=== PATIENT | female | born 1965 | race Caucasian/White ===

== ENCOUNTER → 2020-12-04 09:08 | Outpatient (REF) | payer OTHER, SELFPAY ==
--- NOTE | 2020-12-04 09:13 | CA_ITS ---
Acquisition Time: 2020-12-04 09:23:27 Total Exercise Time: 00:06:24 Test Indications: Palpitations Medications: ATORVASTATIN OMEPRAZOLE SUMATRIPITIN Protocol: DEANDRA Max HR: 144 BPM 86% of Pred: 166 BPM Max BP: 186/064 mmHG Max Work Load: 7.5 METS Exercise stress test with exercise 6 min 24 min of Deandra protocol, with report of mild sob, no chest discomfort, with isolated PVCs, with normotensive response to exercise, without EKG changes meeting criteria for ischemia. Test reviewed with Dr Kong. Referred By: Halie Bocanegra Overread By: MEAGHAN HUSSEIN
== END ==
LOC: HO.CARD 09:08
PROVIDERS: PCP Internal Medicine; Visit Provider Internal Medicine
DX: R07.89 Other chest pain (principal)
CPT/HCPCS: 93017

== ENCOUNTER 2020-12-22 12:09 | Outpatient (REF) | payer OTHER, SELFPAY ==
--- NOTE | ~2020-12-22 | MM_ITS ---
EXAMINATION: MM SCREENING DIGITAL BREAST TOMOSYNTHESIS, BILATERAL CLINICAL INFORMATION: Screening. Asymptomatic. The lifetime risk of breast cancer based on the Tyrer-Cuzick Model is 9%. COMPARISON: Mammography: 12/17/2019, 12/11/2018, 11/24/2017, 04/08/2016, outside exam 09/25/2014 ([facility]). TECHNIQUE: Digital breast tomosynthesis is performed in both the craniocaudal and mediolateral oblique views along with computer-aided detection (CAD). Synthesized 2D images are generated from the tomosynthesis. FINDINGS: There are scattered areas of fibroglandular density (ACR BI-RADS breast composition Category b). There are no significant masses, abnormal calcifications, or other abnormalities. Parenchymal pattern is similar to prior studies. No developing density. The skin contours are smooth. MM/MM tomosynthesis screening BI IMPRESSION: No significant changes from prior exams. ASSESSMENT: BI-RADS 1: Negative RECOMMENDATION: Routine annual mammography screening. This patient's information was entered into a reminder system with a target due date for their next mammogram.
== END 2020-12-22 12:10 | disposition home or self-care (01) ==
LOC: HO.MAMMO 12:09
PROVIDERS: PCP Internal Medicine; Visit Provider Internal Medicine
DX: Z12.31 Encounter for screening mammogram for malignant neoplasm of breast (principal)
CPT/HCPCS: 77063; 77067

== ENCOUNTER 2022-03-25 08:45 | Outpatient (REF) | payer OTHER, SELFPAY ==
--- NOTE | ~2022-03-25 | MM_ITS ---
EXAMINATION: MM DIAGNOSTIC DIGITAL BREAST TOMOSYNTHESIS, BILATERAL US DIAGNOSTIC ULTRASOUND BREAST, LEFT CLINICAL INFORMATION: Palpable area 1:00 left breast noted at routine clinical exam. The lifetime risk of breast cancer based on the Tyrer-Cuzick Model is 8%. COMPARISON: Mammography: 12/22/2020 12/17/2019, 12/11/2018, 11/24/2017, 11/08/2015, 09/25/2014 TECHNIQUE: Digital breast tomosynthesis is performed in both the craniocaudal and mediolateral oblique views along with computer-aided detection (CAD). Synthesized 2D images are generated from the tomosynthesis. Additional right MLO and spot left CC view are obtained. Ultrasound left breast is targeted to the upper outer quadrant. Grayscale imaging and color Doppler are performed without and with harmonics. Patient is able to point to area of recent clinical exam finding at time of imaging. FINDINGS: There are scattered areas of fibroglandular density (ACR BI-RADS breast composition Category b). Parenchymal pattern is similar to prior exams. Minor asymmetry central inner left breast is similar to multiple prior exams. Neither breast shows developing density or interval mass or architectural abnormality. No abnormal calcifications. No adenopathy. Skin contours are smooth. Targeted left breast ultrasound shows no cystic or solid mass, architectural abnormality, or focal duct ectasia. No skin thickening or edema tracking in soft tissue planes. Results are discussed with the patient at time of visit. Patient should be managed based on the clinical impression. If clinically indicated, further evaluation may be considered with surgical consult. Decision to proceed with biopsy should be based on clinical grounds and degree of clinical concern. MM/MM tomosynthesis diagnostic BI IMPRESSION: -Mammography shows no significant change from prior studies. -Unremarkable targeted left breast ultrasound. ASSESSMENT: BI-RADS 2: Benign RECOMMENDATION: 1. Patient should be managed based on the clinical impression. If clinically indicated, further evaluation may be considered with surgical consult. Decision to proceed with biopsy should be based on clinical grounds and degree of clinical concern. 2. Otherwise, routine annual screening mammography. This patient's information was entered into a reminder system with a target due date for their next mammogram.
== END 2022-03-25 08:46 | disposition home or self-care (01) ==
LOC: HO.MAMMO 08:45
PROVIDERS: PCP Internal Medicine; Visit Provider Internal Medicine
DX: N63.21 Unspecified lump in the left breast, upper outer quadrant (principal)
CPT/HCPCS: 76642; 77062; 77066

== ENCOUNTER → 2022-07-07 08:14 | Outpatient (BNVA) | payer OTHER, SELFPAY | PROVIDERS: PCP Internal Medicine; Referring Provider Internal Medicine; Visit Provider Surgery | DX: N63.21 Unspecified lump in the left breast, upper outer quadrant (principal) | CPT/HCPCS: 99202 ==

== ENCOUNTER 2022-07-19 13:44 | Outpatient (REF) | payer OTHER, SELFPAY ==
[2022-07-19 16:36] LABS: MANUAL DIFF FLAG NO
[2022-07-19 16:38] LABS: Basophils Percent Auto 0.5 % (0-2); Eosinophils Absolute Auto 0.1 X10*3/uL (0.0-0.4); Eosinophils Percent Auto 2.3 % (0-4); Hematocrit 40.8 % (37.0-47.0); Hemoglobin 13.5 g/dl (12.0-16.0); Imm Gran Abs Auto 0.01 X10*3/uL (0.00-0.03); Imm Gran Pct Auto 0.3 % (0.0-0.4); Lymphocytes Absolute Auto 1.6 X10*3/uL (1.2-4.9); Lymphocytes Percent Auto 40.7 % (20-40); Mean Corpuscular HGB Conc 33.1 g/dl (31.0-35.0); Mean Corpuscular Hemoglobin 30.5 pg (27.0-33.0); Mean Corpuscular Volume 92.3 fL (80.0-98.0); Mean Platelet Volume 11.4 fL (9.4-12.3); Monocytes Absolute Auto 0.3 X10*3/uL (0.1-1.2); Monocytes Percent Auto 8.8 % (2-11); Neutrophils Absolute Auto 1.8 x10*3/uL (2.0-8.3); Neutrophils Percent Auto 47.4 % (45-73); Platelet Count 245 X10*3/uL (160-400); Red Blood Count 4.42 X10*6/uL (4.20-5.50); Red Cell Distribution Width 12.6 % (11.0-16.0); White Blood Count 3.9 X10*3/uL (4.8-10.8)
[2022-07-19 16:53] LABS: Alanine Aminotransferase 16 U/L (0-31); Albumin Level 4.4 g/dL (3.5-5.0); Alkaline Phosphatase 90 U/L (39-117); Anion Gap 11 (12-20); Aspartate Amino Transferase 18 U/L (5-31); Bilirubin Total 0.3 mg/dL (0.0-1.0); Blood Urea Nitrogen 18 mg/dL (9-16); Calcium 9.9 mg/dL (8.4-10.2); Carbon Dioxide 30 mmol/L (22-29); Chloride 102 mmol/L (96-108); Cholesterol 310 mg/dL; Estimated Glomerular Filt Rate > 60; Glucose Fasting 96 mg/dL (60-99); HDL Cholesterol 70 mg/dL; LDL Cholesterol Calculated 227 mg/dl; Potassium 5.2 mmol/L (3.3-5.1); Sodium 138 mmol/L (135-145); Total Protein 7.3 g/dL (6.5-8.0); Triglycerides 66 mg/dL
[2022-07-19 17:13] LABS: TSH reflex Free T4 1.21 uIU/mL (0.32-4.0)
== END 2022-07-19 13:45 | disposition home or self-care (01) ==
LOC: HO.HMGCLDS 13:44
PROVIDERS: PCP Internal Medicine; Visit Provider Internal Medicine
DX: Z00.01 Encounter for general adult medical examination with abnormal findings (principal); Z13.39 Encounter for screening examination for other mental health and behavioral disorders; M17.0 Bilateral primary osteoarthritis of knee; N63.21 Unspecified lump in the left breast, upper outer quadrant
CPT/HCPCS: 36415; 80053; 80061; 84443; 85025

== ENCOUNTER 2025-08-05 10:39 | Outpatient (AMB) | payer OTHER, SELFPAY ==
--- OUTSIDE RECORDS SUMMARY | 2025-05-26 05:00 | XMS_ITS ---
Author Organization [facility] [address] Address [address] [place] [address] Care Team Providers Care Purchasing Associate Name Role Phone KAMERONCRISTINA EdwardEN Unavailable [phone] REASON FOR VISIT 2nd shingles + labs Encounters Encounter Location Date Provider Diagnosis [facility] [address] [place] [address] 05/26/2025 NAVJOT MELO Plan Of Treatment Next Appt Details Provider Name:NAVJOT MELO, 08/26/2025 09:45:00 AM, [address], [place], [address], Progress Notes * Aysha METZGEROB:1965 ( 60 yo F)Acc No.[id number]:05/26/2025 Progress Notes Patient: Asha KWAN Provider: Acacia MELO PA-C :1965 A ge:60 Y S ex:Female Date:05/26/2025 Address:[address] [place], [place] [id number] Subjective: * Chief Complaints: * 1 . 2nd shingles + labs. * Medical History: Objective: * Vitals: Assessment: Plan: * Treatment: * Images: Billing Information: * Visit Code: * Procedure Codes: Care Plan Details* * Electronic signature of CRISTINA MELO PA-C on 08/05/2025 at 11:57 AM EDT Sign off status: Pending * Provider: Acacia MELO PA-C Date: 0 05/26/2025 Generated for Joei ng/Falynneg/eTransmitting on: 0 08/05/2025 11:57 AM EDT
--- NOTE | 2025-08-05 10:52 | HO.NEPHOV_ITS ---
Vital Signs 08/05/25 10:53 Height 5 ft 10.5 in Weight 211 lb 2 oz BMI 29.9 BP 110/70 Blood Pressure Location Lt brachial Position Sitting Pulse 72 Pulse Source Pulse Oximeter Pulse Oximetry (%) 99 Oxygen Delivery Method Room Air Intake Visit Reasons: Self Referral: Dx- Kidney Stones ([facility]) Medical Record Retrieval Specialist Required: No Accompanied by: Self / Same As Patient Allergies oxycodone Allergy (Verified 08/05/25 10:53) Rash HPI Comments Details: I had the pleasure of seeing Asha in consultation for renal calculus. She has one episode of H/O renal calculus on left side within last 2 years but recently had right flank pain with no hematuria or fever needing 2 ER presentations. She eventually passed the stone( 3 mm by imaging). She had mild JESUS during this current episode. She never had a 24 hour urine for stone screen. Her diet is rich in sodium and meat. She is on Mounjaro for weight loss. She is not taking any NSAID's but used to take for OA of her knees( had undergone B/L knee replacements). She has no other complaints at the time of this office visit. [facility] Medical History (Updated 08/05/25 @ 11:19 by Michele Enrique MD) Flank pain Kidney stones Chronic GERD Migraine headache Palpitations Lipid disorder Surgical History History of total right knee replacement (TKR) History of wisdom tooth extraction Family History Father Non-Hodgkin lymphoma HTN (hypertension) Mother CHF (congestive heart failure) HTN (hypertension) Diet-controlled diabetes mellitus Maternal Grandfather Aneurysm Metastatic cancer Maternal Grandmother No problems noted. Paternal Grandmother Metastatic cancer Paternal Grandfather Lung cancer Smoker Sister No problems noted. Sister No problems noted. Maternal Aunt Breast cancer Social History Housing: House Patient Tobacco Use Status: Never used Tobacco e-Cigarette/Vaping Use: Never Used Second Hand Smoke Exposure: No service: No Current occupational status: employed Cognitive needs: No Hearing needs: No Vision needs: No Female Reproductive History Menstrual Age of Menarche: 15 Review of Systems Const All systems reviewed & are unremarkable except as noted in HPI and below Physical Exam Vital Signs: Last Vital Signs Pulse 72 08/05/25 10:53 BP 110/70 08/05/25 10:53 Pulse Ox 99 08/05/25 10:53 Oxygen Delivery Method Room Air 08/05/25 10:53 BMI result Body Mass Index 29.9 Const General: comfortable and no acute distress Orientation/consciousness: patient oriented x3 HEENT Head: Yes normocephalic Mouth: Normal oral and palatal mucosa present Eyes EOM: EOMs intact bilaterally Neck Neck: Yes supple Resp Auscultation: clear to auscultation bilaterally Cardio Jugular venous distension: no JVD Rate: regular rate GI Palpation (GI): Soft to palpation Auscultation: normal bowel sounds General: Yes no CVA tenderness Back/Spine/Pelvis Back: no CVA tenderness Skin General skin exam: no rashes or lesions noted Neuro General: patient oriented x3 and moves all extremities Results Reviewed Nephrology Results: Hgb, (12.0-16.0) 13.5 g/dl 07/19/22 WBC, (4.8-10.8) 3.9 X10*3/uL L 07/19/22 Plt Count, (160-400) 245 X10*3/uL 07/19/22 Sodium, (135-145) 138 mmol/L 07/19/22 Potassium, (3.3-5.1) 5.2 mmol/L H 07/19/22 Chloride, (96-108) 102 mmol/L 07/19/22 Carbon Dioxide, (22-29) 30 mmol/L H 07/19/22 BUN, (9-16) 18 mg/dL H 07/19/22 Creatinine, (0.5-1.4) 0.79 mg/dL 07/19/22 Calcium, (8.4-10.2) 9.9 mg/dL 07/19/22 Assessment & Plan Assessment & Plan (1) Renal calculus: Code(s): N20.0 - Calculus of kidney Category: Medical Plan Low sodium diet; Good hydration Increase citrate in the fluid Low oxalate in the diet Ordered F/U renal USS-- --24 hour urine and blood Work ( No family H/O medullary calcinosis) Had mild JESUS during recent stone Not taking NSAID's/ACEI/ARB Will be a candidate for HCTZ &/ K citrate Answered all questions & F/U was given Orders: Orders Calcium, 24 Hr Ur Today N20.0 - Calculus of kidney Uric Acid, 24Hr Urine Group Today N20.0 - Calculus of kidney Citric Acid 24hr Urine Today N20.0 - Calculus of kidney Uric Acid Today N20.0 - Calculus of kidney Electrolytes Today N20.0 - Calculus of kidney Blood Urea Nitrogen Today N20.0 - Calculus of kidney Creatinine Today N20.0 - Calculus of kidney Calcium Today N20.0 - Calculus of kidney US renal BI 1 Month N20.0 - Calculus of kidney Sodium, 24Hr Urine Group Today N20.0 - Calculus of kidney Oxalate, 24 Hr Today N20.0 - Calculus of kidney Coding Level of Care Code New Pt Level 4 (45877) Diagnoses Renal calculus N20.0
[2025-08-05 10:53] VITALS: BP 110/70; PULSE 72; O2SAT 99; BMI 29.9
--- OUTSIDE RECORDS SUMMARY | 2025-08-05 11:57 | XMS_ITS | Clinical Summary ---
Author Organization [facility] Address [address] [place] [address] Phone Care Team Providers Care Aircraft Ordnance Systems Mechanic Name Role Phone Halie Bocanegra MD Primary Care Provider [phone] Allergies No known active allergies Medications trifluridine (VIROPTIC) 1 % ophthalmic solution Place 1 drop into the left eye Every two hours. Every 2 hours while awake 7.5 mL 3 12/21/2022 Active valACYclovir (VALTREX) 1000 MG tablet Take 1 tablet (1,000 mg total) by mouth 2 (two) times a day. 20 tablet 6 12/21/2022 Active Active Problems No known active problems Family History Medical History Relation Comments Diabetes Neg Hx Glaucoma Neg Hx Macular degeneration Neg Hx Social History Tobacco Use Types Packs/Day Years Used Date Smoking Tobacco: Former Cigarettes Smokeless Tobacco: Never Tobacco Cessation:Counseling Given: Not Answered Alcohol Use Standard Drinks/Week Comments Yes 0 (1 standard drink = 0.6 oz pur e alcohol) 3/week Education Answer Date Recorded Are you interested in more education? Not on elia e 03/04/2023 Are you concerned about learning? Not on file 03/04/2023 No 03/04/2023 No 03/04/2023 Digital Access Answer Date Recorded No 04/02/2023 No 04/02/2023 No 04/02/2023 Reliable internet access at home? Not on file 04/02/2023 Device with a working camera? Not on file Comments Unknown Sex and Gender Information Value Date Recorded Sex Assigned at Female 07/27/2022 10:11 AM EDT Legal Sex Female 10:08 AM EDT Gender Identity Female 07/27/2022 10:11 AM EDT Sexual Orientation Asexual 12/20/2022 4: 54 PM EST Plan of Treatment Health Maintenance Due Date Last Done Comments LIPID PANEL 1966 DEPRESSION SCREENING 1978 SMOKING Hx and SMOKELESS TOB ACCO SCREENING 1979 HEPATITIS C SCREENING 02/27/1984 HIV ONE-TIME SCREENING (18-6 5 YEARS) 02/27/1984 PAP SMEAR 1987 MAMMOGRAM 2006 COLOGUARD 2011 COLONOSCOPY 2011 COLORECTAL CANCER SCREENING 2011 FIT TEST 2011 FOBT 2011 SIGMOIDOSCOPY 2011 VIRTUAL COLONOSCOPY 2011 PNEUMOCOCCAL VACCINES (50+ y ears) (1 of 1 - PCV) 02/27/2016 ZOSTER VACCINES (1 of 2) 02/27/2016 Adult Td,Tdap Booster 10/25/2022 10/25/2012 INFLUENZA VACCINE (#1) 2025 COVID-19 VACCINE (1 - 2023-2 5 season) 2025 HEPATITIS A VACCINES Aged Out No long er eligible based on patient's age to complete this topic HIB VACCINES Aged Out No longer eligi ble based on patient's age to complete this topic MENINGOCOCCAL VACCINES (ACWY) Aged Out No longer eligible based on patient's age to complete this topic MENINGOCOCCAL VACCINES (B) Aged Out N o longer eligible based on patient's age to complete this topic Medical Devices Not on file Insurance Seakeeper [facility] TOTAL CHOICE INDEMNITY [employer] TOTAL CHOICE INDEMNITY [employer] TOTAL CHOICE INDEMNITY [employer] TOTAL CHOICE INDEMNITY [employer] TOTAL CHOICE INDEMNITY [employer] TOTAL CHOICE INDEMNITY [employer] TOTAL CHOICE INDEMNITY [employer] TOTAL CHOICE INDEMNITY [employer] TOTAL CHOICE INDEMNITY Care Teams Aircraft Ordnance Systems Mechanic Relationship Specialty Start Date End Date Halie Bocanegra MD [address] [place] [address] PCP - General Internal Medicine 07/27/22 Additional Source Comments The information contained in this document represents components of the legal health record. It is not the complete legal health record.[facility]
--- OUTSIDE RECORDS SUMMARY | 2025-08-05 11:58 | XMS_ITS | Clinical Summary ---
Author Organization [facility] Address [address] [place] [address] Phone Care Team Providers Care Ceramic Plater Name Role Phone Alesia Viera Primary Care Provider [phone] Allergies Active Allergy Reactions Criticality Noted Date Comments Oxycodone Rash Low 03/07/2023 Medications naloxone (NARCAN) 4 mg/0.1 mL nasal spray Administer 1 each (4 mg total) into affected nostril(s) if needed for opioid reversal. Give 4 mg (1 spray) into one nostril. May repeat every 2-3 minutes if needed, alternating nostrils, until medical assistance becomes available. 2 each 5 07/03/20 26 Active ketorolac (TORADOL) 10 mg tablet Take 1 tablet (10 mg total) by mouth every 6 (six) hours if needed for moderate pain for up to 5 days. 20 tablet 5 07/08/20 25 tamsulosin (FLOMAX) 0.4 mg 24 hr capsule Take 1 capsule (0.4 mg total) by mouth 1 (one) time each day for 7 days. Capsules should be taken 30 minutes following the same meal each day. 7 capsule 5 07/10/20 25 HYDROmorphone (DILAUDID) 1 mg/mL liquidIndicatio ns:Flank pain Take 2 mL (2 mg total) by mouth every 6 (six) hours if needed for severe pain for up to 3 days. Max Daily Amount: 8 mg 12 mL 5 07/08/20 25 Encounters Date Type Department Care Team Description 07/05/2025 9:42 AM EDT - 07/05/2025 2:58 PM EDT Emergency [facility] Emergency [address] [place] [id number] Mynor Wright MD Flank pain (Primary Dx) Discharge Disposition: Home or Self Care 07/03/2025 2:12 AM EDT - 07/03/2025 5:59 AM EDT Emergency [facility] Emergency [address] [place] [phone] Niranjan Hagen MD Recurrent kidney stones (Primary Dx) Discharge Disposition: Home or Self Care from Last 3 Months Surgical History Surgery Date Site/Laterality Comments OTHER SURGICAL HISTORY 2010, 2011, 2013 PROCEDURE: MAMMOGRAM Medical History Medical History Date Comments Esophageal reflux DX:Esophageal reflux Kidney stones Family History Medical History Relation Name Comments Hyperlipidemia Father Hypertension Father Other cancer Father non hodgkins ly mphoma Hyperlipidemia Mother Hypertension Mother Blindness Neg Hx Cataracts Neg Hx Glaucoma Neg Hx Macular degeneration Neg Hx Strabismus Neg Hx Relation Name Status Comments Father Alive Mother from compl ications for mass in the bowels Social History Tobacco Use Types Packs/Day Years Used Date Smoking Tobacco: Former Smokeless Tobacco: Never Alcohol Use Standard Drinks/Week Comments Yes 0 (1 standard drink = 0.6 oz pur e alcohol) Comments Unknown Sex and Gender Information Value Date Recorded Sex Assigned at Not on file Legal Sex Female 6:42 PM EST Gender Identity Not on file Sexual Orientation Not on file Obstetrics History Last Filed Vital Signs Vital Sign Reading Time Taken Comments Blood Pressure 115/68 07/05/2025 12:49 PM EDT Pulse 57 07/05/2025 12:49 PM EDT Temperature 37 C (98.6 F) 07/05/2025 12:49 PM EDT Respiratory Rate 18 07/05/2025 9:30 AM EDT Oxygen Saturation 95% 07/05/2025 12:49 PM EDT Inhaled Oxygen Concentration - - Weight 90.7 kg (200 lb) 07/05/2025 9:30 AM EDT Height 177.8 cm (5' 10 ) 07/05/2025 9:30 AM EDT Body Mass Index 28.7 07/05/2025 9:30 AM EDT Plan of Treatment Health Maintenance Due Date Last Done Comments Breast Cancer Screening 1966 Colorectal Cancer Screening: Colonoscopy 1966 Hepatitis B Vaccines (1 of 3 - 19+ 3-dose series) 1985 Cervical Cancer Screening: Pap Smear 1987 Pneumococcal Vaccine: 50+ Years (1 of 1 - PCV) 02/27/2016 Zoster Vaccines (2 of 2) 08/29/2022 07/04/2022 Cholesterol Screening (Lipid Panel) 12/05/2023 HIV Screening 12/05/2023 Hepatitis C Screening 12/05/2023 Social Influencers of Health Screening 12/05/2023 Depression Screening 11/06/2024 COVID-19 Vaccine ( season) 2025 09/13/2022, 10/12/2021, 02/24/2021, Additional history exists Influenza Vaccine (#1) 2025 2, 07/20/2020, 08/24/2018 DTaP,Tdap,and Td Vaccines (3 - Td or Tdap) 05/10/2027 05/10/2017, 10/25/2012 RSV Immunization Adult Patients (1 - 1-dose 75+ series) 2041 HIB Vaccines Aged Out No longer eligi ble based on patient's age to complete this topic HPV Vaccines Aged Out No longer eligi ble based on patient's age to complete this topic Hepatitis A Vaccines Aged Out No long er eligible based on patient's age to complete this topic IPV Vaccines Aged Out No longer eligi ble based on patient's age to complete this topic MMR Vaccines Aged Out No longer eligi ble based on patient's age to complete this topic Meningococcal ACWY Vaccine Aged Out N o longer eligible based on patient's age to complete this topic Meningococcal B Vaccine Aged Out No l onger eligible based on patient's age to complete this topic RSV Immunization Patients Under 20 months Aged Out No longer eligible based on patient's age to complete this topic Varicella Vaccines Aged Out No longer eligible based on patient's age to complete this topic Procedures Procedure Name Priority Date/Time Associated Diagnosis Comments CBC WITH AUTO DIFFERENTIAL STAT 07/05/2025 9:48 AM EDT BASIC METABOLIC PANEL STAT 07/05/2025 9:48 AM EDT CBC AND DIFFERENTIAL STAT 07/05/2025 9:[address] ABDOMEN PELVIS WO CONTRAST STAT 07/03/2025 3:10 AM EDT WOODS URINE CULTURE TUBE Routine 07/03/2025 2:33 AM EDT EXTRA TUBES Routine 07/03/2025 2:33 AM EDT URINALYSIS WITH REFLEX MICROSCOPIC STAT 07/03/2025 2:33 AM EDT URINALYSIS WITH REFLEX MICROSCOPIC STAT 07/03/2025 2:33 AM EDT CBC WITH AUTO DIFFERENTIAL STAT 07/03/2025 2:19 AM EDT COMPREHENSIVE METABOLIC PANEL STAT 07/03/2025 2:19 AM EDT MAGNESIUM STAT 07/03/2025 2:19 AM EDT LIPASE STAT 07/03/2025 2:19 AM EDT CBC AND DIFFERENTIAL STAT 07/03/2025 2:19 AM EDT from Last 3 Months Results * (ABNORMAL) CBC auto differential (07/05/2025 9:48 AM EDT) Only the most recent of2 resultswithin the time period is included. WBC 5.9 4.8 - 10.8 K/mcL LAB HEMETOLOGY METHOD 07/05/2025 10:15 AM EDT [facility] RBC 4.30 3.80 - 4.80 M/mcL LAB HEMETOLOGY METHOD 07/05/2025 10:15 AM EDT [facility] Hemoglobin 13.1 11.5 - 16.0 g/dL LAB HEMETOLOGY METHOD 07/05/2025 10:15 AM EDT [facility] Hematocrit 40.4 35.0 - 47.0 % LAB HEMETOLOGY METHOD 07/05/2025 10:15 AM T [facility] MCV 93.5 79.0 - 98.0 FL LAB HEMETOLOGY METHOD 07/05/2025 10:15 AM [facility] MCH 30.3 27.0 - 32.0 pcg LAB HEMETOLOGY METHOD 07/05/2025 10:15 AM T [facility] MCHC 32.4 32.0 - 37.0 g/dL LAB HEMETOLOGY METHOD 07/05/2025 10:15 AM [facility] RDW 12.5 11.0 - 15.0 % LAB HEMETOLOGY METHOD 07/05/2025 10:15 AM [facility] Platelets 203 130 - 400 K/mcL LAB HEMETOLOGY METHOD 07/05/2025 10:15 AM [facility] MPV 11.0 7.0 - 11.0 FL LAB HEMETOLOGY METHOD 07/05/2025 10:15 AM [facility] NRBC 0.0 <1.0 % LAB HEMETOLOGY METHOD 07/05/2025 10:15 AM [facility] NRBC Absolute 0.00 <0.10 K/mcL LAB HEMETOLOGY METHOD 07/05/2025 10:15 AM [facility] Neutrophils Relative 76.7 % LAB HEMETOLOGY METHOD 07/05/2025 10:15 AM [facility] Lymphocytes Relative 15.4 % LAB HEMETOLOGY METHOD 07/05/2025 10:15 AM [facility] Monocytes Relative 6.1 % LAB HEMETOLOGY METHOD 07/05/2025 10:15 AM [facility] Eosinophils Relative 1.2 % LAB HEMETOLOGY METHOD 07/05/2025 10:15 AM [facility] Basophils Relative 0.3 % LAB HEMETOLOGY METHOD 07/05/2025 10:15 AM EDT [facility] Immature Granulocytes Relative 0.3 % LAB HEMETOLOGY METHOD 07/05/2025 10:15 AM EDT [facility] Neutrophils Absolute 4.52 1.50 - 7.00 K/mcL LAB HEMETOLOGY METHOD 07/05/2025 10:15 AM EDT [facility] Lymphocytes Absolute 0.91(L) 1.00 - 5.00 K/mcL LAB HEMETOLOGY METHOD 07/05/2025 10:15 AM EDT [facility] Monocytes Absolute 0.36 0.20 - 1.00 K/mcL LAB HEMETOLOGY METHOD 07/05/2025 10:15 AM EDT [facility] Eosinophils Absolute 0.07 0.00 - 0.50 K/mcL LAB HEMETOLOGY METHOD 07/05/2025 10:15 AM EDT [facility] Basophils Absolute 0.02 0.00 - 0.20 K/mcL LAB HEMETOLOGY METHOD 07/05/2025 10:15 AM EDT [facility] Immature Granulocytes Absolute 0.02 0.00 - 0.03 K/mcL LAB HEMETOLOGY METHOD 07/05/2025 10:15 AM EDT [facility] Blood Venous blood specimen / Unknown Venipuncture / Unknown 07/05/2025 9:48 AM EDT 07/05/2025 10:05 AM EDT us Mynor Wright MD LAB BLOOD ORDERABLES Final Res ult [facility] [address] [place] [address], * (ABNORMAL) Basic metabolic panel (07/05/2025 9:48 AM EDT) Sodium 138 133 - 145 mmol/L LAB CHEMISTRY METHOD 07/05/2025 10:44 AM [facility] Potassium 4.1 3.5 - 5.5 mmol/L LAB CHEMISTRY METHOD 07/05/2025 10:44 AM [facility] Comment:Hemolysis present Chloride 107 96 - 110 mmol/L LAB CHEMISTRY METHOD 07/05/2025 10:44 AM [facility] CO2 26 21 - 32 mmol/L LAB CHEMISTRY METHOD 07/05/2025 10:44 AM [facility] Anion Gap 5 3 - 11 LAB CHEMISTRY METHOD 07/05/2025 10:44 AM [facility] Glucose 106(H) 70 - 100 mg/dL LAB CHEMISTRY METHOD 07/05/2025 10:44 AM [facility] BUN 15 5 - 25 mg/dL LAB CHEMISTRY METHOD 07/05/2025 10:44 AM [facility] Creatinine 1.04 0.50 - 1.10 mg/dL LAB CHEMISTRY METHOD 07/05/2025 10:44 AM [facility] eGFR 62 >=60 mL/min/1. 73m2 LAB CHEMISTRY METHOD 07/05/2025 10:44 AM [facility] Comment:Calculation based on the Chronic Kidney Disease Epidemiology Collaboration (CKD-EPI) equation refit without adjustment for race. BUN/Creatinine Ratio 14.4 LAB CHEMISTRY METHOD 07/05/2025 10:44 AM [facility] Calcium 9.1 8.5 - 10.5 mg/dL LAB CHEMISTRY METHOD 07/05/2025 10:44 AM [facility] Blood Venous blood specimen / Unknown Venipuncture / Unknown 07/05/2025 9:48 AM EDT 07/05/2025 10:05 AM EDT us Mynor Wright MD LAB BLOOD ORDERABLES Final Res ult [facility] [address] [place] [address], * CT Abdomen Pelvis wo Contrast (07/03/2025 3:10 AM EDT) Anatomical Region Laterality Modality Body Computed Tomogra phy 07/03/2025 3:48 AM EDT Impressions 07/03/2025 3:48 AM EDT 3 mm calcification identified near the right ureterovesicular junction, suggesting an obstructing right urinary calculus. There is mild right hydroureter with mild right hydronephrosis. Nonobstructing left renal calculus. No left hydronephrosis. Colonic diverticulosis. No CT evidence for acute diverticulitis. Small hiatal hernia. No bowel obstruction. This document has been electronically signed by: Vincent Schuster MD on 07/03/2025 03:48:34 Narrative 07/03/2025 3:48 AM EDT INDICATION: Flank pain, kidney stone suspected CT abdomen and pelvis without contrast Comparison: None provided. Findings: No consolidation or effusion. Minimal linear subsegmental atelectasis versus scarring present at the left lower lobe. The gallbladder and solid organs are within normal limits. Nonobstructing calculus present at the inferior pole of the left kidney. No left hydronephrosis or left hydroureter. No radiopaque right renal calculi are identified. Multiple small calcifications are identified near the distal right ureter which appear to represent phleboliths. There is a 3 mm calcification near the right ureterovesicular junction, likely representing an obstructing calculus. There is mild right hydroureter with mild right hydronephrosis. No bowel obstruction, pneumoperitoneum, or pneumatosis. Small hiatal hernia. There is colonic diverticulosis. No CT evidence for acute diverticulitis. Pelvic contents unremarkable. The bladder is collapsed, limiting its evaluation. Small, fat containing bilateral inguinal hernias are present. Normal appendix. No acute fracture. Vacuum disc phenomenon present at L5-S1. Procedure Note Vincent Schuster MD - 07/03/2025 INDICATION: Flank pain, kidney stone suspected CT abdomen and pelvis without contrast Comparison: None provided. Findings: No consolidation or effusion. Minimal linear subsegmental atelectasis versus scarring present at the left lower lobe. The gallbladder and solid organs are within normal limits.Nonobstructing calculus present at the inferior pole of the left kidney. No left hydronephrosis or left hydroureter. No radiopaque right renal calculiare identified. Multiple small calcifications are identified near the distal right ureter which appear to represent phleboliths. There is a 3 mm calcification near the right ureterovesicular junction, likely representing an obstructing calculus. There is mild right hydroureterwith mild right hydronephrosis. No bowel obstruction, pneumoperitoneum, or pneumatosis. Small hiatal hernia. There is colonic diverticulosis. No CT evidence for acute diverticulitis. Pelvic contents unremarkable. The bladder is collapsed, limiting its evaluation. Small, fat containing bilateral inguinal hernias arepresent. Normal appendix. No acute fracture. Vacuum disc phenomenon present at L5-S1. IMPRESSION: 3 mm calcification identified near the right ureterovesicular junction, suggesting an obstructing right urinary calculus. There is mild right hydroureter with mild right hydronephrosis. Nonobstructing left renal calculus. No left hydronephrosis. Colonic diverticulosis. No CT evidence for acute diverticulitis. Small hiatal hernia. No bowel obstruction. This document has been electronically signed by: Vincent Schuster MD on 07/03/2025 03:48:34 Crystal Coelho NP IMG CT PROCEDURES Final R esult * (ABNORMAL) Urinalysis with reflex microscopic (07/03/2025 2:33 AM EDT) Pathologist [facility] Specific [place] Urine 1.020 1.003 - 1.030 LAB URINALYSIS - AUTOMATED METHOD 07/03/2025 3:06 AM [facility] pH, Urine 5.5 5.0 - 8.0 pH LAB URINALYSIS - AUTOMATED METHOD 07/03/2025 3:06 AM [facility] Leukocytes, Urine Negative Negative LAB URINALYSIS - AUTOMATED METHOD 07/03/2025 3:06 AM [facility] Nitrite, Urine Negative Negative LAB URINALYSIS - AUTOMATED METHOD 07/03/2025 3:06 AM [facility] Protein, Urine 30(A) <=Trace mg/dL LAB URINALYSIS - AUTOMATED METHOD 07/03/2025 3:06 AM [facility] Glucose, Urine Negative Negative mg/dL LAB URINALYSIS - AUTOMATED METHOD 07/03/2025 3:06 AM [facility] Ketones, Urine Negative Negative mg/dL LAB URINALYSIS - AUTOMATED METHOD 07/03/2025 3:06 AM [facility] Urobilinogen , Urine 0.2 0.2 - 1.0 mg/dL LAB URINALYSIS - AUTOMATED METHOD 07/03/2025 3:06 AM [facility] Bilirubin, Urine Negative Negative LAB URINALYSIS - AUTOMATED METHOD 07/03/2025 3:06 AM [facility] Blood, Urine Moderate(A) Negative LAB URINALYSIS - AUTOMATED METHOD 07/03/2025 3:06 AM [facility] RBC, Urine 74.5(H) 0 - 4 /HPF LAB URINALYSIS - AUTOMATED METHOD 07/03/2025 3:06 AM [facility] WBC, Urine 2.2 0 - 4 /HPF LAB URINALYSIS - AUTOMATED METHOD 07/03/2025 3:06 AM [facility] Squamous Epithelial, Urine 28 0 - 60 /LPF LAB URINALYSIS - AUTOMATED METHOD 07/03/2025 3:06 AM [facility] Bacteria, Urine Negative Negative /HPF LAB URINALYSIS - AUTOMATED METHOD 07/03/2025 3:06 AM [facility] Hyaline Casts, Urine 0.0 0 - 3 /LPF LAB URINALYSIS - AUTOMATED METHOD 07/03/2025 3:06 AM [facility] Urine Urine specimen obtained by clean catch procedure / Unknown Non-blood Collection / Unknown 07/03/2025 2:33 AM EDT 07/03/2025 2:58 AM EDT Niranjan Hagen MD LAB URINE ORDERABLES Final R esult Performing Organization Address [facility] Co de Phone Number [facility] [address] [place] [address], [place] [phone] * Woods urine culture tube (07/03/2025 2:33 AM EDT) [facility] Extra Tube Hold for add-ons. 07/03/2025 4:01 AM EDT [facility] Comment:Auto resulted. Urine Urine specimen obtained by clean catch procedure / Unknown Non-blood Collection / Unknown 07/03/2025 2:33 AM EDT 07/03/2025 2:59 AM EDT Crystal Coelho NP LAB URINE ORDERABLES Alethea l Result Performing Organization Address [facility] de Phone Number [facility] [address] [place] [address], [place] [phone] * Magnesium (07/03/2025 2:19 AM EDT) [facility] Magnesium 2.1 1.9 - 2.6 mg/dL LAB CHEMISTRY METHOD 07/03/2025 3:26 AM EDT [facility] Blood Venous blood specimen / Unknown Venipuncture / Unknown 07/03/2025 2:19 AM EDT 07/03/2025 3:00 AM EDT Niranjan Hagen MD LAB BLOOD ORDERABLES Final R esult Performing Organization Address [facility] Co de Phone Number [facility] [address] [place] [address], [place] [phone] * Lipase (07/03/2025 2:19 AM EDT) [facility] Lipase 48 13 - 75 unit/L LAB CHEMISTRY METHOD 07/03/2025 3:26 AM [facility] Blood Venous blood specimen / Unknown Venipuncture / Unknown 07/03/2025 2:19 AM EDT 07/03/2025 3:00 AM EDT us Niranjan Hagen MD LAB BLOOD ORDERABLES Final R esult [facility] [address] [place] [address], * (ABNORMAL) Comprehensive Metabolic Panel (CMP) (07/03/2025 2:19 AM EDT) Sodium 140 133 - 145 mmol/L LAB CHEMISTRY METHOD 07/03/2025 3:26 AM [facility] Potassium 4.1 3.5 - 5.5 mmol/L LAB CHEMISTRY METHOD 07/03/2025 3:26 AM [facility] Chloride 106 96 - 110 mmol/L LAB CHEMISTRY METHOD 07/03/2025 3:26 AM [facility] CO2 28 21 - 32 mmol/L LAB CHEMISTRY METHOD 07/03/2025 3:26 AM [facility] Anion Gap 6 3 - 11 LAB CHEMISTRY METHOD 07/03/2025 3:26 AM [facility] Glucose 125(H) 70 - 100 mg/dL LAB CHEMISTRY METHOD 07/03/2025 3:26 AM [facility] BUN 21 5 - 25 mg/dL LAB CHEMISTRY METHOD 07/03/2025 3:26 AM [facility] Creatinine 0.83 0.50 - 1.10 mg/dL LAB CHEMISTRY METHOD 07/03/2025 3:26 AM [facility] eGFR 81 >=60 mL/min/1. 73m2 LAB CHEMISTRY METHOD 07/03/2025 3:26 AM EDT [facility] Comment:Calculation based on the Chronic Kidney Disease Epidemiology Collaboration (CKD-EPI) equation refit without adjustment for race. BUN/Creatinine Ratio 25.3 LAB CHEMISTRY METHOD 07/03/2025 3:26 AM [facility] Calcium 9.1 8.5 - 10.5 mg/dL LAB CHEMISTRY METHOD 07/03/2025 3:26 AM [facility] AST (SGOT) 65(H) 10 - 42 unit/L LAB CHEMISTRY METHOD 07/03/2025 3:26 AM [facility] ALT (SGPT) 68(H) 10 - 60 unit/L LAB CHEMISTRY METHOD 07/03/2025 3:26 AM [facility] Alkaline Phosphatase 133(H) 42 - 121 unit/L LAB CHEMISTRY METHOD 07/03/2025 3:26 AM [facility] Total Protein 7.0 6.0 - 8.0 g/dL LAB CHEMISTRY METHOD 07/03/2025 3:26 AM [facility] Albumin 3.9 3.2 - 5.0 g/dL LAB CHEMISTRY METHOD 07/03/2025 3:26 AM [facility] Total Bilirubin 0.2 0.0 - 1.4 mg/dL LAB CHEMISTRY METHOD 07/03/2025 3:26 AM [facility] Blood Venous blood specimen / Unknown Venipuncture / Unknown 07/03/2025 2:19 AM EDT 07/03/2025 3:00 AM EDT us Niranjan Hagen MD LAB BLOOD ORDERABLES Final R esult [facility] [address] [place] [address], from Last 3 Months Insurance [employer] Care Teams Ceramic Plater Relationship Specialty Start Date End Date Alesia Viera PA [address] [place] [phone] PCP - General 01/29/24
--- OUTSIDE RECORDS SUMMARY | 2025-08-05 11:58 | XMS_ITS | Clinical Summary ---
Author Organization [facility] Address [address] [place] [address] Care Team Providers Care Choke Reamer Name Role Phone Unknown, Primary Care Provider Unavailabl e Social History Tobacco Use Types Packs/Day Years Used Date Smoking Tobacco: Never Assessed Sex and Gender Information Value Date Recorded Sex Assigned at Not on file Gender Identity Not on file Sexual Orientation Not on file Job Start Date Occupation Industry Not on file Not on file Not on file Plan of Treatment Health Maintenance Due Date Last Done Comments Hepatitis B Vaccines (1 of 3 - 3-dose series) 1966 Hepatitis C Screening 1966 COVID-19 Vaccine (#1) 1966 Depression Screening 1978 Preventative Health Evaluation 02/27/1984 DTap / Tdap / Td (1 - Tdap) 1985 Cervical Cancer Screening (P ap Smear) 1987 Colon Cancer Screening (Colonoscopy) 2011 Breast Cancer Screening (Mammogram) 02/27/2016 Shingrix-Zoster Vaccine (1 of 2) 02/27/2016 Influenza Vaccine (#1) 2025 Pneumococcal Vaccine Aged Out No long er eligible based on patient's age to complete this topic RSV Ped < 20 months Aged Out No longe r eligible based on patient's age to complete this topic Care Teams Choke Reamer Relationship Specialty Start Date End Date Unknown, PCP - General 02/06/24
--- OUTSIDE RECORDS SUMMARY | 2025-08-05 11:58 | XMS_ITS | Patient Health Record ---
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 Metabolic Panel ([id number] Reviewed date:01/23/2025 02:16:06 PM Interpretation: Performing Lab:[facility], [address] [facility], Phone - [phone], Director - MDJodry Notes/Report: Glucose 86 70-99 mg/dL BUN 16 6-24 mg/dL Creatinine 0.81 0.57-1.00 mg/dL eGFR 84 >59 mL/min/1.73 BUN/Creatinine Ratio 20 9-23 Sodium 139 134-144 mmol/L Potassium 4.7 3.5-5.2 mmol/L Chloride 101 96-106 mmol/L Carbon Dioxide, Total 23 20-29 mmol/L Calcium 9.6 8.7-10.2 mg/dL Protein, Total 7.1 6.0-8.5 g/dL Albumin 4.4 3.8-4.9 g/dL Globulin, Total 2.7 1.5-4.5 g/dL Bilirubin, Total 0.3 0.0-1.2 mg/dL Alkaline Phosphatase 96 44-121 IU/L AST (SGOT) 19 0-40 IU/L ALT (SGPT) 15 0-32 IU/L Lipid Panel-[id number] Reviewed date:01/23/2025 02:16:01 PM Interpretation: Performing Lab:[facility], [address] [facility], [place], Phone - [phone], Director - MDJodry Notes/Report: Cholesterol, Total 299 100-199 mg/dL Triglycerides 65 0-149 mg/dL HDL Cholesterol 79 >39 mg/dL VLDL Cholesterol Rubens 9 5-40 mg/dL LDL Chol Calc ([facility]) 211 0-99 mg/dL LDL Calc Comment: Consider evaluating for Familial Hypercholesterolemia(FH), if clinically indicated. Vitamin D, 85-Odaibob-[id number] Reviewed date:01/23/2025 02:16:06 PM Interpretation: Performing Lab:[facility], [address] [place] [address], Phone - [phone], Director - Lo Notes/Report: Vitamin D, 25-Hydroxy 15.7 30.0-100.0 ng/mL Vitamin D deficiency has been defined by the [place] [employer] and an Endocrine Society practice guideline as a level of serum 25-OH vitamin D less than 20 ng/mL (1,2). The Endocrine Society went on to further define vitamin D insufficiency as a level between 21 and 29 ng/mL (2). 1. IOM ([place] [employer]). 2010. Dietary reference intakes for calcium and D. [place]: The National Academies Press. 2. Fermín MF, Maggie [place], Wes ADAMSON, et al. Evaluation, treatment, and prevention of vitamin D deficiency: an Endocrine Society clinical practice guideline. JCEM. 2010; 96(7):1911-30. Triiodothyronine (T3), Free- [id number] Reviewed date:01/23/2025 02:16:06 PM Interpretation: Performing Lab:[facility], [address] [place] [address], Phone - [phone], Director - Lo Notes/Report: Triiodothyronine (T3), Free 2.5 2.0-4.4 pg/mL CBC With Differential/Platel et-[id number] Reviewed date:01/23/2025 02:16:06 PM Interpretation: Performing Lab:[facility], [address] [place] [address], [place], Phone - [phone], Director - Lo Notes/Report: WBC 4.0 3.4-10.8 x10E3/uL RBC 4.78 3.77-5.28 x10E6/uL Hemoglobin 14.7 11.1-15.9 g/dL Hematocrit 44.6 34.0-46.6 % MCV 93 79-97 fL MCH 30.8 26.6-33.0 pg MCHC 33.0 31.5-35.7 g/dL RDW 12.8 11.7-15.4 % Platelets 243 150-450 x10E3/uL Neutrophils 56 Not Estab. % Lymphs 36 Not Estab. % Monocytes 6 Not Estab. % Eos 1 Not Estab. % Basos 1 Not Estab. % Neutrophils (Absolute) 2.3 1.4-7.0 x10E3/uL Lymphs (Absolute) 1.4 0.7-3.1 x10E3/uL Monocytes(Absolute) 0.2 0.1-0.9 x10E3/uL Eos (Absolute) 0.0 0.0-0.4 x10E3/uL Baso (Absolute) 0.0 0.0-0.2 x10E3/uL Immature Granulocytes 0 Not Estab. % Immature Grans (Abs) 0.0 0.0-0.1 x10E3/uL TSH-[id number] Reviewed date:01/23/2025 02:16:06 PM Interpretation: Performing Lab:[facility] [place], [address] [place] [address], Phone - [phone], Director - MDJodry Notes/Report: TSH 1.410 0.450-4.500 uIU/mL Urinalysis, Complete-[id number] Reviewed date:01/23/2025 02:16:06 PM Interpretation: Performing Lab:[facility] [place], [address] [place] [address], Phone - [phone], Director - MDJodry Notes/Report: Specific [place] 1.022 1.005-1.030 pH 6.0 5.0-7.5 Urine-Color Yellow Yellow Appearance Clear Clear WBC Esterase Negative Negative Protein Negative Negative/Trace Glucose Negative Negative Ketones Negative Negative Occult Blood Negative Negative Bilirubin Negative Negative Urobilinogen,Semi-Qn 0.2 0.2-1.0 mg/dL Nitrite, Urine Negative Negative Microscopic Examination Micr oscopic follows if indicated. Microscopic Examination See below: Micr oscopic was indicated and was performed. WBC None seen 0 - 5 /hpf RBC None seen 0 - 2 /hpf Epithelial Cells (non renal) None seen 0 - 10 /hpf Casts None seen None seen /lpf Bacteria None seen None seen/Few Thyroxine (T4) Free, Direct- [id number] Reviewed date:01/23/2025 02:16:06 PM Interpretation: Performing Lab:[facility], [address] [facility], Phone - [phone], Director - TNDionnaalfred Notes/Report: T4,Free(Direct) 0.99 0.82-1.77 ng/dL Vitamin [id number] Reviewed date:01/23/2025 02:16:06 PM Interpretation: Performing Lab:[facility], [address] [facility] [place], Phone - [phone], Director - Lo Notes/Report: Vitamin B12 003 682-1570 pg/mL Hemoglobin [id number] Reviewed date:01/23/2025 02:16:06 PM Interpretation: Performing Lab:[facility], [address] [facility] [place], Phone - [phone], Director - Lo Notes/Report: Hemoglobin A1c 5.2 4.8-5.6 % . Prediabetes: 5.7 - 6.4 Diabetes: >6.4 Glycemic control for adults with diabetes: <7.0 Reason For Referral No Information Medications Medication SIG (Take, Route, Frequency, Duration) Notes Start Date End Date Status Benzonatate 200 MG 1 capsule Orally Three times a day; Duration: 10 days As needed cough 07/17/2025 Active Azithromycin 250 MG 2 tablets on day # 1 , then 1 tab orally for 4 days Orally daily; Duration: 5 days 07/17/2025 Active Nurtec 75 MG 1 tablet on the tong ue and allow to dissolve Orally every other day; Duration: 30 days Active Albuterol Sulfate HFA 108 (90 Base) MCG/ACT 2 puff Inhalation every 6 hours; Duration: 30 days As needed wheezing 07/17/2025 Active Vitamin D 50 MCG (2000 UT) 1 tablet Orally Once a day Active CoQ10 200 MG as directed Orally Active Multivitamin - 1 tablet Orally Once a day Active Probiotic 250 MG as directed Orally Active Mounjaro 7.5 MG/0.5ML as directed Subcutaneous Active Immunizations Vaccine Route Administration Date Status Comme nts SHINGRIX IM Intramuscular 01/29/2025 Administered Social History Tobacco Use: Social History Observation Description Date Details (start date - stop date) Former Smoker NA - NA Tobacco Use/Smoking Question Answer Notes Are you a former smoker How long has it been since y ou last smoked? > 10 years Additional Findings: Tobacco User Light cigarett e smoker ((1-9 cigs/day) Alcohol Screen (Audit-C) Question Answer Notes Did you have a drink containing alcohol in the p ast year? Yes Points 0 Interpretation Negative Section Notes: Tob: Former, 25 years, quit 2017 ETOH: Socially Drug Use: None Bartend denies tobacco use. Tob: Former, 25 years, quit 2017 ETOH: Socially 4 drinks weeks Drug Use: None Bartend Tob: Former, 25 years, quit 2017 ETOH: Socially 4 drinks weeks Drug Use: None Bartend Tob: Former, 25 years, quit 2017 ETOH: Socially 4 drinks weeks Drug Use: None Bartend Tob: Former, 25 years, quit 2017 ETOH: Socially 4 drinks weeks Drug Use: None Bartend Tob: Former, 25 years, quit 2017 ETOH: Socially Drug Use: None Bartend Tob: Former, 25 years, quit 2017 ETOH: Socially Drug Use: None Bartend Tob: Former, 25 years, quit 2017 ETOH: Socially 4 drinks weeks Drug Use: None Bartend Tob: Former, 25 years, quit 2017 ETOH: Socially 4 drinks weeks Drug Use: None Bartend Tob: Former, 25 years, quit 2017 ETOH: Socially Drug Use: None Bartend Tob: Former, 25 years, quit 2017 ETOH: Socially 4 drinks weeks Drug Use: None Bartend Tob: Former, 25 years, quit 2017 ETOH: Socially Drug Use: None Bartend Tob: Former, 25 years, quit 2017 ETOH: Socially 4 drinks weeks Drug Use: None Bartend Problems Problem Type SNOMED Code ICD Code Onset Dates Problem Status W/U Status Risk Notes Problem Vitamin D deficiency (11054958) Vitamin D deficiency, unspecified (E55.9) Active confirmed Problem Overweight (495667669) Overweight (E66.3) Active confirmed Problem Migraine without aur a (40468037) Migraine without aura, not intractable, with status migrainosus (G43.001) Active confirmed Problem Adult health examination (682038593) Encounter for general adult medical examination without abnormal findings (Z00.00) Active confirmed Problem Screening for malignant neoplasm of colon (691801881) Encounter for screening for malignant neoplasm of colon (Z12.11) Active confirmed Problem Screening for malignant neoplasm of breast (001467083) Encounter for screening mammogram for malignant neoplasm of breast (Z12.31) Active confirmed Problem Screening for malignant neoplasm of skin (485749985) Encounter for screening for malignant neoplasm of skin (Z12.83) Active confirmed Problem Diabetes mellitus screening (851516200) Encounter for screening for diabetes mellitus (Z13.1) Active confirmed Problem Screening for cardiovascular system disease (996176978) Encounter for screening for cardiovascular disorders (Z13.6) Active confirmed Problem Hyperlipoproteinemia (7166300) Acquired 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) Active confirmed Problem Hypothyroidism (39582479) Hypothyroidism, unspecified type (E03.9) Active confirmed Problem Chronic sinusitis (01777006) Sinusitis, unspecified chronicity, unspecified location (J32.9) Active confirmed Problem Screening for malignant neoplasm of cervix (912685808) Pap smear for cervical cancer screening (Z12.4) Active confirmed Problem Vitamin D deficiency (59722430) Vitamin D deficiency (E55.9) Active confirmed Problem Renal stone (22517683) Renal stone (N20.0) Active confirmed Problem Obesity (238174521) Obesity (BMI 30-39.9) (E66.9) Active confirmed Problem Recurrent sinusitis (421462857) Recurrent sinusitis (J32.9) Active confirmed Problem Vitamin B>12< deficiency anaemia (57066968) Anemia due to vitamin B12 deficiency, 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) Active confirmed Problem Body mass index 30.0 0 to 34.99 (743985517409392) BMI 31.0-31.9,adult (Z68.31) Active confirmed Problem Body mass index 30+ - obesity (118263355) BMI 30.0-30.9,adult (Z68.30) Active confirmed Problem Body mass index 30.0 0 to 34.99 (388937656361356) BMI 34.0-34.9,adult (Z68.34) Active confirmed Problem Gastroesophageal reflux disease (260598361) GERD without esophagitis (K21.9) Active confirmed Problem Lipid screening (867750416) Lipid screening (Z13.220) Active confirmed Problem Hyperlipidemia (89695875) Hyperlipidemia (E78.5) Active confirmed Problem Obesity (552273224) Obesity (E66.9) Active conf irmed Vital Signs Heart Rate 64 /min 07/17/2025 Oximetry 97 % 07/17/2025 Blood pressure diastolic 78 mm Hg 07/17/2025 Height 71 in 07/17/2025 Blood pressure systolic 118 mm Hg 07/17/2025 Weight 215.8 lbs 07/17/2025 BMI 30.09 kg/m2 07/17/2025 Encounters Encounter Location Date Provider Diagnosis [facility] [address] [place], [place] 08/13/2024 FAIZA MANNINGR Obesity (BMI 30-39.9 ) E66.9 ; BMI 34.0-34.9,adult Z68.34 ; Migraine without aura, not intractable, with status migrainosus G43.001 ; Sinusitis, unspecified chronicity, unspecified location J32.9 and Ureteral stone N20.1 [facility] [address] [place], [place] 09/24/2024 NAVJOT VIZCAINOA Obesity (BMI 30-39.9 ) E66.9 ; BMI 31.0-31.9,adult Z68.31 ; Migraine without aura, not intractable, with status migrainosus G43.001 ; Sinusitis, unspecified chronicity, unspecified location J32.9 and Ureteral stone N20.1 [facility] [address] [place], [place] 11/12/2024 NAVJOT VIZCAINOA Obesity (BMI 30-39.9 ) E66.9 ; BMI 30.0-30.9,adult Z68.30 ; Migraine without aura, not intractable, with status migrainosus G43.001 and Sinusitis, unspecified chronicity, unspecified location J32.9 [facility] [address] [place], [place] 01/29/2025 MICHAEL THOMPSONNER Obesity (BMI 30-39.9 ) E66.9 ; Annual physical exam Z00.00 ; BMI 30.0-30.9,adult Z68.30 ; Migraine without aura, not intractable, with status migrainosus G43.001 ; Sinusitis, unspecified chronicity, unspecified location J32.9 ; Hyperlipidemia E78.5 ; Vitamin D deficiency, unspecified E55.9 ; Screening for diabetes mellitus Z13.1 and Encounter for immunization Z23 [facility] [address] [place] [address] 03/25/2025 NAVJOT KAMERON Overweight E66.3 ; B NC 29.0-29.9,adult Z68.29 ; Migraine without aura, not intractable, with status migrainosus G43.001 ; Hyperlipidemia E78.5 ; Vitamin D deficiency, unspecified E55.9 and Encounter for examination of blood pressure without abnormal findings Z01.[address] [facility] [address] [place], [place] 05/20/2025 NAVJOT KAMERON Overweight E66.3 ; B NC 29.0-29.9,adult Z68.29 ; Hyperlipidemia E78.5 ; Migraine without aura, not intractable, with status migrainosus G43.001 ; Vitamin D deficiency, unspecified E55.9 and Encounter for examination of blood pressure without abnormal findings Z01.[address] [facility] [address] [place], [place] 07/04/2025 NAVJOT KAMERON URI with cough and congestion J06.9 ; Obesity E66.9 ; Hyperlipidemia E78.5 ; Migraine without aura, not intractable, with status migrainosus G43.001 ; Vitamin D deficiency, unspecified E55.9 ; Renal stone N20.0 and Encounter for examination of blood pressure without abnormal findings Z01.[address] [facility] [address] [place], [place] 07/17/2025 NAVJOT KAMERON Obesity E66.9 ; URI with cough and congestion J06.9 ; Hyperlipidemia E78.5 ; Migraine without aura, not intractable, with status migrainosus G43.001 and Encounter for examination of blood pressure without abnormal findings Z01.[address] [facility] [address] [place], [place] 08/13/2024 NAVJOT KAMERON [facility] [address] [place], [place] 10/15/2024 NAVJOT KAMERON [facility] [address] [address] 11/19/2024 NAVJOT KAMERON [facility] [address] [address] 12/24/2024 NAVJOT KAMERON [facility] [address] [place] [address] 01/29/2025 NAVJOT KAMERON [facility] [address] [place] [address] 02/28/2025 NAVJOT KAMERON [facility] [address] [place] [address] 04/02/2025 NAVJOT KAMERON [facility] [address] [place] [address] 04/21/2025 NAVJOT KAMERON [facility] [address] [place] [address] 05/20/2025 NAVJOT KAMERON [facility] [address] [place] [address] 05/27/2025 NAVJOT KAMERON [facility] [address] [place] [address] 06/04/2025 NAVJOT KAMERON [facility] [address] [place] [address] 06/09/2025 NAVJOT KAMERON [facility] [address] [place] [address] 07/04/2025 NAVJOT KAMERON Obesity (BMI 30-39.9 ) E66.9 [facility] [address] [facility] [address] [place] [address] 07/04/2025 NAVJOT KAMERON [facility] [address] [place] [address] 07/09/2025 NAVJOT KAMERON [facility] [address] [place] [address] 07/16/2025 NAVJOT KAMERON Assessments Encounter Date Diagnosis (ICD Code) Assessment Notes Treatment Notes Treatment Clinical Notes Section Notes 08/13/2024 Obesity (BMI 30-39.9) (ICD-10 - E66.9) # Obesity 03/26/24: BMI 34, Weight 244. Discussed food rules. Discussed body composition scale at length. We discussed overall lifestyle changes, importance of limiting highly processed and heavy carbohydrate foods. Patient needs to exercise at least 3 times a week including walking and resistance training. Minimum of 64 ounces of water needs to be consumed today. HODAN C injection was also encouraged. We discussed options, Wegovy will likely be the best option. Patient is traveling for 3 weeks to [place]. Patient is also considering oral medications if injectables are not covered. We did discuss compounded options in the office. We will submit to insurance for Wegovy. Discussed storage and administration. Patient has no history of thyroid cancer. 05/20/24: BMI 34, Weight 244 lb. Wegovy sample given. Start Wegovy 0.25 mg subcu weekly. Discussed side effects. Ensure no hx of thyroid ca. Ecnouraged to consume 80 grams of protein, and consume 80 oz of water daily. Resistance train. 06/25/24: BMI 32, Weight 234. Continue Wegovy, increase to 0.5 mg. Pt may need stent, if she does, she needs to hold Wegovy 1 week prior to stent placement to reduce risk of aspiration. 08/13/24: BMI 32, Weight 236. Increase to Wegovy 1 mg subcu weekly. Discussed holding requirements for Wegovy preprocedural due to risk of aspiration. # Left ureteral stone. Following with urology. Discussed low oxalate diet. Due for repeat lithotripsy Sep 2024 # Recurrent sinusitis. CT sinuses shows mild paranasal sinus disease. ENT referred- appt not until Nov. Refer to CT ENT. Has tried Amoxil and Augmentin w/o improvement. Consider Avelox. ? Anarobe coverage due to netti pot. Pt reports she is using sterile water. # Headaches: Nurtect every other day. Using Rizatriptan too. ? Trigeminal neuralagia. Total time spent today was 30 minutes of which greater than 50% was spent on coordinating and counseling Case discussed with collaborating physician Abhishek Gayle who reviewed the assessment and plan. Chart, medications, labs, vital signs reviewed. Dictation was accomplished with the use of [employer] voice recognition software, prone to medical misidentifications and grammatical errors. This is unintentional and the practitioner does try to identify and correct these, but some could still be present. Please do not hesitate to contact practitioner for clarification. All quetsions answered to patients satisfaction. Patient verbalized understanding of diagnosis and treatments explained. To call sooner prior to next visit it any questions/concerns arise. 08/13/2024 BMI 34.0-34.9,adult (ICD-10 - Z68.34) # Obesity 03/26/24: BMI 34, Weight 244. Discussed food rules. Discussed body composition scale at length. We discussed overall lifestyle changes, importance of limiting highly processed and heavy carbohydrate foods. Patient needs to exercise at least 3 times a week including walking and resistance training. Minimum of 64 ounces of water needs to be consumed today. HODAN C injection was also encouraged. We discussed options, Wegovy will likely be the best option. Patient is traveling for 3 weeks to [place]. Patient is also considering oral medications if injectables are not covered. We did discuss compounded options in the office. We will submit to insurance for Wegovy. Discussed storage and administration. Patient has no history of thyroid cancer. 05/20/24: BMI 34, Weight 244 lb. Wegovy sample given. Start Wegovy 0.25 mg subcu weekly. Discussed side effects. Ensure no hx of thyroid ca. Ecnouraged to consume 80 grams of protein, and consume 80 oz of water daily. Resistance train. 06/25/24: BMI 32, Weight 234. Continue Wegovy, increase to 0.5 mg. Pt may need stent, if she does, she needs to hold Wegovy 1 week prior to stent placement to reduce risk of aspiration. 08/13/24: BMI 32, Weight 236. Increase to Wegovy 1 mg subcu weekly. Discussed holding requirements for Wegovy preprocedural due to risk of aspiration. # Left ureteral stone. Following with urology. Discussed low oxalate diet. Due for repeat lithotripsy Sep 2024 # Recurrent sinusitis. CT sinuses shows mild paranasal sinus disease. ENT referred- appt not until Nov. Refer to CT ENT. Has tried Amoxil and Augmentin w/o improvement. Consider Avelox. ? Anarobe coverage due to netti pot. Pt reports she is using sterile water. # Headaches: Nurtect every other day. Using Rizatriptan too. ? Trigeminal neuralagia. Total time spent today was 30 minutes of which greater than 50% was spent on coordinating and counseling Case discussed with collaborating physician Abhishek Gayle who reviewed the assessment and plan. Chart, medications, labs, vital signs reviewed. Dictation was accomplished with the use of [employer] voice recognition software, prone to medical misidentifications and grammatical errors. This is unintentional and the practitioner does try to identify and correct these, but some could still be present. Please do not hesitate to contact practitioner for clarification. All quetsions answered to patients satisfaction. Patient verbalized understanding of diagnosis and treatments explained. To call sooner prior to next visit it any questions/concerns arise. 09/24/2024 Obesity (BMI 30-39.9) (ICD-10 - E66.9) # Obesity 03/26/24: BMI 34, Weight 244. Discussed food rules. Discussed body composition scale at length. We discussed overall lifestyle changes, importance of limiting highly processed and heavy carbohydrate foods. Patient needs to exercise at least 3 times a week including walking and resistance training. Minimum of 64 ounces of water needs to be consumed today. HODAN C injection was also encouraged. We discussed options, Wegovy will likely be the best option. Patient is traveling for 3 weeks to [place]. Patient is also considering oral medications if injectables are not covered. We did discuss compounded options in the office. We will submit to insurance for Wegovy. Discussed storage and administration. Patient has no history of thyroid cancer. 05/20/24: BMI 34, Weight 244 lb. Wegovy sample given. Start Wegovy 0.25 mg subcu weekly. Discussed side effects. Ensure no hx of thyroid ca. Ecnouraged to consume 80 grams of protein, and consume 80 oz of water daily. Resistance train. 06/25/24: BMI 32, Weight 234. Continue Wegovy, increase to 0.5 mg. Pt may need stent, if she does, she needs to hold Wegovy 1 week prior to stent placement to reduce risk of aspiration. 08/13/24: BMI 32, Weight 236. Increase to Wegovy 1 mg subcu weekly. Discussed holding requirements for Wegovy preprocedural due to risk of aspiration. 09/24/24: BMI 31, Weight 227. Increase to Wegovy 1.7 mg subcu weekly. # Left ureteral stone. Following with urology. Lithotripsy today # Recurrent sinusitis. CT sinuses shows mild paranasal sinus disease. ENT referred- appt not until Nov. Refer to CT ENT # Headaches: Nurtect every other day. Using Rizatriptan too. ? Trigeminal neuralagia. Total time spent today was 30 minutes of which greater than 50% was spent on coordinating and counseling Case discussed with collaborating physician Abhishek Gayle who reviewed the assessment and plan. Chart, medications, labs, vital signs reviewed. Dictation was accomplished with the use of [employer] voice recognition software, prone to medical misidentifications and grammatical errors. This is unintentional and the practitioner does try to identify and correct these, but some could still be present. Please do not hesitate to contact practitioner for clarification. All quetsions answered to patients satisfaction. Patient verbalized understanding of diagnosis and treatments explained. To call sooner prior to next visit it any questions/concerns arise. 09/24/2024 BMI 31.0-31.9,adult (ICD-10 - Z68.31) # Obesity 03/26/24: BMI 34, Weight 244. Discussed food rules. Discussed body composition scale at length. We discussed overall lifestyle changes, importance of limiting highly processed and heavy carbohydrate foods. Patient needs to exercise at least 3 times a week including walking and resistance training. Minimum of 64 ounces of water needs to be consumed today. HODAN C injection was also encouraged. We discussed options, Wegovy will likely be the best option. Patient is traveling for 3 weeks to [place]. Patient is also considering oral medications if injectables are not covered. We did discuss compounded options in the office. We will submit to insurance for Wegovy. Discussed storage and administration. Patient has no history of thyroid cancer. 05/20/24: BMI 34, Weight 244 lb. Wegovy sample given. Start Wegovy 0.25 mg subcu weekly. Discussed side effects. Ensure no hx of thyroid ca. Ecnouraged to consume 80 grams of protein, and consume 80 oz of water daily. Resistance train. 06/25/24: BMI 32, Weight 234. Continue Wegovy, increase to 0.5 mg. Pt may need stent, if she does, she needs to hold Wegovy 1 week prior to stent placement to reduce risk of aspiration. 08/13/24: BMI 32, Weight 236. Increase to Wegovy 1 mg subcu weekly. Discussed holding requirements for Wegovy preprocedural due to risk of aspiration. 09/24/24: BMI 31, Weight 227. Increase to Wegovy 1.7 mg subcu weekly. # Left ureteral stone. Following with urology. Lithotripsy today # Recurrent sinusitis. CT sinuses shows mild paranasal sinus disease. ENT referred- appt not until Nov. Refer to CT ENT # Headaches: Nurtect every other day. Using Rizatriptan too. ? Trigeminal neuralagia. Total time spent today was 30 minutes of which greater than 50% was spent on coordinating and counseling Case discussed with collaborating physician Abhishek Gayle who reviewed the assessment and plan. Chart, medications, labs, vital signs reviewed. Dictation was accomplished with the use of [place] [employer] voice recognition software, prone to medical misidentifications and grammatical errors. This is unintentional and the practitioner does try to identify and correct these, but some could still be present. Please do not hesitate to contact practitioner for clarification. All quetsions answered to patients satisfaction. Patient verbalized understanding of diagnosis and treatments explained. To call sooner prior to next visit it any questions/concerns arise. 11/12/2024 Obesity (BMI 30-39.9) (ICD-10 - E66.9) # Obesity 03/26/24: BMI 34, Weight 244. Discussed food rules. Discussed body composition scale at length. We discussed overall lifestyle changes, importance of limiting highly processed and heavy carbohydrate foods. Patient needs to exercise at least 3 times a week including walking and resistance training. Minimum of 64 ounces of water needs to be consumed today. HODAN C injection was also encouraged. We discussed options, Wegovy will likely be the best option. Patient is traveling for 3 weeks to [place]. Patient is also considering oral medications if injectables are not covered. We did discuss compounded options in the office. We will submit to insurance for Wegovy. Discussed storage and administration. Patient has no history of thyroid cancer. 05/20/24: BMI 34, Weight 244 lb. Wegovy sample given. Start Wegovy 0.25 mg subcu weekly. Discussed side effects. Ensure no hx of thyroid ca. Ecnouraged to consume 80 grams of protein, and consume 80 oz of water daily. Resistance train. 06/25/24: BMI 32, Weight 234. Continue Wegovy, increase to 0.5 mg. Pt may need stent, if she does, she needs to hold Wegovy 1 week prior to stent placement to reduce risk of aspiration. 08/13/24: BMI 32, Weight 236. Increase to Wegovy 1 mg subcu weekly. Discussed holding requirements for Wegovy preprocedural due to risk of aspiration. 09/24/24: BMI 31, Weight 227. Increase to Wegovy 1.7 mg subcu weekly. 11/12/24: BMI 30, Weight 222. Conitnue Wegovy 1.7 mg subcu weekly. Tolerating well. Lost all fat, gained muscle # Left ureteral stone. Following with urology. Lithotripsy Oct 2024 # Recurrent sinusitis. CT sinuses shows mild paranasal sinus disease. ENT referred- appt not until Nov. Refer to CT ENT # Headaches: Nurtect every other day. Using Rizatriptan too. ? Trigeminal neuralagia. Total time spent today was 30 minutes of which greater than 50% was spent on coordinating and counseling Case discussed with collaborating physician Abhishek Gayle who reviewed the assessment and plan. Chart, medications, labs, vital signs reviewed. Dictation was accomplished with the use of [place] [employer] voice recognition software, prone to medical misidentifications and grammatical errors. This is unintentional and the practitioner does try to identify and correct these, but some could still be present. Please do not hesitate to contact practitioner for clarification. All quetsions answered to patients satisfaction. Patient verbalized understanding of diagnosis and treatments explained. To call sooner prior to next visit it any questions/concerns arise. 11/12/2024 BMI 30.0-30.9,adult (ICD-10 - Z68.30) # Obesity 03/26/24: BMI 34, Weight 244. Discussed food rules. Discussed body composition scale at length. We discussed overall lifestyle changes, importance of limiting highly processed and heavy carbohydrate foods. Patient needs to exercise at least 3 times a week including walking and resistance training. Minimum of 64 ounces of water needs to be consumed today. HODAN C injection was also encouraged. We discussed options, Wegovy will likely be the best option. Patient is traveling for 3 weeks to [place]. Patient is also considering oral medications if injectables are not covered. We did discuss compounded options in the office. We will submit to insurance for Wegovy. Discussed storage and administration. Patient has no history of thyroid cancer. 05/20/24: BMI 34, Weight 244 lb. Wegovy sample given. Start Wegovy 0.25 mg subcu weekly. Discussed side effects. Ensure no hx of thyroid ca. Ecnouraged to consume 80 grams of protein, and consume 80 oz of water daily. Resistance train. 06/25/24: BMI 32, Weight 234. Continue Wegovy, increase to 0.5 mg. Pt may need stent, if she does, she needs to hold Wegovy 1 week prior to stent placement to reduce risk of aspiration. 08/13/24: BMI 32, Weight 236. Increase to Wegovy 1 mg subcu weekly. Discussed holding requirements for Wegovy preprocedural due to risk of aspiration. 09/24/24: BMI 31, Weight 227. Increase to Wegovy 1.7 mg subcu weekly. 11/12/24: BMI 30, Weight 222. Conitnue Wegovy 1.7 mg subcu weekly. Tolerating well. Lost all fat, gained muscle # Left ureteral stone. Following with urology. Lithotripsy Oct 2024 # Recurrent sinusitis. CT sinuses shows mild paranasal sinus disease. ENT referred- appt not until Nov. Refer to CT ENT # Headaches: Nurtect every other day. Using Rizatriptan too. ? Trigeminal neuralagia. Total time spent today was 30 minutes of which greater than 50% was spent on coordinating and counseling Case discussed with collaborating physician Abhishek Gayle who reviewed the assessment and plan. Chart, medications, labs, vital signs reviewed. Dictation was accomplished with the use of [employer] voice recognition software, prone to medical misidentifications and grammatical errors. This is unintentional and the practitioner does try to identify and correct these, but some could still be present. Please do not hesitate to contact practitioner for clarification. All quetsions answered to patients satisfaction. Patient verbalized understanding of diagnosis and treatments explained. To call sooner prior to next visit it any questions/concerns arise. 01/29/2025 Annual physical exam (ICD-10 - Z00.00) # Health Maintenance: influenza 09/13/2022, Covid 09/13/2022, shingles #1 obtained today 01/29/2025, tetanus 05/10/2017 and due in 2026. Mammogram 06/04/2022 will obtain records, colonoscopy 05/20/2024 will obtain records, PAP 05/21/2024 will obtain records. Labwork reviewed today. Revealing hyperlipidemia and vitamin D deficiency but otherwise labs were within normal limits. # Hyperlipidemia: Labs 01/22/2025 revealed total cholesterol 299, triglycerides 65, HDL 79, LDL 211. Patient states she has a history of taking atorvastatin 40 mg without side effects, reports stopping the medication a few years ago. Will re-initiate atorvastatin 20 mg PO daily. Patient agreeable to plan. Discussed continuation of lifestyle healthy habits and possibility of stopping this medication at a later date. Repeat labs in 4 months. # Vitamin D deficiency: Labs 01/22/2025 reveal vitamin D level 15.7. Patient reports she will take 2000U vitamin D daily. Repeat labs in 4 months. # Screening for diabetes mellitus: hemoglobin A1C 5.2. No intervention indicated at this time. # Left ureteral stone. Following with urology. Lithotripsy Oct 2024 # Chronic sinus infections: Following with ENT. # Headaches: Nurtec every other day. Stopped taking triptan states it does not work.Has been feeling well. # Obesity 03/26/24: BMI 34, Weight 244. Discussed food rules. Discussed body composition scale at length. We discussed overall lifestyle changes, importance of limiting highly processed and heavy carbohydrate foods. Patient needs to exercise at least 3 times a week including walking and resistance training. Minimum of 64 ounces of water needs to be consumed today. HODAN C injection was also encouraged. We discussed options, Wegovy will likely be the best option. Patient is traveling for 3 weeks to [place]. Patient is also considering oral medications if injectables are not covered. We did discuss compounded options in the office. We will submit to insurance for Wegovy. Discussed storage and administration. Patient has no history of thyroid cancer. 05/20/24: BMI 34, Weight 244 lb. Wegovy sample given. Start Wegovy 0.25 mg subcu weekly. Discussed side effects. Ensure no hx of thyroid ca. Ecnouraged to consume 80 grams of protein, and consume 80 oz of water daily. Resistance train. 06/25/24: BMI 32, Weight 234. Continue Wegovy, increase to 0.5 mg. Pt may need stent, if she does, she needs to hold Wegovy 1 week prior to stent placement to reduce risk of aspiration. 08/13/24: BMI 32, Weight 236. Increase to Wegovy 1 mg subcu weekly. Discussed holding requirements for Wegovy preprocedural due to risk of aspiration. 09/24/24: BMI 31, Weight 227. Increase to Wegovy 1.7 mg subcu weekly. 11/12/24: BMI 30, Weight 222. Conitnue Wegovy 1.7 mg subcu weekly. Tolerating well. Lost all fat, gained muscle 01/29/25: BMI 30, Weight 217. Patient feels she has hit a plateau. Will increase to Wegovy 2.4 mg subcu weekly. Follow-up with Navjot Young PA-C in 5 weeks for weight management, and in 4 months for repeat lipid and vitamin D as well as for second shingles vaccine. Patient seen and examined. Comprehensive discussion was done on the following. 1. Nutrition: It is important to follow a healthy diet based on lots of vegetables and legumes and good fat. Avoid processed food and processed carbohydrates. Prepare your own meals. Read labels and avoid high fructose corn syrup, processed chemicals added to increase shelf life and preprepared meals. Avoid fast foods. Eat slowly and plan meals for a week. Try to count calories and be mindful off daily calorie intake. Get into the habit of keeping an eye on your weight by using an appropriate scale. Learn to log exercise and discussed fitness Apps like [employer] which can help keep log off calories taken versus calories burned. Local food should be preferred. Discussed [employer] Vers[employer] Clean Fifteen. Discussed healthy supplements like fish oil, Tumeric, Curcumin, Melatonin, Resveratrol, Probiotics, Vitamin-D, Alpha-Lipoic acid, Vitamin-D and coconut oil. 2. It is important to exercise regularly. Is a good habit to walk at least 30 minutes a day. Gentle weightlifting with standard precautions to protect the back. Finding activity like cycling or hiking and get into the habit of engaging in it. Stretching before and after the exercises important. It is also important to contact me if there are any problems like shortness of breath, chest pain, back pain and joint or muscle pain associated with the exercise. 3. Discussed age appropriate screening guidelines. Colonoscopy needs to start at age 50 with stool for occult blood as appropriate. There is a new test that can test for genetic abnormalities in the stool sample, Cologuard. This would not replace a colonoscopy but could be used as a screening tool for patients who do not want a colonoscopy. We discussed the importance of early detection of colon cancer. 4. Discussed current guidelines with respect to breast examination, mammogram and pap smear for early detection of breast and cervical cancer. Patient advised to follow up with these appointments. 5. Discussed safe driving and no use of smart phone while driving 6. Age-appropriate immunizations were discussed. A tetanus booster is needed every 10 years. Flu vaccine is recommended every year just before the start of the flu season. Shingles vaccine is recommended after age 50 but not all insurances cover it. Pneumonia vaccine is given after age 65 unless there are certain comorbidities for which it is started earlier. 7. Diagnostic labs were discussed. These could include/not limited to CBC CMP and lipids with fasting blood glucose and insulin levels. Vitamin D and hemoglobin A1c testing might be appropriate. All quetsions answered to patients satisfaction. Patient verbalized understanding of diagnosis and treatments explained. To call sooner prior to next visit it any questions/concerns arise. Case discussed with collaborating physician Tirsta Gayle who reviewed the assessment and plan. Chart, medications, labs, vital signs reviewed. Dictation was accomplished with the use of [employer] voice recognition software, prone to medical misidentifications and grammatical errors. This is unintentional and the practitioner does try to identify and correct these, but some could still be present. Please do not hesitate to contact practitioner for clarification. 01/29/2025 Obesity (BMI 30-39.9) (ICD-10 - E66.9) # Health Maintenance: influenza 09/13/2022, Covid 09/13/2022, shingles #1 obtained today 01/29/2025, tetanus 05/10/2017 and due in 2026. Mammogram 06/04/2022 will obtain records, colonoscopy 05/20/2024 will obtain records, PAP 05/21/2024 will obtain records. Labwork reviewed today. Revealing hyperlipidemia and vitamin D deficiency but otherwise labs were within normal limits. # Hyperlipidemia: Labs 01/22/2025 revealed total cholesterol 299, triglycerides 65, HDL 79, LDL 211. Patient states she has a history of taking atorvastatin 40 mg without side effects, reports stopping the medication a few years ago. Will re-initiate atorvastatin 20 mg PO daily. Patient agreeable to plan. Discussed continuation of lifestyle healthy habits and possibility of stopping this medication at a later date. Repeat labs in 4 months. # Vitamin D deficiency: Labs 01/22/2025 reveal vitamin D level 15.7. Patient reports she will take 2000U vitamin D daily. Repeat labs in 4 months. # Screening for diabetes mellitus: hemoglobin A1C 5.2. No intervention indicated at this time. # Left ureteral stone. Following with urology. Lithotripsy Oct 2024 # Chronic sinus infections: Following with ENT. # Headaches: Nurtec every other day. Stopped taking triptan states it does not work.Has been feeling well. # Obesity 03/26/24: BMI 34, Weight 244. Discussed food rules. Discussed body composition scale at length. We discussed overall lifestyle changes, importance of limiting highly processed and heavy carbohydrate foods. Patient needs to exercise at least 3 times a week including walking and resistance training. Minimum of 64 ounces of water needs to be consumed today. HODAN C injection was also encouraged. We discussed options, Wegovy will likely be the best option. Patient is traveling for 3 weeks to [place]. Patient is also considering oral medications if injectables are not covered. We did discuss compounded options in the office. We will submit to insurance for Wegovy. Discussed storage and administration. Patient has no history of thyroid cancer. 05/20/24: BMI 34, Weight 244 lb. Wegovy sample given. Start Wegovy 0.25 mg subcu weekly. Discussed side effects. Ensure no hx of thyroid ca. Ecnouraged to consume 80 grams of protein, and consume 80 oz of water daily. Resistance train. 06/25/24: BMI 32, Weight 234. Continue Wegovy, increase to 0.5 mg. Pt may need stent, if she does, she needs to hold Wegovy 1 week prior to stent placement to reduce risk of aspiration. 08/13/24: BMI 32, Weight 236. Increase to Wegovy 1 mg subcu weekly. Discussed holding requirements for Wegovy preprocedural due to risk of aspiration. 09/24/24: BMI 31, Weight 227. Increase to Wegovy 1.7 mg subcu weekly. 11/12/24: BMI 30, Weight 222. Conitnue Wegovy 1.7 mg subcu weekly. Tolerating well. Lost all fat, gained muscle 01/29/25: BMI 30, Weight 217. Patient feels she has hit a plateau. Will increase to Wegovy 2.4 mg subcu weekly. Follow-up with Navjot Young PA-C in 5 weeks for weight management, and in 4 months for repeat lipid and vitamin D as well as for second shingles vaccine. Patient seen and examined. Comprehensive discussion was done on the following. 1. Nutrition: It is important to follow a healthy diet based on lots of vegetables and legumes and good fat. Avoid processed food and processed carbohydrates. Prepare your own meals. Read labels and avoid high fructose corn syrup, processed chemicals added to increase shelf life and preprepared meals. Avoid fast foods. Eat slowly and plan meals for a week. Try to count calories and be mindful off daily calorie intake. Get into the habit of keeping an eye on your weight by using an appropriate scale. Learn to log exercise and discussed fitness Apps like [employer] which can help keep log off calories taken versus calories burned. Local food should be preferred. Discussed Dirty [employer]zen Versus Clean Fifteen. Discussed healthy supplements like fish oil, Tumeric, Curcumin, Melatonin, Resveratrol, Probiotics, Vitamin-D, Alpha-Lipoic acid, Vitamin-D and coconut oil. 2. It is important to exercise regularly. Is a good habit to walk at least 30 minutes a day. Gentle weightlifting with standard precautions to protect the back. Finding activity like cycling or hiking and get into the habit of engaging in it. Stretching before and after the exercises important. It is also important to contact me if there are any problems like shortness of breath, chest pain, back pain and joint or muscle pain associated with the exercise. 3. Discussed age appropriate screening guidelines. Colonoscopy needs to start at age 50 with stool for occult blood as appropriate. There is a new test that can test for genetic abnormalities in the stool sample, Cologuard. This would not replace a colonoscopy but could be used as a screening tool for patients who do not want a colonoscopy. We discussed the importance of early detection of colon cancer. 4. Discussed current guidelines with respect to breast examination, mammogram and pap smear for early detection of breast and cervical cancer. Patient advised to follow up with these appointments. 5. Discussed safe driving and no use of smart phone while driving 6. Age-appropriate immunizations were discussed. A tetanus booster is needed every 10 years. Flu vaccine is recommended every year just before the start of the flu season. Shingles vaccine is recommended after age 50 but not all insurances cover it. Pneumonia vaccine is given after age 65 unless there are certain comorbidities for which it is started earlier. 7. Diagnostic labs were discussed. These could include/not limited to CBC CMP and lipids with fasting blood glucose and insulin levels. Vitamin D and hemoglobin A1c testing might be appropriate. All quetsions answered to patients satisfaction. Patient verbalized understanding of diagnosis and treatments explained. To call sooner prior to next visit it any questions/concerns arise. Case discussed with collaborating physician Trista Gayle who reviewed the assessment and plan. Chart, medications, labs, vital signs reviewed. Dictation was accomplished with the use of [place] [employer] voice recognition software, prone to medical misidentifications and grammatical errors. This is unintentional and the practitioner does try to identify and correct these, but some could still be present. Please do not hesitate to contact practitioner for clarification. 03/25/2025 Overweight (ICD-10 - E66.3) # Health Maintenance: influenza 09/13/2022, Covid 09/13/2022, shingles #1 obtained today 01/29/2025, tetanus 05/10/2017 and due in 2026. Mammogram 06/04/2022 will obtain records, colonoscopy 05/20/2024 will obtain records, PAP 05/21/2024 will obtain records. Labwork reviewed today. Revealing hyperlipidemia and vitamin D deficiency but otherwise labs were within normal limits. # Hyperlipidemia: Labs 01/22/2025 revealed total cholesterol 299, triglycerides 65, HDL 79, LDL 211. Patient states she has a history of taking atorvastatin 40 mg without side effects, reports stopping the medication a few years ago. Will re-initiate atorvastatin 20 mg PO daily. Patient agreeable to plan. Discussed continuation of lifestyle healthy habits and possibility of stopping this medication at a later date. Repeat labs in 4 months. # Vitamin D deficiency: Labs 01/22/2025 reveal vitamin D level 15.7. Patient reports she will take 2000U vitamin D daily. Repeat labs in 4 months. # Screening for diabetes mellitus: hemoglobin A1C 5.2. No intervention indicated at this time. # Left ureteral stone. Following with urology. Lithotripsy Oct 2024 # Chronic sinus infections: Following with ENT. # Headaches: Nurtec every other day. Stopped taking triptan states it does not work.Has been feeling well. # Obesity 03/26/24: BMI 34, Weight 244. Discussed food rules. Discussed body composition scale at length. We discussed overall lifestyle changes, importance of limiting highly processed and heavy carbohydrate foods. Patient needs to exercise at least 3 times a week including walking and resistance training. Minimum of 64 ounces of water needs to be consumed today. HODAN C injection was also encouraged. We discussed options, Wegovy will likely be the best option. Patient is traveling for 3 weeks to [place]. Patient is also considering oral medications if injectables are not covered. We did discuss compounded options in the office. We will submit to insurance for Wegovy. Discussed storage and administration. Patient has no history of thyroid cancer. 05/20/24: BMI 34, Weight 244 lb. Wegovy sample given. Start Wegovy 0.25 mg subcu weekly. Discussed side effects. Ensure no hx of thyroid ca. Ecnouraged to consume 80 grams of protein, and consume 80 oz of water daily. Resistance train. 06/25/24: BMI 32, Weight 234. Continue Wegovy, increase to 0.5 mg. Pt may need stent, if she does, she needs to hold Wegovy 1 week prior to stent placement to reduce risk of aspiration. 08/13/24: BMI 32, Weight 236. Increase to Wegovy 1 mg subcu weekly. Discussed holding requirements for Wegovy preprocedural due to risk of aspiration. 09/24/24: BMI 31, Weight 227. Increase to Wegovy 1.7 mg subcu weekly. 11/12/24: BMI 30, Weight 222. Conitnue Wegovy 1.7 mg subcu weekly. Tolerating well. Lost all fat, gained muscle 01/29/25: BMI 30, Weight 217. Patient 03/25/25: BMI 29, 215. Continue Weogyv 2.4 mg subcu weekly. Needs to increase protein. All quetsions answered to patients satisfaction. Patient verbalized understanding of diagnosis and treatments explained. To call sooner prior to next visit it any questions/concerns arise. Case discussed with collaborating physician Trista Gayle who reviewed the assessment and plan. Chart, medications, labs, vital signs reviewed. Dictation was accomplished with the use of [place] [employer] voice recognition software, prone to medical misidentifications and grammatical errors. This is unintentional and the practitioner does try to identify and correct these, but some could still be present. Please do not hesitate to contact practitioner for clarification. 03/25/2025 BMI 29.0-29.9,adult (ICD-10 - Z68.29) # Health Maintenance: influenza 09/13/2022, Covid 09/13/2022, shingles #1 obtained today 01/29/2025, tetanus 05/10/2017 and due in 2026. Mammogram 06/04/2022 will obtain records, colonoscopy 05/20/2024 will obtain records, PAP 05/21/2024 will obtain records. Labwork reviewed today. Revealing hyperlipidemia and vitamin D deficiency but otherwise labs were within normal limits. # Hyperlipidemia: Labs 01/22/2025 revealed total cholesterol 299, triglycerides 65, HDL 79, LDL 211. Patient states she has a history of taking atorvastatin 40 mg without side effects, reports stopping the medication a few years ago. Will re-initiate atorvastatin 20 mg PO daily. Patient agreeable to plan. Discussed continuation of lifestyle healthy habits and possibility of stopping this medication at a later date. Repeat labs in 4 months. # Vitamin D deficiency: Labs 01/22/2025 reveal vitamin D level 15.7. Patient reports she will take 2000U vitamin D daily. Repeat labs in 4 months. # Screening for diabetes mellitus: hemoglobin A1C 5.2. No intervention indicated at this time. # Left ureteral stone. Following with urology. Lithotripsy Oct 2024 # Chronic sinus infections: Following with ENT. # Headaches: Nurtec every other day. Stopped taking triptan states it does not work.Has been feeling well. # Obesity 03/26/24: BMI 34, Weight 244. Discussed food rules. Discussed body composition scale at length. We discussed overall lifestyle changes, importance of limiting highly processed and heavy carbohydrate foods. Patient needs to exercise at least 3 times a week including walking and resistance training. Minimum of 64 ounces of water needs to be consumed today. HODAN C injection was also encouraged. We discussed options, Wegovy will likely be the best option. Patient is traveling for 3 weeks to [place]. Patient is also considering oral medications if injectables are not covered. We did discuss compounded options in the office. We will submit to insurance for Wegovy. Discussed storage and administration. Patient has no history of thyroid cancer. 05/20/24: BMI 34, Weight 244 lb. Wegovy sample given. Start Wegovy 0.25 mg subcu weekly. Discussed side effects. Ensure no hx of thyroid ca. Ecnouraged to consume 80 grams of protein, and consume 80 oz of water daily. Resistance train. 06/25/24: BMI 32, Weight 234. Continue Wegovy, increase to 0.5 mg. Pt may need stent, if she does, she needs to hold Wegovy 1 week prior to stent placement to reduce risk of aspiration. 08/13/24: BMI 32, Weight 236. Increase to Wegovy 1 mg subcu weekly. Discussed holding requirements for Wegovy preprocedural due to risk of aspiration. 09/24/24: BMI 31, Weight 227. Increase to Wegovy 1.7 mg subcu weekly. 11/12/24: BMI 30, Weight 222. Conitnue Wegovy 1.7 mg subcu weekly. Tolerating well. Lost all fat, gained muscle 01/29/25: BMI 30, Weight 217. Patient 03/25/25: BMI 29, 215. Continue Weogyv 2.4 mg subcu weekly. Needs to increase protein. All quetsions answered to patients satisfaction. Patient verbalized understanding of diagnosis and treatments explained. To call sooner prior to next visit it any questions/concerns arise. Case discussed with collaborating physician Trista Gayle who reviewed the assessment and plan. Chart, medications, labs, vital signs reviewed. Dictation was accomplished with the use of [employer] voice recognition software, prone to medical misidentifications and grammatical errors. This is unintentional and the practitioner does try to identify and correct these, but some could still be present. Please do not hesitate to contact practitioner for clarification. 05/20/2025 Overweight (ICD-10 - E66.3) # Health Maintenance: influenza 09/13/2022, Covid 09/13/2022, shingles #1 obtained today 01/29/2025, tetanus 05/10/2017 and due in 2026. Mammogram 06/04/2022 will obtain records, colonoscopy 05/20/2024 will obtain records, PAP 05/21/2024 will obtain records. Labwork reviewed today. Revealing hyperlipidemia and vitamin D deficiency but otherwise labs were within normal limits. # Hyperlipidemia: Labs 01/22/2025 revealed total cholesterol 299, triglycerides 65, HDL 79, LDL 211. Patient states she has a history of taking atorvastatin 40 mg without side effects, reports stopping the medication a few years ago. Will re-initiate atorvastatin 20 mg PO daily. Patient agreeable to plan. Discussed continuation of lifestyle healthy habits and possibility of stopping this medication at a later date. Repeat labs in 4 months. # Vitamin D deficiency: Labs 01/22/2025 reveal vitamin D level 15.7. Patient reports she will take 2000U vitamin D daily. Repeat labs in 4 months. # Screening for diabetes mellitus: hemoglobin A1C 5.2. No intervention indicated at this time. # Left ureteral stone. Following with urology. Lithotripsy Oct 2024 # Chronic sinus infections: Following with ENT. # Headaches: Nurtec every other day. Stopped taking triptan states it does not work.Has been feeling well. # Obesity 03/26/24: BMI 34, Weight 244. Discussed food rules. Discussed body composition scale at length. We discussed overall lifestyle changes, importance of limiting highly processed and heavy carbohydrate foods. Patient needs to exercise at least 3 times a week including walking and resistance training. Minimum of 64 ounces of water needs to be consumed today. HODAN C injection was also encouraged. We discussed options, Wegovy will likely be the best option. Patient is traveling for 3 weeks to [place]. Patient is also considering oral medications if injectables are not covered. We did discuss compounded options in the office. We will submit to insurance for Wegovy. Discussed storage and administration. Patient has no history of thyroid cancer. 05/20/24: BMI 34, Weight 244 lb. Wegovy sample given. Start Wegovy 0.25 mg subcu weekly. Discussed side effects. Ensure no hx of thyroid ca. Ecnouraged to consume 80 grams of protein, and consume 80 oz of water daily. Resistance train. 06/25/24: BMI 32, Weight 234. Continue Wegovy, increase to 0.5 mg. Pt may need stent, if she does, she needs to hold Wegovy 1 week prior to stent placement to reduce risk of aspiration. 08/13/24: BMI 32, Weight 236. Increase to Wegovy 1 mg subcu weekly. Discussed holding requirements for Wegovy preprocedural due to risk of aspiration. 09/24/24: BMI 31, Weight 227. Increase to Wegovy 1.7 mg subcu weekly. 11/12/24: BMI 30, Weight 222. Conitnue Wegovy 1.7 mg subcu weekly. Tolerating well. Lost all fat, gained muscle 01/29/25: BMI 30, Weight 217. Patient 03/25/25: BMI 29, 215. Continue Weogyv 2.4 mg subcu weekly. Needs to increase protein. 05/20/25: BMI 9, Weifht 209. Change to Zepbound 7.5 mg subcu weekly. Increase exercise. All quetsions answered to patients satisfaction. Patient verbalized understanding of diagnosis and treatments explained. To call sooner prior to next visit it any questions/concerns arise. Case discussed with collaborating physician Trista Gayle who reviewed the assessment and plan. Chart, medications, labs, vital signs reviewed. Dictation was accomplished with the use of [employer] voice recognition software, prone to medical misidentifications and grammatical errors. This is unintentional and the practitioner does try to identify and correct these, but some could still be present. Please do not hesitate to contact practitioner for clarification. 05/20/2025 BMI 29.0-29.9,adult (ICD-10 - Z68.29) # Health Maintenance: influenza 09/13/2022, Covid 09/13/2022, shingles #1 obtained today 01/29/2025, tetanus 05/10/2017 and due in 2026. Mammogram 06/04/2022 will obtain records, colonoscopy 05/20/2024 will obtain records, PAP 05/21/2024 will obtain records. Labwork reviewed today. Revealing hyperlipidemia and vitamin D deficiency but otherwise labs were within normal limits. # Hyperlipidemia: Labs 01/22/2025 revealed total cholesterol 299, triglycerides 65, HDL 79, LDL 211. Patient states she has a history of taking atorvastatin 40 mg without side effects, reports stopping the medication a few years ago. Will re-initiate atorvastatin 20 mg PO daily. Patient agreeable to plan. Discussed continuation of lifestyle healthy habits and possibility of stopping this medication at a later date. Repeat labs in 4 months. # Vitamin D deficiency: Labs 01/22/2025 reveal vitamin D level 15.7. Patient reports she will take 2000U vitamin D daily. Repeat labs in 4 months. # Screening for diabetes mellitus: hemoglobin A1C 5.2. No intervention indicated at this time. # Left ureteral stone. Following with urology. Lithotripsy Oct 2024 # Chronic sinus infections: Following with ENT. # Headaches: Nurtec every other day. Stopped taking triptan states it does not work.Has been feeling well. # Obesity 03/26/24: BMI 34, Weight 244. Discussed food rules. Discussed body composition scale at length. We discussed overall lifestyle changes, importance of limiting highly processed and heavy carbohydrate foods. Patient needs to exercise at least 3 times a week including walking and resistance training. Minimum of 64 ounces of water needs to be consumed today. HODAN C injection was also encouraged. We discussed options, Wegovy will likely be the best option. Patient is traveling for 3 weeks to [place]. Patient is also considering oral medications if injectables are not covered. We did discuss compounded options in the office. We will submit to insurance for Wegovy. Discussed storage and administration. Patient has no history of thyroid cancer. 05/20/24: BMI 34, Weight 244 lb. Wegovy sample given. Start Wegovy 0.25 mg subcu weekly. Discussed side effects. Ensure no hx of thyroid ca. Ecnouraged to consume 80 grams of protein, and consume 80 oz of water daily. Resistance train. 06/25/24: BMI 32, Weight 234. Continue Wegovy, increase to 0.5 mg. Pt may need stent, if she does, she needs to hold Wegovy 1 week prior to stent placement to reduce risk of aspiration. 08/13/24: BMI 32, Weight 236. Increase to Wegovy 1 mg subcu weekly. Discussed holding requirements for Wegovy preprocedural due to risk of aspiration. 09/24/24: BMI 31, Weight 227. Increase to Wegovy 1.7 mg subcu weekly. 11/12/24: BMI 30, Weight 222. Conitnue Wegovy 1.7 mg subcu weekly. Tolerating well. Lost all fat, gained muscle 01/29/25: BMI 30, Weight 217. Patient 03/25/25: BMI 29, 215. Continue Weogyv 2.4 mg subcu weekly. Needs to increase protein. 05/20/25: BMI 9, Weifht 209. Change to Zepbound 7.5 mg subcu weekly. Increase exercise. All quetsions answered to patients satisfaction. Patient verbalized understanding of diagnosis and treatments explained. To call sooner prior to next visit it any questions/concerns arise. Case discussed with collaborating physician Trista Gayle who reviewed the assessment and plan. Chart, medications, labs, vital signs reviewed. Dictation was accomplished with the use of [employer] voice recognition software, prone to medical misidentifications and grammatical errors. This is unintentional and the practitioner does try to identify and correct these, but some could still be present. Please do not hesitate to contact practitioner for clarification. 07/04/2025 Obesity (ICD-10 - E66.9) # URI. COVID/flu, RSV swab will be done. Patient reports symptoms have been ongoing. If negative, we will call in antibiotics. Albuterol nebulizer will be given. # Hyperlipidemia: Labs 01/22/2025 revealed total cholesterol 299, triglycerides 65, HDL 79, LDL 211. Patient states she has a history of taking atorvastatin 40 mg without side effects, reports stopping the medication a few years ago. Will re-initiate atorvastatin 20 mg PO daily. Patient agreeable to plan. Discussed continuation of lifestyle healthy habits and possibility of stopping this medication at a later date. Repeat labs in 4 months. # Vitamin D deficiency: Labs 01/22/2025 reveal vitamin D level 15.7. Patient reports she will take 2000U vitamin D daily. Repeat labs in 4 months. # Left ureteral stone. Following with urology. Lithotripsy Oct 2024 # Chronic sinus infections: Following with ENT. # Headaches: Nurtec every other day. Stopped taking triptan states it does not work.Has been feeling well. # Obesity 03/26/24: BMI 34, Weight 244. Discussed food rules. Discussed body composition scale at length. We discussed overall lifestyle changes, importance of limiting highly processed and heavy carbohydrate foods. Patient needs to exercise at least 3 times a week including walking and resistance training. Minimum of 64 ounces of water needs to be consumed today. HODAN C injection was also encouraged. We discussed options, Wegovy will likely be the best option. Patient is traveling for 3 weeks to [place]. Patient is also considering oral medications if injectables are not covered. We did discuss compounded options in the office. We will submit to insurance for Wegovy. Discussed storage and administration. Patient has no history of thyroid cancer. 05/20/24: BMI 34, Weight 244 lb. Wegovy sample given. Start Wegovy 0.25 mg subcu weekly. Discussed side effects. Ensure no hx of thyroid ca. Ecnouraged to consume 80 grams of protein, and consume 80 oz of water daily. Resistance train. 06/25/24: BMI 32, Weight 234. Continue Wegovy, increase to 0.5 mg. Pt may need stent, if she does, she needs to hold Wegovy 1 week prior to stent placement to reduce risk of aspiration. 08/13/24: BMI 32, Weight 236. Increase to Wegovy 1 mg subcu weekly. Discussed holding requirements for Wegovy preprocedural due to risk of aspiration. 09/24/24: BMI 31, Weight 227. Increase to Wegovy 1.7 mg subcu weekly. 11/12/24: BMI 30, Weight 222. Conitnue Wegovy 1.7 mg subcu weekly. Tolerating well. Lost all fat, gained muscle 01/29/25: BMI 30, Weight 217. Patient 03/25/25: BMI 29, 215. Continue Weogyv 2.4 mg subcu weekly. Needs to increase protein. 05/20/25: BMI 9, Weifht 209. Change to Zepbound 7.5 mg subcu weekly. Increase exercise. All quetsions answered to patients satisfaction. Patient verbalized understanding of diagnosis and treatments explained. To call sooner prior to next visit it any questions/concerns arise. Case discussed with collaborating physician Trista Gayle who reviewed the assessment and plan. Chart, medications, labs, vital signs reviewed. Dictation was accomplished with the use of [employer] voice recognition software, prone to medical misidentifications and grammatical errors. This is unintentional and the practitioner does try to identify and correct these, but some could still be present. Please do not hesitate to contact practitioner for clarification. 07/04/2025 URI with cough and congestion (ICD-10 - J06.9) # URI. COVID/flu, RSV swab will be done. Patient reports symptoms have been ongoing. If negative, we will call in antibiotics. Albuterol nebulizer will be given. # Hyperlipidemia: Labs 01/22/2025 revealed total cholesterol 299, triglycerides 65, HDL 79, LDL 211. Patient states she has a history of taking atorvastatin 40 mg without side effects, reports stopping the medication a few years ago. Will re-initiate atorvastatin 20 mg PO daily. Patient agreeable to plan. Discussed continuation of lifestyle healthy habits and possibility of stopping this medication at a later date. Repeat labs in 4 months. # Vitamin D deficiency: Labs 01/22/2025 reveal vitamin D level 15.7. Patient reports she will take 2000U vitamin D daily. Repeat labs in 4 months. # Left ureteral stone. Following with urology. Lithotripsy Oct 2024 # Chronic sinus infections: Following with ENT. # Headaches: Nurtec every other day. Stopped taking triptan states it does not work.Has been feeling well. # Obesity 03/26/24: BMI 34, Weight 244. Discussed food rules. Discussed body composition scale at length. We discussed overall lifestyle changes, importance of limiting highly processed and heavy carbohydrate foods. Patient needs to exercise at least 3 times a week including walking and resistance training. Minimum of 64 ounces of water needs to be consumed today. HODAN C injection was also encouraged. We discussed options, Wegovy will likely be the best option. Patient is traveling for 3 weeks to [place]. Patient is also considering oral medications if injectables are not covered. We did discuss compounded options in the office. We will submit to insurance for Wegovy. Discussed storage and administration. Patient has no history of thyroid cancer. 05/20/24: BMI 34, Weight 244 lb. Wegovy sample given. Start Wegovy 0.25 mg subcu weekly. Discussed side effects. Ensure no hx of thyroid ca. Ecnouraged to consume 80 grams of protein, and consume 80 oz of water daily. Resistance train. 06/25/24: BMI 32, Weight 234. Continue Wegovy, increase to 0.5 mg. Pt may need stent, if she does, she needs to hold Wegovy 1 week prior to stent placement to reduce risk of aspiration. 08/13/24: BMI 32, Weight 236. Increase to Wegovy 1 mg subcu weekly. Discussed holding requirements for Wegovy preprocedural due to risk of aspiration. 09/24/24: BMI 31, Weight 227. Increase to Wegovy 1.7 mg subcu weekly. 11/12/24: BMI 30, Weight 222. Conitnue Wegovy 1.7 mg subcu weekly. Tolerating well. Lost all fat, gained muscle 01/29/25: BMI 30, Weight 217. Patient 03/25/25: BMI 29, 215. Continue Weogyv 2.4 mg subcu weekly. Needs to increase protein. 05/20/25: BMI 9, Weifht 209. Change to Zepbound 7.5 mg subcu weekly. Increase exercise. All quetsions answered to patients satisfaction. Patient verbalized understanding of diagnosis and treatments explained. To call sooner prior to next visit it any questions/concerns arise. Case discussed with collaborating physician Trista Gayle who reviewed the assessment and plan. Chart, medications, labs, vital signs reviewed. Dictation was accomplished with the use of [employer] voice recognition software, prone to medical misidentifications and grammatical errors. This is unintentional and the practitioner does try to identify and correct these, but some could still be present. Please do not hesitate to contact practitioner for clarification. 07/17/2025 Obesity (ICD-10 - E66.9) # URI. COVID Positive in office last visit. Patient has had the symptoms that improved then worsened again. No wheezing noted today in office. Will treat for possible postinfectious Simoni with azithromycin. Will also give Tessalon Perles and an albuterol inhaler. Albuterol MDI demonstrated on use today. Patient verbalizes understanding. If patient symptoms persist, get worse, or if fever develops she is to call the office. # Hyperlipidemia: Labs 01/22/2025 revealed total cholesterol 299, triglycerides 65, HDL 79, LDL 211. Patient states she has a history of taking atorvastatin 40 mg without side effects, reports stopping the medication a few years ago. Will re-initiate atorvastatin 20 mg PO daily. Patient agreeable to plan. Discussed continuation of lifestyle healthy habits and possibility of stopping this medication at a later date. Repeat labs in 4 months. # Vitamin D deficiency: Labs 01/22/2025 reveal vitamin D level 15.7. Patient reports she will take 2000U vitamin D daily. Repeat labs in 4 months. # Left ureteral stone. Following with urology. Lithotripsy Oct 2024 # Chronic sinus infections: Following with ENT. # Headaches: Nurtec every other day. Stopped taking triptan states it does not work.Has been feeling well. # Obesity 03/26/24: BMI 34, Weight 244. Discussed food rules. Discussed body composition scale at length. We discussed overall lifestyle changes, importance of limiting highly processed and heavy carbohydrate foods. Patient needs to exercise at least 3 times a week including walking and resistance training. Minimum of 64 ounces of water needs to be consumed today. HODAN C injection was also encouraged. We discussed options, Wegovy will likely be the best option. Patient is traveling for 3 weeks to [place]. Patient is also considering oral medications if injectables are not covered. We did discuss compounded options in the office. We will submit to insurance for Wegovy. Discussed storage and administration. Patient has no history of thyroid cancer. 05/20/24: BMI 34, Weight 244 lb. Wegovy sample given. Start Wegovy 0.25 mg subcu weekly. Discussed side effects. Ensure no hx of thyroid ca. Ecnouraged to consume 80 grams of protein, and consume 80 oz of water daily. Resistance train. 06/25/24: BMI 32, Weight 234. Continue Wegovy, increase to 0.5 mg. Pt may need stent, if she does, she needs to hold Wegovy 1 week prior to stent placement to reduce risk of aspiration. 08/13/24: BMI 32, Weight 236. Increase to Wegovy 1 mg subcu weekly. Discussed holding requirements for Wegovy preprocedural due to risk of aspiration. 09/24/24: BMI 31, Weight 227. Increase to Wegovy 1.7 mg subcu weekly. 11/12/24: BMI 30, Weight 222. Conitnue Wegovy 1.7 mg subcu weekly. Tolerating well. Lost all fat, gained muscle 01/29/25: BMI 30, Weight 217. Patient 03/25/25: BMI 29, 215. Continue Weogyv 2.4 mg subcu weekly. Needs to increase protein. 05/20/25: BMI 9, Weifht 209. Change to Zepbound 7.5 mg subcu weekly. Increase exercise. All quetsions answered to patients satisfaction. Patient verbalized understanding of diagnosis and treatments explained. To call sooner prior to next visit it any questions/concerns arise. Case discussed with collaborating physician Trista Gayle who reviewed the assessment and plan. Chart, medications, labs, vital signs reviewed. Dictation was accomplished with the use of [employer] voice recognition software, prone to medical misidentifications and grammatical errors. This is unintentional and the practitioner does try to identify and correct these, but some could still be present. Please do not hesitate to contact practitioner for clarification. 07/17/2025 URI with cough and congestion (ICD-10 - J06.9) # URI. COVID Positive in office last visit. Patient has had the symptoms that improved then worsened again. No wheezing noted today in office. Will treat for possible postinfectious Simoni with azithromycin. Will also give Tessalon Perles and an albuterol inhaler. Albuterol MDI demonstrated on use today. Patient verbalizes understanding. If patient symptoms persist, get worse, or if fever develops she is to call the office. # Hyperlipidemia: Labs 01/22/2025 revealed total cholesterol 299, triglycerides 65, HDL 79, LDL 211. Patient states she has a history of taking atorvastatin 40 mg without side effects, reports stopping the medication a few years ago. Will re-initiate atorvastatin 20 mg PO daily. Patient agreeable to plan. Discussed continuation of lifestyle healthy habits and possibility of stopping this medication at a later date. Repeat labs in 4 months. # Vitamin D deficiency: Labs 01/22/2025 reveal vitamin D level 15.7. Patient reports she will take 2000U vitamin D daily. Repeat labs in 4 months. # Left ureteral stone. Following with urology. Lithotripsy Oct 2024 # Chronic sinus infections: Following with ENT. # Headaches: Nurtec every other day. Stopped taking triptan states it does not work.Has been feeling well. # Obesity 03/26/24: BMI 34, Weight 244. Discussed food rules. Discussed body composition scale at length. We discussed overall lifestyle changes, importance of limiting highly processed and heavy carbohydrate foods. Patient needs to exercise at least 3 times a week including walking and resistance training. Minimum of 64 ounces of water needs to be consumed today. HODAN C injection was also encouraged. We discussed options, Wegovy will likely be the best option. Patient is traveling for 3 weeks to [place]. Patient is also considering oral medications if injectables are not covered. We did discuss compounded options in the office. We will submit to insurance for Wegovy. Discussed storage and administration. Patient has no history of thyroid cancer. 05/20/24: BMI 34, Weight 244 lb. Wegovy sample given. Start Wegovy 0.25 mg subcu weekly. Discussed side effects. Ensure no hx of thyroid ca. Ecnouraged to consume 80 grams of protein, and consume 80 oz of water daily. Resistance train. 06/25/24: BMI 32, Weight 234. Continue Wegovy, increase to 0.5 mg. Pt may need stent, if she does, she needs to hold Wegovy 1 week prior to stent placement to reduce risk of aspiration. 08/13/24: BMI 32, Weight 236. Increase to Wegovy 1 mg subcu weekly. Discussed holding requirements for Wegovy preprocedural due to risk of aspiration. 09/24/24: BMI 31, Weight 227. Increase to Wegovy 1.7 mg subcu weekly. 11/12/24: BMI 30, Weight 222. Conitnue Wegovy 1.7 mg subcu weekly. Tolerating well. Lost all fat, gained muscle 01/29/25: BMI 30, Weight 217. Patient 03/25/25: BMI 29, 215. Continue Weogyv 2.4 mg subcu weekly. Needs to increase protein. 05/20/25: BMI 9, Weifht 209. Change to Zepbound 7.5 mg subcu weekly. Increase exercise. All quetsions answered to patients satisfaction. Patient verbalized understanding of diagnosis and treatments explained. To call sooner prior to next visit it any questions/concerns arise. Case discussed with collaborating physician Trista Gayle who reviewed the assessment and plan. Chart, medications, labs, vital signs reviewed. Dictation was accomplished with the use of [employer] voice recognition software, prone to medical misidentifications and grammatical errors. This is unintentional and the practitioner does try to identify and correct these, but some could still be present. Please do not hesitate to contact practitioner for clarification. 07/17/2025 Hyperlipidemia (ICD-10 - E78.5) # URI. COVID Positive in office last visit. Patient has had the symptoms that improved then worsened again. No wheezing noted today in office. Will treat for possible postinfectious Simoni with azithromycin. Will also give Tessalon Perles and an albuterol inhaler. Albuterol MDI demonstrated on use today. Patient verbalizes understanding. If patient symptoms persist, get worse, or if fever develops she is to call the office. # Hyperlipidemia: Labs 01/22/2025 revealed total cholesterol 299, triglycerides 65, HDL 79, LDL 211. Patient states she has a history of taking atorvastatin 40 mg without side effects, reports stopping the medication a few years ago. Will re-initiate atorvastatin 20 mg PO daily. Patient agreeable to plan. Discussed continuation of lifestyle healthy habits and possibility of stopping this medication at a later date. Repeat labs in 4 months. # Vitamin D deficiency: Labs 01/22/2025 reveal vitamin D level 15.7. Patient reports she will take 2000U vitamin D daily. Repeat labs in 4 months. # Left ureteral stone. Following with urology. Lithotripsy Oct 2024 # Chronic sinus infections: Following with ENT. # Headaches: Nurtec every other day. Stopped taking triptan states it does not work.Has been feeling well. # Obesity 03/26/24: BMI 34, Weight 244. Discussed food rules. Discussed body composition scale at length. We discussed overall lifestyle changes, importance of limiting highly processed and heavy carbohydrate foods. Patient needs to exercise at least 3 times a week including walking and resistance training. Minimum of 64 ounces of water needs to be consumed today. HODAN C injection was also encouraged. We discussed options, Wegovy will likely be the best option. Patient is traveling for 3 weeks to [place]. Patient is also considering oral medications if injectables are not covered. We did discuss compounded options in the office. We will submit to insurance for Wegovy. Discussed storage and administration. Patient has no history of thyroid cancer. 05/20/24: BMI 34, Weight 244 lb. Wegovy sample given. Start Wegovy 0.25 mg subcu weekly. Discussed side effects. Ensure no hx of thyroid ca. Ecnouraged to consume 80 grams of protein, and consume 80 oz of water daily. Resistance train. 06/25/24: BMI 32, Weight 234. Continue Wegovy, increase to 0.5 mg. Pt may need stent, if she does, she needs to hold Wegovy 1 week prior to stent placement to reduce risk of aspiration. 08/13/24: BMI 32, Weight 236. Increase to Wegovy 1 mg subcu weekly. Discussed holding requirements for Wegovy preprocedural due to risk of aspiration. 09/24/24: BMI 31, Weight 227. Increase to Wegovy 1.7 mg subcu weekly. 11/12/24: BMI 30, Weight 222. Conitnue Wegovy 1.7 mg subcu weekly. Tolerating well. Lost all fat, gained muscle 01/29/25: BMI 30, Weight 217. Patient 03/25/25: BMI 29, 215. Continue Weogyv 2.4 mg subcu weekly. Needs to increase protein. 05/20/25: BMI 9, Weifht 209. Change to Zepbound 7.5 mg subcu weekly. Increase exercise. All quetsions answered to patients satisfaction. Patient verbalized understanding of diagnosis and treatments explained. To call sooner prior to next visit it any questions/concerns arise. Case discussed with collaborating physician Trista Gayle who reviewed the assessment and plan. Chart, medications, labs, vital signs reviewed. Dictation was accomplished with the use of [employer] voice recognition software, prone to medical misidentifications and grammatical errors. This is unintentional and the practitioner does try to identify and correct these, but some could still be present. Please do not hesitate to contact practitioner for clarification. 07/04/2025 Obesity (BMI 30-39.9) (ICD-10 - E66.9) Electronic Prior Authorization was requested for Zepbound 7.5 MG/0.5ML Solution. Provider can order medication once approval received. 07/04/2025 Hyperlipidemia (ICD-10 - E78.5) # URI. COVID/flu, RSV swab will be done. Patient reports symptoms have been ongoing. If negative, we will call in antibiotics. Albuterol nebulizer will be given. # Hyperlipidemia: Labs 01/22/2025 revealed total cholesterol 299, triglycerides 65, HDL 79, LDL 211. Patient states she has a history of taking atorvastatin 40 mg without side effects, reports stopping the medication a few years ago. Will re-initiate atorvastatin 20 mg PO daily. Patient agreeable to plan. Discussed continuation of lifestyle healthy habits and possibility of stopping this medication at a later date. Repeat labs in 4 months. # Vitamin D deficiency: Labs 01/22/2025 reveal vitamin D level 15.7. Patient reports she will take 2000U vitamin D daily. Repeat labs in 4 months. # Left ureteral stone. Following with urology. Lithotripsy Oct 2024 # Chronic sinus infections: Following with ENT. # Headaches: Nurtec every other day. Stopped taking triptan states it does not work.Has been feeling well. # Obesity 03/26/24: BMI 34, Weight 244. Discussed food rules. Discussed body composition scale at length. We discussed overall lifestyle changes, importance of limiting highly processed and heavy carbohydrate foods. Patient needs to exercise at least 3 times a week including walking and resistance training. Minimum of 64 ounces of water needs to be consumed today. HODAN C injection was also encouraged. We discussed options, Wegovy will likely be the best option. Patient is traveling for 3 weeks to [place]. Patient is also considering oral medications if injectables are not covered. We did discuss compounded options in the office. We will submit to insurance for Wegovy. Discussed storage and administration. Patient has no history of thyroid cancer. 05/20/24: BMI 34, Weight 244 lb. Wegovy sample given. Start Wegovy 0.25 mg subcu weekly. Discussed side effects. Ensure no hx of thyroid ca. Ecnouraged to consume 80 grams of protein, and consume 80 oz of water daily. Resistance train. 06/25/24: BMI 32, Weight 234. Continue Wegovy, increase to 0.5 mg. Pt may need stent, if she does, she needs to hold Wegovy 1 week prior to stent placement to reduce risk of aspiration. 08/13/24: BMI 32, Weight 236. Increase to Wegovy 1 mg subcu weekly. Discussed holding requirements for Wegovy preprocedural due to risk of aspiration. 09/24/24: BMI 31, Weight 227. Increase to Wegovy 1.7 mg subcu weekly. 11/12/24: BMI 30, Weight 222. Conitnue Wegovy 1.7 mg subcu weekly. Tolerating well. Lost all fat, gained muscle 01/29/25: BMI 30, Weight 217. Patient 03/25/25: BMI 29, 215. Continue Weogyv 2.4 mg subcu weekly. Needs to increase protein. 7/15/25: BMI 9, Weifht 209. Change to Zepbound 7.5 mg subcu weekly. Increase exercise. All quetsions answered to patients satisfaction. Patient verbalized understanding of diagnosis and treatments explained. To call sooner prior to next visit it any questions/concerns arise. Case discussed with collaborating physician Trista Gayle who reviewed the assessment and plan. Chart, medications, labs, vital signs reviewed. Dictation was accomplished with the use of [employer] voice recognition software, prone to medical misidentifications and grammatical errors. This is unintentional and the practitioner does try to identify and correct these, but some could still be present. Please do not hesitate to contact practitioner for clarification. 05/20/2025 Hyperlipidemia (ICD-10 - E78.5) # Health Maintenance: influenza 09/13/2022, Covid 09/13/2022, shingles #1 obtained today 01/29/2025, tetanus 05/10/2017 and due in 2026. Mammogram 06/04/2022 will obtain records, colonoscopy 05/20/2024 will obtain records, PAP 05/21/2024 will obtain records. Labwork reviewed today. Revealing hyperlipidemia and vitamin D deficiency but otherwise labs were within normal limits. # Hyperlipidemia: Labs 01/22/2025 revealed total cholesterol 299, triglycerides 65, HDL 79, LDL 211. Patient states she has a history of taking atorvastatin 40 mg without side effects, reports stopping the medication a few years ago. Will re-initiate atorvastatin 20 mg PO daily. Patient agreeable to plan. Discussed continuation of lifestyle healthy habits and possibility of stopping this medication at a later date. Repeat labs in 4 months. # Vitamin D deficiency: Labs 01/22/2025 reveal vitamin D level 15.7. Patient reports she will take 2000U vitamin D daily. Repeat labs in 4 months. # Screening for diabetes mellitus: hemoglobin A1C 5.2. No intervention indicated at this time. # Left ureteral stone. Following with urology. Lithotripsy Oct 2024 # Chronic sinus infections: Following with ENT. # Headaches: Nurtec every other day. Stopped taking triptan states it does not work.Has been feeling well. # Obesity 03/26/24: BMI 34, Weight 244. Discussed food rules. Discussed body composition scale at length. We discussed overall lifestyle changes, importance of limiting highly processed and heavy carbohydrate foods. Patient needs to exercise at least 3 times a week including walking and resistance training. Minimum of 64 ounces of water needs to be consumed today. HODAN C injection was also encouraged. We discussed options, Wegovy will likely be the best option. Patient is traveling for 3 weeks to [place]. Patient is also considering oral medications if injectables are not covered. We did discuss compounded options in the office. We will submit to insurance for Wegovy. Discussed storage and administration. Patient has no history of thyroid cancer. 05/20/24: BMI 34, Weight 244 lb. Wegovy sample given. Start Wegovy 0.25 mg subcu weekly. Discussed side effects. Ensure no hx of thyroid ca. Ecnouraged to consume 80 grams of protein, and consume 80 oz of water daily. Resistance train. 06/25/24: BMI 32, Weight 234. Continue Wegovy, increase to 0.5 mg. Pt may need stent, if she does, she needs to hold Wegovy 1 week prior to stent placement to reduce risk of aspiration. 08/13/24: BMI 32, Weight 236. Increase to Wegovy 1 mg subcu weekly. Discussed holding requirements for Wegovy preprocedural due to risk of aspiration. 09/24/24: BMI 31, Weight 227. Increase to Wegovy 1.7 mg subcu weekly. 11/12/24: BMI 30, Weight 222. Conitnue Wegovy 1.7 mg subcu weekly. Tolerating well. Lost all fat, gained muscle 01/29/25: BMI 30, Weight 217. Patient 03/25/25: BMI 29, 215. Continue Weogyv 2.4 mg subcu weekly. Needs to increase protein. 05/20/25: BMI 9, Weifht 209. Change to Zepbound 7.5 mg subcu weekly. Increase exercise. All quetsions answered to patients satisfaction. Patient verbalized understanding of diagnosis and treatments explained. To call sooner prior to next visit it any questions/concerns arise. Case discussed with collaborating physician Trista Gayle who reviewed the assessment and plan. Chart, medications, labs, vital signs reviewed. Dictation was accomplished with the use of [employer] voice recognition software, prone to medical misidentifications and grammatical errors. This is unintentional and the practitioner does try to identify and correct these, but some could still be present. Please do not hesitate to contact practitioner for clarification. 03/25/2025 Migraine without aura, not intractable, with status migrainosus (ICD-10 - G43.001) # Health Maintenance: influenza 09/13/2022, Covid 09/13/2022, shingles #1 obtained today 01/29/2025, tetanus 05/10/2017 and due in 2026. Mammogram 06/04/2022 will obtain records, colonoscopy 05/20/2024 will obtain records, PAP 05/21/2024 will obtain records. Labwork reviewed today. Revealing hyperlipidemia and vitamin D deficiency but otherwise labs were within normal limits. # Hyperlipidemia: Labs 01/22/2025 revealed total cholesterol 299, triglycerides 65, HDL 79, LDL 211. Patient states she has a history of taking atorvastatin 40 mg without side effects, reports stopping the medication a few years ago. Will re-initiate atorvastatin 20 mg PO daily. Patient agreeable to plan. Discussed continuation of lifestyle healthy habits and possibility of stopping this medication at a later date. Repeat labs in 4 months. # Vitamin D deficiency: Labs 01/22/2025 reveal vitamin D level 15.7. Patient reports she will take 2000U vitamin D daily. Repeat labs in 4 months. # Screening for diabetes mellitus: hemoglobin A1C 5.2. No intervention indicated at this time. # Left ureteral stone. Following with urology. Lithotripsy Oct 2024 # Chronic sinus infections: Following with ENT. # Headaches: Nurtec every other day. Stopped taking triptan states it does not work.Has been feeling well. # Obesity 03/26/24: BMI 34, Weight 244. Discussed food rules. Discussed body composition scale at length. We discussed overall lifestyle changes, importance of limiting highly processed and heavy carbohydrate foods. Patient needs to exercise at least 3 times a week including walking and resistance training. Minimum of 64 ounces of water needs to be consumed today. HODAN C injection was also encouraged. We discussed options, Wegovy will likely be the best option. Patient is traveling for 3 weeks to [place]. Patient is also considering oral medications if injectables are not covered. We did discuss compounded options in the office. We will submit to insurance for Wegovy. Discussed storage and administration. Patient has no history of thyroid cancer. 05/20/24: BMI 34, Weight 244 lb. Wegovy sample given. Start Wegovy 0.25 mg subcu weekly. Discussed side effects. Ensure no hx of thyroid ca. Ecnouraged to consume 80 grams of protein, and consume 80 oz of water daily. Resistance train. 06/25/24: BMI 32, Weight 234. Continue Wegovy, increase to 0.5 mg. Pt may need stent, if she does, she needs to hold Wegovy 1 week prior to stent placement to reduce risk of aspiration. 08/13/24: BMI 32, Weight 236. Increase to Wegovy 1 mg subcu weekly. Discussed holding requirements for Wegovy preprocedural due to risk of aspiration. 09/24/24: BMI 31, Weight 227. Increase to Wegovy 1.7 mg subcu weekly. 11/12/24: BMI 30, Weight 222. Conitnue Wegovy 1.7 mg subcu weekly. Tolerating well. Lost all fat, gained muscle 01/29/25: BMI 30, Weight 217. Patient 03/25/25: BMI 29, 215. Continue Weogyv 2.4 mg subcu weekly. Needs to increase protein. All quetsions answered to patients satisfaction. Patient verbalized understanding of diagnosis and treatments explained. To call sooner prior to next visit it any questions/concerns arise. Case discussed with collaborating physician Trista Gayle who reviewed the assessment and plan. Chart, medications, labs, vital signs reviewed. Dictation was accomplished with the use of [employer] voice recognition software, prone to medical misidentifications and grammatical errors. This is unintentional and the practitioner does try to identify and correct these, but some could still be present. Please do not hesitate to contact practitioner for clarification. 01/29/2025 BMI 30.0-30.9,adult (ICD-10 - Z68.30) # Health Maintenance: influenza 09/13/2022, Covid 09/13/2022, shingles #1 obtained today 01/29/2025, tetanus 05/10/2017 and due in 2026. Mammogram 06/04/2022 will obtain records, colonoscopy 05/20/2024 will obtain records, PAP 05/21/2024 will obtain records. Labwork reviewed today. Revealing hyperlipidemia and vitamin D deficiency but otherwise labs were within normal limits. # Hyperlipidemia: Labs 01/22/2025 revealed total cholesterol 299, triglycerides 65, HDL 79, LDL 211. Patient states she has a history of taking atorvastatin 40 mg without side effects, reports stopping the medication a few years ago. Will re-initiate atorvastatin 20 mg PO daily. Patient agreeable to plan. Discussed continuation of lifestyle healthy habits and possibility of stopping this medication at a later date. Repeat labs in 4 months. # Vitamin D deficiency: Labs 01/22/2025 reveal vitamin D level 15.7. Patient reports she will take 2000U vitamin D daily. Repeat labs in 4 months. # Screening for diabetes mellitus: hemoglobin A1C 5.2. No intervention indicated at this time. # Left ureteral stone. Following with urology. Lithotripsy Oct 2024 # Chronic sinus infections: Following with ENT. # Headaches: Nurtec every other day. Stopped taking triptan states it does not work.Has been feeling well. # Obesity 03/26/24: BMI 34, Weight 244. Discussed food rules. Discussed body composition scale at length. We discussed overall lifestyle changes, importance of limiting highly processed and heavy carbohydrate foods. Patient needs to exercise at least 3 times a week including walking and resistance training. Minimum of 64 ounces of water needs to be consumed today. HODAN C injection was also encouraged. We discussed options, Wegovy will likely be the best option. Patient is traveling for 3 weeks to [place]. Patient is also considering oral medications if injectables are not covered. We did discuss compounded options in the office. We will submit to insurance for Wegovy. Discussed storage and administration. Patient has no history of thyroid cancer. 05/20/24: BMI 34, Weight 244 lb. Wegovy sample given. Start Wegovy 0.25 mg subcu weekly. Discussed side effects. Ensure no hx of thyroid ca. Ecnouraged to consume 80 grams of protein, and consume 80 oz of water daily. Resistance train. 06/25/24: BMI 32, Weight 234. Continue Wegovy, increase to 0.5 mg. Pt may need stent, if she does, she needs to hold Wegovy 1 week prior to stent placement to reduce risk of aspiration. 08/13/24: BMI 32, Weight 236. Increase to Wegovy 1 mg subcu weekly. Discussed holding requirements for Wegovy preprocedural due to risk of aspiration. 09/24/24: BMI 31, Weight 227. Increase to Wegovy 1.7 mg subcu weekly. 11/12/24: BMI 30, Weight 222. Conitnue Wegovy 1.7 mg subcu weekly. Tolerating well. Lost all fat, gained muscle 01/29/25: BMI 30, Weight 217. Patient feels she has hit a plateau. Will increase to Wegovy 2.4 mg subcu weekly. Follow-up with Navjot Young PA-C in 5 weeks for weight management, and in 4 months for repeat lipid and vitamin D as well as for second shingles vaccine. Patient seen and examined. Comprehensive discussion was done on the following. 1. Nutrition: It is important to follow a healthy diet based on lots of vegetables and legumes and good fat. Avoid processed food and processed carbohydrates. Prepare your own meals. Read labels and avoid high fructose corn syrup, processed chemicals added to increase shelf life and preprepared meals. Avoid fast foods. Eat slowly and plan meals for a week. Try to count calories and be mindful off daily calorie intake. Get into the habit of keeping an eye on your weight by using an appropriate scale. Learn to log exercise and discussed fitness Apps like [employer] which can help keep log off calories taken versus calories burned. Local food should be preferred. Discussed [employer] Vers[employer] Fifteen. Discussed healthy supplements like fish oil, Tumeric, Curcumin, Melatonin, Resveratrol, Probiotics, Vitamin-D, Alpha-Lipoic acid, Vitamin-D and coconut oil. 2. It is important to exercise regularly. Is a good habit to walk at least 30 minutes a day. Gentle weightlifting with standard precautions to protect the back. Finding activity like cycling or hiking and get into the habit of engaging in it. Stretching before and after the exercises important. It is also important to contact me if there are any problems like shortness of breath, chest pain, back pain and joint or muscle pain associated with the exercise. 3. Discussed age appropriate screening guidelines. Colonoscopy needs to start at age 50 with stool for occult blood as appropriate. There is a new test that can test for genetic abnormalities in the stool sample, Cologuard. This would not replace a colonoscopy but could be used as a screening tool for patients who do not want a colonoscopy. We discussed the importance of early detection of colon cancer. 4. Discussed current guidelines with respect to breast examination, mammogram and pap smear for early detection of breast and cervical cancer. Patient advised to follow up with these appointments. 5. Discussed safe driving and no use of smart phone while driving 6. Age-appropriate immunizations were discussed. A tetanus booster is needed every 10 years. Flu vaccine is recommended every year just before the start of the flu season. Shingles vaccine is recommended after age 50 but not all insurances cover it. Pneumonia vaccine is given after age 65 unless there are certain comorbidities for which it is started earlier. 7. Diagnostic labs were discussed. These could include/not limited to CBC CMP and lipids with fasting blood glucose and insulin levels. Vitamin D and hemoglobin A1c testing might be appropriate. All quetsions answered to patients satisfaction. Patient verbalized understanding of diagnosis and treatments explained. To call sooner prior to next visit it any questions/concerns arise. Case discussed with collaborating physician Trista Gayle who reviewed the assessment and plan. Chart, medications, labs, vital signs reviewed. Dictation was accomplished with the use of [employer] voice recognition software, prone to medical misidentifications and grammatical errors. This is unintentional and the practitioner does try to identify and correct these, but some could still be present. Please do not hesitate to contact practitioner for clarification. 11/12/2024 Migraine without aura, not intractable, with status migrainosus (ICD-10 - G43.001) # Obesity 03/26/24: BMI 34, Weight 244. Discussed food rules. Discussed body composition scale at length. We discussed overall lifestyle changes, importance of limiting highly processed and heavy carbohydrate foods. Patient needs to exercise at least 3 times a week including walking and resistance training. Minimum of 64 ounces of water needs to be consumed today. HODAN C injection was also encouraged. We discussed options, Wegovy will likely be the best option. Patient is traveling for 3 weeks to [place]. Patient is also considering oral medications if injectables are not covered. We did discuss compounded options in the office. We will submit to insurance for Wegovy. Discussed storage and administration. Patient has no history of thyroid cancer. 05/20/24: BMI 34, Weight 244 lb. Wegovy sample given. Start Wegovy 0.25 mg subcu weekly. Discussed side effects. Ensure no hx of thyroid ca. Ecnouraged to consume 80 grams of protein, and consume 80 oz of water daily. Resistance train. 06/25/24: BMI 32, Weight 234. Continue Wegovy, increase to 0.5 mg. Pt may need stent, if she does, she needs to hold Wegovy 1 week prior to stent placement to reduce risk of aspiration. 08/13/24: BMI 32, Weight 236. Increase to Wegovy 1 mg subcu weekly. Discussed holding requirements for Wegovy preprocedural due to risk of aspiration. 09/24/24: BMI 31, Weight 227. Increase to Wegovy 1.7 mg subcu weekly. 11/12/24: BMI 30, Weight 222. Conitnue Wegovy 1.7 mg subcu weekly. Tolerating well. Lost all fat, gained muscle # Left ureteral stone. Following with urology. Lithotripsy Oct 2024 # Recurrent sinusitis. CT sinuses shows mild paranasal sinus disease. ENT referred- appt not until Nov. Refer to CT ENT # Headaches: Nurtect every other day. Using Rizatriptan too. ? Trigeminal neuralagia. Total time spent today was 30 minutes of which greater than 50% was spent on coordinating and counseling Case discussed with collaborating physician Abhishek Gayle who reviewed the assessment and plan. Chart, medications, labs, vital signs reviewed. Dictation was accomplished with the use of [employer] voice recognition software, prone to medical misidentifications and grammatical errors. This is unintentional and the practitioner does try to identify and correct these, but some could still be present. Please do not hesitate to contact practitioner for clarification. All quetsions answered to patients satisfaction. Patient verbalized understanding of diagnosis and treatments explained. To call sooner prior to next visit it any questions/concerns arise. 09/24/2024 Migraine without aura, not intractable, with status migrainosus (ICD-10 - G43.001) # Obesity 03/26/24: BMI 34, Weight 244. Discussed food rules. Discussed body composition scale at length. We discussed overall lifestyle changes, importance of limiting highly processed and heavy carbohydrate foods. Patient needs to exercise at least 3 times a week including walking and resistance training. Minimum of 64 ounces of water needs to be consumed today. HODAN C injection was also encouraged. We discussed options, Wegovy will likely be the best option. Patient is traveling for 3 weeks to [place]. Patient is also considering oral medications if injectables are not covered. We did discuss compounded options in the office. We will submit to insurance for Wegovy. Discussed storage and administration. Patient has no history of thyroid cancer. 05/20/24: BMI 34, Weight 244 lb. Wegovy sample given. Start Wegovy 0.25 mg subcu weekly. Discussed side effects. Ensure no hx of thyroid ca. Ecnouraged to consume 80 grams of protein, and consume 80 oz of water daily. Resistance train. 06/25/24: BMI 32, Weight 234. Continue Wegovy, increase to 0.5 mg. Pt may need stent, if she does, she needs to hold Wegovy 1 week prior to stent placement to reduce risk of aspiration. 08/13/24: BMI 32, Weight 236. Increase to Wegovy 1 mg subcu weekly. Discussed holding requirements for Wegovy preprocedural due to risk of aspiration. 09/24/24: BMI 31, Weight 227. Increase to Wegovy 1.7 mg subcu weekly. # Left ureteral stone. Following with urology. Lithotripsy today # Recurrent sinusitis. CT sinuses shows mild paranasal sinus disease. ENT referred- appt not until Nov. Refer to CT ENT # Headaches: Nurtect every other day. Using Rizatriptan too. ? Trigeminal neuralagia. Total time spent today was 30 minutes of which greater than 50% was spent on coordinating and counseling Case discussed with collaborating physician Abhishek Gayle who reviewed the assessment and plan. Chart, medications, labs, vital signs reviewed. Dictation was accomplished with the use of [employer] voice recognition software, prone to medical misidentifications and grammatical errors. This is unintentional and the practitioner does try to identify and correct these, but some could still be present. Please do not hesitate to contact practitioner for clarification. All quetsions answered to patients satisfaction. Patient verbalized understanding of diagnosis and treatments explained. To call sooner prior to next visit it any questions/concerns arise. 08/13/2024 Migraine without aura, not intractable, with status migrainosus (ICD-10 - G43.001) # Obesity 03/26/24: BMI 34, Weight 244. Discussed food rules. Discussed body composition scale at length. We discussed overall lifestyle changes, importance of limiting highly processed and heavy carbohydrate foods. Patient needs to exercise at least 3 times a week including walking and resistance training. Minimum of 64 ounces of water needs to be consumed today. HODAN C injection was also encouraged. We discussed options, Wegovy will likely be the best option. Patient is traveling for 3 weeks to [place]. Patient is also considering oral medications if injectables are not covered. We did discuss compounded options in the office. We will submit to insurance for Wegovy. Discussed storage and administration. Patient has no history of thyroid cancer. 05/20/24: BMI 34, Weight 244 lb. Wegovy sample given. Start Wegovy 0.25 mg subcu weekly. Discussed side effects. Ensure no hx of thyroid ca. Ecnouraged to consume 80 grams of protein, and consume 80 oz of water daily. Resistance train. 06/25/24: BMI 32, Weight 234. Continue Wegovy, increase to 0.5 mg. Pt may need stent, if she does, she needs to hold Wegovy 1 week prior to stent placement to reduce risk of aspiration. 08/13/24: BMI 32, Weight 236. Increase to Wegovy 1 mg subcu weekly. Discussed holding requirements for Wegovy preprocedural due to risk of aspiration. # Left ureteral stone. Following with urology. Discussed low oxalate diet. Due for repeat lithotripsy Sep 2024 # Recurrent sinusitis. CT sinuses shows mild paranasal sinus disease. ENT referred- appt not until Nov. Refer to CT ENT. Has tried Amoxil and Augmentin w/o improvement. Consider Avelox. ? Anarobe coverage due to netti pot. Pt reports she is using sterile water. # Headaches: Nurtect every other day. Using Rizatriptan too. ? Trigeminal neuralagia. Total time spent today was 30 minutes of which greater than 50% was spent on coordinating and counseling Case discussed with collaborating physician Abhishek Gayle who reviewed the assessment and plan. Chart, medications, labs, vital signs reviewed. Dictation was accomplished with the use of [employer] voice recognition software, prone to medical misidentifications and grammatical errors. This is unintentional and the practitioner does try to identify and correct these, but some could still be present. Please do not hesitate to contact practitioner for clarification. All quetsions answered to patients satisfaction. Patient verbalized understanding of diagnosis and treatments explained. To call sooner prior to next visit it any questions/concerns arise. 08/13/2024 Sinusitis, unspecified chronicity, unspecified location (ICD-10 - J32.9) # Obesity 03/26/24: BMI 34, Weight 244. Discussed food rules. Discussed body composition scale at length. We discussed overall lifestyle changes, importance of limiting highly processed and heavy carbohydrate foods. Patient needs to exercise at least 3 times a week including walking and resistance training. Minimum of 64 ounces of water needs to be consumed today. HODAN C injection was also encouraged. We discussed options, Wegovy will likely be the best option. Patient is traveling for 3 weeks to [place]. Patient is also considering oral medications if injectables are not covered. We did discuss compounded options in the office. We will submit to insurance for Wegovy. Discussed storage and administration. Patient has no history of thyroid cancer. 05/20/24: BMI 34, Weight 244 lb. Wegovy sample given. Start Wegovy 0.25 mg subcu weekly. Discussed side effects. Ensure no hx of thyroid ca. Ecnouraged to consume 80 grams of protein, and consume 80 oz of water daily. Resistance train. 06/25/24: BMI 32, Weight 234. Continue Wegovy, increase to 0.5 mg. Pt may need stent, if she does, she needs to hold Wegovy 1 week prior to stent placement to reduce risk of aspiration. 08/13/24: BMI 32, Weight 236. Increase to Wegovy 1 mg subcu weekly. Discussed holding requirements for Wegovy preprocedural due to risk of aspiration. # Left ureteral stone. Following with urology. Discussed low oxalate diet. Due for repeat lithotripsy Sep 2024 # Recurrent sinusitis. CT sinuses shows mild paranasal sinus disease. ENT referred- appt not until Nov. Refer to CT ENT. Has tried Amoxil and Augmentin w/o improvement. Consider Avelox. ? Anarobe coverage due to netti pot. Pt reports she is using sterile water. # Headaches: Nurtect every other day. Using Rizatriptan too. ? Trigeminal neuralagia. Total time spent today was 30 minutes of which greater than 50% was spent on coordinating and counseling Case discussed with collaborating physician Abhishek Gayle who reviewed the assessment and plan. Chart, medications, labs, vital signs reviewed. Dictation was accomplished with the use of [place] [employer] voice recognition software, prone to medical misidentifications and grammatical errors. This is unintentional and the practitioner does try to identify and correct these, but some could still be present. Please do not hesitate to contact practitioner for clarification. All quetsions answered to patients satisfaction. Patient verbalized understanding of diagnosis and treatments explained. To call sooner prior to next visit it any questions/concerns arise. 09/24/2024 Sinusitis, unspecified chronicity, unspecified location (ICD-10 - J32.9) # Obesity 03/26/24: BMI 34, Weight 244. Discussed food rules. Discussed body composition scale at length. We discussed overall lifestyle changes, importance of limiting highly processed and heavy carbohydrate foods. Patient needs to exercise at least 3 times a week including walking and resistance training. Minimum of 64 ounces of water needs to be consumed today. HODAN C injection was also encouraged. We discussed options, Wegovy will likely be the best option. Patient is traveling for 3 weeks to [place]. Patient is also considering oral medications if injectables are not covered. We did discuss compounded options in the office. We will submit to insurance for Wegovy. Discussed storage and administration. Patient has no history of thyroid cancer. 05/20/24: BMI 34, Weight 244 lb. Wegovy sample given. Start Wegovy 0.25 mg subcu weekly. Discussed side effects. Ensure no hx of thyroid ca. Ecnouraged to consume 80 grams of protein, and consume 80 oz of water daily. Resistance train. 06/25/24: BMI 32, Weight 234. Continue Wegovy, increase to 0.5 mg. Pt may need stent, if she does, she needs to hold Wegovy 1 week prior to stent placement to reduce risk of aspiration. 08/13/24: BMI 32, Weight 236. Increase to Wegovy 1 mg subcu weekly. Discussed holding requirements for Wegovy preprocedural due to risk of aspiration. 09/24/24: BMI 31, Weight 227. Increase to Wegovy 1.7 mg subcu weekly. # Left ureteral stone. Following with urology. Lithotripsy today # Recurrent sinusitis. CT sinuses shows mild paranasal sinus disease. ENT referred- appt not until Nov. Refer to CT ENT # Headaches: Nurtect every other day. Using Rizatriptan too. ? Trigeminal neuralagia. Total time spent today was 30 minutes of which greater than 50% was spent on coordinating and counseling Case discussed with collaborating physician Abhishek Gayle who reviewed the assessment and plan. Chart, medications, labs, vital signs reviewed. Dictation was accomplished with the use of [place] [employer] voice recognition software, prone to medical misidentifications and grammatical errors. This is unintentional and the practitioner does try to identify and correct these, but some could still be present. Please do not hesitate to contact practitioner for clarification. All quetsions answered to patients satisfaction. Patient verbalized understanding of diagnosis and treatments explained. To call sooner prior to next visit it any questions/concerns arise. 11/12/2024 Sinusitis, unspecified chronicity, unspecified location (ICD-10 - J32.9) # Obesity 03/26/24: BMI 34, Weight 244. Discussed food rules. Discussed body composition scale at length. We discussed overall lifestyle changes, importance of limiting highly processed and heavy carbohydrate foods. Patient needs to exercise at least 3 times a week including walking and resistance training. Minimum of 64 ounces of water needs to be consumed today. HODAN C injection was also encouraged. We discussed options, Wegovy will likely be the best option. Patient is traveling for 3 weeks to [place]. Patient is also considering oral medications if injectables are not covered. We did discuss compounded options in the office. We will submit to insurance for Wegovy. Discussed storage and administration. Patient has no history of thyroid cancer. 05/20/24: BMI 34, Weight 244 lb. Wegovy sample given. Start Wegovy 0.25 mg subcu weekly. Discussed side effects. Ensure no hx of thyroid ca. Ecnouraged to consume 80 grams of protein, and consume 80 oz of water daily. Resistance train. 06/25/24: BMI 32, Weight 234. Continue Wegovy, increase to 0.5 mg. Pt may need stent, if she does, she needs to hold Wegovy 1 week prior to stent placement to reduce risk of aspiration. 08/13/24: BMI 32, Weight 236. Increase to Wegovy 1 mg subcu weekly. Discussed holding requirements for Wegovy preprocedural due to risk of aspiration. 09/24/24: BMI 31, Weight 227. Increase to Wegovy 1.7 mg subcu weekly. 11/12/24: BMI 30, Weight 222. Conitnue Wegovy 1.7 mg subcu weekly. Tolerating well. Lost all fat, gained muscle # Left ureteral stone. Following with urology. Lithotripsy Oct 2024 # Recurrent sinusitis. CT sinuses shows mild paranasal sinus disease. ENT referred- appt not until Nov. Refer to CT ENT # Headaches: Nurtect every other day. Using Rizatriptan too. ? Trigeminal neuralagia. Total time spent today was 30 minutes of which greater than 50% was spent on coordinating and counseling Case discussed with collaborating physician Abhishek Gayle who reviewed the assessment and plan. Chart, medications, labs, vital signs reviewed. Dictation was accomplished with the use of [employer] voice recognition software, prone to medical misidentifications and grammatical errors. This is unintentional and the practitioner does try to identify and correct these, but some could still be present. Please do not hesitate to contact practitioner for clarification. All quetsions answered to patients satisfaction. Patient verbalized understanding of diagnosis and treatments explained. To call sooner prior to next visit it any questions/concerns arise. 01/29/2025 Migraine without aura, not intractable, with status migrainosus (ICD-10 - G43.001) # Health Maintenance: influenza 09/13/2022, Covid 09/13/2022, shingles #1 obtained today 01/29/2025, tetanus 05/10/2017 and due in 2026. Mammogram 06/04/2022 will obtain records, colonoscopy 05/20/2024 will obtain records, PAP 05/21/2024 will obtain records. Labwork reviewed today. Revealing hyperlipidemia and vitamin D deficiency but otherwise labs were within normal limits. # Hyperlipidemia: Labs 01/22/2025 revealed total cholesterol 299, triglycerides 65, HDL 79, LDL 211. Patient states she has a history of taking atorvastatin 40 mg without side effects, reports stopping the medication a few years ago. Will re-initiate atorvastatin 20 mg PO daily. Patient agreeable to plan. Discussed continuation of lifestyle healthy habits and possibility of stopping this medication at a later date. Repeat labs in 4 months. # Vitamin D deficiency: Labs 01/22/2025 reveal vitamin D level 15.7. Patient reports she will take 2000U vitamin D daily. Repeat labs in 4 months. # Screening for diabetes mellitus: hemoglobin A1C 5.2. No intervention indicated at this time. # Left ureteral stone. Following with urology. Lithotripsy Oct 2024 # Chronic sinus infections: Following with ENT. # Headaches: Nurtec every other day. Stopped taking triptan states it does not work.Has been feeling well. # Obesity 03/26/24: BMI 34, Weight 244. Discussed food rules. Discussed body composition scale at length. We discussed overall lifestyle changes, importance of limiting highly processed and heavy carbohydrate foods. Patient needs to exercise at least 3 times a week including walking and resistance training. Minimum of 64 ounces of water needs to be consumed today. HODAN C injection was also encouraged. We discussed options, Wegovy will likely be the best option. Patient is traveling for 3 weeks to [place]. Patient is also considering oral medications if injectables are not covered. We did discuss compounded options in the office. We will submit to insurance for Wegovy. Discussed storage and administration. Patient has no history of thyroid cancer. 05/20/24: BMI 34, Weight 244 lb. Wegovy sample given. Start Wegovy 0.25 mg subcu weekly. Discussed side effects. Ensure no hx of thyroid ca. Ecnouraged to consume 80 grams of protein, and consume 80 oz of water daily. Resistance train. 06/25/24: BMI 32, Weight 234. Continue Wegovy, increase to 0.5 mg. Pt may need stent, if she does, she needs to hold Wegovy 1 week prior to stent placement to reduce risk of aspiration. 08/13/24: BMI 32, Weight 236. Increase to Wegovy 1 mg subcu weekly. Discussed holding requirements for Wegovy preprocedural due to risk of aspiration. 09/24/24: BMI 31, Weight 227. Increase to Wegovy 1.7 mg subcu weekly. 11/12/24: BMI 30, Weight 222. Conitnue Wegovy 1.7 mg subcu weekly. Tolerating well. Lost all fat, gained muscle 01/29/25: BMI 30, Weight 217. Patient feels she has hit a plateau. Will increase to Wegovy 2.4 mg subcu weekly. Follow-up with Navjot Young PA-C in 5 weeks for weight management, and in 4 months for repeat lipid and vitamin D as well as for second shingles vaccine. Patient seen and examined. Comprehensive discussion was done on the following. 1. Nutrition: It is important to follow a healthy diet based on lots of vegetables and legumes and good fat. Avoid processed food and processed carbohydrates. Prepare your own meals. Read labels and avoid high fructose corn syrup, processed chemicals added to increase shelf life and preprepared meals. Avoid fast foods. Eat slowly and plan meals for a week. Try to count calories and be mindful off daily calorie intake. Get into the habit of keeping an eye on your weight by using an appropriate scale. Learn to log exercise and discussed fitness Apps like [employer] which can help keep log off calories taken versus calories burned. Local food should be preferred. Discussed [employer] Vers[employer] Fifteen. Discussed healthy supplements like fish oil, Tumeric, Curcumin, Melatonin, Resveratrol, Probiotics, Vitamin-D, Alpha-Lipoic acid, Vitamin-D and coconut oil. 2. It is important to exercise regularly. Is a good habit to walk at least 30 minutes a day. Gentle weightlifting with standard precautions to protect the back. Finding activity like cycling or hiking and get into the habit of engaging in it. Stretching before and after the exercises important. It is also important to contact me if there are any problems like shortness of breath, chest pain, back pain and joint or muscle pain associated with the exercise. 3. Discussed age appropriate screening guidelines. Colonoscopy needs to start at age 50 with stool for occult blood as appropriate. There is a new test that can test for genetic abnormalities in the stool sample, Cologuard. This would not replace a colonoscopy but could be used as a screening tool for patients who do not want a colonoscopy. We discussed the importance of early detection of colon cancer. 4. Discussed current guidelines with respect to breast examination, mammogram and pap smear for early detection of breast and cervical cancer. Patient advised to follow up with these appointments. 5. Discussed safe driving and no use of smart phone while driving 6. Age-appropriate immunizations were discussed. A tetanus booster is needed every 10 years. Flu vaccine is recommended every year just before the start of the flu season. Shingles vaccine is recommended after age 50 but not all insurances cover it. Pneumonia vaccine is given after age 65 unless there are certain comorbidities for which it is started earlier. 7. Diagnostic labs were discussed. These could include/not limited to CBC CMP and lipids with fasting blood glucose and insulin levels. Vitamin D and hemoglobin A1c testing might be appropriate. All quetsions answered to patients satisfaction. Patient verbalized understanding of diagnosis and treatments explained. To call sooner prior to next visit it any questions/concerns arise. Case discussed with collaborating physician Trista Gayle who reviewed the assessment and plan. Chart, medications, labs, vital signs reviewed. Dictation was accomplished with the use of [place] [employer] voice recognition software, prone to medical misidentifications and grammatical errors. This is unintentional and the practitioner does try to identify and correct these, but some could still be present. Please do not hesitate to contact practitioner for clarification. 07/04/2025 Migraine without aura, not intractable, with status migrainosus (ICD-10 - G43.001) # URI. COVID/flu, RSV swab will be done. Patient reports symptoms have been ongoing. If negative, we will call in antibiotics. Albuterol nebulizer will be given. # Hyperlipidemia: Labs 01/22/2025 revealed total cholesterol 299, triglycerides 65, HDL 79, LDL 211. Patient states she has a history of taking atorvastatin 40 mg without side effects, reports stopping the medication a few years ago. Will re-initiate atorvastatin 20 mg PO daily. Patient agreeable to plan. Discussed continuation of lifestyle healthy habits and possibility of stopping this medication at a later date. Repeat labs in 4 months. # Vitamin D deficiency: Labs 01/22/2025 reveal vitamin D level 15.7. Patient reports she will take 2000U vitamin D daily. Repeat labs in 4 months. # Left ureteral stone. Following with urology. Lithotripsy Oct 2024 # Chronic sinus infections: Following with ENT. # Headaches: Nurtec every other day. Stopped taking triptan states it does not work.Has been feeling well. # Obesity 03/26/24: BMI 34, Weight 244. Discussed food rules. Discussed body composition scale at length. We discussed overall lifestyle changes, importance of limiting highly processed and heavy carbohydrate foods. Patient needs to exercise at least 3 times a week including walking and resistance training. Minimum of 64 ounces of water needs to be consumed today. HODAN C injection was also encouraged. We discussed options, Wegovy will likely be the best option. Patient is traveling for 3 weeks to [place]. Patient is also considering oral medications if injectables are not covered. We did discuss compounded options in the office. We will submit to insurance for Wegovy. Discussed storage and administration. Patient has no history of thyroid cancer. 05/20/24: BMI 34, Weight 244 lb. Wegovy sample given. Start Wegovy 0.25 mg subcu weekly. Discussed side effects. Ensure no hx of thyroid ca. Ecnouraged to consume 80 grams of protein, and consume 80 oz of water daily. Resistance train. 06/25/24: BMI 32, Weight 234. Continue Wegovy, increase to 0.5 mg. Pt may need stent, if she does, she needs to hold Wegovy 1 week prior to stent placement to reduce risk of aspiration. 08/13/24: BMI 32, Weight 236. Increase to Wegovy 1 mg subcu weekly. Discussed holding requirements for Wegovy preprocedural due to risk of aspiration. 09/24/24: BMI 31, Weight 227. Increase to Wegovy 1.7 mg subcu weekly. 11/12/24: BMI 30, Weight 222. Conitnue Wegovy 1.7 mg subcu weekly. Tolerating well. Lost all fat, gained muscle 01/29/25: BMI 30, Weight 217. Patient 03/25/25: BMI 29, 215. Continue Weogyv 2.4 mg subcu weekly. Needs to increase protein. 05/20/25: BMI 9, Weifht 209. Change to Zepbound 7.5 mg subcu weekly. Increase exercise. All quetsions answered to patients satisfaction. Patient verbalized understanding of diagnosis and treatments explained. To call sooner prior to next visit it any questions/concerns arise. Case discussed with collaborating physician Trista Gayle who reviewed the assessment and plan. Chart, medications, labs, vital signs reviewed. Dictation was accomplished with the use of [employer] voice recognition software, prone to medical misidentifications and grammatical errors. This is unintentional and the practitioner does try to identify and correct these, but some could still be present. Please do not hesitate to contact practitioner for clarification. 05/20/2025 Migraine without aura, not intractable, with status migrainosus (ICD-10 - G43.001) # Health Maintenance: influenza 09/13/2022, Covid 09/13/2022, shingles #1 obtained today 01/29/2025, tetanus 05/10/2017 and due in 2026. Mammogram 06/04/2022 will obtain records, colonoscopy 05/20/2024 will obtain records, PAP 05/21/2024 will obtain records. Labwork reviewed today. Revealing hyperlipidemia and vitamin D deficiency but otherwise labs were within normal limits. # Hyperlipidemia: Labs 01/22/2025 revealed total cholesterol 299, triglycerides 65, HDL 79, LDL 211. Patient states she has a history of taking atorvastatin 40 mg without side effects, reports stopping the medication a few years ago. Will re-initiate atorvastatin 20 mg PO daily. Patient agreeable to plan. Discussed continuation of lifestyle healthy habits and possibility of stopping this medication at a later date. Repeat labs in 4 months. # Vitamin D deficiency: Labs 01/22/2025 reveal vitamin D level 15.7. Patient reports she will take 2000U vitamin D daily. Repeat labs in 4 months. # Screening for diabetes mellitus: hemoglobin A1C 5.2. No intervention indicated at this time. # Left ureteral stone. Following with urology. Lithotripsy Oct 2024 # Chronic sinus infections: Following with ENT. # Headaches: Nurtec every other day. Stopped taking triptan states it does not work.Has been feeling well. # Obesity 03/26/24: BMI 34, Weight 244. Discussed food rules. Discussed body composition scale at length. We discussed overall lifestyle changes, importance of limiting highly processed and heavy carbohydrate foods. Patient needs to exercise at least 3 times a week including walking and resistance training. Minimum of 64 ounces of water needs to be consumed today. HODAN C injection was also encouraged. We discussed options, Wegovy will likely be the best option. Patient is traveling for 3 weeks to [place]. Patient is also considering oral medications if injectables are not covered. We did discuss compounded options in the office. We will submit to insurance for Wegovy. Discussed storage and administration. Patient has no history of thyroid cancer. 05/20/24: BMI 34, Weight 244 lb. Wegovy sample given. Start Wegovy 0.25 mg subcu weekly. Discussed side effects. Ensure no hx of thyroid ca. Ecnouraged to consume 80 grams of protein, and consume 80 oz of water daily. Resistance train. 06/25/24: BMI 32, Weight 234. Continue Wegovy, increase to 0.5 mg. Pt may need stent, if she does, she needs to hold Wegovy 1 week prior to stent placement to reduce risk of aspiration. 08/13/24: BMI 32, Weight 236. Increase to Wegovy 1 mg subcu weekly. Discussed holding requirements for Wegovy preprocedural due to risk of aspiration. 09/24/24: BMI 31, Weight 227. Increase to Wegovy 1.7 mg subcu weekly. 11/12/24: BMI 30, Weight 222. Conitnue Wegovy 1.7 mg subcu weekly. Tolerating well. Lost all fat, gained muscle 01/29/25: BMI 30, Weight 217. Patient 03/25/25: BMI 29, 215. Continue Weogyv 2.4 mg subcu weekly. Needs to increase protein. 05/20/25: BMI 9, Weifht 209. Change to Zepbound 7.5 mg subcu weekly. Increase exercise. All quetsions answered to patients satisfaction. Patient verbalized understanding of diagnosis and treatments explained. To call sooner prior to next visit it any questions/concerns arise. Case discussed with collaborating physician Trista Gayle who reviewed the assessment and plan. Chart, medications, labs, vital signs reviewed. Dictation was accomplished with the use of [employer] voice recognition software, prone to medical misidentifications and grammatical errors. This is unintentional and the practitioner does try to identify and correct these, but some could still be present. Please do not hesitate to contact practitioner for clarification. 03/25/2025 Hyperlipidemia (ICD-10 - E78.5) # Health Maintenance: influenza 09/13/2022, Covid 09/13/2022, shingles #1 obtained today 01/29/2025, tetanus 05/10/2017 and due in 2026. Mammogram 06/04/2022 will obtain records, colonoscopy 05/20/2024 will obtain records, PAP 05/21/2024 will obtain records. Labwork reviewed today. Revealing hyperlipidemia and vitamin D deficiency but otherwise labs were within normal limits. # Hyperlipidemia: Labs 01/22/2025 revealed total cholesterol 299, triglycerides 65, HDL 79, LDL 211. Patient states she has a history of taking atorvastatin 40 mg without side effects, reports stopping the medication a few years ago. Will re-initiate atorvastatin 20 mg PO daily. Patient agreeable to plan. Discussed continuation of lifestyle healthy habits and possibility of stopping this medication at a later date. Repeat labs in 4 months. # Vitamin D deficiency: Labs 01/22/2025 reveal vitamin D level 15.7. Patient reports she will take 2000U vitamin D daily. Repeat labs in 4 months. # Screening for diabetes mellitus: hemoglobin A1C 5.2. No intervention indicated at this time. # Left ureteral stone. Following with urology. Lithotripsy Oct 2024 # Chronic sinus infections: Following with ENT. # Headaches: Nurtec every other day. Stopped taking triptan states it does not work.Has been feeling well. # Obesity 03/26/24: BMI 34, Weight 244. Discussed food rules. Discussed body composition scale at length. We discussed overall lifestyle changes, importance of limiting highly processed and heavy carbohydrate foods. Patient needs to exercise at least 3 times a week including walking and resistance training. Minimum of 64 ounces of water needs to be consumed today. HODAN C injection was also encouraged. We discussed options, Wegovy will likely be the best option. Patient is traveling for 3 weeks to [place]. Patient is also considering oral medications if injectables are not covered. We did discuss compounded options in the office. We will submit to insurance for Wegovy. Discussed storage and administration. Patient has no history of thyroid cancer. 05/20/24: BMI 34, Weight 244 lb. Wegovy sample given. Start Wegovy 0.25 mg subcu weekly. Discussed side effects. Ensure no hx of thyroid ca. Ecnouraged to consume 80 grams of protein, and consume 80 oz of water daily. Resistance train. 06/25/24: BMI 32, Weight 234. Continue Wegovy, increase to 0.5 mg. Pt may need stent, if she does, she needs to hold Wegovy 1 week prior to stent placement to reduce risk of aspiration. 08/13/24: BMI 32, Weight 236. Increase to Wegovy 1 mg subcu weekly. Discussed holding requirements for Wegovy preprocedural due to risk of aspiration. 09/24/24: BMI 31, Weight 227. Increase to Wegovy 1.7 mg subcu weekly. 11/12/24: BMI 30, Weight 222. Conitnue Wegovy 1.7 mg subcu weekly. Tolerating well. Lost all fat, gained muscle 01/29/25: BMI 30, Weight 217. Patient 03/25/25: BMI 29, 215. Continue Weogyv 2.4 mg subcu weekly. Needs to increase protein. All quetsions answered to patients satisfaction. Patient verbalized understanding of diagnosis and treatments explained. To call sooner prior to next visit it any questions/concerns arise. Case discussed with collaborating physician Trista Gayle who reviewed the assessment and plan. Chart, medications, labs, vital signs reviewed. Dictation was accomplished with the use of [employer] voice recognition software, prone to medical misidentifications and grammatical errors. This is unintentional and the practitioner does try to identify and correct these, but some could still be present. Please do not hesitate to contact practitioner for clarification. 07/17/2025 Migraine without aura, not intractable, with status migrainosus (ICD-10 - G43.001) # URI. COVID Positive in office last visit. Patient has had the symptoms that improved then worsened again. No wheezing noted today in office. Will treat for possible postinfectious Simoni with azithromycin. Will also give Tessalon Perles and an albuterol inhaler. Albuterol MDI demonstrated on use today. Patient verbalizes understanding. If patient symptoms persist, get worse, or if fever develops she is to call the office. # Hyperlipidemia: Labs 01/22/2025 revealed total cholesterol 299, triglycerides 65, HDL 79, LDL 211. Patient states she has a history of taking atorvastatin 40 mg without side effects, reports stopping the medication a few years ago. Will re-initiate atorvastatin 20 mg PO daily. Patient agreeable to plan. Discussed continuation of lifestyle healthy habits and possibility of stopping this medication at a later date. Repeat labs in 4 months. # Vitamin D deficiency: Labs 01/22/2025 reveal vitamin D level 15.7. Patient reports she will take 2000U vitamin D daily. Repeat labs in 4 months. # Left ureteral stone. Following with urology. Lithotripsy Oct 2024 # Chronic sinus infections: Following with ENT. # Headaches: Nurtec every other day. Stopped taking triptan states it does not work.Has been feeling well. # Obesity 03/26/24: BMI 34, Weight 244. Discussed food rules. Discussed body composition scale at length. We discussed overall lifestyle changes, importance of limiting highly processed and heavy carbohydrate foods. Patient needs to exercise at least 3 times a week including walking and resistance training. Minimum of 64 ounces of water needs to be consumed today. HODAN C injection was also encouraged. We discussed options, Wegovy will likely be the best option. Patient is traveling for 3 weeks to [place]. Patient is also considering oral medications if injectables are not covered. We did discuss compounded options in the office. We will submit to insurance for Wegovy. Discussed storage and administration. Patient has no history of thyroid cancer. 05/20/24: BMI 34, Weight 244 lb. Wegovy sample given. Start Wegovy 0.25 mg subcu weekly. Discussed side effects. Ensure no hx of thyroid ca. Ecnouraged to consume 80 grams of protein, and consume 80 oz of water daily. Resistance train. 06/25/24: BMI 32, Weight 234. Continue Wegovy, increase to 0.5 mg. Pt may need stent, if she does, she needs to hold Wegovy 1 week prior to stent placement to reduce risk of aspiration. 08/13/24: BMI 32, Weight 236. Increase to Wegovy 1 mg subcu weekly. Discussed holding requirements for Wegovy preprocedural due to risk of aspiration. 09/24/24: BMI 31, Weight 227. Increase to Wegovy 1.7 mg subcu weekly. 11/12/24: BMI 30, Weight 222. Conitnue Wegovy 1.7 mg subcu weekly. Tolerating well. Lost all fat, gained muscle 01/29/25: BMI 30, Weight 217. Patient 03/25/25: BMI 29, 215. Continue Weogyv 2.4 mg subcu weekly. Needs to increase protein. 05/20/25: BMI 9, Weifht 209. Change to Zepbound 7.5 mg subcu weekly. Increase exercise. All quetsions answered to patients satisfaction. Patient verbalized understanding of diagnosis and treatments explained. To call sooner prior to next visit it any questions/concerns arise. Case discussed with collaborating physician Trista Gayle who reviewed the assessment and plan. Chart, medications, labs, vital signs reviewed. Dictation was accomplished with the use of [employer] voice recognition software, prone to medical misidentifications and grammatical errors. This is unintentional and the practitioner does try to identify and correct these, but some could still be present. Please do not hesitate to contact practitioner for clarification. 07/17/2025 Encounter for examination of blood pressure without abnormal findings (ICD-10 - Z01.30) # URI. COVID Positive in office last visit. Patient has had the symptoms that improved then worsened again. No wheezing noted today in office. Will treat for possible postinfectious Simoni with azithromycin. Will also give Tessalon Perles and an albuterol inhaler. Albuterol MDI demonstrated on use today. Patient verbalizes understanding. If patient symptoms persist, get worse, or if fever develops she is to call the office. # Hyperlipidemia: Labs 01/22/2025 revealed total cholesterol 299, triglycerides 65, HDL 79, LDL 211. Patient states she has a history of taking atorvastatin 40 mg without side effects, reports stopping the medication a few years ago. Will re-initiate atorvastatin 20 mg PO daily. Patient agreeable to plan. Discussed continuation of lifestyle healthy habits and possibility of stopping this medication at a later date. Repeat labs in 4 months. # Vitamin D deficiency: Labs 01/22/2025 reveal vitamin D level 15.7. Patient reports she will take 2000U vitamin D daily. Repeat labs in 4 months. # Left ureteral stone. Following with urology. Lithotripsy Oct 2024 # Chronic sinus infections: Following with ENT. # Headaches: Nurtec every other day. Stopped taking triptan states it does not work.Has been feeling well. # Obesity 03/26/24: BMI 34, Weight 244. Discussed food rules. Discussed body composition scale at length. We discussed overall lifestyle changes, importance of limiting highly processed and heavy carbohydrate foods. Patient needs to exercise at least 3 times a week including walking and resistance training. Minimum of 64 ounces of water needs to be consumed today. HODAN C injection was also encouraged. We discussed options, Wegovy will likely be the best option. Patient is traveling for 3 weeks to [place]. Patient is also considering oral medications if injectables are not covered. We did discuss compounded options in the office. We will submit to insurance for Wegovy. Discussed storage and administration. Patient has no history of thyroid cancer. 05/20/24: BMI 34, Weight 244 lb. Wegovy sample given. Start Wegovy 0.25 mg subcu weekly. Discussed side effects. Ensure no hx of thyroid ca. Ecnouraged to consume 80 grams of protein, and consume 80 oz of water daily. Resistance train. 06/25/24: BMI 32, Weight 234. Continue Wegovy, increase to 0.5 mg. Pt may need stent, if she does, she needs to hold Wegovy 1 week prior to stent placement to reduce risk of aspiration. 08/13/24: BMI 32, Weight 236. Increase to Wegovy 1 mg subcu weekly. Discussed holding requirements for Wegovy preprocedural due to risk of aspiration. 09/24/24: BMI 31, Weight 227. Increase to Wegovy 1.7 mg subcu weekly. 11/12/24: BMI 30, Weight 222. Conitnue Wegovy 1.7 mg subcu weekly. Tolerating well. Lost all fat, gained muscle 01/29/25: BMI 30, Weight 217. Patient 03/25/25: BMI 29, 215. Continue Weogyv 2.4 mg subcu weekly. Needs to increase protein. 05/20/25: BMI 9, Weifht 209. Change to Zepbound 7.5 mg subcu weekly. Increase exercise. All quetsions answered to patients satisfaction. Patient verbalized understanding of diagnosis and treatments explained. To call sooner prior to next visit it any questions/concerns arise. Case discussed with collaborating physician Trista Gayle who reviewed the assessment and plan. Chart, medications, labs, vital signs reviewed. Dictation was accomplished with the use of [employer] voice recognition software, prone to medical misidentifications and grammatical errors. This is unintentional and the practitioner does try to identify and correct these, but some could still be present. Please do not hesitate to contact practitioner for clarification. 05/20/2025 Vitamin D deficiency, unspecified (ICD-10 - E55.9) # Health Maintenance: influenza 09/13/2022, Covid 09/13/2022, shingles #1 obtained today 01/29/2025, tetanus 05/10/2017 and due in 2026. Mammogram 06/04/2022 will obtain records, colonoscopy 05/20/2024 will obtain records, PAP 05/21/2024 will obtain records. Labwork reviewed today. Revealing hyperlipidemia and vitamin D deficiency but otherwise labs were within normal limits. # Hyperlipidemia: Labs 01/22/2025 revealed total cholesterol 299, triglycerides 65, HDL 79, LDL 211. Patient states she has a history of taking atorvastatin 40 mg without side effects, reports stopping the medication a few years ago. Will re-initiate atorvastatin 20 mg PO daily. Patient agreeable to plan. Discussed continuation of lifestyle healthy habits and possibility of stopping this medication at a later date. Repeat labs in 4 months. # Vitamin D deficiency: Labs 01/22/2025 reveal vitamin D level 15.7. Patient reports she will take 2000U vitamin D daily. Repeat labs in 4 months. # Screening for diabetes mellitus: hemoglobin A1C 5.2. No intervention indicated at this time. # Left ureteral stone. Following with urology. Lithotripsy Oct 2024 # Chronic sinus infections: Following with ENT. # Headaches: Nurtec every other day. Stopped taking triptan states it does not work.Has been feeling well. # Obesity 03/26/24: BMI 34, Weight 244. Discussed food rules. Discussed body composition scale at length. We discussed overall lifestyle changes, importance of limiting highly processed and heavy carbohydrate foods. Patient needs to exercise at least 3 times a week including walking and resistance training. Minimum of 64 ounces of water needs to be consumed today. HODAN C injection was also encouraged. We discussed options, Wegovy will likely be the best option. Patient is traveling for 3 weeks to [place]. Patient is also considering oral medications if injectables are not covered. We did discuss compounded options in the office. We will submit to insurance for Wegovy. Discussed storage and administration. Patient has no history of thyroid cancer. 05/20/24: BMI 34, Weight 244 lb. Wegovy sample given. Start Wegovy 0.25 mg subcu weekly. Discussed side effects. Ensure no hx of thyroid ca. Ecnouraged to consume 80 grams of protein, and consume 80 oz of water daily. Resistance train. 06/25/24: BMI 32, Weight 234. Continue Wegovy, increase to 0.5 mg. Pt may need stent, if she does, she needs to hold Wegovy 1 week prior to stent placement to reduce risk of aspiration. 08/13/24: BMI 32, Weight 236. Increase to Wegovy 1 mg subcu weekly. Discussed holding requirements for Wegovy preprocedural due to risk of aspiration. 09/24/24: BMI 31, Weight 227. Increase to Wegovy 1.7 mg subcu weekly. 11/12/24: BMI 30, Weight 222. Conitnue Wegovy 1.7 mg subcu weekly. Tolerating well. Lost all fat, gained muscle 01/29/25: BMI 30, Weight 217. Patient 03/25/25: BMI 29, 215. Continue Weogyv 2.4 mg subcu weekly. Needs to increase protein. 05/20/25: BMI 9, Weifht 209. Change to Zepbound 7.5 mg subcu weekly. Increase exercise. All quetsions answered to patients satisfaction. Patient verbalized understanding of diagnosis and treatments explained. To call sooner prior to next visit it any questions/concerns arise. Case discussed with collaborating physician Trista Gayle who reviewed the assessment and plan. Chart, medications, labs, vital signs reviewed. Dictation was accomplished with the use of [employer] voice recognition software, prone to medical misidentifications and grammatical errors. This is unintentional and the practitioner does try to identify and correct these, but some could still be present. Please do not hesitate to contact practitioner for clarification. 07/04/2025 Vitamin D deficiency, unspecified (ICD-10 - E55.9) # URI. COVID/flu, RSV swab will be done. Patient reports symptoms have been ongoing. If negative, we will call in antibiotics. Albuterol nebulizer will be given. # Hyperlipidemia: Labs 01/22/2025 revealed total cholesterol 299, triglycerides 65, HDL 79, LDL 211. Patient states she has a history of taking atorvastatin 40 mg without side effects, reports stopping the medication a few years ago. Will re-initiate atorvastatin 20 mg PO daily. Patient agreeable to plan. Discussed continuation of lifestyle healthy habits and possibility of stopping this medication at a later date. Repeat labs in 4 months. # Vitamin D deficiency: Labs 01/22/2025 reveal vitamin D level 15.7. Patient reports she will take 2000U vitamin D daily. Repeat labs in 4 months. # Left ureteral stone. Following with urology. Lithotripsy Oct 2024 # Chronic sinus infections: Following with ENT. # Headaches: Nurtec every other day. Stopped taking triptan states it does not work.Has been feeling well. # Obesity 03/26/24: BMI 34, Weight 244. Discussed food rules. Discussed body composition scale at length. We discussed overall lifestyle changes, importance of limiting highly processed and heavy carbohydrate foods. Patient needs to exercise at least 3 times a week including walking and resistance training. Minimum of 64 ounces of water needs to be consumed today. HODAN C injection was also encouraged. We discussed options, Wegovy will likely be the best option. Patient is traveling for 3 weeks to [place]. Patient is also considering oral medications if injectables are not covered. We did discuss compounded options in the office. We will submit to insurance for Wegovy. Discussed storage and administration. Patient has no history of thyroid cancer. 05/20/24: BMI 34, Weight 244 lb. Wegovy sample given. Start Wegovy 0.25 mg subcu weekly. Discussed side effects. Ensure no hx of thyroid ca. Ecnouraged to consume 80 grams of protein, and consume 80 oz of water daily. Resistance train. 06/25/24: BMI 32, Weight 234. Continue Wegovy, increase to 0.5 mg. Pt may need stent, if she does, she needs to hold Wegovy 1 week prior to stent placement to reduce risk of aspiration. 08/13/24: BMI 32, Weight 236. Increase to Wegovy 1 mg subcu weekly. Discussed holding requirements for Wegovy preprocedural due to risk of aspiration. 09/24/24: BMI 31, Weight 227. Increase to Wegovy 1.7 mg subcu weekly. 11/12/24: BMI 30, Weight 222. Conitnue Wegovy 1.7 mg subcu weekly. Tolerating well. Lost all fat, gained muscle 01/29/25: BMI 30, Weight 217. Patient 03/25/25: BMI 29, 215. Continue Weogyv 2.4 mg subcu weekly. Needs to increase protein. 05/20/25: BMI 9, Weifht 209. Change to Zepbound 7.5 mg subcu weekly. Increase exercise. All quetsions answered to patients satisfaction. Patient verbalized understanding of diagnosis and treatments explained. To call sooner prior to next visit it any questions/concerns arise. Case discussed with collaborating physician Trista Gayle who reviewed the assessment and plan. Chart, medications, labs, vital signs reviewed. Dictation was accomplished with the use of [employer] voice recognition software, prone to medical misidentifications and grammatical errors. This is unintentional and the practitioner does try to identify and correct these, but some could still be present. Please do not hesitate to contact practitioner for clarification. 01/29/2025 Sinusitis, unspecified chronicity, unspecified location (ICD-10 - J32.9) # Health Maintenance: influenza 09/13/2022, Covid 09/13/2022, shingles #1 obtained today 01/29/2025, tetanus 05/10/2017 and due in 2026. Mammogram 06/04/2022 will obtain records, colonoscopy 05/20/2024 will obtain records, PAP 05/21/2024 will obtain records. Labwork reviewed today. Revealing hyperlipidemia and vitamin D deficiency but otherwise labs were within normal limits. # Hyperlipidemia: Labs 01/22/2025 revealed total cholesterol 299, triglycerides 65, HDL 79, LDL 211. Patient states she has a history of taking atorvastatin 40 mg without side effects, reports stopping the medication a few years ago. Will re-initiate atorvastatin 20 mg PO daily. Patient agreeable to plan. Discussed continuation of lifestyle healthy habits and possibility of stopping this medication at a later date. Repeat labs in 4 months. # Vitamin D deficiency: Labs 01/22/2025 reveal vitamin D level 15.7. Patient reports she will take 2000U vitamin D daily. Repeat labs in 4 months. # Screening for diabetes mellitus: hemoglobin A1C 5.2. No intervention indicated at this time. # Left ureteral stone. Following with urology. Lithotripsy Oct 2024 # Chronic sinus infections: Following with ENT. # Headaches: Nurtec every other day. Stopped taking triptan states it does not work.Has been feeling well. # Obesity 03/26/24: BMI 34, Weight 244. Discussed food rules. Discussed body composition scale at length. We discussed overall lifestyle changes, importance of limiting highly processed and heavy carbohydrate foods. Patient needs to exercise at least 3 times a week including walking and resistance training. Minimum of 64 ounces of water needs to be consumed today. HODAN C injection was also encouraged. We discussed options, Wegovy will likely be the best option. Patient is traveling for 3 weeks to [place]. Patient is also considering oral medications if injectables are not covered. We did discuss compounded options in the office. We will submit to insurance for Wegovy. Discussed storage and administration. Patient has no history of thyroid cancer. 05/20/24: BMI 34, Weight 244 lb. Wegovy sample given. Start Wegovy 0.25 mg subcu weekly. Discussed side effects. Ensure no hx of thyroid ca. Ecnouraged to consume 80 grams of protein, and consume 80 oz of water daily. Resistance train. 06/25/24: BMI 32, Weight 234. Continue Wegovy, increase to 0.5 mg. Pt may need stent, if she does, she needs to hold Wegovy 1 week prior to stent placement to reduce risk of aspiration. 08/13/24: BMI 32, Weight 236. Increase to Wegovy 1 mg subcu weekly. Discussed holding requirements for Wegovy preprocedural due to risk of aspiration. 09/24/24: BMI 31, Weight 227. Increase to Wegovy 1.7 mg subcu weekly. 11/12/24: BMI 30, Weight 222. Conitnue Wegovy 1.7 mg subcu weekly. Tolerating well. Lost all fat, gained muscle 01/29/25: BMI 30, Weight 217. Patient feels she has hit a plateau. Will increase to Wegovy 2.4 mg subcu weekly. Follow-up with Navjot Young PA-C in 5 weeks for weight management, and in 4 months for repeat lipid and vitamin D as well as for second shingles vaccine. Patient seen and examined. Comprehensive discussion was done on the following. 1. Nutrition: It is important to follow a healthy diet based on lots of vegetables and legumes and good fat. Avoid processed food and processed carbohydrates. Prepare your own meals. Read labels and avoid high fructose corn syrup, processed chemicals added to increase shelf life and preprepared meals. Avoid fast foods. Eat slowly and plan meals for a week. Try to count calories and be mindful off daily calorie intake. Get into the habit of keeping an eye on your weight by using an appropriate scale. Learn to log exercise and discussed fitness Apps like [employer] which can help keep log off calories taken versus calories burned. Local food should be preferred. Discussed Dirty Dozen Versus Clean Fifteen. Discussed healthy supplements like fish oil, Tumeric, Curcumin, Melatonin, Resveratrol, Probiotics, Vitamin-D, Alpha-Lipoic acid, Vitamin-D and coconut oil. 2. It is important to exercise regularly. Is a good habit to walk at least 30 minutes a day. Gentle weightlifting with standard precautions to protect the back. Finding activity like cycling or hiking and get into the habit of engaging in it. Stretching before and after the exercises important. It is also important to contact me if there are any problems like shortness of breath, chest pain, back pain and joint or muscle pain associated with the exercise. 3. Discussed age appropriate screening guidelines. Colonoscopy needs to start at age 50 with stool for occult blood as appropriate. There is a new test that can test for genetic abnormalities in the stool sample, Cologuard. This would not replace a colonoscopy but could be used as a screening tool for patients who do not want a colonoscopy. We discussed the importance of early detection of colon cancer. 4. Discussed current guidelines with respect to breast examination, mammogram and pap smear for early detection of breast and cervical cancer. Patient advised to follow up with these appointments. 5. Discussed safe driving and no use of smart phone while driving 6. Age-appropriate immunizations were discussed. A tetanus booster is needed every 10 years. Flu vaccine is recommended every year just before the start of the flu season. Shingles vaccine is recommended after age 50 but not all insurances cover it. Pneumonia vaccine is given after age 65 unless there are certain comorbidities for which it is started earlier. 7. Diagnostic labs were discussed. These could include/not limited to CBC CMP and lipids with fasting blood glucose and insulin levels. Vitamin D and hemoglobin A1c testing might be appropriate. All quetsions answered to patients satisfaction. Patient verbalized understanding of diagnosis and treatments explained. To call sooner prior to next visit it any questions/concerns arise. Case discussed with collaborating physician Trista Gayle who reviewed the assessment and plan. Chart, medications, labs, vital signs reviewed. Dictation was accomplished with the use of [place] [employer] voice recognition software, prone to medical misidentifications and grammatical errors. This is unintentional and the practitioner does try to identify and correct these, but some could still be present. Please do not hesitate to contact practitioner for clarification. 03/25/2025 Vitamin D deficiency, unspecified (ICD-10 - E55.9) # Health Maintenance: influenza 09/13/2022, Covid 09/13/2022, shingles #1 obtained today 01/29/2025, tetanus 05/10/2017 and due in 2026. Mammogram 06/04/2022 will obtain records, colonoscopy 05/20/2024 will obtain records, PAP 05/21/2024 will obtain records. Labwork reviewed today. Revealing hyperlipidemia and vitamin D deficiency but otherwise labs were within normal limits. # Hyperlipidemia: Labs 01/22/2025 revealed total cholesterol 299, triglycerides 65, HDL 79, LDL 211. Patient states she has a history of taking atorvastatin 40 mg without side effects, reports stopping the medication a few years ago. Will re-initiate atorvastatin 20 mg PO daily. Patient agreeable to plan. Discussed continuation of lifestyle healthy habits and possibility of stopping this medication at a later date. Repeat labs in 4 months. # Vitamin D deficiency: Labs 01/22/2025 reveal vitamin D level 15.7. Patient reports she will take 2000U vitamin D daily. Repeat labs in 4 months. # Screening for diabetes mellitus: hemoglobin A1C 5.2. No intervention indicated at this time. # Left ureteral stone. Following with urology. Lithotripsy Oct 2024 # Chronic sinus infections: Following with ENT. # Headaches: Nurtec every other day. Stopped taking triptan states it does not work.Has been feeling well. # Obesity 03/26/24: BMI 34, Weight 244. Discussed food rules. Discussed body composition scale at length. We discussed overall lifestyle changes, importance of limiting highly processed and heavy carbohydrate foods. Patient needs to exercise at least 3 times a week including walking and resistance training. Minimum of 64 ounces of water needs to be consumed today. HODAN C injection was also encouraged. We discussed options, Wegovy will likely be the best option. Patient is traveling for 3 weeks to [place]. Patient is also considering oral medications if injectables are not covered. We did discuss compounded options in the office. We will submit to insurance for Wegovy. Discussed storage and administration. Patient has no history of thyroid cancer. 05/20/24: BMI 34, Weight 244 lb. Wegovy sample given. Start Wegovy 0.25 mg subcu weekly. Discussed side effects. Ensure no hx of thyroid ca. Ecnouraged to consume 80 grams of protein, and consume 80 oz of water daily. Resistance train. 06/25/24: BMI 32, Weight 234. Continue Wegovy, increase to 0.5 mg. Pt may need stent, if she does, she needs to hold Wegovy 1 week prior to stent placement to reduce risk of aspiration. 08/13/24: BMI 32, Weight 236. Increase to Wegovy 1 mg subcu weekly. Discussed holding requirements for Wegovy preprocedural due to risk of aspiration. 09/24/24: BMI 31, Weight 227. Increase to Wegovy 1.7 mg subcu weekly. 11/12/24: BMI 30, Weight 222. Conitnue Wegovy 1.7 mg subcu weekly. Tolerating well. Lost all fat, gained muscle 01/29/25: BMI 30, Weight 217. Patient 03/25/25: BMI 29, 215. Continue Weogyv 2.4 mg subcu weekly. Needs to increase protein. All quetsions answered to patients satisfaction. Patient verbalized understanding of diagnosis and treatments explained. To call sooner prior to next visit it any questions/concerns arise. Case discussed with collaborating physician Trista Gayle who reviewed the assessment and plan. Chart, medications, labs, vital signs reviewed. Dictation was accomplished with the use of [place] [employer] voice recognition software, prone to medical misidentifications and grammatical errors. This is unintentional and the practitioner does try to identify and correct these, but some could still be present. Please do not hesitate to contact practitioner for clarification. 09/24/2024 Ureteral stone (ICD-10 - N20.1) # Obesity 03/26/24: BMI 34, Weight 244. Discussed food rules. Discussed body composition scale at length. We discussed overall lifestyle changes, importance of limiting highly processed and heavy carbohydrate foods. Patient needs to exercise at least 3 times a week including walking and resistance training. Minimum of 64 ounces of water needs to be consumed today. HODAN C injection was also encouraged. We discussed options, Wegovy will likely be the best option. Patient is traveling for 3 weeks to [place]. Patient is also considering oral medications if injectables are not covered. We did discuss compounded options in the office. We will submit to insurance for Wegovy. Discussed storage and administration. Patient has no history of thyroid cancer. 05/20/24: BMI 34, Weight 244 lb. Wegovy sample given. Start Wegovy 0.25 mg subcu weekly. Discussed side effects. Ensure no hx of thyroid ca. Ecnouraged to consume 80 grams of protein, and consume 80 oz of water daily. Resistance train. 06/25/24: BMI 32, Weight 234. Continue Wegovy, increase to 0.5 mg. Pt may need stent, if she does, she needs to hold Wegovy 1 week prior to stent placement to reduce risk of aspiration. 08/13/24: BMI 32, Weight 236. Increase to Wegovy 1 mg subcu weekly. Discussed holding requirements for Wegovy preprocedural due to risk of aspiration. 09/24/24: BMI 31, Weight 227. Increase to Wegovy 1.7 mg subcu weekly. # Left ureteral stone. Following with urology. Lithotripsy today # Recurrent sinusitis. CT sinuses shows mild paranasal sinus disease. ENT referred- appt not until Nov. Refer to CT ENT # Headaches: Nurtect every other day. Using Rizatriptan too. ? Trigeminal neuralagia. Total time spent today was 30 minutes of which greater than 50% was spent on coordinating and counseling Case discussed with collaborating physician Abhishek Gayle who reviewed the assessment and plan. Chart, medications, labs, vital signs reviewed. Dictation was accomplished with the use of [place] [employer] voice recognition software, prone to medical misidentifications and grammatical errors. This is unintentional and the practitioner does try to identify and correct these, but some could still be present. Please do not hesitate to contact practitioner for clarification. All quetsions answered to patients satisfaction. Patient verbalized understanding of diagnosis and treatments explained. To call sooner prior to next visit it any questions/concerns arise. 08/13/2024 Ureteral stone (ICD-10 - N20.1) # Obesity 03/26/24: BMI 34, Weight 244. Discussed food rules. Discussed body composition scale at length. We discussed overall lifestyle changes, importance of limiting highly processed and heavy carbohydrate foods. Patient needs to exercise at least 3 times a week including walking and resistance training. Minimum of 64 ounces of water needs to be consumed today. HODAN C injection was also encouraged. We discussed options, Wegovy will likely be the best option. Patient is traveling for 3 weeks to [place]. Patient is also considering oral medications if injectables are not covered. We did discuss compounded options in the office. We will submit to insurance for Wegovy. Discussed storage and administration. Patient has no history of thyroid cancer. 05/20/24: BMI 34, Weight 244 lb. Wegovy sample given. Start Wegovy 0.25 mg subcu weekly. Discussed side effects. Ensure no hx of thyroid ca. Ecnouraged to consume 80 grams of protein, and consume 80 oz of water daily. Resistance train. 06/25/24: BMI 32, Weight 234. Continue Wegovy, increase to 0.5 mg. Pt may need stent, if she does, she needs to hold Wegovy 1 week prior to stent placement to reduce risk of aspiration. 08/13/24: BMI 32, Weight 236. Increase to Wegovy 1 mg subcu weekly. Discussed holding requirements for Wegovy preprocedural due to risk of aspiration. # Left ureteral stone. Following with urology. Discussed low oxalate diet. Due for repeat lithotripsy Sep 2024 # Recurrent sinusitis. CT sinuses shows mild paranasal sinus disease. ENT referred- appt not until Nov. Refer to CT ENT. Has tried Amoxil and Augmentin w/o improvement. Consider Avelox. ? Anarobe coverage due to netti pot. Pt reports she is using sterile water. # Headaches: Nurtect every other day. Using Rizatriptan too. ? Trigeminal neuralagia. Total time spent today was 30 minutes of which greater than 50% was spent on coordinating and counseling Case discussed with collaborating physician Abhishek Gayle who reviewed the assessment and plan. Chart, medications, labs, vital signs reviewed. Dictation was accomplished with the use of [place] [employer] voice recognition software, prone to medical misidentifications and grammatical errors. This is unintentional and the practitioner does try to identify and correct these, but some could still be present. Please do not hesitate to contact practitioner for clarification. All quetsions answered to patients satisfaction. Patient verbalized understanding of diagnosis and treatments explained. To call sooner prior to next visit it any questions/concerns arise. 03/25/2025 Encounter for examination of blood pressure without abnormal findings (ICD-10 - Z01.30) # Health Maintenance: influenza 09/13/2022, Covid 09/13/2022, shingles #1 obtained today 01/29/2025, tetanus 05/10/2017 and due in 2026. Mammogram 06/04/2022 will obtain records, colonoscopy 05/20/2024 will obtain records, PAP 05/21/2024 will obtain records. Labwork reviewed today. Revealing hyperlipidemia and vitamin D deficiency but otherwise labs were within normal limits. # Hyperlipidemia: Labs 01/22/2025 revealed total cholesterol 299, triglycerides 65, HDL 79, LDL 211. Patient states she has a history of taking atorvastatin 40 mg without side effects, reports stopping the medication a few years ago. Will re-initiate atorvastatin 20 mg PO daily. Patient agreeable to plan. Discussed continuation of lifestyle healthy habits and possibility of stopping this medication at a later date. Repeat labs in 4 months. # Vitamin D deficiency: Labs 01/22/2025 reveal vitamin D level 15.7. Patient reports she will take 2000U vitamin D daily. Repeat labs in 4 months. # Screening for diabetes mellitus: hemoglobin A1C 5.2. No intervention indicated at this time. # Left ureteral stone. Following with urology. Lithotripsy Oct 2024 # Chronic sinus infections: Following with ENT. # Headaches: Nurtec every other day. Stopped taking triptan states it does not work.Has been feeling well. # Obesity 03/26/24: BMI 34, Weight 244. Discussed food rules. Discussed body composition scale at length. We discussed overall lifestyle changes, importance of limiting highly processed and heavy carbohydrate foods. Patient needs to exercise at least 3 times a week including walking and resistance training. Minimum of 64 ounces of water needs to be consumed today. HODAN C injection was also encouraged. We discussed options, Wegovy will likely be the best option. Patient is traveling for 3 weeks to [place]. Patient is also considering oral medications if injectables are not covered. We did discuss compounded options in the office. We will submit to insurance for Wegovy. Discussed storage and administration. Patient has no history of thyroid cancer. 05/20/24: BMI 34, Weight 244 lb. Wegovy sample given. Start Wegovy 0.25 mg subcu weekly. Discussed side effects. Ensure no hx of thyroid ca. Ecnouraged to consume 80 grams of protein, and consume 80 oz of water daily. Resistance train. 06/25/24: BMI 32, Weight 234. Continue Wegovy, increase to 0.5 mg. Pt may need stent, if she does, she needs to hold Wegovy 1 week prior to stent placement to reduce risk of aspiration. 08/13/24: BMI 32, Weight 236. Increase to Wegovy 1 mg subcu weekly. Discussed holding requirements for Wegovy preprocedural due to risk of aspiration. 09/24/24: BMI 31, Weight 227. Increase to Wegovy 1.7 mg subcu weekly. 11/12/24: BMI 30, Weight 222. Conitnue Wegovy 1.7 mg subcu weekly. Tolerating well. Lost all fat, gained muscle 01/29/25: BMI 30, Weight 217. Patient 03/25/25: BMI 29, 215. Continue Weogyv 2.4 mg subcu weekly. Needs to increase protein. All quetsions answered to patients satisfaction. Patient verbalized understanding of diagnosis and treatments explained. To call sooner prior to next visit it any questions/concerns arise. Case discussed with collaborating physician Trista Gayle who reviewed the assessment and plan. Chart, medications, labs, vital signs reviewed. Dictation was accomplished with the use of [place] [employer] voice recognition software, prone to medical misidentifications and grammatical errors. This is unintentional and the practitioner does try to identify and correct these, but some could still be present. Please do not hesitate to contact practitioner for clarification. 01/29/2025 Hyperlipidemia (ICD-10 - E78.5) # Health Maintenance: influenza 09/13/2022, Covid 09/13/2022, shingles #1 obtained today 01/29/2025, tetanus 05/10/2017 and due in 2026. Mammogram 06/04/2022 will obtain records, colonoscopy 05/20/2024 will obtain records, PAP 05/21/2024 will obtain records. Labwork reviewed today. Revealing hyperlipidemia and vitamin D deficiency but otherwise labs were within normal limits. # Hyperlipidemia: Labs 01/22/2025 revealed total cholesterol 299, triglycerides 65, HDL 79, LDL 211. Patient states she has a history of taking atorvastatin 40 mg without side effects, reports stopping the medication a few years ago. Will re-initiate atorvastatin 20 mg PO daily. Patient agreeable to plan. Discussed continuation of lifestyle healthy habits and possibility of stopping this medication at a later date. Repeat labs in 4 months. # Vitamin D deficiency: Labs 01/22/2025 reveal vitamin D level 15.7. Patient reports she will take 2000U vitamin D daily. Repeat labs in 4 months. # Screening for diabetes mellitus: hemoglobin A1C 5.2. No intervention indicated at this time. # Left ureteral stone. Following with urology. Lithotripsy Oct 2024 # Chronic sinus infections: Following with ENT. # Headaches: Nurtec every other day. Stopped taking triptan states it does not work.Has been feeling well. # Obesity 03/26/24: BMI 34, Weight 244. Discussed food rules. Discussed body composition scale at length. We discussed overall lifestyle changes, importance of limiting highly processed and heavy carbohydrate foods. Patient needs to exercise at least 3 times a week including walking and resistance training. Minimum of 64 ounces of water needs to be consumed today. HODAN C injection was also encouraged. We discussed options, Wegovy will likely be the best option. Patient is traveling for 3 weeks to [place]. Patient is also considering oral medications if injectables are not covered. We did discuss compounded options in the office. We will submit to insurance for Wegovy. Discussed storage and administration. Patient has no history of thyroid cancer. 05/20/24: BMI 34, Weight 244 lb. Wegovy sample given. Start Wegovy 0.25 mg subcu weekly. Discussed side effects. Ensure no hx of thyroid ca. Ecnouraged to consume 80 grams of protein, and consume 80 oz of water daily. Resistance train. 06/25/24: BMI 32, Weight 234. Continue Wegovy, increase to 0.5 mg. Pt may need stent, if she does, she needs to hold Wegovy 1 week prior to stent placement to reduce risk of aspiration. 08/13/24: BMI 32, Weight 236. Increase to Wegovy 1 mg subcu weekly. Discussed holding requirements for Wegovy preprocedural due to risk of aspiration. 09/24/24: BMI 31, Weight 227. Increase to Wegovy 1.7 mg subcu weekly. 11/12/24: BMI 30, Weight 222. Conitnue Wegovy 1.7 mg subcu weekly. Tolerating well. Lost all fat, gained muscle 01/29/25: BMI 30, Weight 217. Patient feels she has hit a plateau. Will increase to Wegovy 2.4 mg subcu weekly. Follow-up with Navjot Young PA-C in 5 weeks for weight management, and in 4 months for repeat lipid and vitamin D as well as for second shingles vaccine. Patient seen and examined. Comprehensive discussion was done on the following. 1. Nutrition: It is important to follow a healthy diet based on lots of vegetables and legumes and good fat. Avoid processed food and processed carbohydrates. Prepare your own meals. Read labels and avoid high fructose corn syrup, processed chemicals added to increase shelf life and preprepared meals. Avoid fast foods. Eat slowly and plan meals for a week. Try to count calories and be mindful off daily calorie intake. Get into the habit of keeping an eye on your weight by using an appropriate scale. Learn to log exercise and discussed fitness Apps like [employer] which can help keep log off calories taken versus calories burned. Local food should be preferred. Discussed Dirty Dozen Versus Clean Fifteen. Discussed healthy supplements like fish oil, Tumeric, Curcumin, Melatonin, Resveratrol, Probiotics, Vitamin-D, Alpha-Lipoic acid, Vitamin-D and coconut oil. 2. It is important to exercise regularly. Is a good habit to walk at least 30 minutes a day. Gentle weightlifting with standard precautions to protect the back. Finding activity like cycling or hiking and get into the habit of engaging in it. Stretching before and after the exercises important. It is also important to contact me if there are any problems like shortness of breath, chest pain, back pain and joint or muscle pain associated with the exercise. 3. Discussed age appropriate screening guidelines. Colonoscopy needs to start at age 50 with stool for occult blood as appropriate. There is a new test that can test for genetic abnormalities in the stool sample, Cologuard. This would not replace a colonoscopy but could be used as a screening tool for patients who do not want a colonoscopy. We discussed the importance of early detection of colon cancer. 4. Discussed current guidelines with respect to breast examination, mammogram and pap smear for early detection of breast and cervical cancer. Patient advised to follow up with these appointments. 5. Discussed safe driving and no use of smart phone while driving 6. Age-appropriate immunizations were discussed. A tetanus booster is needed every 10 years. Flu vaccine is recommended every year just before the start of the flu season. Shingles vaccine is recommended after age 50 but not all insurances cover it. Pneumonia vaccine is given after age 65 unless there are certain comorbidities for which it is started earlier. 7. Diagnostic labs were discussed. These could include/not limited to CBC CMP and lipids with fasting blood glucose and insulin levels. Vitamin D and hemoglobin A1c testing might be appropriate. All quetsions answered to patients satisfaction. Patient verbalized understanding of diagnosis and treatments explained. To call sooner prior to next visit it any questions/concerns arise. Case discussed with collaborating physician Trista Gayle who reviewed the assessment and plan. Chart, medications, labs, vital signs reviewed. Dictation was accomplished with the use of [place] [employer] voice recognition software, prone to medical misidentifications and grammatical errors. This is unintentional and the practitioner does try to identify and correct these, but some could still be present. Please do not hesitate to contact practitioner for clarification. 05/20/2025 Encounter for examination of blood pressure without abnormal findings (ICD-10 - Z01.30) # Health Maintenance: influenza 09/13/2022, Covid 09/13/2022, shingles #1 obtained today 01/29/2025, tetanus 05/10/2017 and due in 2026. Mammogram 06/04/2022 will obtain records, colonoscopy 05/20/2024 will obtain records, PAP 05/21/2024 will obtain records. Labwork reviewed today. Revealing hyperlipidemia and vitamin D deficiency but otherwise labs were within normal limits. # Hyperlipidemia: Labs 01/22/2025 revealed total cholesterol 299, triglycerides 65, HDL 79, LDL 211. Patient states she has a history of taking atorvastatin 40 mg without side effects, reports stopping the medication a few years ago. Will re-initiate atorvastatin 20 mg PO daily. Patient agreeable to plan. Discussed continuation of lifestyle healthy habits and possibility of stopping this medication at a later date. Repeat labs in 4 months. # Vitamin D deficiency: Labs 01/22/2025 reveal vitamin D level 15.7. Patient reports she will take 2000U vitamin D daily. Repeat labs in 4 months. # Screening for diabetes mellitus: hemoglobin A1C 5.2. No intervention indicated at this time. # Left ureteral stone. Following with urology. Lithotripsy Oct 2024 # Chronic sinus infections: Following with ENT. # Headaches: Nurtec every other day. Stopped taking triptan states it does not work.Has been feeling well. # Obesity 03/26/24: BMI 34, Weight 244. Discussed food rules. Discussed body composition scale at length. We discussed overall lifestyle changes, importance of limiting highly processed and heavy carbohydrate foods. Patient needs to exercise at least 3 times a week including walking and resistance training. Minimum of 64 ounces of water needs to be consumed today. HODAN C injection was also encouraged. We discussed options, Wegovy will likely be the best option. Patient is traveling for 3 weeks to [place]. Patient is also considering oral medications if injectables are not covered. We did discuss compounded options in the office. We will submit to insurance for Wegovy. Discussed storage and administration. Patient has no history of thyroid cancer. 05/20/24: BMI 34, Weight 244 lb. Wegovy sample given. Start Wegovy 0.25 mg subcu weekly. Discussed side effects. Ensure no hx of thyroid ca. Ecnouraged to consume 80 grams of protein, and consume 80 oz of water daily. Resistance train. 06/25/24: BMI 32, Weight 234. Continue Wegovy, increase to 0.5 mg. Pt may need stent, if she does, she needs to hold Wegovy 1 week prior to stent placement to reduce risk of aspiration. 08/13/24: BMI 32, Weight 236. Increase to Wegovy 1 mg subcu weekly. Discussed holding requirements for Wegovy preprocedural due to risk of aspiration. 09/24/24: BMI 31, Weight 227. Increase to Wegovy 1.7 mg subcu weekly. 11/12/24: BMI 30, Weight 222. Conitnue Wegovy 1.7 mg subcu weekly. Tolerating well. Lost all fat, gained muscle 01/29/25: BMI 30, Weight 217. Patient 03/25/25: BMI 29, 215. Continue Weogyv 2.4 mg subcu weekly. Needs to increase protein. 05/20/25: BMI 9, Weifht 209. Change to Zepbound 7.5 mg subcu weekly. Increase exercise. All quetsions answered to patients satisfaction. Patient verbalized understanding of diagnosis and treatments explained. To call sooner prior to next visit it any questions/concerns arise. Case discussed with collaborating physician Trista Gayle who reviewed the assessment and plan. Chart, medications, labs, vital signs reviewed. Dictation was accomplished with the use of [employer] voice recognition software, prone to medical misidentifications and grammatical errors. This is unintentional and the practitioner does try to identify and correct these, but some could still be present. Please do not hesitate to contact practitioner for clarification. 07/04/2025 Renal stone (ICD-10 - N20.0) # URI. COVID/flu, RSV swab will be done. Patient reports symptoms have been ongoing. If negative, we will call in antibiotics. Albuterol nebulizer will be given. # Hyperlipidemia: Labs 01/22/2025 revealed total cholesterol 299, triglycerides 65, HDL 79, LDL 211. Patient states she has a history of taking atorvastatin 40 mg without side effects, reports stopping the medication a few years ago. Will re-initiate atorvastatin 20 mg PO daily. Patient agreeable to plan. Discussed continuation of lifestyle healthy habits and possibility of stopping this medication at a later date. Repeat labs in 4 months. # Vitamin D deficiency: Labs 01/22/2025 reveal vitamin D level 15.7. Patient reports she will take 2000U vitamin D daily. Repeat labs in 4 months. # Left ureteral stone. Following with urology. Lithotripsy Oct 2024 # Chronic sinus infections: Following with ENT. # Headaches: Nurtec every other day. Stopped taking triptan states it does not work.Has been feeling well. # Obesity 03/26/24: BMI 34, Weight 244. Discussed food rules. Discussed body composition scale at length. We discussed overall lifestyle changes, importance of limiting highly processed and heavy carbohydrate foods. Patient needs to exercise at least 3 times a week including walking and resistance training. Minimum of 64 ounces of water needs to be consumed today. HODAN C injection was also encouraged. We discussed options, Wegovy will likely be the best option. Patient is traveling for 3 weeks to [place]. Patient is also considering oral medications if injectables are not covered. We did discuss compounded options in the office. We will submit to insurance for Wegovy. Discussed storage and administration. Patient has no history of thyroid cancer. 05/20/24: BMI 34, Weight 244 lb. Wegovy sample given. Start Wegovy 0.25 mg subcu weekly. Discussed side effects. Ensure no hx of thyroid ca. Ecnouraged to consume 80 grams of protein, and consume 80 oz of water daily. Resistance train. 06/25/24: BMI 32, Weight 234. Continue Wegovy, increase to 0.5 mg. Pt may need stent, if she does, she needs to hold Wegovy 1 week prior to stent placement to reduce risk of aspiration. 08/13/24: BMI 32, Weight 236. Increase to Wegovy 1 mg subcu weekly. Discussed holding requirements for Wegovy preprocedural due to risk of aspiration. 09/24/24: BMI 31, Weight 227. Increase to Wegovy 1.7 mg subcu weekly. 11/12/24: BMI 30, Weight 222. Conitnue Wegovy 1.7 mg subcu weekly. Tolerating well. Lost all fat, gained muscle 01/29/25: BMI 30, Weight 217. Patient 03/25/25: BMI 29, 215. Continue Weogyv 2.4 mg subcu weekly. Needs to increase protein. 05/20/25: BMI 9, Weifht 209. Change to Zepbound 7.5 mg subcu weekly. Increase exercise. All quetsions answered to patients satisfaction. Patient verbalized understanding of diagnosis and treatments explained. To call sooner prior to next visit it any questions/concerns arise. Case discussed with collaborating physician Trista Gayle who reviewed the assessment and plan. Chart, medications, labs, vital signs reviewed. Dictation was accomplished with the use of [employer] voice recognition software, prone to medical misidentifications and grammatical errors. This is unintentional and the practitioner does try to identify and correct these, but some could still be present. Please do not hesitate to contact practitioner for clarification. 07/04/2025 Encounter for examination of blood pressure without abnormal findings (ICD-10 - Z01.30) # URI. COVID/flu, RSV swab will be done. Patient reports symptoms have been ongoing. If negative, we will call in antibiotics. Albuterol nebulizer will be given. # Hyperlipidemia: Labs 01/22/2025 revealed total cholesterol 299, triglycerides 65, HDL 79, LDL 211. Patient states she has a history of taking atorvastatin 40 mg without side effects, reports stopping the medication a few years ago. Will re-initiate atorvastatin 20 mg PO daily. Patient agreeable to plan. Discussed continuation of lifestyle healthy habits and possibility of stopping this medication at a later date. Repeat labs in 4 months. # Vitamin D deficiency: Labs 01/22/2025 reveal vitamin D level 15.7. Patient reports she will take 2000U vitamin D daily. Repeat labs in 4 months. # Left ureteral stone. Following with urology. Lithotripsy Oct 2024 # Chronic sinus infections: Following with ENT. # Headaches: Nurtec every other day. Stopped taking triptan states it does not work.Has been feeling well. # Obesity 03/26/24: BMI 34, Weight 244. Discussed food rules. Discussed body composition scale at length. We discussed overall lifestyle changes, importance of limiting highly processed and heavy carbohydrate foods. Patient needs to exercise at least 3 times a week including walking and resistance training. Minimum of 64 ounces of water needs to be consumed today. HODAN C injection was also encouraged. We discussed options, Wegovy will likely be the best option. Patient is traveling for 3 weeks to [place]. Patient is also considering oral medications if injectables are not covered. We did discuss compounded options in the office. We will submit to insurance for Wegovy. Discussed storage and administration. Patient has no history of thyroid cancer. 05/20/24: BMI 34, Weight 244 lb. Wegovy sample given. Start Wegovy 0.25 mg subcu weekly. Discussed side effects. Ensure no hx of thyroid ca. Ecnouraged to consume 80 grams of protein, and consume 80 oz of water daily. Resistance train. 06/25/24: BMI 32, Weight 234. Continue Wegovy, increase to 0.5 mg. Pt may need stent, if she does, she needs to hold Wegovy 1 week prior to stent placement to reduce risk of aspiration. 08/13/24: BMI 32, Weight 236. Increase to Wegovy 1 mg subcu weekly. Discussed holding requirements for Wegovy preprocedural due to risk of aspiration. 09/24/24: BMI 31, Weight 227. Increase to Wegovy 1.7 mg subcu weekly. 11/12/24: BMI 30, Weight 222. Conitnue Wegovy 1.7 mg subcu weekly. Tolerating well. Lost all fat, gained muscle 01/29/25: BMI 30, Weight 217. Patient 03/25/25: BMI 29, 215. Continue Weogyv 2.4 mg subcu weekly. Needs to increase protein. 05/20/25: BMI 9, Weifht 209. Change to Zepbound 7.5 mg subcu weekly. Increase exercise. All quetsions answered to patients satisfaction. Patient verbalized understanding of diagnosis and treatments explained. To call sooner prior to next visit it any questions/concerns arise. Case discussed with collaborating physician Trista Gayle who reviewed the assessment and plan. Chart, medications, labs, vital signs reviewed. Dictation was accomplished with the use of [employer] voice recognition software, prone to medical misidentifications and grammatical errors. This is unintentional and the practitioner does try to identify and correct these, but some could still be present. Please do not hesitate to contact practitioner for clarification. 01/29/2025 Vitamin D deficiency, unspecified (ICD-10 - E55.9) # Health Maintenance: influenza 09/13/2022, Covid 09/13/2022, shingles #1 obtained today 01/29/2025, tetanus 05/10/2017 and due in 2026. Mammogram 06/04/2022 will obtain records, colonoscopy 05/20/2024 will obtain records, PAP 05/21/2024 will obtain records. Labwork reviewed today. Revealing hyperlipidemia and vitamin D deficiency but otherwise labs were within normal limits. # Hyperlipidemia: Labs 01/22/2025 revealed total cholesterol 299, triglycerides 65, HDL 79, LDL 211. Patient states she has a history of taking atorvastatin 40 mg without side effects, reports stopping the medication a few years ago. Will re-initiate atorvastatin 20 mg PO daily. Patient agreeable to plan. Discussed continuation of lifestyle healthy habits and possibility of stopping this medication at a later date. Repeat labs in 4 months. # Vitamin D deficiency: Labs 01/22/2025 reveal vitamin D level 15.7. Patient reports she will take 2000U vitamin D daily. Repeat labs in 4 months. # Screening for diabetes mellitus: hemoglobin A1C 5.2. No intervention indicated at this time. # Left ureteral stone. Following with urology. Lithotripsy Oct 2024 # Chronic sinus infections: Following with ENT. # Headaches: Nurtec every other day. Stopped taking triptan states it does not work.Has been feeling well. # Obesity 03/26/24: BMI 34, Weight 244. Discussed food rules. Discussed body composition scale at length. We discussed overall lifestyle changes, importance of limiting highly processed and heavy carbohydrate foods. Patient needs to exercise at least 3 times a week including walking and resistance training. Minimum of 64 ounces of water needs to be consumed today. HODAN C injection was also encouraged. We discussed options, Wegovy will likely be the best option. Patient is traveling for 3 weeks to [place]. Patient is also considering oral medications if injectables are not covered. We did discuss compounded options in the office. We will submit to insurance for Wegovy. Discussed storage and administration. Patient has no history of thyroid cancer. 05/20/24: BMI 34, Weight 244 lb. Wegovy sample given. Start Wegovy 0.25 mg subcu weekly. Discussed side effects. Ensure no hx of thyroid ca. Ecnouraged to consume 80 grams of protein, and consume 80 oz of water daily. Resistance train. 06/25/24: BMI 32, Weight 234. Continue Wegovy, increase to 0.5 mg. Pt may need stent, if she does, she needs to hold Wegovy 1 week prior to stent placement to reduce risk of aspiration. 08/13/24: BMI 32, Weight 236. Increase to Wegovy 1 mg subcu weekly. Discussed holding requirements for Wegovy preprocedural due to risk of aspiration. 09/24/24: BMI 31, Weight 227. Increase to Wegovy 1.7 mg subcu weekly. 11/12/24: BMI 30, Weight 222. Conitnue Wegovy 1.7 mg subcu weekly. Tolerating well. Lost all fat, gained muscle 01/29/25: BMI 30, Weight 217. Patient feels she has hit a plateau. Will increase to Wegovy 2.4 mg subcu weekly. Follow-up with Navjot Young PA-C in 5 weeks for weight management, and in 4 months for repeat lipid and vitamin D as well as for second shingles vaccine. Patient seen and examined. Comprehensive discussion was done on the following. 1. Nutrition: It is important to follow a healthy diet based on lots of vegetables and legumes and good fat. Avoid processed food and processed carbohydrates. Prepare your own meals. Read labels and avoid high fructose corn syrup, processed chemicals added to increase shelf life and preprepared meals. Avoid fast foods. Eat slowly and plan meals for a week. Try to count calories and be mindful off daily calorie intake. Get into the habit of keeping an eye on your weight by using an appropriate scale. Learn to log exercise and discussed fitness Apps like [employer] which can help keep log off calories taken versus calories burned. Local food should be preferred. Discussed [employer] Fif[employer]. Discussed healthy supplements like fish oil, Tumeric, Curcumin, Melatonin, Resveratrol, Probiotics, Vitamin-D, Alpha-Lipoic acid, Vitamin-D and coconut oil. 2. It is important to exercise regularly. Is a good habit to walk at least 30 minutes a day. Gentle weightlifting with standard precautions to protect the back. Finding activity like cycling or hiking and get into the habit of engaging in it. Stretching before and after the exercises important. It is also important to contact me if there are any problems like shortness of breath, chest pain, back pain and joint or muscle pain associated with the exercise. 3. Discussed age appropriate screening guidelines. Colonoscopy needs to start at age 50 with stool for occult blood as appropriate. There is a new test that can test for genetic abnormalities in the stool sample, Cologuard. This would not replace a colonoscopy but could be used as a screening tool for patients who do not want a colonoscopy. We discussed the importance of early detection of colon cancer. 4. Discussed current guidelines with respect to breast examination, mammogram and pap smear for early detection of breast and cervical cancer. Patient advised to follow up with these appointments. 5. Discussed safe driving and no use of smart phone while driving 6. Age-appropriate immunizations were discussed. A tetanus booster is needed every 10 years. Flu vaccine is recommended every year just before the start of the flu season. Shingles vaccine is recommended after age 50 but not all insurances cover it. Pneumonia vaccine is given after age 65 unless there are certain comorbidities for which it is started earlier. 7. Diagnostic labs were discussed. These could include/not limited to CBC CMP and lipids with fasting blood glucose and insulin levels. Vitamin D and hemoglobin A1c testing might be appropriate. All quetsions answered to patients satisfaction. Patient verbalized understanding of diagnosis and treatments explained. To call sooner prior to next visit it any questions/concerns arise. Case discussed with collaborating physician Trista Gayle who reviewed the assessment and plan. Chart, medications, labs, vital signs reviewed. Dictation was accomplished with the use of [employer] voice recognition software, prone to medical misidentifications and grammatical errors. This is unintentional and the practitioner does try to identify and correct these, but some could still be present. Please do not hesitate to contact practitioner for clarification. 01/29/2025 Screening for diabetes mellitus (ICD-10 - Z13.1) # Health Maintenance: influenza 09/13/2022, Covid 09/13/2022, shingles #1 obtained today 01/29/2025, tetanus 05/10/2017 and due in 2026. Mammogram 06/04/2022 will obtain records, colonoscopy 05/20/2024 will obtain records, PAP 05/21/2024 will obtain records. Labwork reviewed today. Revealing hyperlipidemia and vitamin D deficiency but otherwise labs were within normal limits. # Hyperlipidemia: Labs 01/22/2025 revealed total cholesterol 299, triglycerides 65, HDL 79, LDL 211. Patient states she has a history of taking atorvastatin 40 mg without side effects, reports stopping the medication a few years ago. Will re-initiate atorvastatin 20 mg PO daily. Patient agreeable to plan. Discussed continuation of lifestyle healthy habits and possibility of stopping this medication at a later date. Repeat labs in 4 months. # Vitamin D deficiency: Labs 01/22/2025 reveal vitamin D level 15.7. Patient reports she will take 2000U vitamin D daily. Repeat labs in 4 months. # Screening for diabetes mellitus: hemoglobin A1C 5.2. No intervention indicated at this time. # Left ureteral stone. Following with urology. Lithotripsy Oct 2024 # Chronic sinus infections: Following with ENT. # Headaches: Nurtec every other day. Stopped taking triptan states it does not work.Has been feeling well. # Obesity 03/26/24: BMI 34, Weight 244. Discussed food rules. Discussed body composition scale at length. We discussed overall lifestyle changes, importance of limiting highly processed and heavy carbohydrate foods. Patient needs to exercise at least 3 times a week including walking and resistance training. Minimum of 64 ounces of water needs to be consumed today. HODAN C injection was also encouraged. We discussed options, Wegovy will likely be the best option. Patient is traveling for 3 weeks to [place]. Patient is also considering oral medications if injectables are not covered. We did discuss compounded options in the office. We will submit to insurance for Wegovy. Discussed storage and administration. Patient has no history of thyroid cancer. 05/20/24: BMI 34, Weight 244 lb. Wegovy sample given. Start Wegovy 0.25 mg subcu weekly. Discussed side effects. Ensure no hx of thyroid ca. Ecnouraged to consume 80 grams of protein, and consume 80 oz of water daily. Resistance train. 06/25/24: BMI 32, Weight 234. Continue Wegovy, increase to 0.5 mg. Pt may need stent, if she does, she needs to hold Wegovy 1 week prior to stent placement to reduce risk of aspiration. 08/13/24: BMI 32, Weight 236. Increase to Wegovy 1 mg subcu weekly. Discussed holding requirements for Wegovy preprocedural due to risk of aspiration. 09/24/24: BMI 31, Weight 227. Increase to Wegovy 1.7 mg subcu weekly. 11/12/24: BMI 30, Weight 222. Conitnue Wegovy 1.7 mg subcu weekly. Tolerating well. Lost all fat, gained muscle 01/29/25: BMI 30, Weight 217. Patient feels she has hit a plateau. Will increase to Wegovy 2.4 mg subcu weekly. Follow-up with Navjot Young PA-C in 5 weeks for weight management, and in 4 months for repeat lipid and vitamin D as well as for second shingles vaccine. Patient seen and examined. Comprehensive discussion was done on the following. 1. Nutrition: It is important to follow a healthy diet based on lots of vegetables and legumes and good fat. Avoid processed food and processed carbohydrates. Prepare your own meals. Read labels and avoid high fructose corn syrup, processed chemicals added to increase shelf life and preprepared meals. Avoid fast foods. Eat slowly and plan meals for a week. Try to count calories and be mindful off daily calorie intake. Get into the habit of keeping an eye on your weight by using an appropriate scale. Learn to log exercise and discussed fitness Apps like [employer] which can help keep log off calories taken versus calories burned. Local food should be preferred. Discussed D[employer]zen Versus Clean Fifteen. Discussed healthy supplements like fish oil, Tumeric, Curcumin, Melatonin, Resveratrol, Probiotics, Vitamin-D, Alpha-Lipoic acid, Vitamin-D and coconut oil. 2. It is important to exercise regularly. Is a good habit to walk at least 30 minutes a day. Gentle weightlifting with standard precautions to protect the back. Finding activity like cycling or hiking and get into the habit of engaging in it. Stretching before and after the exercises important. It is also important to contact me if there are any problems like shortness of breath, chest pain, back pain and joint or muscle pain associated with the exercise. 3. Discussed age appropriate screening guidelines. Colonoscopy needs to start at age 50 with stool for occult blood as appropriate. There is a new test that can test for genetic abnormalities in the stool sample, Cologuard. This would not replace a colonoscopy but could be used as a screening tool for patients who do not want a colonoscopy. We discussed the importance of early detection of colon cancer. 4. Discussed current guidelines with respect to breast examination, mammogram and pap smear for early detection of breast and cervical cancer. Patient advised to follow up with these appointments. 5. Discussed safe driving and no use of smart phone while driving 6. Age-appropriate immunizations were discussed. A tetanus booster is needed every 10 years. Flu vaccine is recommended every year just before the start of the flu season. Shingles vaccine is recommended after age 50 but not all insurances cover it. Pneumonia vaccine is given after age 65 unless there are certain comorbidities for which it is started earlier. 7. Diagnostic labs were discussed. These could include/not limited to CBC CMP and lipids with fasting blood glucose and insulin levels. Vitamin D and hemoglobin A1c testing might be appropriate. All quetsions answered to patients satisfaction. Patient verbalized understanding of diagnosis and treatments explained. To call sooner prior to next visit it any questions/concerns arise. Case discussed with collaborating physician Trista Gayle who reviewed the assessment and plan. Chart, medications, labs, vital signs reviewed. Dictation was accomplished with the use of [employer] voice recognition software, prone to medical misidentifications and grammatical errors. This is unintentional and the practitioner does try to identify and correct these, but some could still be present. Please do not hesitate to contact practitioner for clarification. 01/29/2025 Encounter for immunization (ICD-10 - Z23) # Health Maintenance: influenza 09/13/2022, Covid 09/13/2022, shingles #1 obtained today 01/29/2025, tetanus 05/10/2017 and due in 2026. Mammogram 06/04/2022 will obtain records, colonoscopy 05/20/2024 will obtain records, PAP 05/21/2024 will obtain records. Labwork reviewed today. Revealing hyperlipidemia and vitamin D deficiency but otherwise labs were within normal limits. # Hyperlipidemia: Labs 01/22/2025 revealed total cholesterol 299, triglycerides 65, HDL 79, LDL 211. Patient states she has a history of taking atorvastatin 40 mg without side effects, reports stopping the medication a few years ago. Will re-initiate atorvastatin 20 mg PO daily. Patient agreeable to plan. Discussed continuation of lifestyle healthy habits and possibility of stopping this medication at a later date. Repeat labs in 4 months. # Vitamin D deficiency: Labs 01/22/2025 reveal vitamin D level 15.7. Patient reports she will take 2000U vitamin D daily. Repeat labs in 4 months. # Screening for diabetes mellitus: hemoglobin A1C 5.2. No intervention indicated at this time. # Left ureteral stone. Following with urology. Lithotripsy Oct 2024 # Chronic sinus infections: Following with ENT. # Headaches: Nurtec every other day. Stopped taking triptan states it does not work.Has been feeling well. # Obesity 03/26/24: BMI 34, Weight 244. Discussed food rules. Discussed body composition scale at length. We discussed overall lifestyle changes, importance of limiting highly processed and heavy carbohydrate foods. Patient needs to exercise at least 3 times a week including walking and resistance training. Minimum of 64 ounces of water needs to be consumed today. HODAN C injection was also encouraged. We discussed options, Wegovy will likely be the best option. Patient is traveling for 3 weeks to [place]. Patient is also considering oral medications if injectables are not covered. We did discuss compounded options in the office. We will submit to insurance for Wegovy. Discussed storage and administration. Patient has no history of thyroid cancer. 05/20/24: BMI 34, Weight 244 lb. Wegovy sample given. Start Wegovy 0.25 mg subcu weekly. Discussed side effects. Ensure no hx of thyroid ca. Ecnouraged to consume 80 grams of protein, and consume 80 oz of water daily. Resistance train. 06/25/24: BMI 32, Weight 234. Continue Wegovy, increase to 0.5 mg. Pt may need stent, if she does, she needs to hold Wegovy 1 week prior to stent placement to reduce risk of aspiration. 08/13/24: BMI 32, Weight 236. Increase to Wegovy 1 mg subcu weekly. Discussed holding requirements for Wegovy preprocedural due to risk of aspiration. 09/24/24: BMI 31, Weight 227. Increase to Wegovy 1.7 mg subcu weekly. 11/12/24: BMI 30, Weight 222. Conitnue Wegovy 1.7 mg subcu weekly. Tolerating well. Lost all fat, gained muscle 01/29/25: BMI 30, Weight 217. Patient feels she has hit a plateau. Will increase to Wegovy 2.4 mg subcu weekly. Follow-up with Navjot Young PA-C in 5 weeks for weight management, and in 4 months for repeat lipid and vitamin D as well as for second shingles vaccine. Patient seen and examined. Comprehensive discussion was done on the following. 1. Nutrition: It is important to follow a healthy diet based on lots of vegetables and legumes and good fat. Avoid processed food and processed carbohydrates. Prepare your own meals. Read labels and avoid high fructose corn syrup, processed chemicals added to increase shelf life and preprepared meals. Avoid fast foods. Eat slowly and plan meals for a week. Try to count calories and be mindful off daily calorie intake. Get into the habit of keeping an eye on your weight by using an appropriate scale. Learn to log exercise and discussed fitness Apps like [employer] which can help keep log off calories taken versus calories burned. Local food should be preferred. Discussed Dirty Dozen Versus Clean Fifteen. Discussed healthy supplements like fish oil, Tumeric, Curcumin, Melatonin, Resveratrol, Probiotics, Vitamin-D, Alpha-Lipoic acid, Vitamin-D and coconut oil. 2. It is important to exercise regularly. Is a good habit to walk at least 30 minutes a day. Gentle weightlifting with standard precautions to protect the back. Finding activity like cycling or hiking and get into the habit of engaging in it. Stretching before and after the exercises important. It is also important to contact me if there are any problems like shortness of breath, chest pain, back pain and joint or muscle pain associated with the exercise. 3. Discussed age appropriate screening guidelines. Colonoscopy needs to start at age 50 with stool for occult blood as appropriate. There is a new test that can test for genetic abnormalities in the stool sample, Cologuard. This would not replace a colonoscopy but could be used as a screening tool for patients who do not want a colonoscopy. We discussed the importance of early detection of colon cancer. 4. Discussed current guidelines with respect to breast examination, mammogram and pap smear for early detection of breast and cervical cancer. Patient advised to follow up with these appointments. 5. Discussed safe driving and no use of smart phone while driving 6. Age-appropriate immunizations were discussed. A tetanus booster is needed every 10 years. Flu vaccine is recommended every year just before the start of the flu season. Shingles vaccine is recommended after age 50 but not all insurances cover it. Pneumonia vaccine is given after age 65 unless there are certain comorbidities for which it is started earlier. 7. Diagnostic labs were discussed. These could include/not limited to CBC CMP and lipids with fasting blood glucose and insulin levels. Vitamin D and hemoglobin A1c testing might be appropriate. All quetsions answered to patients satisfaction. Patient verbalized understanding of diagnosis and treatments explained. To call sooner prior to next visit it any questions/concerns arise. Case discussed with collaborating physician Trista Gayle who reviewed the assessment and plan. Chart, medications, labs, vital signs reviewed. Dictation was accomplished with the use of [place] [employer] voice recognition software, prone to medical misidentifications and grammatical errors. This is unintentional and the practitioner does try to identify and correct these, but some could still be present. Please do not hesitate to contact practitioner for clarification. Plan Of Treatment Pending Test Test Name Order Date Mammogram 01/26/2024 EKG 09/06/2022 LIPID PANEL, STANDARD 05/20/2025 LIPID PANEL, STANDARD 01/29/2025 LIPID PANEL, STANDARD 11/12/2024 COMPREHENSIVE METABOLIC PANEL 11/12/2024 CBC (INCLUDES DIFF/PLT) 11/12/2024 URINALYSIS, COMPLETE 11/12/2024 HEMOGLOBIN A1c 11/12/2024 VITAMIN B12 11/12/2024 T4, FREE 11/12/2024 TSH 11/12/2024 T3, FREE 11/12/2024 VITAMIN D,25-OH,TOTAL,IA 05/20/2025 VITAMIN D,25-OH,TOTAL,IA 11/12/2024 VITAMIN D,25-OH,TOTAL,IA 01/29/2025 CT Sinuses WO 07/02/2024 CT Sinuses W 06/25/2024 PPC Rapid Covid/Strep/Flu/RSV 07/04/2025 Next Appt Details Provider Name:NAVJOT KAMERON, 08/26/2025 09:45:00 AM, [address], [place], [address], Insurance Providers Payer Name Payer Address Payer Phone Subscriber Number Group Number Insured Name Patient Relationship to Insured Coverage Start Date Coverage End Date [employer] [address] [place] [id number] [facility] Asha Amaya Self - patient is the insured Medical (General) History Medical History History ICD Code Hyperlipidemia, unspecified E78.5 Seasonal allergies J30.2 Palpitations R00.2 Migraine, unspecified, not intractable, without status migrainosus G43.909 Obesity (BMI 30-39.9) E66.9 GERD without esophagitis K21.9 Surgical History Surgery Date(Month/Year) R Knee replacement 05/13/2022 Left knee 11/2022
== END 2025-08-05 11:31 | disposition home or self-care (01) ==
LOC: HO.HKAS 10:40
PROVIDERS: PCP Internal Medicine; Visit Provider Internal Medicine Nephrology
DX: N20.0 Calculus of kidney (principal)
CPT/HCPCS: 99204

== ENCOUNTER 2025-09-11 09:10 | Outpatient (REF) | payer OTHER, SELFPAY ==
--- OUTSIDE RECORDS SUMMARY | 2025-05-26 04:00 | XMS_ITS ---
Author Organization [facility] [address] [address] Address [address] [place] [address] Care Team Providers Care Senior Microsoft Consultant Name Role Phone CRISTINA MELOEN Unavailable [phone] REASON FOR VISIT 2nd shingles + labs Encounters Encounter Location Date Provider Diagnosis [facility] [address] [place] [address] 05/26/2025 NAVJOT MELO Plan Of Treatment Next Appt Details Provider Name:NAVJOT MELO, 10/21/2025 10:15:00 AM, [address], [place], [address], Provider Name:NAVJOT MELO, 02/03/2026 11:00:00 AM, [address], [place], [address], Progress Notes * Aysha METZGEROB:1965 ( 60 yo F)Acc No.[id number]:05/26/2025 Progress Notes Patient: Asha KWAN Provider: Acacia MELO PA-C :1965 A ge:60 Y S ex:Female Date:05/26/2025 Address:[address] [place] [address] Subjective: * Chief Complaints: * 1 . 2nd shingles + labs. * Medical History: Objective: * Vitals: Assessment: Plan: * Treatment: * Images: Billing Information: * Visit Code: * Procedure Codes: Care Plan Details* * Electronic signature of CRISTINA MELO PA-C on 09/11/2025 at 10:06 AM EST Sign off status: Pending * Provider: Acacia MELO PA-C Date: 0 05/26/2025 Generated for Saul loredo/Elmo/Amol on: 1 11/11/2024 10:06 AM EST
--- OUTSIDE RECORDS SUMMARY | 2025-09-11 10:06 | XMS_ITS | Clinical Summary ---
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 Name Role Phone Halie Bocanegra MD Primary Care Provider [phone] Allergies No known active allergies Medications trifluridine [...] VACCINE (#1) 2025 COVID-19 VACCINE (1 - 2024-2 6 season) 2025 RSV VACCINE (1 - 1-dose 75+ series) 2041 HEPATITIS A VACCINES Aged Out No long [...] topic Medical Devices Not on file Insurance [employer] [facility] TOTAL CHOICE INDEMNITY [employer] [facility] TOTAL CHOICE INDEMNITY [employer] [facility] TOTAL CHOICE INDEMNITY [facility] TOTAL CHOICE INDEMN[place] [address] [address] [address] [address] TOTAL CHOICE INDEMNITY [employer] TOTAL CHOICE INDEMNITY [employer] TOTAL CHOICE INDEMNITY [employer] TOTAL CHOICE INDEMNITY Care Teams 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 It is not the complete legal health record.[facility]
--- OUTSIDE RECORDS SUMMARY | 2025-09-11 10:07 | XMS_ITS | Patient Health Record ---
Author Organization [facility] [address] Address [address] [place] [address] Care Team Providers Care Manager Loss Prevention Name Role Phone NAVJOT MELO Unavailable [phone] PEREZMICHAEL WALL Unavailable [phone] Allergies No Known Allergies Results Component Value Reference Range Notes Comp. Metabolic Panel (14-3 Reviewed date:01/23/2025 02:16:06 PM Interpretation: Performing Lab:[facility] [place], [address] [facility], Phone - [phone], Director - MDMarioy Notes/Report: Glucose 86 70-99 mg/dL BUN 16 [...] IU/L ALT (SGPT) 15 0-32 IU/L Lipid Panel-[id number] Reviewed date:01/23/2025 02:16:01 PM Interpretation: Performing Lab:[facility] [place], [address] [place], [place], Phone - [phone], Director - Karliey Notes/Report: Cholesterol, Total 299 100-199 mg/dL Triglycerides 65 0-149 mg/dL HDL Cholesterol 79 >39 mg/dL VLDL Cholesterol Rubens 9 5-40 mg/dL LDL Chol Calc ([facility]) 211 0-99 mg/dL LDL Calc Comment: Consider evaluating for Familial Hypercholesterolemia(FH), if clinically indicated. CBC With Differential/Platel et-[id number] Reviewed date:01/23/2025 02:16:06 PM Interpretation: Performing Lab:[facility], [address] [place] [address], Phone - [phone], Director - MDJodry Notes/Report: WBC 4.0 3.4-10.8 x10E3/uL RBC 4.78 [...] % Immature Grans (Abs) 0.0 0.0-0.1 x10E3/uL TSH-[id number] Reviewed date:01/23/2025 02:16:06 PM Interpretation: Performing Lab:[facility] [address] [place] [address], [place], Phone - [phone], Director - Lo Notes/Report: TSH 1.410 0.450-4.500 uIU/mL Urinalysis, Complete-[id number] Reviewed date:01/23/2025 02:16:06 PM Interpretation: Performing Lab:[facility] [address] [facility], Phone - [phone], Director - [facility] Notes/Report: Specific Antimony 1.022 1.005-1.030 pH 6.0 5.0-7.5 Urine-Color Yellow [...] seen None seen/Few Thyroxine (T4) Free, Direct- [id number] Reviewed date:01/23/2025 02:16:06 PM Interpretation: Performing Lab:[facility] [place], [address] [place] [address], Phone - [phone], Director - Lo Notes/Report: T4,Free(Direct) 0.99 0.82-1.77 ng/dL Hemoglobin [id number] Reviewed date:01/23/2025 02:16:06 PM Interpretation: Performing Lab:[facility] [place], [address] [place] [address], Phone - [phone], Director - VAGinette Notes/Report: Hemoglobin A1c 5.2 4.8-5.6 % . Prediabetes: 5.7 - 6.4 Diabetes: >6.4 Glycemic control for adults with diabetes: <7.0 Vitamin D, 37-Prprcsq-[id number] Reviewed date:01/23/2025 02:16:06 PM Interpretation: Performing Lab:[facility] [place], [address] [place] [address], Phone - [phone], Director - VADionnadry Notes/Report: Vitamin D, 25-Hydroxy 15.7 30.0-100.0 ng/mL Vitamin D deficiency has been defined by the [place] of [employer] and an Endocrine Society practice guideline as a level of serum 25-OH vitamin D less than 20 ng/mL (1,2). The Endocrine Society went on to further define vitamin D insufficiency as a level between 21 and 29 ng/mL (2). 1. IOM ([place] of [employer]). 2010. Dietary reference intakes for calcium and D. [place]: The National Academies Press. 2. Fermín MF, Maggie [place], Wes ADAMSON, et al. Evaluation, treatment, and prevention of vitamin D deficiency: an Endocrine Society clinical practice guideline. JCEM. 2010; 96(3):1911-30. Triiodothyronine (T3), Free- [id number] Reviewed date:01/23/2025 02:16:06 PM Interpretation: Performing Lab:[facility] [place], [address] [place] [address], Phone - [phone], Director - MDJodry Notes/Report: Triiodothyronine (T3), Free 2.5 2.0-4.4 pg/mL Vitamin [id number] Reviewed date:01/23/2025 02:16:06 PM Interpretation: Performing Lab:[facility] [place], [address] [place] [address], [place], Phone - [phone], Director - MDJodry Notes/Report: Vitamin B12 [phone] pg/mL Reason For Referral No Information Medications Medication SIG (Take, Route, Frequency, Duration) Notes Start Date End Date Status Mounjaro 7.5 MG/0.5ML as directed Subcutaneous Active Mounjaro 10 MG/0.5ML 10 mg Subcutaneous weekly; Duration: 30 days 08/26/2025 Active Multivitamin - 1 tablet Orally Once a day Active Nurtec 75 MG 1 tablet on the tong ue and allow to dissolve Orally every other day; Duration: 30 days Active Vitamin D 50 MCG (2000 UT) 1 tablet Orally Once a day Active Probiotic 250 MG as directed Orally Active CoQ10 200 MG as directed Orally Active Immunizations Vaccine Route Administration Date Status [...] 4 drinks weeks Drug Use: None Bartend denies tobacco use. Tob: Former, 25 years, quit 2017 ETOH: Socially Drug Use: None Bartend Problems Problem Type SNOMED Code ICD Code Onset Dates Problem Status W/U Status Risk Notes Problem Vitamin D deficiency (97984885) Vitamin D deficiency, unspecified (E55.9) Active confirmed Problem Overweight (183164899) Overweight (E66.3) Active confirmed Problem Migraine without aur a (13636689) Migraine without aura, not intractable, with status migrainosus (G43.001) Active confirmed Problem Adult health examination (483835792) Encounter for general adult medical examination without abnormal findings (Z00.00) Active confirmed Problem Screening for malignant neoplasm of colon (733655071) Encounter for screening for malignant neoplasm of colon (Z12.11) Active confirmed Problem Screening for malignant neoplasm of breast (183161380) Encounter for screening mammogram for malignant neoplasm of breast (Z12.31) Active confirmed Problem Screening for malignant neoplasm of skin (980491408) Encounter for screening for malignant neoplasm of skin (Z12.83) Active confirmed Problem Diabetes mellitus screening (054127832) Encounter for screening for diabetes mellitus (Z13.1) Active confirmed Problem Screening for cardiovascular system disease (125656473) Encounter for screening for cardiovascular disorders (Z13.6) Active confirmed Problem Hyperlipoproteinemia (4853033) Acquired 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) Active confirmed Problem Hypothyroidism (46171260) Hypothyroidism, unspecified type (E03.9) Active confirmed Problem Chronic sinusitis (53421882) Sinusitis, unspecified chronicity, unspecified location (J32.9) Active confirmed Problem Screening for malignant neoplasm of cervix (271343762) Pap smear for cervical cancer screening (Z12.4) Active confirmed Problem Vitamin D deficiency (61874122) Vitamin D deficiency (E55.9) Active confirmed Problem Renal stone (01155710) Renal stone (N20.0) Active confirmed Problem Obesity (389480151) Obesity (BMI 30-39.9) (E66.9) Active confirmed Problem Recurrent sinusitis (599895256) Recurrent sinusitis (J32.9) Active confirmed Problem Vitamin B>12< deficiency anaemia (65710869) Anemia due to vitamin B12 deficiency, 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) Active confirmed Problem Body mass index 30.0 0 to 34.99 (954729876763400) BMI 31.0-31.9,adult (Z68.31) Active confirmed Problem Body mass index 30+ - obesity (021785018) BMI 30.0-30.9,adult (Z68.30) Active confirmed Problem Body mass index 30.0 0 to 34.99 (717951495766935) BMI 34.0-34.9,adult (Z68.34) Active confirmed Problem Gastroesophageal reflux disease (001293835) GERD without esophagitis (K21.9) Active confirmed Problem Lipid screening (073258860) Lipid screening (Z13.220) Active confirmed Problem Hyperlipidemia (83474677) Hyperlipidemia (E78.5) Active confirmed Problem Obesity (826913386) Obesity (E66.9) Active conf irmed Vital Signs Heart Rate 81 /min 08/26/2025 Oximetry 97 % 08/26/2025 Blood pressure diastolic 82 mm Hg 08/26/2025 Height 71 in 08/26/2025 Blood pressure systolic 118 mm Hg 08/26/2025 Weight 207.2 lbs 08/26/2025 BMI 28.9 kg/m2 08/26/2025 Encounters Encounter Location Date Provider Diagnosis [facility] [address] [place], [place] 09/24/2024 NAVJOT KAMERON Obesity (BMI 30-39.9 ) E66.9 ; BMI 31.0-31.9,adult Z68.31 ; Migraine without aura, not intractable, with status migrainosus G43.001 ; Sinusitis, unspecified chronicity, unspecified location J32.9 and Ureteral stone N20.[address] 11/12/2024 NAVJOT MELO Obesity (BMI 30-39.9 ) E66.9 ; BMI 30.0-30.9,adult Z68.30 ; Migraine without aura, not intractable, with status migrainosus G43.001 and Sinusitis, unspecified chronicity, unspecified location J32.[address] 01/29/2025 MICHAEL PEREZ Obesity (BMI 30-39.9 ) E66.9 ; Annual physical exam Z00.00 ; BMI 30.0-30.9,adult Z68.30 ; Migraine without aura, not intractable, with status migrainosus G43.001 ; Sinusitis, unspecified chronicity, unspecified location J32.9 ; Hyperlipidemia E78.5 ; Vitamin D deficiency, unspecified E55.9 ; Screening for diabetes mellitus Z13.1 and Encounter for immunization Z23 [address] 03/25/2025 NAVJOT MELO Overweight E66.3 ; B AL 29.0-29.9,adult Z68.29 ; Migraine without aura, not intractable, with status migrainosus G43.001 ; Hyperlipidemia E78.5 ; Vitamin D deficiency, unspecified E55.9 and Encounter for examination of blood pressure without abnormal findings Z01.[address] 05/20/2025 NAVJOT VIZCAINOA Overweight E66.3 ; B AL 29.0-29.9,adult Z68.29 ; Hyperlipidemia E78.5 ; Migraine without aura, not intractable, with status migrainosus G43.001 ; Vitamin D deficiency, unspecified E55.9 and Encounter for examination of blood pressure without abnormal findings Z01.[address] [facility] [address] [place] [address] 07/04/2025 NAVJOT MELO URI with cough and congestion J06.9 ; Obesity E66.9 ; Hyperlipidemia E78.5 ; Migraine without aura, not intractable, with status migrainosus G43.001 ; Vitamin D deficiency, unspecified E55.9 ; Renal stone N20.0 and Encounter for examination of blood pressure without abnormal findings Z01.[address] [facility] [address] [place], [place] 07/17/2025 NAVJOT MELO Obesity E66.9 ; URI with cough and congestion J06.9 ; Hyperlipidemia E78.5 ; Migraine without aura, not intractable, with status migrainosus G43.001 and Encounter for examination of blood pressure without abnormal findings Z01.[address] [facility] [address] [place] 08/26/2025 NAVJOT MELO Nutritional counseli ng Z71.3 ; Overweight (BMI 25.0-29.9) E66.3 ; Hyperlipidemia E78.5 ; Migraine without aura, not intractable, with status migrainosus G43.001 and Encounter for examination of blood pressure without abnormal findings Z01.[address] [facility] [address] [place] [address] 10/15/2024 NAVJOT KAMERON [facility] [address] [place] [address] 11/19/2024 NAVJOT KAMERON [facility] [address] [place] [address] 12/24/2024 NAVJOT KAMERON [facility] [address] [place] [address] 01/29/2025 NAVJOT KAMERON [facility] [address] [place], [place] 02/28/2025 NAVJOT KAMERON [facility] [address] [place] [address] 04/02/2025 NAVJOT KAMERON [facility] [address] [place] [address] 04/21/2025 NAVJOT KAMERON [facility] [address] [place] [address] 05/20/2025 NAVJOT KAMERON [facility] [address] [place] [address] 05/27/2025 NAVJOT KAMERON [facility] [address] [place] [address] 06/04/2025 NAVJOT KAMERON [facility] [address] [place] [address] 06/09/2025 NAVJOT KAMERON [facility] [address] [place] [address] 07/04/2025 NAVJOT KAMERON Obesity (BMI 30-39.9 ) E66.9 [facility] [address] [facility] [address] [place] [address] 07/04/2025 NAVJOT KAMERON [facility] [address] [place] [address] 07/09/2025 NAVJOT KAMERON [facility] [address] [place] [address] 07/16/2025 NAVJOT KAMERON [facility] [address] [place] [address] 08/26/2025 NAVJOT KAMERON Assessments Encounter Date Diagnosis (ICD Code) Assessment Notes Treatment Notes Treatment Clinical Notes Section Notes 09/24/2024 Obesity (BMI 30-39.9) (ICD-10 - E66.9) [...] Patient is traveling for 3 weeks to [place]. Patient is also considering oral medications if [...] Dictation was accomplished with the use of Podcast Ready voice recognition software, prone to medical misidentifications [...] Patient is traveling for 3 weeks to [place]. Patient is also considering oral medications if [...] Dictation was accomplished with the use of Pod[employer] Ready voice recognition software, prone to medical misidentifications [...] Patient is traveling for 3 weeks to [place]. Patient is also considering oral medications if [...] Dictation was accomplished with the use of Pod[employer] Ready voice recognition software, prone to medical misidentifications [...] Patient is traveling for 3 weeks to [place]. Patient is also considering oral medications if [...] Dictation was accomplished with the use of Podcast Ready voice recognition software, prone to medical misidentifications [...] Patient is traveling for 3 weeks to [place]. Patient is also considering oral medications if [...] log exercise and discussed fitness Apps like Comic Rocket which can help keep log off calories [...] Dictation was accomplished with the use of Pod[employer] Ready voice recognition software, prone to medical misidentifications [...] Patient is traveling for 3 weeks to [place]. Patient is also considering oral medications if [...] log exercise and discussed fitness Apps like [employer]ocket which can help keep log off calories [...] Dictation was accomplished with the use of Pod[employer] Ready voice recognition software, prone to medical misidentifications [...] Patient is traveling for 3 weeks to [place]. Patient is also considering oral medications if [...] Dictation was accomplished with the use of Pod[employer] Ready voice recognition software, prone to medical misidentifications [...] Patient is traveling for 3 weeks to [place]. Patient is also considering oral medications if [...] Dictation was accomplished with the use of Pod[employer] Ready voice recognition software, prone to medical misidentifications [...] Patient is traveling for 3 weeks to [place]. Patient is also considering oral medications if [...] Dictation was accomplished with the use of Pod[employer] Ready voice recognition software, prone to medical misidentifications [...] Patient is traveling for 3 weeks to [place]. Patient is also considering oral medications if [...] Dictation was accomplished with the use of Podcast Ready voice recognition software, prone to medical misidentifications [...] Patient is traveling for 3 weeks to [place]. Patient is also considering oral medications if [...] Dictation was accomplished with the use of Podcast Ready voice recognition software, prone to medical misidentifications [...] Patient is traveling for 3 weeks to [place]. Patient is also considering oral medications if [...] Dictation was accomplished with the use of Podcast Ready voice recognition software, prone to medical misidentifications [...] Patient is traveling for 3 weeks to [place]. Patient is also considering oral medications if [...] Dictation was accomplished with the use of Podcast Ready voice recognition software, prone to medical misidentifications [...] Patient is traveling for 3 weeks to [place]. Patient is also considering oral medications if [...] Dictation was accomplished with the use of Podcast Ready voice recognition software, prone to medical misidentifications and grammatical errors. This is unintentional and the practitioner does try to identify and correct these, but some could still be present. Please do not hesitate to contact practitioner for clarification. 08/26/2025 Overweight (BMI 25.0-29.9) (ICD-10 - E66.3) # Hyperlipidemia: Labs 01/22/2025 revealed total cholesterol [...] Patient is traveling for 3 weeks to [place]. Patient is also considering oral medications if [...] Zepbound 7.5 mg subcu weekly. Increase exercise. 08/26/25: BMI 29, weight 207. Increase to Mounjaro 10 mg subcu weekly. Overall tolerating well. Patient to increase protein intake to about 100 g/day. All quetsions answered to patients satisfaction. Patient verbalized understanding of diagnosis and treatments explained. To call sooner prior to next visit it any questions/concerns arise. Case discussed with collaborating physician Trista Gayle who reviewed the assessment and plan. Chart, medications, labs, vital signs reviewed. Dictation was accomplished with the use of Podcast Ready voice recognition software, prone to medical misidentifications and grammatical errors. This is unintentional and the practitioner does try to identify and correct these, but some could still be present. Please do not hesitate to contact practitioner for clarification. 08/26/2025 Nutritional counseling (ICD-10 - Z71.3) # Hyperlipidemia: Labs 01/22/2025 revealed total cholesterol [...] Patient is traveling for 3 weeks to [place]. Patient is also considering oral medications if [...] Zepbound 7.5 mg subcu weekly. Increase exercise. 08/26/25: BMI 29, weight 207. Increase to Mounjaro 10 mg subcu weekly. Overall tolerating well. Patient to increase protein intake to about 100 g/day. All quetsions answered to patients satisfaction. Patient verbalized understanding of diagnosis and treatments explained. To call sooner prior to next visit it any questions/concerns arise. Case discussed with collaborating physician Trista Gayle who reviewed the assessment and plan. Chart, medications, labs, vital signs reviewed. Dictation was accomplished with the use of Podcast Ready voice recognition software, prone to medical misidentifications [...] Patient is traveling for 3 weeks to [place]. Patient is also considering oral medications if [...] Dictation was accomplished with the use of Podcast Ready voice recognition software, prone to medical misidentifications and grammatical errors. This is unintentional and the practitioner does try to identify and correct these, but some could still be present. Please do not hesitate to contact practitioner for clarification. 08/26/2025 Hyperlipidemia (ICD-10 - E78.5) # Hyperlipidemia: Labs 01/22/2025 revealed total cholesterol [...] Patient is traveling for 3 weeks to [place]. Patient is also considering oral medications if [...] Zepbound 7.5 mg subcu weekly. Increase exercise. 08/26/25: BMI 29, weight 207. Increase to Mounjaro 10 mg subcu weekly. Overall tolerating well. Patient to increase protein intake to about 100 g/day. All quetsions answered to patients satisfaction. Patient verbalized understanding of diagnosis and treatments explained. To call sooner prior to next visit it any questions/concerns arise. Case discussed with collaborating physician Trista Gayle who reviewed the assessment and plan. Chart, medications, labs, vital signs reviewed. Dictation was accomplished with the use of Podcast Ready voice recognition software, prone to medical misidentifications [...] Patient is traveling for 3 weeks to [place]. Patient is also considering oral medications if [...] Dictation was accomplished with the use of Podcast Ready voice recognition software, prone to medical misidentifications [...] Patient is traveling for 3 weeks to [place]. Patient is also considering oral medications if [...] Tolerating well. Lost all fat, gained muscle 3/26/25: BMI 30, Weight 217. Patient 5/20/25: BMI 29, 215. Continue Weogyv 2.4 mg [...] Dictation was accomplished with the use of Podcast Ready voice recognition software, prone to medical misidentifications [...] Patient is traveling for 3 weeks to [place]. Patient is also considering oral medications if [...] Dictation was accomplished with the use of Podcast Ready voice recognition software, prone to medical misidentifications [...] Patient is traveling for 3 weeks to [place]. Patient is also considering oral medications if [...] log exercise and discussed fitness Apps like [employer] Rocket which can help keep log off calories [...] Dictation was accomplished with the use of Podcast Ready voice recognition software, prone to medical misidentifications [...] Patient is traveling for 3 weeks to [place]. Patient is also considering oral medications if [...] Dictation was accomplished with the use of Podcast Ready voice recognition software, prone to medical misidentifications [...] Patient is traveling for 3 weeks to [place]. Patient is also considering oral medications if [...] Dictation was accomplished with the use of Podcast Ready voice recognition software, prone to medical misidentifications [...] Patient is traveling for 3 weeks to [place]. Patient is also considering oral medications if [...] Dictation was accomplished with the use of Podcast Ready voice recognition software, prone to medical misidentifications [...] Patient is traveling for 3 weeks to [place]. Patient is also considering oral medications if [...] Dictation was accomplished with the use of Podcast Ready voice recognition software, prone to medical misidentifications [...] Patient is traveling for 3 weeks to [place]. Patient is also considering oral medications if [...] Tolerating well. Lost all fat, gained muscle 3/26/25: BMI 30, Weight 217. Patient feels she [...] log exercise and discussed fitness Apps like [employer] Rocket which can help keep log off calories [...] Dictation was accomplished with the use of Podcast Ready voice recognition software, prone to medical misidentifications [...] Patient is traveling for 3 weeks to [place]. Patient is also considering oral medications if [...] Dictation was accomplished with the use of Pod[employer] Ready voice recognition software, prone to medical misidentifications [...] Patient is traveling for 3 weeks to [place]. Patient is also considering oral medications if [...] Dictation was accomplished with the use of Podcast Ready voice recognition software, prone to medical misidentifications [...] Patient is traveling for 3 weeks to [place]. Patient is also considering oral medications if [...] Wegovy preprocedural due to risk of aspiration. 11/19/24: BMI 31, Weight 227. Increase to Wegovy [...] Dictation was accomplished with the use of Pod[employer] Ready voice recognition software, prone to medical misidentifications [...] Patient is traveling for 3 weeks to [place]. Patient is also considering oral medications if [...] Dictation was accomplished with the use of Pod[employer] Ready voice recognition software, prone to medical misidentifications and grammatical errors. This is unintentional and the practitioner does try to identify and correct these, but some could still be present. Please do not hesitate to contact practitioner for clarification. 08/26/2025 Migraine without aura, not intractable, with status migrainosus (ICD-10 - G43.001) # Hyperlipidemia: Labs 01/22/2025 revealed total cholesterol [...] Patient is traveling for 3 weeks to [place]. Patient is also considering oral medications if [...] Zepbound 7.5 mg subcu weekly. Increase exercise. 08/26/25: BMI 29, weight 207. Increase to Mounjaro 10 mg subcu weekly. Overall tolerating well. Patient to increase protein intake to about 100 g/day. All quetsions answered to patients satisfaction. Patient verbalized understanding of diagnosis and treatments explained. To call sooner prior to next visit it any questions/concerns arise. Case discussed with collaborating physician Trista Gayle who reviewed the assessment and plan. Chart, medications, labs, vital signs reviewed. Dictation was accomplished with the use of Podcast Ready voice recognition software, prone to medical misidentifications and grammatical errors. This is unintentional and the practitioner does try to identify and correct these, but some could still be present. Please do not hesitate to contact practitioner for clarification. 08/26/2025 Encounter for examination of blood pressure without abnormal findings (ICD-10 - Z01.30) # Hyperlipidemia: Labs 01/22/2025 revealed total cholesterol [...] Patient is traveling for 3 weeks to [place]. Patient is also considering oral medications if [...] Tolerating well. Lost all fat, gained muscle 3/26/25: BMI 30, Weight 217. Patient 5/20/25: BMI 29, 215. Continue Weogyv 2.4 mg subcu weekly. Needs to increase protein. 05/20/25: BMI 9, Weifht 209. Change to Zepbound 7.5 mg subcu weekly. Increase exercise. 08/26/25: BMI 29, weight 207. Increase to Mounjaro 10 mg subcu weekly. Overall tolerating well. Patient to increase protein intake to about 100 g/day. All quetsions answered to patients satisfaction. Patient verbalized understanding of diagnosis and treatments explained. To call sooner prior to next visit it any questions/concerns arise. Case discussed with collaborating physician Trista Gayle who reviewed the assessment and plan. Chart, medications, labs, vital signs reviewed. Dictation was accomplished with the use of [employer] voice recognition software, prone to medical misidentifications [...] Patient is traveling for 3 weeks to [place]. Patient is also considering oral medications if [...] Dictation was accomplished with the use of [employer] voice recognition software, prone to medical misidentifications [...] Patient is traveling for 3 weeks to [place]. Patient is also considering oral medications if [...] Dictation was accomplished with the use of [employer] voice recognition software, prone to medical misidentifications [...] Patient is traveling for 3 weeks to [place]. Patient is also considering oral medications if [...] Dictation was accomplished with the use of [employer] voice recognition software, prone to medical misidentifications [...] Patient is traveling for 3 weeks to [place]. Patient is also considering oral medications if [...] Dictation was accomplished with the use of [employer] voice recognition software, prone to medical misidentifications [...] next visit it any questions/concerns arise. 03/25/2025 Vitamin D deficiency, unspecified (ICD-10 - [...] Patient is traveling for 3 weeks to [place]. Patient is also considering oral medications if [...] Dictation was accomplished with the use of [employer] voice recognition software, prone to medical misidentifications [...] Patient is traveling for 3 weeks to [place]. Patient is also considering oral medications if [...] log exercise and discussed fitness Apps like [employer] which can help keep log off calories [...] Dictation was accomplished with the use of [employer] voice recognition software, prone to medical misidentifications [...] Patient is traveling for 3 weeks to [place]. Patient is also considering oral medications if [...] log exercise and discussed fitness Apps like [employer] which can help keep log off calories [...] Dictation was accomplished with the use of [employer] voice recognition software, prone to medical misidentifications and grammatical errors. This is unintentional and the practitioner does try to identify and correct these, but some could still be present. Please do not hesitate to contact practitioner for clarification. 03/25/2025 Encounter for examination of blood pressure [...] Patient is traveling for 3 weeks to [place]. Patient is also considering oral medications if [...] Dictation was accomplished with the use of [employer] voice recognition software, prone to medical misidentifications [...] Patient is traveling for 3 weeks to [place]. Patient is also considering oral medications if [...] Dictation was accomplished with the use of [employer] voice recognition software, prone to medical misidentifications [...] Patient is traveling for 3 weeks to [place]. Patient is also considering oral medications if [...] Dictation was accomplished with the use of [employer] voice recognition software, prone to medical misidentifications [...] Patient is traveling for 3 weeks to [place]. Patient is also considering oral medications if [...] Dictation was accomplished with the use of [employer] voice recognition software, prone to medical misidentifications [...] Patient is traveling for 3 weeks to [place]. Patient is also considering oral medications if [...] log exercise and discussed fitness Apps like [employer] which can help keep log off calories [...] Dictation was accomplished with the use of [employer] voice recognition software, prone to medical misidentifications [...] Patient is traveling for 3 weeks to [place]. Patient is also considering oral medications if [...] log exercise and discussed fitness Apps like [employer] which can help keep log off calories [...] Dictation was accomplished with the use of [employer] voice recognition software, prone to medical misidentifications [...] Patient is traveling for 3 weeks to [place]. Patient is also considering oral medications if [...] log exercise and discussed fitness Apps like [employer] which can help keep log off calories [...] Dictation was accomplished with the use of [employer] voice recognition software, prone to medical misidentifications and grammatical errors. This is unintentional and the practitioner does try to identify and correct these, but some could still be present. Please do not hesitate to contact practitioner for clarification. Plan Of Treatment Pending Test Test Name Order Date Mammogram 01/26/2024 EKG 09/06/2022 LIPID PANEL, STANDARD 11/12/2024 LIPID PANEL, STANDARD 01/29/2025 LIPID PANEL, STANDARD 05/20/2025 COMPREHENSIVE METABOLIC PANEL 11/12/2024 CBC (INCLUDES DIFF/PLT) 11/12/2024 URINALYSIS, COMPLETE 11/12/2024 HEMOGLOBIN A1c 11/12/2024 VITAMIN B12 11/12/2024 T4, FREE 11/12/2024 TSH 11/12/2024 T3, FREE 11/12/2024 VITAMIN D,25-OH,TOTAL,IA 11/12/2024 VITAMIN D,25-OH,TOTAL,IA 01/29/2025 VITAMIN D,25-OH,TOTAL,IA 05/20/2025 CT Sinuses WO 07/02/2024 CT Sinuses W 06/25/2024 PPC Rapid Covid/Strep/Flu/RSV 07/04/2025 Next Appt Details Provider Name:NAVJOT MELO, 10/21/2025 10:15:00 AM, [address], [place], [address], Provider Name:NAVJOT MELO, 02/03/2026 11:00:00 AM, [address], [place], [address], Insurance Providers Payer Name Payer Address Payer Phone Subscriber Number Group Number Insured Name Patient Relationship to Insured Coverage Start Date Coverage End Date [facility] [address] [place] [id number] Asha Lo Self - patient is the insured 1 Medical (General) History Medical History History ICD Code Hyperlipidemia, unspecified E78.5 Seasonal allergies J30.2 Palpitations R00.2 Migraine, unspecified, not intractable, without status migrainosus G43.909 Obesity (BMI 30-39.9) E66.9 GERD without esophagitis K21.9 Surgical History Surgery Date(Month/Year) R Knee replacement 05/13/2022 Left knee 11/2022
--- OUTSIDE RECORDS SUMMARY | 2025-09-11 10:07 | XMS_ITS | Clinical Summary ---
Author Organization [facility] Address [address] [place] [address] Care Team Providers Care Hazardous Waste Remover Name Role Phone Unknown, Primary Care Provider [...] age to complete this topic Care Teams Hazardous Waste Remover Relationship Specialty Start Date End Date Unknown, PCP - General 02/06/24
--- OUTSIDE RECORDS SUMMARY | 2025-09-11 10:07 | XMS_ITS | Data Portability ---
Author Organization [place] [facility], Allergy Address [address] [place] [id number] Care Team Providers Care Precision Assembler Bench Name Role Phone INES SOLARES Primary Care Provider [phone] Assessment Encounter Date Assessment Date Assessment LastModified by Organization Details LastModified Time 11/11/2024 11/11/2024 Patient with recurrent bouts of facial pain, congestion and drainage. She had a CT in July in the midst of all this and it is basically normal with clear OMCs and trace maxillary sinus thickening right greater than left. We discussed that sinus pain can be a form of migraine. She has a history of migraines in the past and they can often masquerade as sinus infections. We discussed avoidance of migraine triggers including cheese, chocolate, citrus fruit, nuts, MSG, caffeine and alcohol. I suggest she continue with fluticasone nasal spray and the XClear. She can use saline irrigations as well. For migraine prevention suggest magnesium oxide up to 400 mg daily and riboflavin, vitamin B2 up to 400 mg daily. Written information given. Side effects [email or web address] Not available 11/11/2024 14:23:27 Plan of Treatment Reminders Order Date Submit Date Provider Last Modified By Organization Details Last Modified Time Details Appointments None record ed. Lab haemop hilus influe nzae B IgG Ab, quanti tative , serum, immuno assay 2024 025 CRISTI [facility] (Centralized Electronic Ordering - All Locations), Patient Can Go To The Location Of Their Choice, [id number] 10:18:07 unlist ed lab - pneumo coccal Ab (23 seroty pe) 2024 025 C[facility]STI [facility] (Centralized Electronic Ordering - All Locations), Patient Can Go To The Location Of Their Choice, 10:18:06 unlist ed lab - tetanu s toxoid Ag respon se* 2024 [facility] ([facility]ized [facility] Ordering - All Locations), Patient Can Go To The Location Of Their Choice, 17:29:38 CBC w/ auto diff 2024 025 [facility] ([facility]ized Electronic Ordering - All Locations), Patient Can Go To The Location Of Their Choice, 10:18:05 ige, total, serum 2024 025 [facility] ([facility]ized [facility] Ordering - All Locations), Patient Can Go To The Location Of Their Choice, 10:18:09 immuno globul ins iga+ig g+igm, quanti tative , serum 2024 025 [facility] ([facility]ized [facility] Ordering - All Locations), Patient Can Go To The Location Of Their Choice, 10:18:06 unlist ed lab - allerg ens, zone 1 2024 025 [facility] ([facility]ized [facility] Ordering - All Locations), Patient Can Go To The Location Of Their Choice, 10:18:08 nettle IgE Ab, serum 2024 025 [facility] ([facility]ized [facility] Ordering - All Locations), Patient Can Go To The Location Of Their Choice, 12:27:57 bahia grass IgE Ab, quanti tative , serum 2024 025 jsrestein [facility] ([facility]ized [facility] Ordering - All Locations), Patient Can Go To The Location Of Their Choice, 12:27:57 bermud a grass ige, serum 2024 025 [facility] ([facility] - All Locations), Patient Can Go To The Location Of Their Choice, 12:27:57 yoana pruitt in ige, serum 2024 025 yamil [facility] ([facility] Ordering - All Locations), Patient Can Go To The Location Of Their Choice, [address] 12:27:58 Referral None record ed. Procedures None record ed. Surgeries None record ed. Imaging None record ed. Medication Orders None record ed. Patient TargetsNo targets recorded. Patient InstructionsNo instructions recorded. Reason for Referral None Reported. Results Created Date Observation Date Name Description Value Unit Range Abnormal Flag Note LastModifiedBy Organization Detail LastModifiedTime 11/11/1911/13/2024 TETAN US TOXOI D AG RESPO NSE* tetanus toxoid Ag response* 10 %_X_1 00 >10 below low normal FLAG Inter preta tion: A = Abnor mal, H = High, L = Low Not Available [facility] [address], [place], [address], 11/13/2024 17:29:38 11/11/19 25 11/12/2024 CBC WITH DIFFE RENTI AL/PL ATELE T WBC 3.4 x10e3 /uL 3.4-10 .8 normal Not Available [facility] ([facility]) [address] [place], [address], 11/19/2024 10:18:04 11/11/19 25 11/12/2024 CBC WITH DIFFE RENTI AL/PL ATELE T RBC 4.60 x10e6 /uL 3.77-5 .28 normal Not Available [facility] ([facility]) [address] [place], [address], 11/19/2024 10:18:04 11/11/19 25 11/12/2024 CBC WITH DIFFE RENTI AL/PL ATELE T hemoglobin 14.5 g/dL 11.1-1 5.9 normal Not Available [facility] ([facility]) [address] [place], [address], 11/19/2024 10:18:04 11/11/19 25 11/12/2024 CBC WITH DIFFE RENTI AL/PL ATELE T hematocrit 43.5 % 34.0-4 6.6 normal Not Available [facility] ([facility]) [address] [facility], [place], [address], 11/19/2024 10:18:04 11/11/19 25 11/12/2024 CBC WITH DIFFE RENTI AL/PL ATELE T MCV 95 fL 79-97 normal Not Available [facility] ([facility]) [address] [place], [address], 11/19/2024 10:18:04 11/11/19 25 11/12/2024 CBC WITH DIFFE RENTI AL/PL ATELE T MCH 31.5 pg 26.6-3 3.0 normal Not Available [facility] ([facility]) [address] [place], [address], 11/19/2024 10:18:04 11/11/19 25 11/12/2024 CBC WITH DIFFE RENTI AL/PL ATELE T MCHC 33.3 g/dL 31.5-3 5.7 normal Not Available [facility] ([facility]) [address] [place], [address], 11/19/2024 10:18:04 11/11/19 25 11/12/2024 CBC WITH DIFFE RENTI AL/PL ATELE T RDW 12.9 % 11.7-1 5.4 Not Available [facility] ([facility]) [address] [place], [address], 11/19/2024 10:18:04 11/11/19 25 11/12/2024 CBC WITH DIFFE RENTI AL/PL ATELE T platelets 243 x10e3 /uL 150-45 0 normal Not Available [facility] ([facility]) [address] [place], [address], 11/19/2024 10:18:04 11/11/19 25 11/12/2024 CBC WITH DIFFE RENTI AL/PL ATELE T neutrophils 52 % not estab. normal Not Available [facility] ([facility]) [address] [facility], [place], [address], 11/19/2024 10:18:04 11/11/19 25 11/12/2024 CBC WITH DIFFE RENTI AL/PL ATELE T lymphs 39 % not estab. normal Not Available [facility] ([facility]) [address] [facility], [place], [address], 11/19/2024 10:18:04 11/11/19 25 11/12/2024 CBC WITH DIFFE RENTI AL/PL ATELE T monocytes 7 % not estab. normal Not Available [facility] ([facility]) [address] [facility], [place], [address], 11/19/2024 10:18:04 11/11/19 25 11/12/2024 CBC WITH DIFFE RENTI AL/PL ATELE T eos 1 % not estab. normal Not Available [facility] ([facility]) [address] [facility], [place], [address], 11/19/2024 10:18:04 11/11/19 25 11/12/2024 CBC WITH DIFFE RENTI AL/PL ATELE T basos 1 % not estab. normal Not Available [facility] ([facility]) [address] [facility], [place], [address], 11/19/2024 10:18:04 11/11/19 25 11/12/2024 CBC WITH DIFFE RENTI AL/PL ATELE T immature cells CHILDREN'S ATTENDANT Not Available [facility] ([facility]) [address] [place], [address], 11/19/2024 10:18:04 11/11/19 25 11/12/2024 CBC WITH DIFFE RENTI AL/PL ATELE T neutrophils (absolute) 1.8 x10e3 /uL 1.4-7. 0 normal Not Available [facility] ([facility]) [address] [facility], [place], [address], 11/19/2024 10:18:04 11/11/19 25 11/12/2024 CBC WITH DIFFE RENTI AL/PL ATELE T lymphs (absolute) 1.3 x10e3 /uL 0.7-3. 1 normal Not Available [facility] ([facility]) [address] [facility], [place], [address], 11/19/2024 10:18:04 11/11/19 25 11/12/2024 CBC WITH DIFFE RENTI AL/PL ATELE T monocytes(ab solute) 0.2 x10e3 /uL 0.1-0. 9 normal Not Available [facility] ([facility]) [address] [facility], [place], [address], 11/19/2024 10:18:04 11/11/19 25 11/12/2024 CBC WITH DIFFE RENTI AL/PL ATELE T eos (absolute) 0.0 x10e3 /uL 0.0-0. 4 normal Not Available [facility] ([facility]) [address] [facility], [place], [address], 11/19/2024 10:18:04 11/11/19 25 11/12/2024 CBC WITH DIFFE RENTI AL/PL ATELE T baso (absolute) 0.0 x10e3 /uL 0.0-0. 2 normal Not Available [facility] ([facility]) [address] [place], [address], 11/19/2024 10:18:04 11/11/19 25 11/12/2024 CBC WITH DIFFE RENTI AL/PL ATELE T immature granulocytes 0 % not estab. Not Available [facility] ([facility]) [address] [facility], [place], [address], 11/19/2024 10:18:04 11/11/19 11/12/2024 CBC WITH DIFFE RENTI AL/PL ATELE T immature grans (abs) 0.0 x10e3 /uL 0.0-0. 1 Not Available [facility] ([facility]) [address] [facility], [place], [address], 11/19/2024 10:18:04 11/11/19 25 11/12/2024 CBC WITH DIFFE RENTI AL/PL ATELE T NRBC CHILDREN'S ATTENDANT Not Available [facility] ([facility]) [address] [facility], [place], [address], 11/19/2024 10:18:04 11/11/1911/12/2024 CBC WITH DIFFE RENTI AL/PL ATELE T hematology comments: CHILDREN'S ATTENDANT Not Available [facility] ([facility]) [address] [facility], [place], [address], 11/19/2024 10:18:04 11/11/19 25 11/15/2024 PNEUM OCOCC AL AB (23 SEROT YPE) pneumo Ab type 1* 1.9 ug/mL >1.3 Not Available [facility] [address] [place], [address], 11/19/2024 10:18:05 11/11/19 25 11/15/2024 PNEUM OCOCC AL AB (23 SEROT YPE) pneumo Ab type 3* 0.4 ug/mL >1.3 below low normal Not Available [facility] [address] [place], [address], 11/19/2024 10:18:05 11/11/19 25 11/15/2024 PNEUM OCOCC AL AB (23 SEROT YPE) pneumo Ab type 4* <0.1 ug/mL >1.3 below low normal Not Available [facility] [address] [place], [address], 11/19/2024 10:18:05 11/11/19 25 11/15/2024 PNEUM OCOCC AL AB (23 SEROT YPE) pneumo Ab type 8* 1.7 ug/mL >1.3 Not Available [facility] [place] [address] [place], [address], 11/19/2024 10:18:05 11/11/19 25 11/15/2024 PNEUM OCOCC AL AB (23 SEROT YPE) pneumo Ab type 9 (9N)* <0.1 ug/mL >1.3 below low normal Not Available [facility] [address] [place], [address], 11/19/2024 10:18:05 11/11/19 25 11/15/2024 PNEUM OCOCC AL AB (23 SEROT YPE) pneumo Ab type 12 (12F)* <0.1 ug/mL >1.3 below low normal Not Available [facility] [place], [address], 11/19/2024 10:18:05 11/11/19 25 11/15/2024 PNEUM OCOCC AL AB (23 SEROT YPE) pneumo Ab type 14* 1.3 ug/mL >1.3 below low normal Not Available [facility] [place] [address] [place], [address], 11/19/2024 10:18:05 11/11/19 25 11/15/2024 PNEUM OCOCC AL AB (23 SEROT YPE) pneumo Ab type 17 (17F)* 4.9 ug/mL >1.3 Not Available [facility] [place], [address], 11/19/2024 10:18:05 11/11/19 25 11/15/2024 PNEUM OCOCC AL AB (23 SEROT YPE) pneumo Ab type 19 (19F)* 0.2 ug/mL >1.3 below low normal Not Available [facility] [place], [address], 11/19/2024 10:18:05 11/11/19 25 11/15/2024 PNEUM OCOCC AL AB (23 SEROT YPE) pneumo Ab type 2* <0.2 ug/mL >1.3 below low normal Not Available [facility] [place], [address], 11/19/2024 10:18:05 11/11/19 25 11/15/2024 PNEUM OCOCC AL AB (23 SEROT YPE) pneumo Ab type 20* 1.5 ug/mL >1.3 Not Available [facility] [place], [address], 11/19/2024 10:18:05 11/11/19 25 11/15/2024 PNEUM OCOCC AL AB (23 SEROT YPE) pneumo Ab type 22 (22F)* <0.1 ug/mL >1.3 below low normal Not Available [facility] [place], [address], 11/19/2024 10:18:05 11/11/19 25 11/15/2024 PNEUM OCOCC AL AB (23 SEROT YPE) pneumo Ab type 23 (23F)* <0.1 ug/mL >1.3 below low normal Not Available [facility] [place], [address], 11/19/2024 10:18:05 11/11/19 25 11/15/2024 PNEUM OCOCC AL AB (23 SEROT YPE) pneumo Ab type 26 (6B)* <0.1 ug/mL >1.3 below low normal Not Available [facility] [place], [address], 11/19/2024 10:18:05 11/11/19 25 11/15/2024 PNEUM OCOCC AL AB (23 SEROT YPE) pneumo Ab type 34 (10A)* 0.9 ug/mL >1.3 below low normal Not Available [facility] [place], [address], 11/19/2024 10:18:05 11/11/19 25 11/15/2024 PNEUM OCOCC AL AB (23 SEROT YPE) pneumo Ab type 43 (11A)* 1.0 ug/mL >1.3 below low normal Not Available [facility] [place], [address], 11/19/2024 10:18:05 11/11/19 25 11/15/2024 PNEUM OCOCC AL AB (23 SEROT YPE) pneumo Ab type 5* <0.1 ug/mL >1.3 below low normal Not Available [facility] [place], [address], 11/19/2024 10:18:05 11/11/19 25 11/15/2024 PNEUM OCOCC AL AB (23 SEROT YPE) pneumo Ab type 51 (7F)* 0.2 ug/mL >1.3 below low normal Not Available [facility] [place], [address], 11/19/2024 10:18:05 11/11/19 25 11/15/2024 PNEUM OCOCC AL AB (23 SEROT YPE) pneumo Ab type 54 (15B)* 19.1 ug/mL >1.3 Not Available [facility] [place], [address], 11/19/2024 10:18:05 11/11/19 25 11/15/2024 PNEUM OCOCC AL AB (23 SEROT YPE) pneumo Ab type 56 (18C)* 0.3 ug/mL >1.3 below low normal Not Available [facility] [place], [address], 11/19/2024 10:18:05 11/11/19 25 11/15/2024 PNEUM OCOCC AL AB (23 SEROT YPE) pneumo Ab type 57 (19A)* 1.3 ug/mL >1.3 below low normal Not Available [facility] [address] [place], [address], 11/19/2024 10:18:05 11/11/19 25 11/15/2024 PNEUM OCOCC AL AB (23 SEROT YPE) pneumo Ab type 68 (9V)* <0.1 ug/mL >1.3 below low normal Not Available [facility] [address] [place], [address], 11/19/2024 10:18:05 11/11/19 25 11/15/2024 PNEUM OCOCC AL AB (23 SEROT YPE) pneumo Ab type 70 (33F)* 3.3 ug/mL >1.3 *This test was devel oped and its perfo rmanc e estrella cteri stics deter mined by [employer] [facility]. It has not been clear ed or appro paul by the U.S. Food and Drug Admin istra tion. FLAG Inter preta tion: A = Abnor mal, H = High, L = Low Not Available [facility] [address] [place], [address], 11/19/2024 10:18:05 11/11/19 25 11/12/2024 IMMUN OGLOB ULINS A/G/M , QN, SER immunoglobul in g, qn, serum 997 mg/dL 586-16 02 Not Available [facility] ([facility]) [address] [place], [address], 11/19/2024 10:18:06 11/11/19 25 11/12/2024 IMMUN OGLOB ULINS A/G/M , QN, SER immunoglobul in A, qn, serum 195 mg/dL 87-352 normal Not Available [facility] ([facility]) [address] [place], [address], 11/19/2024 10:18:06 11/11/19 25 11/12/2024 IMMUN OGLOB ULINS A/G/M , QN, SER immunoglobul in M, qn, serum 35 mg/dL 26-217 Not Available [facility] ([facility]) [address] [facility], [place], [address], 11/19/2024 10:18:06 11/11/19 25 11/19/2024 HAEMO PHILU S INFLU ENZAE B IGG haemophilus influenzae B IgG 0.57 ug/mL NOTE: An anti- Hib level of 0.15 ug/mL is gener ally accep josi as the minim um level for prote ction . Optim al prote ction post- vacci natio n requi res a level great er than 1.00 ug/mL . Not Available [facility] ([facility]) [address] [facility], [place], [address], 11/19/2024 10:18:07 11/11/19 25 11/11/2024 ALLER GENS, ZONE 1 class description Commen t Level s of Speci fic IgE Class Descr iptio n of Class ----- ----- ----- ----- ----- -- ----- ----- ----- ----- ----- < 0.10 0 Negat filippo 0.10 - 0.31 0/I Equiv ocal/ Low 0.32 - 0.55 I Low 0.56 - 1.40 II Moder ate 1.41 - 3.90 III High 3.91 - 19.00 IV Very High 19.01 - 100.0 0 V Very High >100. 00 Very High Not Available [facility] ([facility]) [address] [facility], [place], [address], 11/19/2024 10:18:08 11/11/19 25 11/13/2024 ALLER GENS, ZONE 1 A717-ZcI D pteronyssinu s <0.10 kU/L class 0 Not Available [facility] ([facility]) [address] [facility], [place], [address], 11/19/2024 10:18:08 11/11/19 25 11/13/2024 ALLER GENS, ZONE 1 D974-ZyD D farinae <0.10 kU/L class 0 Not Available [facility] ([facility]) [address] [facility], [place], [address], 11/19/2024 10:18:08 11/11/19 25 11/13/2024 ALLER GENS, ZONE 1 K139-OtJ CAT dander <0.10 kU/L class 0 Not Available [facility] ([facility]) [address] [facility], [place], [address], 11/19/2024 10:18:08 11/11/19 25 11/13/2024 ALLER GENS, ZONE 1 I461-HaT dog dander <0.10 kU/L class 0 Not Available [facility] ([facility]) [address] [facility], [place], [address], 11/19/2024 10:18:08 11/11/19 25 11/13/2024 ALLER GENS, ZONE 1 k641-MwJ bermuda grass <0.10 kU/L class 0 Not Available [facility] ([facility]) [address] [facility], [place], [address], 11/19/2024 10:18:08 11/11/19 25 11/13/2024 ALLER GENS, ZONE 1 s652-VeE bluegrass, [place] <0.10 kU/L class 0 Not Available [facility] ([facility]) [address] [facility], [place], [address], 11/19/2024 10:18:08 11/11/19 25 11/13/2024 ALLER GENS, ZONE 1 r242-WyU bahia grass <0.10 kU/L class 0 Not Available [facility] ([facility]) [address] [facility], [place], [address], 11/19/2024 10:18:08 11/11/19 25 11/13/2024 ALLER GENS, ZONE 1 T382-FdB cockroach, latvian <0.10 kU/L class 0 Not Available [facility] ([facility]) [address] [facility] [place], [address], 11/19/2024 10:18:08 11/11/19 25 11/13/2024 ALLER GENS, ZONE 1 O511-GuH penicillium chrysogen <0.10 kU/L class 0 Not Available [facility] ([facility]) [address] [facility] [place], [address], 11/19/2024 10:18:08 11/11/19 25 11/13/2024 ALLER GENS, ZONE 1 P783-WvZ cladosporium herbarum <0.10 kU/L class 0 Not Available [facility] ([facility]) [address] [place], [address], 11/19/2024 10:18:08 11/11/19 25 11/13/2024 ALLER GENS, ZONE 1 C608-ThP aspergillus fumigatus <0.10 kU/L class 0 Not Available [facility] ([facility]) [address] [facility] [place], [address], 11/19/2024 10:18:08 11/11/19 25 11/13/2024 ALLER GENS, ZONE 1 T808-EeZ mucor racemosus <0.10 kU/L class 0 Not Available [facility] ([facility]) [address] [facility] [place], [address], 11/19/2024 10:18:08 11/11/19 25 11/13/2024 ALLER GENS, ZONE 1 H607-WoJ alternaria alternata <0.10 kU/L class 0 Not Available [facility] ([facility]) [address] [place], [address], 11/19/2024 10:18:08 11/11/19 25 11/13/2024 ALLER GENS, ZONE 1 Z153-KtU stemphylium herbarum <0.10 kU/L class 0 Not Available [facility] ([facility] [facility]) [address], [place], [address], 11/19/2024 10:18:08 11/11/19 25 11/13/2024 ALLER GENS, ZONE 1 H271-UwY common silver birch <0.10 kU/L class 0 Not Available [facility] ([facility]) [address], [place], [address], 11/19/2024 10:18:08 11/11/19 25 11/13/2024 ALLER GENS, ZONE 1 P763-VvD oak, white <0.10 kU/L class 0 Not Available [facility] ([facility]) [address], [place], [address], 11/19/2024 10:18:08 11/11/19 25 11/13/2024 ALLER GENS, ZONE 1 Q337-HyK elm, latvian <0.10 kU/L class 0 Not Available [facility] ([facility]) [address], [place], [address], 11/19/2024 10:18:08 11/11/19 25 11/13/2024 ALLER GENS, ZONE 1 R045-MnF dalia, white <0.10 kU/L class 0 Not Available [facility] ([facility]) [address], [place], [address], 11/19/2024 10:18:08 11/11/19 25 11/13/2024 ALLER GENS, ZONE 1 W292-PqA maple/box elder <0.10 kU/L class 0 Not Available [facility] ([facility]) [address], [place], [address], 11/19/2024 10:18:08 11/11/19 25 11/13/2024 ALLER GENS, ZONE 1 Y797-TmP hazelnut tree <0.10 kU/L class 0 Not Available [facility] ([facility]) [address], [place], [address], 11/19/2024 10:18:08 11/11/19 25 11/13/2024 ALLER GENS, ZONE 1 D628-IkI hickory, white <0.10 kU/L class 0 Not Available [facility] ([facility]) [address], [place], [address], 11/19/2024 10:18:08 11/11/19 25 11/13/2024 ALLER GENS, ZONE 1 O239-ZdZ white mulberry <0.10 kU/L class 0 Not Available [facility] ([facility]) [address], [place], [address], 11/19/2024 10:18:08 11/11/19 25 11/13/2024 ALLER GENS, ZONE 1 A845-ScE cedar, mountain <0.10 kU/L class 0 Not Available [facility] ([facility]) [address], [place], [address], 11/19/2024 10:18:08 11/11/19 25 11/13/2024 ALLER GENS, ZONE 1 Y042-RkZ ragweed, short <0.10 kU/L class 0 Not Available [facility] ([facility]) [address], [place], [address], 11/19/2024 10:18:08 11/11/19 25 11/13/2024 ALLER GENS, ZONE 1 K283-GnE mugwort <0.10 kU/L class 0 Not Available [facility] ([facility]) [address] [facility], [place], [address], 11/19/2024 10:18:08 11/11/19 25 11/13/2024 ALLER GENS, ZONE 1 F842-XxD plantain, yoruba <0.10 kU/L class 0 Not Available [facility] ([facility]) [address] [facility], [place], [address], 11/19/2024 10:18:08 11/11/19 25 11/13/2024 ALLER GENS, ZONE 1 A184-OeD pigweed, common <0.10 kU/L class 0 Not Available [facility] ([facility]) [address] [facility], [place], [address], 11/19/2024 10:18:08 11/11/19 25 11/13/2024 ALLER GENS, ZONE 1 Y809-MmS sheep sorrel <0.10 kU/L class 0 Not Available [facility] ([facility]) [address] [facility], [place], [address], 11/19/2024 10:18:08 11/11/19 25 11/13/2024 ALLER GENS, ZONE 1 E558-EgJ nettle <0.10 kU/L class 0 Not Available [facility] ([facility]) [address] [facility], [place], [address], 11/19/2024 10:18:08 11/11/19 25 11/13/2024 IMMUN OGLOB ULIN E, TOTAL immunoglobul in E, total 55 IU/mL 6-495 Not Available [facility] ([facility]) [address] [facility], [place], [address], 11/19/2024 10:18:09 01/23/20 25 01/29/2025 PNEUM OCOCC AL AB (23 SEROT YPE) pneumo Ab type 1* 2.2 ug/mL >1.3 Not Available [facility] [address] [place], [address], 01/29/2025 02:49:46 01/23/20 25 01/29/2025 PNEUM OCOCC AL AB (23 SEROT YPE) pneumo Ab type 3* 0.5 ug/mL >1.3 below low normal Not Available [facility] [address] [place], [address], 01/29/2025 02:49:46 01/23/2001/29/2025 PNEUM OCOCC AL AB (23 SEROT YPE) pneumo Ab type 4* <0.1 ug/mL >1.3 below low normal Not Available [facility] [address] [place], [address], 01/29/2025 02:49:46 01/23/2001/29/2025 PNEUM OCOCC AL AB (23 SEROT YPE) pneumo Ab type 8* <0.3 ug/mL >1.3 below low normal Not Available [facility] [address] [place], [address], 01/29/2025 02:49:46 01/23/20 25 01/29/2025 PNEUM OCOCC AL AB (23 SEROT YPE) pneumo Ab type 9 (9N)* <0.1 ug/mL >1.3 below low normal Not Available [facility] [address] [place], [address], 01/29/2025 02:49:46 01/23/2001/29/2025 PNEUM OCOCC AL AB (23 SEROT YPE) pneumo Ab type 12 (12F)* <0.1 ug/mL >1.3 below low normal Not Available [facility] [address] [place], [address], 01/29/2025 02:49:46 01/23/20 25 01/29/2025 PNEUM OCOCC AL AB (23 SEROT YPE) pneumo Ab type 14* 1.1 ug/mL >1.3 below low normal Not Available [facility] [place], [address], 01/29/2025 02:49:46 01/23/20 25 01/29/2025 PNEUM OCOCC AL AB (23 SEROT YPE) pneumo Ab type 17 (17F)* 4.5 ug/mL >1.3 Not Available [facility] [place], [address], 01/29/2025 02:49:46 01/23/2001/29/2025 PNEUM OCOCC AL AB (23 SEROT YPE) pneumo Ab type 19 (19F)* <0.1 ug/mL >1.3 below low normal Not Available [facility] [place], [address], 01/29/2025 02:49:46 01/23/2001/29/2025 PNEUM OCOCC AL AB (23 SEROT YPE) pneumo Ab type 2* <0.2 ug/mL >1.3 below low normal Not Available [facility] [place], [address], 01/29/2025 02:49:46 01/23/20 25 01/29/2025 PNEUM OCOCC AL AB (23 SEROT YPE) pneumo Ab type 20* 1.7 ug/mL >1.3 Not Available [facility] [place], [address], 01/29/2025 02:49:46 01/23/2001/29/2025 PNEUM OCOCC AL AB (23 SEROT YPE) pneumo Ab type 22 (22F)* <0.1 ug/mL >1.3 below low normal Not Available [facility] [place], [address], 01/29/2025 02:49:46 01/23/20 25 01/29/2025 PNEUM OCOCC AL AB (23 SEROT YPE) pneumo Ab type 23 (23F)* <0.1 ug/mL >1.3 below low normal Not Available [facility] [place], [address], 01/29/2025 02:49:46 01/23/20 25 01/29/2025 PNEUM OCOCC AL AB (23 SEROT YPE) pneumo Ab type 26 (6B)* <0.1 ug/mL >1.3 below low normal Not Available [facility] [address] [place] [address] [place], [address], 01/29/2025 02:49:46 01/23/20 25 01/29/2025 PNEUM OCOCC AL AB (23 SEROT YPE) pneumo Ab type 34 (10A)* 0.2 ug/mL >1.3 below low normal Not Available [facility] [address] [place] [address] [place], [address], 01/29/2025 02:49:46 01/23/2001/29/2025 PNEUM OCOCC AL AB (23 SEROT YPE) pneumo Ab type 43 (11A)* 1.1 ug/mL >1.3 below low normal Not Available [facility] [address] [place] [address] [place], [address], 01/29/2025 02:49:46 01/23/20 25 01/29/2025 PNEUM OCOCC AL AB (23 SEROT YPE) pneumo Ab type 5* <0.1 ug/mL >1.3 below low normal Not Available [facility] [address] [place] [address] [place], [address], 01/29/2025 02:49:46 01/23/20 25 01/29/2025 PNEUM OCOCC AL AB (23 SEROT YPE) pneumo Ab type 51 (7F)* >19.6 ug/mL >1.3 Not Available [facility] [address] [place] [address] [place], [address], 01/29/2025 02:49:46 01/23/20 25 01/29/2025 PNEUM OCOCC AL AB (23 SEROT YPE) pneumo Ab type 54 (15B)* 13.2 ug/mL >1.3 Not Available [facility] [address] [place], [address], 01/29/2025 02:49:46 01/23/2001/29/2025 PNEUM OCOCC AL AB (23 SEROT YPE) pneumo Ab type 56 (18C)* 0.2 ug/mL >1.3 below low normal Not Available [facility] [address] [place], [address], 01/29/2025 02:49:46 01/23/2001/29/2025 PNEUM OCOCC AL AB (23 SEROT YPE) pneumo Ab type 57 (19A)* 1.8 ug/mL >1.3 Not Available [facility] [address] [place], [address], 01/29/2025 02:49:46 01/23/2001/29/2025 PNEUM OCOCC AL AB (23 SEROT YPE) pneumo Ab type 68 (9V)* <0.1 ug/mL >1.3 below low normal Not Available [facility] [address] [place], [address], 01/29/2025 02:49:46 01/23/2001/29/2025 PNEUM OCOCC AL AB (23 SEROT YPE) pneumo Ab type 70 (33F)* 4.0 ug/mL >1.3 *This test was devel oped and its perfo rmanc e estrella cteri stics deter mined by [employer] [facility]. It has not been clear ed or appro paul by the U.S. Food and Drug Admin istra tion. FLAG Inter preta tion: A = Abnor mal, H = High, L = Low Not Available [facility] [address] [place], [address], 01/29/2025 02:49:46 01/06/25 2507/15/2024 CT, sinus es, w/o contr ast No observ ation record ed. [email or web address] Not Available 17:19:16 Result Notes None recorded. Problems Name Problem SNOMED Code Status Onset Date Resolution Date Notes Provider Name and Address Organization Details Recorded Time Chronic sinusitis 88546047 Active 2024 GLORIA CORBETT MD [address] [facility],[place] [address], [place], [address], [facility] 14:23:32 Migraine without aura 83748130 Active 2024 GLORIA CORBETT MD [address] [facility],[place] [address], [place], [address], [facility] [place] 14:23:40 Immunodeficien cy disorder 719297217 Active 2024 GLORIA CORBETT MD [address] [place] [address],[place] [address], [place], [address], [facility] 11:46:21 Problem Notes None recorded. Procedures Surgical History Date Name Laterality Status Provider Name and Address Organization Details Recorded Time JMSNasal/Sinus Endoscopy completed GLORIA CROOKS MD [address] [facility],[place] [address], [place], [address], [facility] [place] 11/11/2024 14:21:39 Imaging Results None recorded. Procedure Notes None recorded. Medical Equipment None Reported. Medications Name Sig Start Date Stop Date Status Note LastModified by Organization Details LastModified Time amoxicillin 500 mg capsule TAKE 2 CAPSULES BY MOUTH ONCE NEEDED PRIOR TO DENTAL PROCEDURE 5 DAYS 11/11 completed Not Available Not Available Not Available atorvastati n 40 mg tablet TAKE 1 TABLET BY MOUTH EVERY DAY active Not Available Not Available No t Available prednisone 10 mg tablet TAKE 4 TABS DAILY FOR 5 DAYS, 2 TABS DAILY X 5 DAYS, 1 TAB DAILY X 5 DAYS, 1/2 TAB DAILY X 5 DAYS active Not Available Not Available No t Available albuterol sulfate 2.5 mg/3 mL (0.083 %) solution for nebulizatio n INHALE 1 VIAL USING NEBULIZER EVERY SIX HOURS NEEDED FOR WHEEZING, COUGH, SHORTNESS OF BREATH active Not Available Not Available No t Available azithromyci n 250 mg tablet TAKE 2 TABLETS BY MOUTH TODAY, THEN TAKE 1 TABLET DAILY FOR 4 DAYS DIRECTED active Not Available Not Available No t Available benzonatate 200 mg capsule TAKE 1 CAPSULE BY MOUTH EVERY 8 HOURS NEEDED FOR COUGH active Not Available Not Available No t Available rizatriptan 10 mg tablet TAKE 1 TABLET ORALLY ONCE A DAY NEEDED HEADACHE 30 DAYS active Not Available Not Available No t Available moxifloxaci n 400 mg tablet TAKE 1 TABLET BY MOUTH EVERY DAY FOR 7 DAYS active Not Available Not Available No t Available tramadol 50 mg tablet TAKE 1 TABLET BY MOUTH 4 TIMES A DAY NEEDED FOR PAIN active Not Available Not Available No t Available oxycodone-a cetaminophe n 5 mg-325 mg tablet TAKE 1 TABLET BY MOUTH EVERY 4 TO 6 HOURS NEEDED FOR BREAKTHRO UGH PAIN PARTIAL FILL UPON REQUEST active Not Available Not Available No t Available tamsulosin 0.4 mg capsule TAKE 1 CAPSULE BY MOUTH EVERY DAY active Not Available Not Available No t Available bisacodyl 5 mg tablet,jaxon yed release TAKE 2 TABLETS BY MOUTH RIGHT BEFORE YOUR FIRST DOSE OF LIQUID PREP. active Not Available Not Available No t Available ondansetron 4 mg disintegrat ing tablet DISSOLVE 1 TABLET ON THE TONGUE EVERY 8 HOURS active Not Available Not Available No t Available naproxen 500 mg tablet TAKE 1 TAB BY MOUTH TWICE DAILY FOR MODERATE PAIN active Not Available Not Available No t Available amoxicillin 875 mg-potassiu m clavulanate 125 mg tablet TAKE 1 TABLET BY MOUTH EVERY 12 HOURS FOR 10 DAYS active Not Available Not Available No t Available GaviLyte-G 236 gram-22.74 gram-6.74 gram-5.86 gram oral solution TAKE 240 ML BY MOUTH ONCE FOR 1 DOSE. MAY SUBSTITUE FOR ANY PEG. FOLLOW INSTRUCTI ONS GIVEN BY OFFICE active Not Available Not Available No t Available Nurtec ODT 75 mg disintegrat ing tablet DISSOLVE 1 TABLET ON THE TONGUE EVERY OTHER DAY active Not Available Not Available No t Available Wegovy 1.7 mg/0.75 mL subcutaneou s pen injector 0.75 ML SUBCUTANE OUSLY WEEKLY active Not Available Not Available No t Available Wegovy 1 mg/0.5 mL subcutaneou s pen injector INJECT 1 PEN SUBCUTANE OUSLY WEEKLY active Not Available Not Available No t Available Wegovy 0.25 mg/0.5 mL subcutaneou s pen injector INJECT 0.25MG UNDER THE SKIN ONCE EVERY 7 DAYS active Not Available Not Available No t Available Wegovy 0.5 mg/0.5 mL subcutaneou s pen injector INJECT 0.5MG (0.5ML) SUBCUTANE OUSLY WEEKLY 28 active Not Available Not Available No t Available Vitals None Recorded Social History None recorded. Functional Status None recorded. Mental Status None recorded. Family History Nothing Reported. Medical History Condition Response Nasal or Sinus Problems Y Migraines Y Gynecological HistoryNo gynecological history recorded. Obstetrics History GPAL:G 0 P 0 0 0 0 Past Encounters Encounter ID Performer Location Encounter Start Date Encounter Closed Date Diagnosis/Indication Diagnosis SNOMED-CT Code Diagnosis ICD10 Code Diagnosis IMO Codes Diagnosis Note [id number] MD [facility] [address] [address] 11/11/2024 13:22:32 11/11/2024 14:29:51 Chronic sinusitis 09313036 J32.9 Migraine without aura 56 201849 G43.009 Suspect underlying migraine headache. Suggest reduction of cheese, chocolate, citrus fruit, cold cuts, nuts, MSG and alcohol. Suggest trial of magnesium oxide 2 to 400 mg daily and riboflavin 400 mg daily. Associatio n of migraine disorders website given, [email or web address] for additional informatio n. She will contact me in a few weeks with an update. Health Concerns Section Related Observation LastModified by Organization Detai ls LastModified Time None Recorded Concern Status LastModified by Organization Details LastModified Time None Recorded Advance Directives Directive None Recorded Payers Insurance Date Sequence Insurance Name Policy Number Policy Fuller Covered Member ID Fuller Member ID Guarantor Name 11/11/2024 1 [facility] IN[facility]MN[facility] (PPO) [id number] Juventino A Lisbet [id number] Asha Amaya Notes Date Note Type Note Provider Name and Address Organization Details Recorded Time 11/11/2024 text/html ROS as noted in the HPI Severe sinus pain, pressure and clear drainage recently. had colored drainage in April. Treated with multiple abx and oral steroids. Cleared the colored stuff but still pain and pressure. Feels sx recur after abx finished. Before April multiple abx for sinus pain. Had kidney stones as wellHx of migraines since young adulthood Lynch PMS related and now post menopausalFP nasal for a while without help. 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
[2025-09-11 13:47] LABS: Anion Gap 10 (12-20); Blood Urea Nitrogen 18 mg/dL (9-16); Calcium 9.4 mg/dL (8.4-10.2); Carbon Dioxide 28 mmol/L (22-29); Chloride 106 mmol/L (96-108); Estimated Glomerular Filt Rate > 60; Potassium 5.1 mmol/L (3.3-5.1); Sodium 139 mmol/L (135-145); Uric Acid 4.0 mg/dL (2.4-5.7)
[2025-09-11 14:20] LABS: Total Volume 24 Hour Urine 2225 mL
[2025-09-11 14:21] LABS: Total Volume 24 Hour Urine 2225 mL
[2025-09-11 14:43] LABS: Creatinine, mg/dL 62.55; Sodium, 24 Hr Urine 70.0 mmol/L
[2025-09-11 14:48] LABS: Creatinine, mg/dL 62.90; Uric Acid, mg/dL 24.2 mg/dL
[2025-09-15 19:44] LABS: Calcium/Creatinine Ratio 127 mg/g creat (30-275); Creatinine 24Hr Urine 1.47 g/24 h (0.50-2.15)
[2025-09-18 22:53] LABS: 24hr Urine Total Volume 2225 mL; Citric Acid, 24hr Urine 688 mg/24 h (100-1300); Citric Acid/Creat Ratio 24U 463 mg/g creat (180-1070); Creatinine, 24U 1.48 g/24 h (0.50-2.15)
[2025-09-19 19:58] LABS: 24hr Urine Total Volume 2225 mL; Oxalic Acid 24 Urine 30.5 mg/24 h (3.6-38.0)
== END 2025-09-11 09:11 | disposition home or self-care (01) ==
LOC: HO.HKASLDS 09:10
PROVIDERS: PCP Physician Assistant Medical; Visit Provider Internal Medicine Nephrology
DX: N20.0 Calculus of kidney (principal)
CPT/HCPCS: 36415; 80051; 82310; 82340; 82507; 82565; 83945; 84300; 84520; 84550; 84560

== ENCOUNTER 2025-09-18 09:48 | Outpatient (AMB) | payer OTHER, SELFPAY ==
--- OUTSIDE RECORDS SUMMARY | 2025-05-26 04:00 | XMS_ITS ---
Author Organization [facility] [address] Address [address] [place] [address] Care Team Providers Care Transport Nurse Name Role Phone NAVJOT MELO Unavailable [phone] REASON FOR VISIT 2nd shingles + labs Encounters Encounter Location Date Provider Diagnosis [facility] [place] [address] 05/26/2025 NAVJOT MELO Plan Of Treatment Next Appt Details Provider Name:NAVJOT MELO, 10/21/2025 10:15:00 AM, [address], [place], [address], Provider Name:NAVJOT MELO, 02/03/2026 11:00:00 AM, [address], [place], [address], Progress Notes * Talia METZGERAriaOB:1965 ( 60 yo F)Acc No.[id number]:05/26/2025 Progress Notes Patient: Asha Leal Provider: Acacia MELO PA-C :1965 A ge:60 Y S ex:Female Date:05/26/2025 Address:[address] [place] [address] Subjective: * Chief Complaints: * 2 nd shingles + labs Care Plan Details* * Electronic signature of CRISTINA MELO PA-C on 09/18/2025 at 11:30 AM EST Sign off status: Pending * Provider: Acacia MELO PA-C Date: 0 05/26/2025 Generated for Saul loredo/Elmo/eTransmitting on: 1 11/18/2024 11:30 AM EST
[2025-09-18 10:05] VITALS: BP 120/80; BMI 29.5
--- NOTE | 2025-09-18 10:05 | HO.NEPHOV ---
Vital Signs 09/18/25 10:05 Height 5 ft 10.5 in Weight 208 lb 6 oz BMI 29.5 BP 120/80 Blood Pressure Location Lt brachial Position Sitting Intake Visit Reasons: 1 mo follow up-Conf Accompanied by: Self / Same As Patient Allergies oxycodone Allergy (Verified 09/18/25 10:05) Rash HPI Comments Details: I had the pleasure of seeing Asha in follow up for renal calculus. She has one episode of H/O renal calculus on left side within last 2 years but recently had right flank pain with no hematuria or fever needing 2 ER presentations. She eventually passed the stone( 3 mm by imaging). She had mild JESUS during this recent episode which has resolved. Her recent 24 hour urine for stone screen is pending. Her diet is not rich in sodium but in meat. She is on Mounjaro for weight loss. She is not taking any NSAID's but used to take for OA of her knees( had undergone B/L knee replacements). She has no other complaints at the time of this office visit except for some back pain for which she sees a chiropractor. [facility] Medical History (Updated 08/05/25 @ 11:19 by Michele Enrique MD) Flank pain Kidney stones Chronic GERD Migraine headache Palpitations Lipid disorder Surgical History History of total right knee replacement (TKR) History of wisdom tooth extraction Family History Father Non-Hodgkin lymphoma HTN (hypertension) Mother CHF (congestive heart failure) HTN (hypertension) Diet-controlled diabetes mellitus Maternal Grandfather Aneurysm Metastatic cancer Maternal Grandmother No problems noted. Paternal Grandmother Metastatic cancer Paternal Grandfather Lung cancer Smoker Sister No problems noted. Sister No problems noted. Maternal Aunt Breast cancer Social History Housing: House Patient Tobacco Use Status: Never used Tobacco e-Cigarette/Vaping Use: Never Used Second Hand Smoke Exposure: No service: No Current occupational status: employed Cognitive needs: No Hearing needs: No Vision needs: No Female Reproductive History Menstrual Age of Menarche: 15 Review of Systems Const All systems reviewed & are unremarkable except as noted in HPI and below Physical Exam Vital Signs: Last Vital Signs BP 120/80 09/18/25 10:05 BMI result Body Mass Index 29.5 Const General: comfortable and no acute distress Orientation/consciousness: patient oriented x3 HEENT Head: Yes normocephalic Mouth: Normal oral and palatal mucosa present Eyes EOM: EOMs intact bilaterally Neck Neck: Yes supple Resp Auscultation: clear to auscultation bilaterally Cardio Jugular venous distension: no JVD Rate: regular rate GI Palpation (GI): Soft to palpation Auscultation: normal bowel sounds General: Yes no CVA tenderness Back/Spine/Pelvis Back: no CVA tenderness Skin General skin exam: no rashes or lesions noted Neuro General: patient oriented x3 and moves all extremities Extrem General: Yes no pedal edema Results Reviewed Nephrology Results: Hgb, (12.0-16.0) 13.5 g/dl 07/19/22 WBC, (4.8-10.8) 3.9 X10*3/uL L 07/19/22 Plt Count, (160-400) 245 X10*3/uL 07/19/22 Sodium, (135-145) 139 mmol/L 09/11/25 Potassium, (3.3-5.1) 5.1 mmol/L 09/11/25 Chloride, (96-108) 106 mmol/L 09/11/25 Carbon Dioxide, (22-29) 28 mmol/L 09/11/25 BUN, (9-16) 18 mg/dL H 09/11/25 Creatinine, (0.5-1.4) 0.73 mg/dL 09/11/25 Calcium, (8.4-10.2) 9.4 mg/dL 09/11/25 Assessment & Plan Assessment & Plan (1) Renal calculus: Code(s): N20.0 - Calculus of kidney Category: Medical Plan Low sodium diet; Continued good hydration C/W increased citrate in the fluid Low oxalate in the diet Ordered F/U renal USS-- pending --24 hour urine results pending ( No family H/O medullary calcinosis) Had mild JESUS during recent stone-resolved Not taking NSAID's/ACEI/ARB Will be a candidate for HCTZ &/ K citrate based on data Answered all questions & F/U was given Coding Level of Care Code Est Pt Level 4 (20549) Diagnoses Renal calculus N20.0
--- OUTSIDE RECORDS SUMMARY | 2025-09-18 11:31 | XMS_ITS | Data Portability ---
Author Organization [place] [facility], Allergy Address [address] [place] [id number] Care Team Providers Care Process Planner Name Role Phone INES SOLARES Primary Care Provider Assessment Encounter Date Assessment Date Assessment LastModified [...] Go To The Location Of Their Choice, [address] 10:18:07 unlist ed lab - pneumo coccal [...] Choice, 10:18:05 ige, total, serum 2024 025 [place] [facility] (Centralized Electronic Ordering - All Locations), Patient Can Go To The Location Of Their Choice, 10:18:09 immuno globul ins iga+ig g+igm, quanti tative , serum 2024 025 [place] [facility] ([facility] Ordering - All Locations), Patient Can Go To The Location Of Their Choice, 10:18:06 unlist ed lab - allerg ens, zone 1 2024 025 [place] [facility] ([facility] Ordering - All Locations), Patient Can Go To The Location Of Their Choice, 10:18:08 nettle IgE Ab, serum 2024 025 [email or web address] ([facility] Order[facility] - All Locations), Patient Can Go To The Location Of Their Choice, 12:27:57 bahia grass IgE Ab, quanti tative , serum 2024 025 [email or web address] ([facility] - All Locations), Patient Can Go To The Location Of Their Choice, 12:27:57 bermud a grass ige, serum 2024 025 [facility] - All Locations), Patient Can Go To The Location Of Their Choice, 12:27:57 yoana pruitt in ige, serum 2024 025 [place] [facility] ([facility] Ordering - All Locations), Patient Can Go To The Location Of Their Choice, [address] 12:27:58 Referral None record ed. Procedures None [...] Laboratories [address], [place], [address], 11/13/2024 17:29:38 11/11/19 25 11/12/2024 CBC WITH DIFFE RENTI AL/PL ATELE T WBC 3.4 x10e3 /uL 3.4-10 .8 normal Not Available [facility] ([facility]) [address] [place], [address], 11/19/2024 10:18:04 11/11/19 25 11/12/2024 CBC WITH DIFFE RENTI AL/PL ATELE T RBC 4.60 x10e6 /uL 3.77-5 .28 normal Not Available [facility] ([facility]) [address] [place], [address], 11/19/2024 10:18:04 11/11/19 25 11/12/2024 CBC WITH DIFFE RENTI AL/PL ATELE T hemoglobin 14.5 g/dL 11.1-1 5.9 normal Not Available [facility] ([facility]) [address] [place], [address], 11/19/2024 10:18:04 11/11/19 25 11/12/2024 CBC WITH DIFFE RENTI AL/PL ATELE T hematocrit 43.5 % 34.0-4 6.6 normal Not Available [facility] ([facility]) [address] [facility], [place], [address], 11/19/2024 10:18:04 11/11/19 25 11/12/2024 CBC WITH DIFFE RENTI AL/PL ATELE T MCV 95 fL 79-97 normal Not Available [facility] ([facility]) [address] [place], [address], 11/19/2024 10:18:04 11/11/19 25 11/12/2024 CBC WITH DIFFE RENTI AL/PL ATELE T MCH 31.5 pg 26.6-3 3.0 normal Not Available [facility] ([facility]) [address] [place], [address], 11/19/2024 10:18:04 11/11/19 25 11/12/2024 CBC WITH DIFFE RENTI AL/PL ATELE T MCHC 33.3 g/dL 31.5-3 5.7 normal Not Available [facility] ([facility]) [address] [place], [address], 11/19/2024 10:18:04 11/11/19 25 11/12/2024 CBC WITH DIFFE RENTI AL/PL ATELE T RDW 12.9 % 11.7-1 5.4 Not Available [facility] ([facility]) [address] [place], [address], 11/19/2024 10:18:04 11/11/19 25 11/12/2024 CBC WITH DIFFE RENTI AL/PL ATELE T platelets 243 x10e3 /uL 150-45 0 normal Not Available [facility] ([facility]) [address] [place], [address], 11/19/2024 10:18:04 11/11/19 25 11/12/2024 CBC WITH DIFFE RENTI AL/PL ATELE T neutrophils 52 % not estab. normal Not Available [facility] ([facility]) [address] [facility], [place], [address], 11/19/2024 10:18:04 11/11/19 25 11/12/2024 CBC WITH DIFFE RENTI AL/PL ATELE T lymphs 39 % not estab. normal Not Available [facility] ([facility]) [address] [facility], [place], [address], 11/19/2024 10:18:04 11/11/19 25 11/12/2024 CBC WITH DIFFE RENTI AL/PL ATELE T monocytes 7 % not estab. normal Not Available [facility] ([facility]) [address] [facility], [place], [address], 11/19/2024 10:18:04 11/11/19 25 11/12/2024 CBC WITH DIFFE RENTI AL/PL ATELE T eos 1 % not estab. normal Not Available [facility] ([facility]) [address] [facility], [place], [address], 11/19/2024 10:18:04 11/11/19 25 11/12/2024 CBC WITH DIFFE RENTI AL/PL ATELE T basos 1 % not estab. normal Not Available [facility] ([facility]) [address] [facility], [place], [address], 11/19/2024 10:18:04 11/11/19 25 11/12/2024 CBC WITH DIFFE RENTI AL/PL ATELE T immature cells PREPARER Not Available [facility] ([facility]) [address] [place], [address], 11/19/2024 10:18:04 11/11/19 25 11/12/2024 CBC WITH DIFFE RENTI AL/PL ATELE T neutrophils (absolute) 1.8 x10e3 /uL 1.4-7. 0 normal Not Available [facility] ([facility]) [address] [facility], [place], [address], 11/19/2024 10:18:04 11/11/19 25 11/12/2024 CBC WITH DIFFE RENTI AL/PL ATELE T lymphs (absolute) 1.3 x10e3 /uL 0.7-3. 1 normal Not Available [facility] ([facility]) [address] [facility], [place], [address], 11/19/2024 10:18:04 11/11/19 25 11/12/2024 CBC WITH DIFFE RENTI AL/PL ATELE T monocytes(ab solute) 0.2 x10e3 /uL 0.1-0. 9 normal Not Available [facility] ([facility]) [address] [facility], [place], [address], 11/19/2024 10:18:04 11/11/19 25 11/12/2024 CBC WITH DIFFE RENTI AL/PL ATELE T eos (absolute) 0.0 x10e3 /uL 0.0-0. 4 normal Not Available [facility] ([facility]) [address] [facility], [place], [address], 11/19/2024 10:18:04 11/11/19 25 11/12/2024 CBC WITH DIFFE RENTI AL/PL ATELE T baso (absolute) 0.0 x10e3 /uL 0.0-0. 2 normal Not Available [facility] ([facility]) [address] [place], [address], 11/19/2024 10:18:04 11/11/19 25 11/12/2024 CBC WITH DIFFE RENTI AL/PL ATELE T immature granulocytes 0 % not estab. Not Available [facility] ([facility]) [address] [facility], [place], [address], 11/19/2024 10:18:04 11/11/19 11/12/2024 CBC WITH DIFFE RENTI AL/PL ATELE T immature grans (abs) 0.0 x10e3 /uL 0.0-0. 1 Not Available [facility] ([facility]) [address] [facility], [place], [address], 11/19/2024 10:18:04 11/11/19 25 11/12/2024 CBC WITH DIFFE RENTI AL/PL ATELE T NRBC PREPARER Not Available [facility] ([facility]) [address] [facility], [place], [address], 11/19/2024 10:18:04 11/11/1911/12/2024 CBC WITH DIFFE RENTI AL/PL ATELE T hematology comments: PREPARER Not Available [facility] ([facility]) [address] [facility], [place], [address], 11/19/2024 10:18:04 11/11/19 25 11/15/2024 PNEUM OCOCC AL AB (23 SEROT YPE) pneumo Ab type 1* 1.9 ug/mL >1.3 Not Available [facility] [address] [place], [address], 11/19/2024 10:18:05 11/11/19 25 11/15/2024 PNEUM OCOCC AL AB (23 SEROT YPE) pneumo Ab type 3* 0.4 ug/mL >1.3 below low normal Not Available [facility] [address] [place], [address], 11/19/2024 10:18:05 11/11/19 25 11/15/2024 PNEUM OCOCC AL AB (23 SEROT YPE) pneumo Ab type 4* <0.1 ug/mL >1.3 below low normal Not Available [facility] [address] [place], [address], 11/19/2024 10:18:05 11/11/19 25 11/15/2024 PNEUM OCOCC AL AB (23 SEROT YPE) pneumo Ab type 8* 1.7 ug/mL >1.3 Not Available [facility] [place], [address], 11/19/2024 10:18:05 11/11/19 25 11/15/2024 PNEUM OCOCC AL AB (23 SEROT YPE) pneumo Ab type 9 (9N)* <0.1 ug/mL >1.3 below low normal Not Available [facility] [place], [address], 11/19/2024 10:18:05 11/11/19 25 11/15/2024 PNEUM OCOCC AL AB (23 SEROT YPE) pneumo Ab type 12 (12F)* <0.1 ug/mL >1.3 below low normal Not Available [facility] [place], [address], 11/19/2024 10:18:05 11/11/19 25 11/15/2024 PNEUM OCOCC AL AB (23 SEROT YPE) pneumo Ab type 14* 1.3 ug/mL >1.3 below low normal Not Available [facility] [place], [address], 11/19/2024 10:18:05 11/11/19 25 11/15/2024 PNEUM OCOCC AL AB (23 SEROT YPE) pneumo Ab type 17 (17F)* 4.9 ug/mL >1.3 Not Available [facility] [place], [address], 11/19/2024 10:18:05 11/11/19 25 11/15/2024 PNEUM OCOCC AL AB (23 SEROT YPE) pneumo Ab type 19 (19F)* 0.2 ug/mL >1.3 below low normal Not Available [facility] [place], [address], 11/19/2024 10:18:05 11/11/19 25 11/15/2024 PNEUM OCOCC AL AB (23 SEROT YPE) pneumo Ab type 2* <0.2 ug/mL >1.3 below low normal Not Available [facility] [place], [address], 11/19/2024 10:18:05 11/11/19 25 11/15/2024 PNEUM OCOCC AL AB (23 SEROT YPE) pneumo Ab type 20* 1.5 ug/mL >1.3 Not Available [facility] [place], [address], 11/19/2024 10:18:05 11/11/19 25 11/15/2024 PNEUM OCOCC AL AB (23 SEROT YPE) pneumo Ab type 22 (22F)* <0.1 ug/mL >1.3 below low normal Not Available [facility] [place], [address], 11/19/2024 10:18:05 11/11/19 25 11/15/2024 PNEUM OCOCC AL AB (23 SEROT YPE) pneumo Ab type 23 (23F)* <0.1 ug/mL >1.3 below low normal Not Available [facility] [place], [address], 11/19/2024 10:18:05 11/11/19 25 11/15/2024 PNEUM OCOCC AL AB (23 SEROT YPE) pneumo Ab type 26 (6B)* <0.1 ug/mL >1.3 below low normal Not Available [facility] [place], [address], 11/19/2024 10:18:05 11/11/19 25 11/15/2024 PNEUM OCOCC AL AB (23 SEROT YPE) pneumo Ab type 34 (10A)* 0.9 ug/mL >1.3 below low normal Not Available [facility] [place], [address], 11/19/2024 10:18:05 11/11/19 25 11/15/2024 PNEUM OCOCC AL AB (23 SEROT YPE) pneumo Ab type 43 (11A)* 1.0 ug/mL >1.3 below low normal Not Available [facility] [place], [address], 11/19/2024 10:18:05 11/11/19 25 11/15/2024 PNEUM OCOCC AL AB (23 SEROT YPE) pneumo Ab type 5* <0.1 ug/mL >1.3 below low normal Not Available [facility] [place], [address], 11/19/2024 10:18:05 11/11/19 25 11/15/2024 PNEUM OCOCC AL AB (23 SEROT YPE) pneumo Ab type 51 (7F)* 0.2 ug/mL >1.3 below low normal Not Available [facility] [place], [address], 11/19/2024 10:18:05 11/11/19 25 11/15/2024 PNEUM OCOCC AL AB (23 SEROT YPE) pneumo Ab type 54 (15B)* 19.1 ug/mL >1.3 Not Available [facility] [place], [address], 11/19/2024 10:18:05 11/11/19 25 11/15/2024 PNEUM OCOCC AL AB (23 SEROT YPE) pneumo Ab type 56 (18C)* 0.3 ug/mL >1.3 below low normal Not Available [facility] [place], [address], 11/19/2024 10:18:05 11/11/19 25 11/15/2024 PNEUM OCOCC AL AB (23 SEROT YPE) pneumo Ab type 57 (19A)* 1.3 ug/mL >1.3 below low normal Not Available [facility] [address] [place], [address], 11/19/2024 10:18:05 11/11/19 25 11/15/2024 PNEUM OCOCC AL AB (23 SEROT YPE) pneumo Ab type 68 (9V)* <0.1 ug/mL >1.3 below low normal Not Available [facility] [address] [place], [address], 11/19/2024 10:18:05 11/11/19 25 11/15/2024 PNEUM OCOCC [...] Laboratories [address] [place], [address], 11/19/2024 10:18:05 11/11/19 25 11/12/2024 IMMUN OGLOB ULINS A/G/M , QN, SER immunoglobul in g, qn, serum 997 mg/dL 586-16 02 Not Available [facility] ([facility]) [address] [place], [address], 11/19/2024 10:18:06 11/11/19 25 11/12/2024 IMMUN OGLOB ULINS A/G/M , QN, SER immunoglobul in A, qn, serum 195 mg/dL 87-352 normal Not Available [facility] ([facility]) [address] [place], [address], 11/19/2024 10:18:06 11/11/19 25 11/12/2024 IMMUN OGLOB ULINS A/G/M , QN, SER immunoglobul in M, qn, serum 35 mg/dL 26-217 Not Available [facility] ([facility]) [address] [facility], [place], [address], 11/19/2024 10:18:06 11/11/19 25 11/19/2024 HAEMO PHILU S INFLU ENZAE B IGG haemophilus influenzae B IgG 0.57 ug/mL NOTE: An anti- Hib level of 0.15 ug/mL is gener ally accep josi as the minim um level for prote ction . Optim al prote ction post- vacci natio n requi res a level great er than 1.00 ug/mL . Not Available [facility] ([facility]) [address] [facility], [place], [address], 11/19/2024 10:18:07 11/11/19 25 11/11/2024 ALLER GENS, [...] >100. 00 Very High Not Available [facility] ([facility]) [address] [facility], [place], [address], 11/19/2024 10:18:08 11/11/19 25 11/13/2024 ALLER GENS, ZONE 1 A494-SaR D pteronyssinu s <0.10 kU/L class 0 Not Available [facility] ([facility]) [address] [facility], [place], [address], 11/19/2024 10:18:08 11/11/19 25 11/13/2024 ALLER GENS, ZONE 1 T000-PpF D farinae <0.10 kU/L class 0 Not Available [facility] ([facility]) [address] [facility], [place], [address], 11/19/2024 10:18:08 11/11/19 25 11/13/2024 ALLER GENS, ZONE 1 R039-JqD CAT dander <0.10 kU/L class 0 Not Available [facility] ([facility]) [address] [facility], [place], [address], 11/19/2024 10:18:08 11/11/19 25 11/13/2024 ALLER GENS, ZONE 1 C950-SuO dog dander <0.10 kU/L class 0 Not Available [facility] ([facility]) [address] [facility], [place], [address], 11/19/2024 10:18:08 11/11/19 25 11/13/2024 ALLER GENS, ZONE 1 o950-YmZ bermuda grass <0.10 kU/L class 0 Not Available [facility] ([facility]) [address] [facility], [place], [address], 11/19/2024 10:18:08 11/11/19 25 11/13/2024 ALLER GENS, ZONE 1 d075-BwB bluegrass, [place] <0.10 kU/L class 0 Not Available [facility] ([facility]) [address] [facility], [place], [address], 11/19/2024 10:18:08 11/11/19 25 11/13/2024 ALLER GENS, ZONE 1 i043-TrK bahia grass <0.10 kU/L class 0 Not Available [facility] ([facility]) [address] [facility], [place], [address], 11/19/2024 10:18:08 11/11/19 25 11/13/2024 ALLER GENS, ZONE 1 R332-QsN cockroach, haitian <0.10 kU/L class 0 Not Available [facility] ([facility]) [address] [facility] [place], [address], 11/19/2024 10:18:08 11/11/19 25 11/13/2024 ALLER GENS, ZONE 1 I859-XjF penicillium chrysogen <0.10 kU/L class 0 Not Available [facility] ([facility]) [address] [facility] [place], [address], 11/19/2024 10:18:08 11/11/19 25 11/13/2024 ALLER GENS, ZONE 1 M330-XiL cladosporium herbarum <0.10 kU/L class 0 Not Available [facility] ([facility]) [address] [place], [address], 11/19/2024 10:18:08 11/11/19 25 11/13/2024 ALLER GENS, ZONE 1 G872-JdK aspergillus fumigatus <0.10 kU/L class 0 Not Available [facility] ([facility]) [address] [facility] [place], [address], 11/19/2024 10:18:08 11/11/19 25 11/13/2024 ALLER GENS, ZONE 1 C539-VrL mucor racemosus <0.10 kU/L class 0 Not Available [facility] ([facility]) [address] [facility] [place], [address], 11/19/2024 10:18:08 11/11/19 25 11/13/2024 ALLER GENS, ZONE 1 U833-OeH alternaria alternata <0.10 kU/L class 0 Not Available [facility] ([facility]) [address] [place], [address], 11/19/2024 10:18:08 11/11/19 25 11/13/2024 ALLER GENS, ZONE 1 W951-GnK stemphylium herbarum <0.10 kU/L class 0 Not Available [facility] ([facility] [facility]) [address], [place], [address], 11/19/2024 10:18:08 11/11/19 25 11/13/2024 ALLER GENS, ZONE 1 F577-LuZ common silver birch <0.10 kU/L class 0 Not Available [facility] ([facility]) [address], [place], [address], 11/19/2024 10:18:08 11/11/19 25 11/13/2024 ALLER GENS, ZONE 1 V747-HiF oak, white <0.10 kU/L class 0 Not Available [facility] ([facility]) [address], [place], [address], 11/19/2024 10:18:08 11/11/19 25 11/13/2024 ALLER GENS, ZONE 1 Y544-SyU elm, haitian <0.10 kU/L class 0 Not Available [facility] ([facility] [facility]) [address], [place], [address], 11/19/2024 10:18:08 11/11/19 25 11/13/2024 ALLER GENS, ZONE 1 F576-TiP dalia, white <0.10 kU/L class 0 Not Available [facility] ([facility] [facility]) [address], [place], [address], 11/19/2024 10:18:08 11/11/19 25 11/13/2024 ALLER GENS, ZONE 1 K100-TzQ maple/box elder <0.10 kU/L class 0 Not Available [facility] ([facility] [facility]) [address], [place], [address], 11/19/2024 10:18:08 11/11/19 25 11/13/2024 ALLER GENS, ZONE 1 Q391-NyT hazelnut tree <0.10 kU/L class 0 Not Available [facility] ([facility] [facility]) [address], [place], [address], 11/19/2024 10:18:08 11/11/19 25 11/13/2024 ALLER GENS, ZONE 1 B066-NgF hickory, white <0.10 kU/L class 0 Not Available [facility] ([place] [facility]) [address], [place], [address], 11/19/2024 10:18:08 11/11/19 25 11/13/2024 ALLER GENS, ZONE 1 E959-WkI white mulberry <0.10 kU/L class 0 Not Available [facility] ([facility] [facility]) [address], [place], [address], 11/19/2024 10:18:08 11/11/19 25 11/13/2024 ALLER GENS, ZONE 1 Y183-RzO cedar, mountain <0.10 kU/L class 0 Not Available [facility] ([place] [facility]) [address], [place], [address], 11/19/2024 10:18:08 11/11/19 25 11/13/2024 ALLER GENS, ZONE 1 N495-MuW ragweed, short <0.10 kU/L class 0 Not Available [facility] ([place] [facility]) [address], [place], [address], 11/19/2024 10:18:08 11/11/19 25 11/13/2024 ALLER GENS, ZONE 1 F011-ToM mugwort <0.10 kU/L class 0 Not Available [facility] ([place] [facility]) [address] [facility], [place], [address], 11/19/2024 10:18:08 11/11/19 25 11/13/2024 ALLER GENS, ZONE 1 U327-OgN plantain, occitan <0.10 kU/L class 0 Not Available [facility] ([facility]) [address] [facility], [place], [address], 11/19/2024 10:18:08 11/11/19 25 11/13/2024 ALLER GENS, ZONE 1 K093-JwI pigweed, common <0.10 kU/L class 0 Not Available [facility] ([facility]) [address] [facility], [place], [address], 11/19/2024 10:18:08 11/11/19 25 11/13/2024 ALLER GENS, ZONE 1 W358-MjR sheep sorrel <0.10 kU/L class 0 Not Available [facility] ([facility]) [address] [facility], [place], [address], 11/19/2024 10:18:08 11/11/19 25 11/13/2024 ALLER GENS, ZONE 1 J222-MhF nettle <0.10 kU/L class 0 Not Available [facility] ([facility]) [address] [facility], [place], [address], 11/19/2024 10:18:08 11/11/19 25 11/13/2024 IMMUN OGLOB ULIN E, TOTAL immunoglobul in E, total 55 IU/mL 6-495 Not Available [facility] ([facility]) [address] [facility], [place], [address], 11/19/2024 10:18:09 01/23/20 25 01/29/2025 PNEUM OCOCC AL AB (23 SEROT YPE) pneumo Ab type 1* 2.2 ug/mL >1.3 Not Available [facility] [address] [place], [address], 01/29/2025 02:49:46 01/23/20 25 01/29/2025 PNEUM OCOCC AL AB (23 SEROT YPE) pneumo Ab type 3* 0.5 ug/mL >1.3 below low normal Not Available [facility] [address] [place], [address], 01/29/2025 02:49:46 01/23/2001/29/2025 PNEUM OCOCC AL AB (23 SEROT YPE) pneumo Ab type 4* <0.1 ug/mL >1.3 below low normal Not Available [facility] [address] [place], [address], 01/29/2025 02:49:46 01/23/2001/29/2025 PNEUM OCOCC AL AB (23 SEROT YPE) pneumo Ab type 8* <0.3 ug/mL >1.3 below low normal Not Available [facility] [place], [address], 01/29/2025 02:49:46 01/23/20 25 01/29/2025 PNEUM OCOCC AL AB (23 SEROT YPE) pneumo Ab type 9 (9N)* <0.1 ug/mL >1.3 below low normal Not Available [facility] [place], [address], 01/29/2025 02:49:46 01/23/2001/29/2025 PNEUM OCOCC AL AB (23 SEROT YPE) pneumo Ab type 12 (12F)* <0.1 ug/mL >1.3 below low normal Not Available [facility] [place], [address], 01/29/2025 02:49:46 01/23/20 25 01/29/2025 PNEUM OCOCC AL AB (23 SEROT YPE) pneumo Ab type 14* 1.1 ug/mL >1.3 below low normal Not Available [facility] [place], [address], 01/29/2025 02:49:46 01/23/20 25 01/29/2025 PNEUM OCOCC AL AB (23 SEROT YPE) pneumo Ab type 17 (17F)* 4.5 ug/mL >1.3 Not Available [facility] [place], [address], 01/29/2025 02:49:46 01/23/2001/29/2025 PNEUM OCOCC AL AB (23 SEROT YPE) pneumo Ab type 19 (19F)* <0.1 ug/mL >1.3 below low normal Not Available [facility] [place], [address], 01/29/2025 02:49:46 01/23/2001/29/2025 PNEUM OCOCC AL AB (23 SEROT YPE) pneumo Ab type 2* <0.2 ug/mL >1.3 below low normal Not Available [facility] [place], [address], 01/29/2025 02:49:46 01/23/20 25 01/29/2025 PNEUM OCOCC AL AB (23 SEROT YPE) pneumo Ab type 20* 1.7 ug/mL >1.3 Not Available [facility] [place], [address], 01/29/2025 02:49:46 01/23/2001/29/2025 PNEUM OCOCC AL AB (23 SEROT YPE) pneumo Ab type 22 (22F)* <0.1 ug/mL >1.3 below low normal Not Available [facility] [place], [address], 01/29/2025 02:49:46 01/23/20 25 01/29/2025 PNEUM OCOCC AL AB (23 SEROT YPE) pneumo Ab type 23 (23F)* <0.1 ug/mL >1.3 below low normal Not Available [facility] [place], [address], 01/29/2025 02:49:46 01/23/20 25 01/29/2025 PNEUM OCOCC AL AB (23 SEROT YPE) pneumo Ab type 26 (6B)* <0.1 ug/mL >1.3 below low normal Not Available [facility] [address] [place] [address] [place], [address], 01/29/2025 02:49:46 01/23/20 25 01/29/2025 PNEUM OCOCC AL AB (23 SEROT YPE) pneumo Ab type 34 (10A)* 0.2 ug/mL >1.3 below low normal Not Available [facility] [address] [place] [address] [place], [id number], 01/29/2025 02:49:46 01/23/2001/29/2025 PNEUM OCOCC AL AB (23 SEROT YPE) pneumo Ab type 43 (11A)* 1.1 ug/mL >1.3 below low normal Not Available [facility] [address] [place] [address] [place], [address], 01/29/2025 02:49:46 01/23/20 25 01/29/2025 PNEUM OCOCC AL AB (23 SEROT YPE) pneumo Ab type 5* <0.1 ug/mL >1.3 below low normal Not Available [facility] [address] [place] [address] [place], [address], 01/29/2025 02:49:46 01/23/20 25 01/29/2025 PNEUM OCOCC AL AB (23 SEROT YPE) pneumo Ab type 51 (7F)* >19.6 ug/mL >1.3 Not Available [facility] [address] [place] [address] [place], [address], 01/29/2025 02:49:46 01/23/20 25 01/29/2025 PNEUM OCOCC AL AB (23 SEROT YPE) pneumo Ab type 54 (15B)* 13.2 ug/mL >1.3 Not Available [facility] [address] [place], [address], 01/29/2025 02:49:46 01/23/2001/29/2025 PNEUM OCOCC AL AB (23 SEROT YPE) pneumo Ab type 56 (18C)* 0.2 ug/mL >1.3 below low normal Not Available [facility] [address] [place], [address], 01/29/2025 02:49:46 01/23/2001/29/2025 PNEUM OCOCC AL AB (23 SEROT YPE) pneumo Ab type 57 (19A)* 1.8 ug/mL >1.3 Not Available [facility] [address] [place], [address], 01/29/2025 02:49:46 01/23/2001/29/2025 PNEUM OCOCC AL AB (23 SEROT YPE) pneumo Ab type 68 (9V)* <0.1 ug/mL >1.3 below low normal Not Available [facility] [address] [place], [address], 01/29/2025 02:49:46 01/23/2001/29/2025 PNEUM OCOCC AL AB [...] Laboratories [address] [place], [address], 01/29/2025 02:49:46 01/06/25 2507/15/2024 CT, sinus es, w/o contr ast No observ ation record ed. [email or web address] Not Available 17:19:16 Result Notes None recorded. Problems Name Problem SNOMED Code Status Onset Date Resolution Date Notes Provider Name and Address Organization Details Recorded Time Chronic sinusitis 66804068 Active 2024 GLORIA CORBETT MD [address] [facility],[place] [address], [place], [phone], [facility] 14:23:32 Migraine without aura 62693670 Active 2024 GLORIA CORBETT MD [address] [facility],[place] [address], [place], [phone], [facility] [place] 14:23:40 Immunodeficien cy disorder 606191536 Active 2024 GLORIA CORBETT MD [address] [place] [address],[place] [address], [place], [address], [facility] 11:46:21 Problem Notes None recorded. Procedures Surgical History Date Name Laterality Status Provider Name and Address Organization Details Recorded Time JMSNasal/Sinus Endoscopy completed GLORIA CROOKS MD [address] [facility],[place] [address], [place], [address], [facility] 11/11/2024 14:21:39 Imaging Results None recorded. Procedure [...] ICD10 Code Diagnosis IMO Codes Diagnosis Note [id number] MD [facility] [address] [phone] 11/11/2024 13:22:32 11/11/2024 14:29:51 Chronic sinusitis 71722011 J32.9 Migraine without aura 56 103326 G43.009 Suspect underlying migraine headache. Suggest reduction [...] Fuller Member ID Guarantor Name 11/11/2024 1 [facility] [employer]AN (PPO) [id number] Juventino A Lisbet [id number] Asha Amaya Notes Date Note Type Note [...] as wellHx of migraines since young adulthood [place] PMS related and now post menopausalFP nasal for a while without help. Was using oxymetazoline as wellNow on XClear etl database developer--Elvis Murray in [place] GLORIA CROOKS MD [address] [place] [address], [place], [address], [place] - [facility] 11/11/2024 14:25:44 OBGyn Episode No OBEpisode recorded.
--- OUTSIDE RECORDS SUMMARY | 2025-09-18 11:31 | XMS_ITS | Clinical Summary ---
Author Organization [facility] Address [address] [place] [address] Phone Care Team Providers Care Drain Cleaner Name Role Phone Alesia Viera Primary Care Provider [phone] Allergies Active Allergy Reactions Criticality Noted Date Comments Oxycodone Rash Low 03/07/2023 Medications naloxone (NARCAN) 4 mg/0.1 mL nasal spray Administer 1 each (4 mg total) into affected nostril(s) if needed for opioid reversal. Give 4 mg (1 spray) into one nostril. May repeat every 2-3 minutes if needed, alternating nostrils, until medical assistance becomes available. 2 each 07/03/20 26 Active Encounters Date Type Department Care Team Description 07/05/2025 9:42 AM EDT - 07/05/2025 2:58 PM EDT Emergency [facility] Emergency [address] [place] [phone] Mynor Wright MD Flank pain (Primary Dx) Discharge Disposition: Home or Self Care 07/03/2025 2:12 AM EDT - 07/03/2025 5:59 AM EDT Emergency [facility] Emergency [address] [place] [phone] Niranjan Hagen MD Recurrent kidney stones (Primary [...] Years (1 of 1 - PCV) 02/27/2016 RSV Immunization Adult Patients (1 - Risk 50-74 years 1-dose series) 02/27/2016 Zoster Vaccines (2 of 2) 08/29/2022 07/04/2022 Cholesterol Screening (Lipid Panel) 12/05/2023 HIV Screening 12/05/2023 Hepatitis C Screening 12/05/2023 Social Influencers of Health Screening 12/05/2023 Depression Screening 11/06/2024 COVID-19 Vaccine ( season) 2025 09/13/2022, 10/12/2021, 02/24/2021, Additional history exists Influenza Vaccine (#1) 2025 2, 07/20/2020, 08/24/2018 DTaP,Tdap,and Td Vaccines (3 - Td or Tdap) 05/10/2027 05/10/2017, 10/25/2012 HIB Vaccines Aged Out No longer eligi [...] LAB HEMETOLOGY METHOD 07/05/2025 10:15 AM EDT [facility] RBC 4.30 3.80 - 4.80 M/mcL LAB HEMETOLOGY METHOD 07/05/2025 10:15 AM EDT [facility] Hemoglobin 13.1 11.5 - 16.0 g/dL LAB HEMETOLOGY METHOD 07/05/2025 10:15 AM EDT [facility] Hematocrit 40.4 35.0 - 47.0 % LAB HEMETOLOGY METHOD 07/05/2025 10:15 AM EDT [facility] MCV 93.5 79.0 - 98.0 FL LAB HEMETOLOGY METHOD 07/05/2025 10:15 AM EDT [facility] MCH 30.3 27.0 - 32.0 pcg LAB HEMETOLOGY METHOD 07/05/2025 10:15 AM EDT [facility] MCHC 32.4 32.0 - 37.0 g/dL LAB HEMETOLOGY METHOD 07/05/2025 10:15 AM EDT [facility] RDW 12.5 11.0 - 15.0 % LAB HEMETOLOGY METHOD 07/05/2025 10:15 AM [facility] Platelets 203 130 - 400 K/mcL LAB HEMETOLOGY METHOD 07/05/2025 10:15 AM [facility] MPV 11.0 7.0 - 11.0 FL LAB HEMETOLOGY METHOD 07/05/2025 10:15 AM [facility] NRBC 0.0 <1.0 % LAB HEMETOLOGY METHOD 07/05/2025 10:15 AM [facility] NRBC Absolute 0.00 <0.10 K/mcL LAB HEMETOLOGY METHOD 07/05/2025 10:15 AM [facility] Neutrophils Relative 76.7 % LAB HEMETOLOGY METHOD 07/05/2025 10:15 AM [facility] Lymphocytes Relative 15.4 % LAB HEMETOLOGY METHOD 07/05/2025 10:15 AM [facility] Monocytes Relative 6.1 % LAB HEMETOLOGY METHOD 07/05/2025 10:15 AM [facility] Eosinophils Relative 1.2 % LAB HEMETOLOGY METHOD 07/05/2025 10:15 AM [facility] Basophils Relative 0.3 % LAB HEMETOLOGY METHOD 07/05/2025 10:15 AM [facility] Immature Granulocytes Relative 0.3 % LAB HEMETOLOGY METHOD 07/05/2025 10:15 AM [facility] Neutrophils Absolute 4.52 1.50 - 7.00 K/mcL LAB HEMETOLOGY METHOD 07/05/2025 10:15 AM [facility] Lymphocytes Absolute 0.91(L) 1.00 - 5.00 K/mcL LAB HEMETOLOGY METHOD 07/05/2025 10:15 AM [facility] Monocytes Absolute 0.36 0.20 - 1.00 K/mcL LAB HEMETOLOGY METHOD 07/05/2025 10:15 AM EDT [facility] Eosinophils Absolute 0.07 0.00 - 0.50 K/[facility] LAB HEMETOLOGY METHOD 07/05/2025 10:15 AM EDT [facility] Basophils Absolute 0.02 0.00 - 0.20 K/[facility] LAB HEMETOLOGY METHOD 07/05/2025 10:15 AM EDT [facility] Immature Granulocytes Absolute 0.02 0.00 - 0.03 K/[facility] LAB HEMETOLOGY METHOD 07/05/2025 10:15 AM EDT [facility] Blood Venous blood specimen / Unknown Venipuncture / Unknown 07/05/2025 9:48 AM EDT 07/05/2025 10:05 AM EDT us Mynor Wright MD LAB BLOOD ORDERABLES Final Res ult [facility] [address] [place] [address], * (ABNORMAL) Basic metabolic panel (07/05/2025 9:48 AM EDT) Sodium 138 133 - 145 mmol/L LAB CHEMISTRY METHOD 07/05/2025 10:44 AM [facility] Potassium 4.1 3.5 - 5.5 mmol/L LAB CHEMISTRY METHOD 07/05/2025 10:44 AM T [facility] Comment:Hemolysis present Chloride 107 96 - 110 mmol/L LAB CHEMISTRY METHOD 07/05/2025 10:44 AM [facility] CO2 26 21 - 32 mmol/L LAB CHEMISTRY METHOD 07/05/2025 10:44 AM [facility] Anion Gap 5 3 - 11 LAB CHEMISTRY METHOD 07/05/2025 10:44 AM [facility] Glucose 106(H) 70 - 100 mg/dL LAB CHEMISTRY METHOD 07/05/2025 10:44 AM EDT [facility] BUN 15 5 - 25 mg/dL LAB CHEMISTRY METHOD 07/05/2025 10:44 AM EDT [facility] Creatinine 1.04 0.50 - 1.10 mg/dL LAB CHEMISTRY METHOD 07/05/2025 10:44 AM EDT [facility] eGFR 62 >=60 mL/min/1. 73m2 LAB CHEMISTRY METHOD 07/05/2025 10:44 AM EDT [facility] Comment:Calculation based on the Chronic Kidney Disease Epidemiology Collaboration (CKD-EPI) equation refit without adjustment for race. BUN/Creatinine Ratio 14.4 LAB CHEMISTRY METHOD 07/05/2025 10:44 AM EDT [facility] Calcium 9.1 8.5 - 10.5 mg/dL LAB CHEMISTRY METHOD 07/05/2025 10:44 AM EDT [facility] Blood Venous blood specimen / Unknown Venipuncture / Unknown 07/05/2025 9:48 AM EDT 07/05/2025 10:05 AM EDT us Mynor Wright MD LAB BLOOD ORDERABLES Final Res ult [facility] [address] [place] [address], [place] [phone] * CT Abdomen Pelvis wo Contrast (07/03/2025 [...] Schuster MD on 07/03/2025 03:48:34 Crystal Coelho SILK WEAVER IMG CT PROCEDURES Final R esult * (ABNORMAL) Urinalysis with reflex microscopic (07/03/2025 2:33 AM EDT) Specific [place] Urine 1.020 1.003 - 1.030 LAB URINALYSIS - AUTOMATED METHOD 07/03/2025 3:06 AM [facility] pH, Urine 5.5 5.0 - 8.0 pH LAB URINALYSIS - AUTOMATED METHOD 07/03/2025 3:06 AM [facility] Leukocytes, Urine Negative Negative LAB URINALYSIS - AUTOMATED METHOD 07/03/2025 3:06 AM [facility] Nitrite, Urine Negative Negative LAB URINALYSIS - AUTOMATED METHOD 07/03/2025 3:06 AM [facility] Protein, Urine 30(A) <=Trace mg/dL LAB URINALYSIS - AUTOMATED METHOD 07/03/2025 3:06 AM [facility] Glucose, Urine Negative Negative mg/dL LAB URINALYSIS - AUTOMATED METHOD 07/03/2025 3:06 AM [facility] Ketones, Urine Negative Negative mg/dL LAB URINALYSIS - AUTOMATED METHOD 07/03/2025 3:06 AM [facility] Urobilinogen , Urine 0.2 0.2 - 1.0 mg/dL LAB URINALYSIS - AUTOMATED METHOD 07/03/2025 3:06 AM [facility] Bilirubin, Urine Negative Negative LAB URINALYSIS - AUTOMATED METHOD 07/03/2025 3:06 AM EDT [facility] Blood, Urine Moderate(A) Negative LAB URINALYSIS - AUTOMATED METHOD 07/03/2025 3:06 AM [facility] RBC, Urine 74.5(H) 0 - 4 /HPF LAB URINALYSIS - AUTOMATED METHOD 07/03/2025 3:06 AM [facility] WBC, Urine 2.2 0 - 4 /HPF LAB URINALYSIS - AUTOMATED METHOD 07/03/2025 3:06 AM [facility] Squamous Epithelial, Urine 28 0 - 60 /LPF LAB URINALYSIS - AUTOMATED METHOD 07/03/2025 3:06 AM [facility] Bacteria, Urine Negative Negative /HPF LAB URINALYSIS - AUTOMATED METHOD 07/03/2025 3:06 AM [facility] Hyaline Casts, Urine 0.0 0 - 3 /LPF LAB URINALYSIS - AUTOMATED METHOD 07/03/2025 3:06 AM [facility] Urine Urine specimen obtained by clean catch procedure / Unknown Non-blood Collection / Unknown 07/03/2025 2:33 AM EDT 07/03/2025 2:58 AM EDT us Niranjan Hagen MD LAB URINE ORDERABLES Final R esult [facility] [address] [place] [address], * Woods urine culture tube (07/03/2025 2:33 AM EDT) Extra Tube Hold for add-ons. 07/03/2025 4:01 AM T [facility] Comment:Auto resulted. Urine Urine specimen obtained by clean catch procedure / Unknown Non-blood Collection / Unknown 07/03/2025 2:33 AM EDT 07/03/2025 2:59 AM EDT Crystal Coelho NP LAB URINE ORDERABLES Alethea l Result Performing Organization Address [facility]/ZIP Co de Phone Number [facility] [address] [place] [address], [place] [phone] * Magnesium (07/03/2025 2:19 AM EDT) Pathologist [facility] Magnesium 2.1 1.9 - 2.6 mg/dL LAB CHEMISTRY METHOD 07/03/2025 3:26 AM EDT [facility] Blood Venous blood specimen / Unknown Venipuncture / Unknown 07/03/2025 2:19 AM EDT 07/03/2025 3:00 AM EDT Niranjan Hagen MD LAB BLOOD ORDERABLES Final R esult Performing Organization Address [facility]/ZIP Co de Phone Number [facility] [address] [place] [address], [place] [phone] * Lipase (07/03/2025 2:19 AM EDT) [facility] [address] Lipase 48 13 - 75 unit/L LAB CHEMISTRY METHOD 07/03/2025 3:26 AM EDT [facility] Blood Venous blood specimen / Unknown Venipuncture / Unknown 07/03/2025 2:19 AM EDT 07/03/2025 3:00 AM EDT Niranjan Hagen MD LAB BLOOD ORDERABLES Final R esult Performing Organization Address City/[facility]/ZIP Co de Phone Number [facility] [address] [place] [address], [place] [phone] * (ABNORMAL) Comprehensive Metabolic Panel (CMP) (07/03/2025 2:19 AM EDT) Sodium 140 133 - 145 mmol/L LAB CHEMISTRY METHOD 07/03/2025 3:26 AM [facility] Potassium 4.1 3.5 - 5.5 mmol/L LAB CHEMISTRY METHOD 07/03/2025 3:26 AM [facility] Chloride 106 96 - 110 mmol/L LAB CHEMISTRY METHOD 07/03/2025 3:26 AM [facility] CO2 28 21 - 32 mmol/L LAB CHEMISTRY METHOD 07/03/2025 3:26 AM [facility] Anion Gap 6 3 - 11 LAB CHEMISTRY METHOD 07/03/2025 3:26 AM [facility] Glucose 125(H) 70 - 100 mg/dL LAB CHEMISTRY METHOD 07/03/2025 3:26 AM [facility] BUN 21 5 - 25 mg/dL LAB CHEMISTRY METHOD 07/03/2025 3:26 AM [facility] Creatinine 0.83 0.50 - 1.10 mg/dL LAB CHEMISTRY METHOD 07/03/2025 3:26 AM [facility] eGFR 81 >=60 mL/min/1. 73m2 LAB CHEMISTRY METHOD 07/03/2025 3:26 AM [facility] Comment:Calculation based on the Chronic Kidney Disease Epidemiology Collaboration (CKD-EPI) equation refit without adjustment for race. BUN/Creatinine Ratio 25.3 LAB CHEMISTRY METHOD 07/03/2025 3:26 AM [facility] Calcium 9.1 8.5 - 10.5 mg/dL LAB CHEMISTRY METHOD 07/03/2025 3:26 AM [facility] AST (SGOT) 65(H) 10 - 42 unit/L LAB CHEMISTRY METHOD 07/03/2025 3:26 AM [facility] ALT (SGPT) 68(H) 10 - 60 unit/L LAB CHEMISTRY METHOD 07/03/2025 3:26 AM [facility] Alkaline Phosphatase 133(H) 42 - 121 unit/L LAB CHEMISTRY METHOD 07/03/2025 3:26 AM EDT [facility] Total Protein 7.0 6.0 - 8.0 g/dL LAB CHEMISTRY METHOD 07/03/2025 3:26 AM EDT [facility] Albumin 3.9 3.2 - 5.0 g/dL LAB CHEMISTRY METHOD 07/03/2025 3:26 AM EDT [facility] Total Bilirubin 0.2 0.0 - 1.4 mg/dL LAB CHEMISTRY METHOD 07/03/2025 3:26 AM EDT [facility] Blood Venous blood specimen / Unknown Venipuncture / Unknown 07/03/2025 2:19 AM EDT 07/03/2025 3:00 AM EDT us Niranjan Hagen MD LAB BLOOD ORDERABLES Final R esult [facility] [address] [place] [address], from Last [address] [facility] Care [facility] Drain Cleaner Relationship Specialty Start Date End Date Alesia Viera PA [address] [place] [phone] [facility] - General 01/29/24
--- OUTSIDE RECORDS SUMMARY | 2025-09-18 11:31 | XMS_ITS | Patient Health Record ---
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 Metabolic Panel (14-3 Reviewed date:01/23/2025 02:16:06 PM Interpretation: Performing Lab:[facility] [place], [facility], Phone - [phone], Director - MDJoy Notes/Report: Glucose 86 70-99 mg/dL BUN 16 [...] IU/L ALT (SGPT) 15 0-32 IU/L Lipid Panel-[id number] Reviewed date:01/23/2025 02:16:01 PM Interpretation: Performing Lab:[facility], [facility] [place], [place], Phone - [phone], Director - MDJodry Notes/Report: Cholesterol, Total 299 100-199 mg/dL H Triglycerides 65 0-149 mg/dL HDL Cholesterol 79 >39 mg/dL VLDL Cholesterol Rubens 9 5-40 mg/dL LDL Chol Calc ([facility]) 211 0-99 mg/dL H LDL Calc Comment: Consider evaluating for Familial Hypercholesterolemia(FH ), if clinically indicated. CBC With Differential/Platel et-[id number] Reviewed date:01/23/2025 02:16:06 PM Interpretation: Performing Lab:[facility], [address] [facility], Phone - [phone], Director - MDJodry Notes/Report: WBC 4.0 3.4-10.8 [...] % Immature Grans (Abs) 0.0 0.0-0.1 x10E3/uL TSH-[id number] Reviewed date:01/23/2025 02:16:06 PM Interpretation: Performing Lab:[facility], [address] [place] [address], [place], Phone - [phone], Director - Karliey Notes/Report: TSH 1.410 0.450-4.500 uIU/mL Urinalysis, Complete-[id number] Reviewed date:01/23/2025 02:16:06 PM Interpretation: Performing Lab:[facility] [place], Phone - [phone], Director - [facility] Notes/Report: Specific Carlock 1.022 1.005-1.030 pH 6.0 5.0-7.5 Urine-Color Yellow Yellow Appearance Clear Clear WBC Esterase Negative Negative Protein Negative Negative/Trace Glucose Negative Negative Ketones Negative Negative Occult Blood Negative Negative Bilirubin Negative Negative Urobilinogen,Semi-Qn 0.2 0.2-1.0 mg/dL Nitrite, Urine Negative Negative Microscopic Examination M icroscopic follows if indicated. Microscopic Examination See below: M icroscopic was indicated and was performed. WBC None seen 0 - 5 /hpf RBC None seen 0 - 2 /hpf Epithelial Cells (non renal) None seen 0 - 10 /hpf Casts None seen None seen /lpf Bacteria None seen None seen/Few Thyroxine (T4) Free, Direct- [id number] Reviewed date:01/23/2025 02:16:06 PM Interpretation: Performing Lab:[facility] [address], Phone - [phone], [facility]/Report: T4,Free(Direct) 0.99 0.82-1.77 ng/dL Hemoglobin B0z-[id number] Reviewed date:01/23/2025 02:16:06 PM Interpretation: Performing Lab:[facility] [address], Phone - [phone], [facility] Notes/Report: Hemoglobin A1c 5.2 4.8-5.6 % . Prediabetes: 5.7 - 6.4 Diabetes: >6.4 Glycemic control for adults with diabetes: <7.0 Vitamin D, 65-Wkwzjex-[id number] Reviewed date:01/23/2025 02:16:06 PM Interpretation: Performing Lab:[facility] [address], Phone - [phone], Director - [facility] Notes/Report: Vitamin D, 25-Hydroxy 15.7 30.0-100.0 ng/mL L Vitamin D deficiency has been defined by the [place] [employer] and an Endocrine Society practice guideline as a level of serum 25-OH vitamin D less than 20 ng/mL (1,2). The Endocrine Society went on to further define vitamin D insufficiency as a level between 21 and 29 ng/mL (2). 1. IOM ([place] [employer]). 2010. Dietary reference intakes for calcium and D. [place]: The National Academies Press. 2. Fermín MF, Maggie [place], Wes ADAMSON, et al. Evaluation, treatment, and prevention of vitamin D deficiency: an Endocrine Society clinical practice guideline. JCEM. 2010; 96(5):1911-30. Triiodothyronine (T3), Free- [id number] Reviewed date:01/23/2025 02:16:06 PM Interpretation: Performing Lab:[facility] [place], [address] [place] [address], Phone - [phone], Director - MDJodry Notes/Report: Triiodothyronine (T3), Free 2.5 2.0-4.4 pg/mL Vitamin [id number] Reviewed date:01/23/2025 02:16:06 PM Interpretation: Performing Lab:[facility] [place], [address] [place] [address], [place], Phone - [phone], Director - MDJodry Notes/Report: Vitamin B12 109 556-2590 pg/mL Reason For Referral No Information Medications Medication SIG (Take, Route, Frequency, Duration) Notes Start Date End Date Status Mounjaro 7.5 MG/0.5ML Solution Auto-injector as directed Subcutaneous Active Mounjaro 10 MG/0.5ML Solution Auto-injector 10 mg Subcutaneous weekly; Duration: 30 days 08/26/2025 Active Multivitamin - Tablet 1 tablet Orally On ce a day Active Nurtec 75 MG Tablet Disintegrating 1 tablet on the tongue and allow to dissolve Orally every other day; Duration: 30 days Active Vitamin D 50 MCG (2000 UT) Tablet 1 tablet Orally Once a day Active Probiotic 250 MG Capsule as directed Orally Active CoQ10 200 MG Capsule as directed Orally Active Immunizations Vaccine Route Administration Date Status Comme nts SHINGRIX IM Intramuscular 01/29/2025 Administered Social History Tobacco Use: Social History Observation Description Date Details (start date - stop date) Former Smoker NA - NA Social History Drugs/Alcohol: Social Info Question Answer Notes Alcohol Screen (Audit-C) Did you have a drink containing alcohol in the past year? Yes Points 0 Interpretation Negative Tobacco Use: Social Info Question Answer Notes Tobacco Use/Smoking Are you a former smoker How long has it been since you last smoked? > 10 years Additional Findings: Tobacco User Light cigarett e smoker ((1-9 cigs/day) Additional Details Category Social Info Options Details Drugs/Alcohol: Do you smoke marijuana? De nies Do you drink alcohol? Yes Section Notes: Tob: Former, 25 years, quit 2018 ETOH: Socially 4 drinks weeks Drug Use: None Bartend Tob: Former, 25 years, quit 2018 ETOH: Socially 4 drinks weeks Drug Use: None Bartend Tob: Former, 25 years, quit 2017 ETOH: Socially 4 drinks weeks Drug Use: None Bartend Tob: Former, 25 years, quit 2017 ETOH: Socially 4 drinks weeks Drug Use: None Bartend Tob: Former, 25 years, quit 2018 ETOH: Socially 4 drinks weeks Drug Use: None Bartend Tob: Former, 25 years, quit 2018 ETOH: Socially Drug Use: None Bartend Tob: [...] Status Risk Notes Problem Vitamin D deficiency (11025338) Vitamin D deficiency, unspecified (E55.9) Active confirmed Problem Overweight (590050042) Overweight (E66.3) Active confirmed Problem Migraine without aur a (68187350) Migraine without aura, not intractable, with status migrainosus (G43.001) Active confirmed Problem Adult health examination (268473119) Encounter for general adult medical examination without abnormal findings (Z00.00) Active confirmed Problem Screening for malignant neoplasm of colon (711956219) Encounter for screening for malignant neoplasm of colon (Z12.11) Active confirmed Problem Screening for malignant neoplasm of breast (970579286) Encounter for screening mammogram for malignant neoplasm of breast (Z12.31) Active confirmed Problem Screening for malignant neoplasm of skin (594501314) Encounter for screening for malignant neoplasm of skin (Z12.83) Active confirmed Problem Diabetes mellitus screening (302950705) Encounter for screening for diabetes mellitus (Z13.1) Active confirmed Problem Screening for cardiovascular system disease (230620477) Encounter for screening for cardiovascular disorders (Z13.6) Active confirmed Problem Hyperlipoproteinemia (0638289) Acquired 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) Active confirmed Problem Hypothyroidism (42937202) Hypothyroidism, unspecified type (E03.9) Active confirmed Problem Chronic sinusitis (56501391) Sinusitis, unspecified chronicity, unspecified location (J32.9) Active confirmed Problem Screening for malignant neoplasm of cervix (914371835) Pap smear for cervical cancer screening (Z12.4) Active confirmed Problem Vitamin D deficiency (39214778) Vitamin D deficiency (E55.9) Active confirmed Problem Renal stone (61529901) Renal stone (N20.0) Active confirmed Problem Obesity (119016206) Obesity (BMI 30-39.9) (E66.9) Active confirmed Problem Recurrent sinusitis (684376570) Recurrent sinusitis (J32.9) Active confirmed Problem Vitamin B>12< deficiency anaemia (33143179) Anemia due to vitamin B12 deficiency, 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) Active confirmed Problem Body mass index 30.0 0 to 34.99 (468474819054864) BMI 31.0-31.9,adult (Z68.31) Active confirmed Problem Body mass index 30+ - obesity (672463090) BMI 30.0-30.9,adult (Z68.30) Active confirmed Problem Body mass index 30.0 0 to 34.99 (541567503517508) BMI 34.0-34.9,adult (Z68.34) Active confirmed Problem Gastroesophageal reflux disease (732922699) GERD without esophagitis (K21.9) Active confirmed Problem Lipid screening (384899838) Lipid screening (Z13.220) Active confirmed Problem Hyperlipidemia (38289345) Hyperlipidemia (E78.5) Active confirmed Problem Obesity (479328224) Obesity (E66.9) Active conf irmed Vital Signs Heart Rate 81 /min 08/26/2025 Oximetry 97 % 08/26/2025 Blood pressure diastolic 82 mm Hg 08/26/2025 Height 71 in 08/26/2025 Blood pressure systolic 118 mm Hg 08/26/2025 Weight 207.2 lbs 08/26/2025 BMI 28.9 kg/m2 08/26/2025 Encounters Encounter Location Date Provider Diagnosis [address] [address] 09/24/2024 NAVJOT KAMERON Obesity (BMI 30-39.9 ) E66.9 ; BMI 31.0-31.9,adult Z68.31 ; Migraine without aura, not intractable, with status migrainosus G43.001 ; Sinusitis, unspecified chronicity, unspecified location J32.9 and Ureteral stone N20.[address] [address] 11/12/2024 NAVJOT KAMERON Obesity (BMI 30-39.9 ) E66.9 ; BMI 30.0-30.9,adult Z68.30 ; Migraine without aura, not intractable, with status migrainosus G43.001 and Sinusitis, unspecified chronicity, unspecified location J32.[address] [address] 01/29/2025 MICHAEL PEREZ Obesity (BMI 30-39.9 ) E66.9 ; Annual physical exam Z00.00 ; BMI 30.0-30.9,adult Z68.30 ; Migraine without aura, not intractable, with status migrainosus G43.001 ; Sinusitis, unspecified chronicity, unspecified location J32.9 ; Hyperlipidemia E78.5 ; Vitamin D deficiency, unspecified E55.9 ; Screening for diabetes mellitus Z13.1 and Encounter for immunization Z23 [address] [address] 03/25/2025 NAVJOT VIZCAINOA Overweight E66.3 ; B CT 29.0-29.9,adult Z68.29 ; Migraine without aura, not intractable, with status migrainosus G43.001 ; Hyperlipidemia E78.5 ; Vitamin D deficiency, unspecified E55.9 and Encounter for examination of blood pressure without abnormal findings Z01.[address] [address] 05/20/2025 NAVJOT KAMERON Overweight E66.3 ; B CT 29.0-29.9,adult Z68.29 ; Hyperlipidemia E78.5 ; Migraine without aura, not intractable, with status migrainosus G43.001 ; Vitamin D deficiency, unspecified E55.9 and Encounter for examination of blood pressure without abnormal findings Z01.[address] [facility] [address] [place] [address] 07/04/2025 NAVJOT MELO URI with cough and congestion J06.9 ; Obesity E66.9 ; Hyperlipidemia E78.5 ; Migraine without aura, not intractable, with status migrainosus G43.001 ; Vitamin D deficiency, unspecified E55.9 ; Renal stone N20.0 and Encounter for examination of blood pressure without abnormal findings Z01.[address] [address] [place], [place] 07/17/2025 NAVJOT MELO Obesity E66.9 ; URI with cough and congestion J06.9 ; Hyperlipidemia E78.5 ; Migraine without aura, not intractable, with status migrainosus G43.001 and Encounter for examination of blood pressure without abnormal findings Z01.[address] [facility] [address] [place], [place] 08/26/2025 NAVJOT MELO Nutritional counseli ng Z71.3 ; Overweight (BMI 25.0-29.9) E66.3 ; Hyperlipidemia E78.5 ; Migraine without aura, not intractable, with status migrainosus G43.001 and Encounter for examination of blood pressure without abnormal findings Z01.[address] [place] [address] 10/15/2024 NAVJOT KAMERON [facility] [address] [place] [address] [place] [address] 11/19/2024 NAVJOT KAMERON [facility] [address] [place] [address] [place], [place] 12/24/2024 NAVJOT KAMERON [facility] [address] [place] [address] 01/29/2025 NAVJOT KAMERON [facility] [address] [place] [address] [place] [address] 02/28/2025 NAVJOT KAMERON [facility] [address] [facility] [address] [place] [address] 04/02/2025 NAVJOT KAMERON [facility] [address] [facility] [address] [place] [address] 04/21/2025 NAVJOT KAMERON [facility] [address] [place] [address] 05/20/2025 NAVJOT KAMERON [facility] [address] [facility] [address] [place] [address] 05/27/2025 NAVJOT KAMERON [facility] [address] [place] [address] 06/04/2025 NAVJOT KAMERON [facility] [address] [address] 06/09/2025 NAVJOT KAMERON [facility] [address] [place] [address] 07/04/2025 NAVJOT KAMERON Obesity (BMI 30-39.9 ) E66.9 [facility] [address] [address] 07/04/2025 NAVJOT KAMERON [facility] [address] [place] [address] 07/09/2025 NAVJOT KAMERON [facility] [address] [place] [address] 07/16/2025 NAVJOT KAMERON [facility] [address] [place] [address] 08/26/2025 NAVJOT KAMERON Assessments Encounter Date Diagnosis (ICD Code) Assessment Notes Treatment Notes Treatment Clinical Notes Section Notes 11/12/2024 Obesity (BMI 30-39.9) (ICD-10 - E66.9) [...] Patient is traveling for 3 weeks to [place]. Patient is also considering oral medications if [...] Dictation was accomplished with the use of Meeps voice recognition software, prone to medical misidentifications [...] Patient is traveling for 3 weeks to [place]. Patient is also considering oral medications if [...] Dictation was accomplished with the use of Meeps voice recognition software, prone to medical misidentifications [...] Patient is traveling for 3 weeks to [place]. Patient is also considering oral medications if [...] log exercise and discussed fitness Apps like [employer] which can help keep log off calories [...] Dictation was accomplished with the use of Meeps voice recognition software, prone to medical misidentifications [...] Patient is traveling for 3 weeks to [place]. Patient is also considering oral medications if [...] log exercise and discussed fitness Apps like [employer] which can help keep log off calories [...] Dictation was accomplished with the use of [employer] voice recognition software, prone to medical misidentifications [...] Patient is traveling for 3 weeks to [place]. Patient is also considering oral medications if [...] Dictation was accomplished with the use of [employer] voice recognition software, prone to medical misidentifications [...] Patient is traveling for 3 weeks to [place]. Patient is also considering oral medications if [...] Dictation was accomplished with the use of Meeps voice recognition software, prone to medical misidentifications [...] Patient is traveling for 3 weeks to [place]. Patient is also considering oral medications if [...] Dictation was accomplished with the use of Meeps voice recognition software, prone to medical misidentifications [...] Patient is traveling for 3 weeks to [place]. Patient is also considering oral medications if [...] Dictation was accomplished with the use of Meeps voice recognition software, prone to medical misidentifications [...] Patient is traveling for 3 weeks to [place]. Patient is also considering oral medications if [...] Dictation was accomplished with the use of Meeps voice recognition software, prone to medical misidentifications [...] Patient is traveling for 3 weeks to [place]. Patient is also considering oral medications if [...] Dictation was accomplished with the use of Meeps voice recognition software, prone to medical misidentifications [...] Patient is traveling for 3 weeks to [place]. Patient is also considering oral medications if [...] Dictation was accomplished with the use of Meeps voice recognition software, prone to medical misidentifications [...] Patient is traveling for 3 weeks to [place]. Patient is also considering oral medications if [...] Dictation was accomplished with the use of Meeps voice recognition software, prone to medical misidentifications [...] Patient is traveling for 3 weeks to [place]. Patient is also considering oral medications if [...] Dictation was accomplished with the use of Meeps voice recognition software, prone to medical misidentifications [...] Patient is traveling for 3 weeks to [place]. Patient is also considering oral medications if [...] Dictation was accomplished with the use of Meeps voice recognition software, prone to medical misidentifications and grammatical errors. This is unintentional and the practitioner does try to identify and correct these, but some could still be present. Please do not hesitate to contact practitioner for clarification. 09/24/2024 Obesity (BMI 30-39.9) (ICD-10 - E66.9) [...] Patient is traveling for 3 weeks to [place]. Patient is also considering oral medications if [...] Dictation was accomplished with the use of Meeps voice recognition software, prone to medical misidentifications [...] Patient is traveling for 3 weeks to [place]. Patient is also considering oral medications if [...] Dictation was accomplished with the use of [employer] voice recognition software, prone to medical misidentifications [...] Patient is traveling for 3 weeks to [place]. Patient is also considering oral medications if [...] Dictation was accomplished with the use of Meeps voice recognition software, prone to medical misidentifications and grammatical errors. This is unintentional and the practitioner does try to identify and correct these, but some could still be present. Please do not hesitate to contact practitioner for clarification. All quetsions answered to patients satisfaction. Patient verbalized understanding of diagnosis and treatments explained. To call sooner prior to next visit it any questions/concerns arise. 08/26/2025 Hyperlipidemia (ICD-10 - E78.5) # Hyperlipidemia: [...] Patient is traveling for 3 weeks to [place]. Patient is also considering oral medications if [...] Dictation was accomplished with the use of Meeps voice recognition software, prone to medical misidentifications [...] Patient is traveling for 3 weeks to [place]. Patient is also considering oral medications if [...] Dictation was accomplished with the use of Meeps voice recognition software, prone to medical misidentifications [...] Patient is traveling for 3 weeks to [place]. Patient is also considering oral medications if [...] Dictation was accomplished with the use of [employer] voice recognition software, prone to medical misidentifications [...] Patient is traveling for 3 weeks to [place]. Patient is also considering oral medications if [...] Dictation was accomplished with the use of [employer] voice recognition software, prone to medical misidentifications [...] Patient is traveling for 3 weeks to [place]. Patient is also considering oral medications if [...] arise. Case discussed with collaborating physician Trista Gyale who reviewed the assessment and plan. Chart, medications, labs, vital signs reviewed. Dictation was accomplished with the use of Meeps voice recognition software, prone to medical misidentifications [...] Patient is traveling for 3 weeks to [place]. Patient is also considering oral medications if [...] log exercise and discussed fitness Apps like [employer] which can help keep log off calories [...] Dictation was accomplished with the use of Meeps voice recognition software, prone to medical misidentifications [...] Patient is traveling for 3 weeks to [place]. Patient is also considering oral medications if [...] Dictation was accomplished with the use of Meeps voice recognition software, prone to medical misidentifications [...] Patient is traveling for 3 weeks to [place]. Patient is also considering oral medications if [...] Dictation was accomplished with the use of Meeps voice recognition software, prone to medical misidentifications [...] Patient is traveling for 3 weeks to [place]. Patient is also considering oral medications if [...] log exercise and discussed fitness Apps like [employer] which can help keep log off calories [...] Dictation was accomplished with the use of Meeps voice recognition software, prone to medical misidentifications [...] Patient is traveling for 3 weeks to [place]. Patient is also considering oral medications if [...] Dictation was accomplished with the use of Meeps voice recognition software, prone to medical misidentifications [...] Patient is traveling for 3 weeks to [place]. Patient is also considering oral medications if [...] Dictation was accomplished with the use of Meeps voice recognition software, prone to medical misidentifications [...] Patient is traveling for 3 weeks to [place]. Patient is also considering oral medications if [...] Dictation was accomplished with the use of Meeps voice recognition software, prone to medical misidentifications [...] Patient is traveling for 3 weeks to [place]. Patient is also considering oral medications if [...] Dictation was accomplished with the use of Meeps voice recognition software, prone to medical misidentifications and grammatical errors. This is unintentional and the practitioner does try to identify and correct these, but some could still be present. Please do not hesitate to contact practitioner for clarification. 09/24/2024 Sinusitis, unspecified chronicity, unspecified location (ICD-10 [...] Patient is traveling for 3 weeks to [place]. Patient is also considering oral medications if [...] Dictation was accomplished with the use of Meeps voice recognition software, prone to medical misidentifications and grammatical errors. This is unintentional and the practitioner does try to identify and correct these, but some could still be present. Please do not hesitate to contact practitioner for clarification. All quetsions answered to patients satisfaction. Patient verbalized understanding of diagnosis and treatments explained. To call sooner prior to next visit it any questions/concerns arise. 08/26/2025 Migraine without aura, not intractable, with [...] Patient is traveling for 3 weeks to [place]. Patient is also considering oral medications if [...] Dictation was accomplished with the use of Meeps voice recognition software, prone to medical misidentifications [...] Patient is traveling for 3 weeks to [place]. Patient is also considering oral medications if [...] Dictation was accomplished with the use of Meeps voice recognition software, prone to medical misidentifications and grammatical errors. This is unintentional and the practitioner does try to identify and correct these, but some could still be present. Please do not hesitate to contact practitioner for clarification. All quetsions answered to patients satisfaction. Patient verbalized understanding of diagnosis and treatments explained. To call sooner prior to next visit it any questions/concerns arise. 08/26/2025 Encounter for examination of blood pressure [...] Patient is traveling for 3 weeks to [place]. Patient is also considering oral medications if [...] Dictation was accomplished with the use of Meeps voice recognition software, prone to medical misidentifications [...] Patient is traveling for 3 weeks to [place]. Patient is also considering oral medications if [...] Dictation was accomplished with the use of Meeps voice recognition software, prone to medical misidentifications [...] Patient is traveling for 3 weeks to [place]. Patient is also considering oral medications if [...] Dictation was accomplished with the use of Meeps voice recognition software, prone to medical misidentifications [...] Patient is traveling for 3 weeks to [place]. Patient is also considering oral medications if [...] Dictation was accomplished with the use of [employer] voice recognition software, prone to medical misidentifications [...] Patient is traveling for 3 weeks to [place]. Patient is also considering oral medications if [...] Dictation was accomplished with the use of Meeps voice recognition software, prone to medical misidentifications [...] Patient is traveling for 3 weeks to [place]. Patient is also considering oral medications if [...] log exercise and discussed fitness Apps like [employer] which can help keep log off calories [...] Dictation was accomplished with the use of Me[employer] voice recognition software, prone to medical misidentifications [...] Patient is traveling for 3 weeks to [place]. Patient is also considering oral medications if [...] log exercise and discussed fitness Apps like [employer] which can help keep log off calories [...] Dictation was accomplished with the use of Me[employer] voice recognition software, prone to medical misidentifications [...] Patient is traveling for 3 weeks to [place]. Patient is also considering oral medications if [...] arise. Case discussed with collaborating physician Trista Gayel who reviewed the assessment and plan. Chart, medications, labs, vital signs reviewed. Dictation was accomplished with the use of Me[employer] voice recognition software, prone to medical misidentifications [...] Patient is traveling for 3 weeks to [place]. Patient is also considering oral medications if [...] Dictation was accomplished with the use of Me[employer] voice recognition software, prone to medical misidentifications [...] Patient is traveling for 3 weeks to [place]. Patient is also considering oral medications if [...] Dictation was accomplished with the use of Me[employer] voice recognition software, prone to medical misidentifications [...] Patient is traveling for 3 weeks to [place]. Patient is also considering oral medications if [...] Dictation was accomplished with the use of Me[employer] voice recognition software, prone to medical misidentifications [...] Patient is traveling for 3 weeks to [place]. Patient is also considering oral medications if [...] log exercise and discussed fitness Apps like [employer] which can help keep log off calories [...] Dictation was accomplished with the use of Meeps voice recognition software, prone to medical misidentifications [...] Patient is traveling for 3 weeks to [place]. Patient is also considering oral medications if [...] log exercise and discussed fitness Apps like [employer] which can help keep log off calories [...] Dictation was accomplished with the use of Meeps voice recognition software, prone to medical misidentifications [...] Patient is traveling for 3 weeks to [place]. Patient is also considering oral medications if [...] log exercise and discussed fitness Apps like [employer] which can help keep log off calories [...] Dictation was accomplished with the use of Meeps voice recognition software, prone to medical misidentifications and grammatical errors. This is unintentional and the practitioner does try to identify and correct these, but some could still be present. Please do not hesitate to contact practitioner for clarification. Plan Of Treatment Pending Test Test Name Order Date Mammogram 01/26/2024 EKG 09/06/2022 LIPID PANEL, STANDARD 11/12/2024 LIPID PANEL, STANDARD 05/20/2025 LIPID PANEL, STANDARD 01/29/2025 COMPREHENSIVE METABOLIC PANEL 11/12/2024 CBC (INCLUDES DIFF/PLT) 11/12/2024 URINALYSIS, COMPLETE 11/12/2024 HEMOGLOBIN A1c 11/12/2024 VITAMIN B12 11/12/2024 T4, FREE 11/12/2024 TSH 11/12/2024 T3, FREE 11/12/2024 VITAMIN D,25-OH,TOTAL,IA 11/12/2024 VITAMIN D,25-OH,TOTAL,IA 05/20/2025 VITAMIN D,25-OH,TOTAL,IA 01/29/2025 CT Sinuses WO 07/02/2024 CT Sinuses W 06/25/2024 PPC Rapid Covid/Strep/Flu/RSV 07/04/2025 Next Appt Details Provider Name:NAVJOT VIZCAINOA, 10/21/2025 10:15:00 AM, [address], [place], [address], Provider Name:NAVJOT KAMERON, 02/03/2026 11:00:00 AM, [address], [place], [address], Insurance Providers Payer Name Payer Address Payer Phone Subscriber Number Group Number Insured Name Patient Relationship to Insured Coverage Start Date Coverage End Date [employer] [address] [place] [id number] Asha Lo Self - patient is the insured Medical (General) History Medical History History ICD Code Hyperlipidemia, unspecified E78.5 Seasonal allergies J30.2 Palpitations R00.2 Migraine, unspecified, not intractable, without status migrainosus G43.909 Obesity (BMI 30-39.9) E66.9 GERD without esophagitis K21.9 Surgical History Surgery Date(Month/Year) R Knee replacement 05/13/2022 Left knee 11/2022
--- OUTSIDE RECORDS SUMMARY | 2025-09-18 11:31 | XMS_ITS | Clinical Summary ---
Author Organization [facility] Address [address] [address] [place] [id number] Phone Care Team Providers Care System Programmer Name Role Phone Halie Bocanegra MD Primary Care Provider [phone] Allergies No known active allergies Medications trifluridine [...] patient's age to complete this topic IPV VACCINES Aged Out No longer eligi ble based on patient's age to complete this topic MENINGOCOCCAL VACCINES (ACWY) Aged Out No longer eligible based on patient's age to complete this topic MENINGOCOCCAL VACCINES (B) Aged Out N o longer eligible based on patient's age to complete this topic Medical Devices Not on file Insurance [facility] TOTAL CHOICE INDEMNITY [employer] [facility] TOTAL CHOICE INDEMNITY [employer] [facility] TOTAL CHOICE INDEMNITY [employer] TOTAL CHOICE INDEMNITY [employer] TOTAL CHOICE INDEMNITY [employer] [place] [facility] TOTAL CHOICE INDEMNITY TOTAL CHOICE INDEMNITY [employer] [facility] TOTAL CHOICE INDEMNITY [employer] [place] [facility] TOTAL CHOICE INDEMNITY Care Teams System Programmer Relationship Specialty Start Date End Date Halie Bocanegra MD [address] [place] [address] PCP - General Internal Medicine 07/27/22 Additional Source Comments The information contained in this document represents components of the legal health record. It is not the complete legal health record.[facility]
--- OUTSIDE RECORDS SUMMARY | 2025-09-18 11:31 | XMS_ITS | Clinical Summary ---
Author Organization [facility] Address [address] [place] [address] Care Team Providers Care Management Lecturer Name Role Phone Unknown, Primary Care Provider [...] age to complete this topic Care Teams Management Lecturer Relationship Specialty Start Date End Date Unknown, PCP - General 02/06/24
== END 2025-09-18 10:38 | disposition home or self-care (01) ==
LOC: HO.HKAS 09:49
PROVIDERS: PCP Physician Assistant Medical; Visit Provider Internal Medicine Nephrology
DX: N20.0 Calculus of kidney (principal)
CPT/HCPCS: 99214

== ENCOUNTER 2025-09-24 11:24 | Outpatient (REF) | payer OTHER, SELFPAY ==
--- OUTSIDE RECORDS SUMMARY | 2025-05-26 04:00 | XMS_ITS ---
Author Organization [facility] [address] Address [address] [place] [address] Care Team Providers Care Neuropathologist Name Role Phone NAVJOT MELO Unavailable [phone] REASON FOR VISIT 2nd shingles + labs Encounters Encounter Location Date Provider Diagnosis [facility] [place] [address] 05/26/2025 NAVJOT MELO Plan Of Treatment Next Appt Details Provider Name:NAVJOT MELO, 10/21/2025 10:15:00 AM, [address], [place], [address], Provider Name:NAVJOT MELO, 02/03/2026 11:00:00 AM, [address], [place], [address], Progress Notes * Talia METZGERAriaOB:1965 ( 60 yo F)Acc No.[id number]:05/26/2025 Progress Notes Patient: Asha Leal Provider: Acacia MELO PA-C :1965 A ge:60 Y S ex:Female Date:05/26/2025 Address:[address] [place] [address] Subjective: * Chief Complaints: * 2 nd shingles + labs Care Plan Details* * Electronic signature of CRISTINA MELO PA-C on 09/24/2025 at 10:29 PM EST Sign off status: Pending * Provider: Acacia MELO PA-C Date: 0 05/26/2025 Generated for Saul loredo/Elmo/eTransmitting on: 1 11/24/2024 10:29 PM EST
--- NOTE | ~2025-09-24 | US_ITS ---
CLINICAL HISTORY: N20.0 - Calculus of kidney Ultrasound kidneys. COMPARISON: None provided. Technique: Real time sonographic imaging, including color-flow imaging, was performed by the sprayer insecticide. Multiple telesales representative static images were saved for review. FINDINGS: Right kidney: Cortical medullary differentiation is maintained. Normal color flow by Doppler. No definite calculus or focal parenchymal abnormality identified. No hydronephrosis. Right kidney size: 12.1 x 5.9 x 5.3 cm Left kidney: Cortical medullary differentiation is maintained. Normal color flow by Doppler. No definite calculus or focal parenchymal abnormality identified. No hydronephrosis. Left kidney size: 12.2 x 4.8 x 5.4 cm IMPRESSION: 1. No evidence of renal obstruction. No definite renal calculus or focal parenchymal abnormality identified bilaterally. This document has been electronically signed by: Eamon Parrish MD on 09/24/2025 15:08:05
--- OUTSIDE RECORDS SUMMARY | 2025-09-24 22:29 | XMS_ITS | Clinical Summary ---
Author Organization [facility] Address [address] [place] [id number] Phone Care Team Providers Care Knot Bumper Name Role Phone Halie Bocanegra MD Primary Care Provider [phone] Allergies No known active allergies Medications trifluridine [...] topic Medical Devices Not on file Insurance [facility]OTAL CHOICE INDEMNITY [employer] [facility] TOTAL CHOICE INDEMNITY En[employer] [facility] TOTAL CHOICE INDEMNITY [employer] TOTAL CHOICE INDEMNITY [employer] TOTAL CHOICE INDEMNITY [employer] [facility] TOTAL CHOICE INDEMNITY TOTAL CHOICE INDEMNITY [employer] [facility] TOTAL CHOICE INDEMNITY [employer] [facility] TOTAL CHOICE INDEMNITY Care Teams Knot Bumper Relationship Specialty Start Date End Date Halie Bocanegra MD [address] [place] [address] PCP - General Internal Medicine 07/27/22 Additional Source Comments The information contained in this document represents components of the legal health record. It is not the complete legal health record.[facility]
--- OUTSIDE RECORDS SUMMARY | 2025-09-24 22:29 | XMS_ITS | Patient Health Record ---
Author Organization [facility] [address] Address [address] [place] [address] Care Team Providers Care Policy Service Coordinator Name Role Phone NAVJOT MELO Unavailable [phone] PEREZMICHAEL WALL Unavailable [phone] Allergies No Known Allergies Results Component Value Reference Range Flag Notes Comp. Metabolic Panel (14)-3 Reviewed date:01/23/2025 02:16:06 PM Interpretation: Performing Lab:[facility] [place], [facility], Phone - [phone], Director - MDJoy Notes/Report: Glucose 86 70-99 [...] IU/L ALT (SGPT) 15 0-32 IU/L Lipid Panel-641101 Reviewed date:01/23/2025 02:16:01 PM Interpretation: Performing Lab:[facility], [facility] [place], [place], Phone - [phone], Director - MDJodry Notes/Report: Cholesterol, Total 299 100-199 mg/dL H Triglycerides 65 0-149 mg/dL HDL Cholesterol 79 >39 mg/dL VLDL Cholesterol Rubens 9 5-40 mg/dL LDL Chol Calc ([facility]) 211 0-99 mg/dL H LDL Calc Comment: Consider evaluating for Familial Hypercholesterolemia(FH ), if clinically indicated. Vitamin D, 65-Hrznpsa-166053 Reviewed date:01/23/2025 02:16:06 PM Interpretation: Performing Lab:[facility], [address] [place] [address], Phone - [phone], Director - Lo Notes/Report: Vitamin D, 25-Hydroxy 15.7 30.0-100.0 ng/mL L Vitamin D deficiency has been defined by the [place] of Medicine and an Endocrine Society practice guideline as a level of serum 25-OH vitamin D less than 20 ng/mL (1,2). The Endocrine Society went on to further define vitamin D insufficiency as a level between 21 and 29 ng/mL (2). 1. IOM ([place] of Medicine). 2010. Dietary reference intakes for calcium and D. [place]: The National Academies Press. 2. Fermín MF, Maggie [place], Wes ADAMSON, et al. Evaluation, treatment, and prevention of vitamin D deficiency: an Endocrine Society clinical practice guideline. JCEM. 2010; 96(7):1911-30. Triiodothyronine (T3), Free- 026263 Reviewed date:01/23/2025 02:16:06 PM Interpretation: Performing Lab:[facility], [address] [place] [address], Phone - [phone], Director - Lo Notes/Report: Triiodothyronine (T3), Free 2.5 2.0-4.4 pg/mL CBC With Differential/Platel et-525050 Reviewed date:01/23/2025 02:16:06 PM Interpretation: Performing Lab:[facility], [address] [place] [address], [place], Phone - [phone], - Lo Notes/Report: WBC 4.0 3.4-10.8 x10E3/uL [...] % Immature Grans (Abs) 0.0 0.0-0.1 x10E3/uL TSH-518482 Reviewed date:01/23/2025 02:16:06 PM Interpretation: Performing Lab:[facility] [place], [address] [place] [address], Phone - [phone], Director - MDJodry Notes/Report: TSH 1.410 0.450-4.500 uIU/mL Urinalysis, Complete-565196 Reviewed date:01/23/2025 02:16:06 PM Interpretation: Performing Lab:[facility] [place], [address] [place] [address], Phone - [phone], Director - MDJodry Notes/Report: Specific [place] 1.022 1.005-1.030 pH 6.0 5.0-7.5 Urine-Color Yellow [...] seen None seen/Few Thyroxine (T4) Free, Direct- 397672 Reviewed date:01/23/2025 02:16:06 PM Interpretation: Performing Lab:[facility], [facility] [place], Phone - [phone], Director - Lo Notes/Report: T4,Free(Direct) 0.99 0.82-1.77 ng/dL Vitamin J53-043212 Reviewed date:01/23/2025 02:16:06 PM Interpretation: Performing Lab:[facility], [facility] [place], Phone - [phone], Director - Lo Notes/Report: Vitamin B12 189 143-9658 pg/mL Hemoglobin D2u-173220 Reviewed date:01/23/2025 02:16:06 PM Interpretation: Performing Lab:[facility], [facility], [place], Phone - [phone], Director - Lo Notes/Report: Hemoglobin A1c 5.2 [...] Status Risk Notes Problem Vitamin D deficiency (89740310) Vitamin D deficiency, unspecified (E55.9) Active confirmed Problem Overweight (221065443) Overweight (E66.3) Active confirmed Problem Migraine without aur a (03981342) Migraine without aura, not intractable, with status migrainosus (G43.001) Active confirmed Problem Adult health examination (949801419) Encounter for general adult medical examination without abnormal findings (Z00.00) Active confirmed Problem Screening for malignant neoplasm of colon (086532682) Encounter for screening for malignant neoplasm of colon (Z12.11) Active confirmed Problem Screening for malignant neoplasm of breast (980824957) Encounter for screening mammogram for malignant neoplasm of breast (Z12.31) Active confirmed Problem Screening for malignant neoplasm of skin (039265801) Encounter for screening for malignant neoplasm of skin (Z12.83) Active confirmed Problem Diabetes mellitus screening (110305960) Encounter for screening for diabetes mellitus (Z13.1) Active confirmed Problem Screening for cardiovascular system disease (161673077) Encounter for screening for cardiovascular disorders (Z13.6) Active confirmed Problem Hyperlipoproteinemia (7451210) Acquired 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) Active confirmed Problem Hypothyroidism (55248887) Hypothyroidism, unspecified type (E03.9) Active confirmed Problem Chronic sinusitis (31291529) Sinusitis, unspecified chronicity, unspecified location (J32.9) Active confirmed Problem Screening for malignant neoplasm of cervix (493472938) Pap smear for cervical cancer screening (Z12.4) Active confirmed Problem Vitamin D deficiency (01066735) Vitamin D deficiency (E55.9) Active confirmed Problem Renal stone (51666692) Renal stone (N20.0) Active confirmed Problem Obesity (332197360) Obesity (BMI 30-39.9) (E66.9) Active confirmed Problem Recurrent sinusitis (464460618) Recurrent sinusitis (J32.9) Active confirmed Problem Vitamin B>12< deficiency anaemia (28123469) Anemia due to vitamin B12 deficiency, 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) Active confirmed Problem Body mass index 30.0 0 to 34.99 (373897429643810) BMI 31.0-31.9,adult (Z68.31) Active confirmed Problem Body mass index 30+ - obesity (978316876) BMI 30.0-30.9,adult (Z68.30) Active confirmed Problem Body mass index 30.0 0 to 34.99 (625108126850626) BMI 34.0-34.9,adult (Z68.34) Active confirmed Problem Gastroesophageal reflux disease (312957327) GERD without esophagitis (K21.9) Active confirmed Problem Lipid screening (965855708) Lipid screening (Z13.220) Active confirmed Problem Hyperlipidemia (87308040) Hyperlipidemia (E78.5) Active confirmed Problem Obesity (133887022) Obesity (E66.9) Active conf irmed Vital Signs Heart Rate 81 /min 08/26/2025 Oximetry 97 % 08/26/2025 Blood pressure diastolic 82 mm Hg 08/26/2025 Height 71 in 08/26/2025 Blood pressure systolic 118 mm Hg 08/26/2025 Weight 207.2 lbs 08/26/2025 BMI 28.9 kg/m2 08/26/2025 Encounters Encounter Location Date Provider Diagnosis [address] [address] 09/24/2024 NAVJOT KAMERON Obesity (BMI 30-39.9 ) E66.9 ; BMI 31.0-31.9,adult Z68.31 ; Migraine without aura, not intractable, with status migrainosus G43.001 ; Sinusitis, unspecified chronicity, unspecified location J32.9 and Ureteral stone N20.[address] [address] 11/12/2024 NAVJOT KAMERON Obesity (BMI 30-39.9 ) E66.9 ; BMI 30.0-30.9,adult Z68.30 ; Migraine without aura, not intractable, with status migrainosus G43.001 and Sinusitis, unspecified chronicity, unspecified location J32.[address] [address] 01/29/2025 MICHAEL PEREZ Obesity (BMI 30-39.9 ) E66.9 ; Annual physical exam Z00.00 ; BMI 30.0-30.9,adult Z68.30 ; Migraine without aura, not intractable, with status migrainosus G43.001 ; Sinusitis, unspecified chronicity, unspecified location J32.9 ; Hyperlipidemia E78.5 ; Vitamin D deficiency, unspecified E55.9 ; Screening for diabetes mellitus Z13.1 and Encounter for immunization Z23 [address] [address] 03/25/2025 NAVJOT VIZCAINOA Overweight E66.3 ; B RI 29.0-29.9,adult Z68.29 ; Migraine without aura, not intractable, with status migrainosus G43.001 ; Hyperlipidemia E78.5 ; Vitamin D deficiency, unspecified E55.9 and Encounter for examination of blood pressure without abnormal findings Z01.[address] [address] 05/20/2025 NAVJOT KAMERON Overweight E66.3 ; B RI 29.0-29.9,adult Z68.29 ; Hyperlipidemia E78.5 ; Migraine without aura, not intractable, with status migrainosus G43.001 ; Vitamin D deficiency, unspecified E55.9 and Encounter for examination of blood pressure without abnormal findings Z01.[address] [facility] [address] [place] [address] 07/04/2025 NAVJOT MELO URI with cough and congestion J06.9 ; Obesity E66.9 ; Hyperlipidemia E78.5 ; Migraine without aura, not intractable, with status migrainosus G43.001 ; Vitamin D deficiency, unspecified E55.9 ; Renal stone N20.0 and Encounter for examination of blood pressure without abnormal findings Z01.[address] [facility] [address] [place], [place] 07/17/2025 NAVJOT MELO Obesity E66.9 ; URI with cough and congestion J06.9 ; Hyperlipidemia E78.5 ; Migraine without aura, not intractable, with status migrainosus G43.001 and Encounter for examination of blood pressure without abnormal findings Z01.[address] [facility] [address] [place], [place] 08/26/2025 NAVJOT MELO Nutritional counseli ng Z71.3 ; Overweight (BMI 25.0-29.9) E66.3 ; Hyperlipidemia E78.5 ; Migraine without aura, not intractable, with status migrainosus G43.001 and Encounter for examination of blood pressure without abnormal findings Z01.[address] [facility] [address] [place] [address] 10/15/2024 NAVJOT KAMERON [facility] [address] [place] [address] 11/19/2024 NAVJOT KAMERON [facility] [address] [place], [place] 12/24/2024 NAVJOT KAMERON [facility] [address] [place] [address] 01/29/2025 NAVJOT KAMERON [facility] [address] [place] [address] 02/28/2025 NAVJOT KAMERON [facility] [address] [facility] [address] [place] [address] 04/02/2025 NAVJOT KAMERON [facility] [address] [facility] [address] [place] [address] 04/21/2025 NAVJOT KAMERON [facility] [address] [place] [address] 05/20/2025 NAVJOT KAMERON [facility] [address] [facility] [address] [place] [address] 05/27/2025 NAVJOT KAMERON [facility] [address] [place] [address] 06/04/2025 NAVJOT KAMERON [facility] [address] [address] 06/09/2025 NAVJOT KAMERON [facility] [address] [place] [address] 07/04/2025 NAVJOT KAMERON Obesity (BMI 30-39.9 ) E66.9 [facility] [address] [address] 07/04/2025 NAVJOT KAMERON [facility] [address] [place] [address] 07/09/2025 NAVJOT KAMERON [facility] [address] [place] [address] 07/16/2025 NAVJOT KAMERON [facility] [address] [place] [address] 08/26/2025 NAVJOT KAMERON Assessments Encounter Date Diagnosis [...] Patient is traveling for 3 weeks to [place]. Patient is also considering oral medications if [...] Dictation was accomplished with the use of Vupen voice recognition software, prone to medical misidentifications [...] Patient is traveling for 3 weeks to [place]. Patient is also considering oral medications if [...] Dictation was accomplished with the use of [employer] voice recognition software, prone to medical misidentifications [...] Patient is traveling for 3 weeks to [place]. Patient is also considering oral medications if [...] Dictation was accomplished with the use of Dragon voice recognition software, prone to medical misidentifications [...] of water needs to be consumed today. HODNA C injection was also encouraged. We discussed options, Wegovy will likely be the best option. Patient is traveling for 3 weeks to [place]. Patient is also considering oral medications if [...] Dictation was accomplished with the use of [employer] voice recognition software, prone to medical misidentifications [...] Patient is traveling for 3 weeks to [place]. Patient is also considering oral medications if [...] log exercise and discussed fitness Apps like [employer] which can help keep log off calories [...] Dictation was accomplished with the use of [employer] voice recognition software, prone to medical misidentifications [...] Patient is traveling for 3 weeks to [place]. Patient is also considering oral medications if [...] log exercise and discussed fitness Apps like [employer] which can help keep log off calories [...] Dictation was accomplished with the use of [employer] voice recognition software, prone to medical misidentifications [...] Patient is traveling for 3 weeks to [place]. Patient is also considering oral medications if [...] Dictation was accomplished with the use of [employer] voice recognition software, prone to medical misidentifications [...] Patient is traveling for 3 weeks to [place]. Patient is also considering oral medications if [...] Dictation was accomplished with the use of [employer] voice recognition software, prone to medical misidentifications [...] Patient is traveling for 3 weeks to [place]. Patient is also considering oral medications if [...] Dictation was accomplished with the use of [employer] voice recognition software, prone to medical misidentifications [...] Patient is traveling for 3 weeks to [place]. Patient is also considering oral medications if [...] Dictation was accomplished with the use of [employer] voice recognition software, prone to medical misidentifications [...] Patient is traveling for 3 weeks to [place]. Patient is also considering oral medications if [...] Dictation was accomplished with the use of [employer] voice recognition software, prone to medical misidentifications [...] Patient is traveling for 3 weeks to [place]. Patient is also considering oral medications if [...] Dictation was accomplished with the use of [employer] voice recognition software, prone to medical misidentifications [...] Patient is traveling for 3 weeks to [place]. Patient is also considering oral medications if [...] Dictation was accomplished with the use of [employer] voice recognition software, prone to medical misidentifications [...] Patient is traveling for 3 weeks to [place]. Patient is also considering oral medications if [...] Dictation was accomplished with the use of [employer] voice recognition software, prone to medical misidentifications [...] Patient is traveling for 3 weeks to [place]. Patient is also considering oral medications if [...] Dictation was accomplished with the use of [employer] voice recognition software, prone to medical misidentifications [...] Patient is traveling for 3 weeks to [place]. Patient is also considering oral medications if [...] Dictation was accomplished with the use of [employer] voice recognition software, prone to medical misidentifications [...] Patient is traveling for 3 weeks to [place]. Patient is also considering oral medications if [...] Dictation was accomplished with the use of [employer] voice recognition software, prone to medical misidentifications [...] Patient is traveling for 3 weeks to [place]. Patient is also considering oral medications if [...] Dictation was accomplished with the use of [employer] voice recognition software, prone to medical misidentifications [...] Patient is traveling for 3 weeks to [place]. Patient is also considering oral medications if [...] Dictation was accomplished with the use of [employer] voice recognition software, prone to medical misidentifications [...] Patient is traveling for 3 weeks to [place]. Patient is also considering oral medications if [...] Dictation was accomplished with the use of [employer] voice recognition software, prone to medical misidentifications [...] Patient is traveling for 3 weeks to [place]. Patient is also considering oral medications if [...] Dictation was accomplished with the use of [employer] voice recognition software, prone to medical misidentifications [...] Patient is traveling for 3 weeks to [place]. Patient is also considering oral medications if [...] log exercise and discussed fitness Apps like [employer] which can help keep log off calories [...] Dictation was accomplished with the use of [employer] voice recognition software, prone to medical misidentifications [...] Patient is traveling for 3 weeks to [place]. Patient is also considering oral medications if [...] Dictation was accomplished with the use of [employer] voice recognition software, prone to medical misidentifications [...] Patient is traveling for 3 weeks to [place]. Patient is also considering oral medications if [...] Dictation was accomplished with the use of [employer] voice recognition software, prone to medical misidentifications [...] Patient is traveling for 3 weeks to [place]. Patient is also considering oral medications if [...] Dictation was accomplished with the use of [employer] voice recognition software, prone to medical misidentifications [...] Patient is traveling for 3 weeks to [place]. Patient is also considering oral medications if [...] Dictation was accomplished with the use of [employer] voice recognition software, prone to medical misidentifications [...] Patient is traveling for 3 weeks to [place]. Patient is also considering oral medications if [...] log exercise and discussed fitness Apps like [employer] which can help keep log off calories [...] Dictation was accomplished with the use of [employer] voice recognition software, prone to medical misidentifications [...] Patient is traveling for 3 weeks to [place]. Patient is also considering oral medications if [...] Dictation was accomplished with the use of [employer] voice recognition software, prone to medical misidentifications [...] Patient is traveling for 3 weeks to [place]. Patient is also considering oral medications if [...] Dictation was accomplished with the use of [employer] voice recognition software, prone to medical misidentifications [...] Patient is traveling for 3 weeks to [place]. Patient is also considering oral medications if [...] Dictation was accomplished with the use of [employer] voice recognition software, prone to medical misidentifications [...] Patient is traveling for 3 weeks to [place]. Patient is also considering oral medications if [...] Dictation was accomplished with the use of [employer] voice recognition software, prone to medical misidentifications [...] Patient is traveling for 3 weeks to [place]. Patient is also considering oral medications if [...] Dictation was accomplished with the use of [employer] voice recognition software, prone to medical misidentifications [...] Patient is traveling for 3 weeks to [place]. Patient is also considering oral medications if [...] Dictation was accomplished with the use of [employer] voice recognition software, prone to medical misidentifications [...] Patient is traveling for 3 weeks to [place]. Patient is also considering oral medications if [...] Dictation was accomplished with the use of [employer] voice recognition software, prone to medical misidentifications [...] Patient is traveling for 3 weeks to [place]. Patient is also considering oral medications if [...] Dictation was accomplished with the use of [employer] voice recognition software, prone to medical misidentifications [...] Patient is traveling for 3 weeks to [place]. Patient is also considering oral medications if [...] Dictation was accomplished with the use of [employer] voice recognition software, prone to medical misidentifications [...] Patient is traveling for 3 weeks to [place]. Patient is also considering oral medications if [...] Dictation was accomplished with the use of [employer] voice recognition software, prone to medical misidentifications [...] Patient is traveling for 3 weeks to [place]. Patient is also considering oral medications if [...] Dictation was accomplished with the use of [employer] voice recognition software, prone to medical misidentifications [...] Patient is traveling for 3 weeks to [place]. Patient is also considering oral medications if [...] log exercise and discussed fitness Apps like [employer] which can help keep log off calories [...] Dictation was accomplished with the use of [employer] voice recognition software, prone to medical misidentifications [...] Patient is traveling for 3 weeks to [place]. Patient is also considering oral medications if [...] log exercise and discussed fitness Apps like [employer] which can help keep log off calories [...] Dictation was accomplished with the use of [employer] voice recognition software, prone to medical misidentifications [...] Patient is traveling for 3 weeks to [place]. Patient is also considering oral medications if [...] Dictation was accomplished with the use of [employer] voice recognition software, prone to medical misidentifications [...] Patient is traveling for 3 weeks to [place]. Patient is also considering oral medications if [...] Dictation was accomplished with the use of [employer] voice recognition software, prone to medical misidentifications [...] Patient is traveling for 3 weeks to [place]. Patient is also considering oral medications if [...] Dictation was accomplished with the use of [employer] voice recognition software, prone to medical misidentifications [...] Patient is traveling for 3 weeks to [place]. Patient is also considering oral medications if [...] Dictation was accomplished with the use of [employer] voice recognition software, prone to medical misidentifications [...] Patient is traveling for 3 weeks to [place]. Patient is also considering oral medications if [...] log exercise and discussed fitness Apps like [employer] which can help keep log off calories [...] Dictation was accomplished with the use of [employer] voice recognition software, prone to medical misidentifications [...] Patient is traveling for 3 weeks to [place]. Patient is also considering oral medications if [...] log exercise and discussed fitness Apps like [employer] which can help keep log off calories [...] Dictation was accomplished with the use of [employer] voice recognition software, prone to medical misidentifications [...] Patient is traveling for 3 weeks to [place]. Patient is also considering oral medications if [...] log exercise and discussed fitness Apps like [employer] which can help keep log off calories [...] Dictation was accomplished with the use of [employer] voice recognition software, prone to medical misidentifications [...] Name:NAVJOT VIZCAINOA, 10/21/2025 10:15:00 AM, [address], [place], [address], Provider Name:NAVJOT KAMERON, 02/03/2026 11:00:00 AM, [address], [place], [address], Insurance Providers Payer Name Payer Address Payer Phone Subscriber Number Group Number Insured Name Patient Relationship to Insured Coverage Start Date Coverage End Date [employer] [address] [place] [id number] Asha Lo Self - patient is the insured Medical (General) History Medical History History ICD Code Hyperlipidemia, unspecified E78.5 Seasonal allergies J30.2 Palpitations R00.2 Migraine, unspecified, not intractable, without status migrainosus G43.909 Obesity (BMI 30-39.9) E66.9 GERD without esophagitis K21.9 Surgical History Surgery Date(Month/Year) R Knee replacement 05/13/2022 Left knee 11/2022
--- OUTSIDE RECORDS SUMMARY | 2025-09-24 22:30 | XMS_ITS | Clinical Summary ---
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
--- OUTSIDE RECORDS SUMMARY | 2025-09-24 22:30 | XMS_ITS | Data Portability ---
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 Name Role Phone INES SOLARES Primary Care Provider [phone] Assessment Encounter Date Assessment Date Assessment LastModified [...] Go To The Location Of Their Choice, [address] 10:18:07 unlist ed lab - pneumo coccal [...] Choice, 10:18:05 ige, total, serum 2024 025 [place] [facility] (Centralized Electronic Ordering - All Locations), Patient Can Go To The Location Of Their Choice, 10:18:09 immuno globul ins iga+ig g+igm, quanti tative , serum 2024 025 [place] [facility] ([facility] Ordering - All Locations), Patient Can Go To The Location Of Their Choice, 10:18:06 unlist ed lab - allerg ens, zone 1 2024 025 [place] [facility] ([facility] Ordering - All Locations), Patient Can Go To The Location Of Their Choice, 10:18:08 nettle IgE Ab, serum 2024 025 [facility] ([facility] Ordering - All Locations), Patient Can Go To The Location Of Their Choice, 12:27:57 bahia grass IgE Ab, quanti tative , serum 2024 025 [facility] ([facility] - All Locations), Patient Can Go To The Location Of Their Choice, 12:27:57 bermud a grass ige, serum 2024 025 [facility]), Patient Can Go To The Location Of Their Choice, 12:27:57 yoana pruitt in ige, serum 2024 025 y[place] [facility] ([facility] Ordering - All Locations), Patient Can Go To The Location Of Their Choice, [id number] 12:27:58 Referral None record ed. Procedures None [...] Laboratories [address], [place], [address], 11/13/2024 17:29:38 11/11/19 25 11/12/2024 CBC WITH DIFFE RENTI AL/PL ATELE T WBC 3.4 x10e3 /uL 3.4-10 .8 normal Not Available [facility] ([facility]) [address] [place], [address], 11/19/2024 10:18:04 11/11/19 25 11/12/2024 CBC WITH DIFFE RENTI AL/PL ATELE T RBC 4.60 x10e6 /uL 3.77-5 .28 normal Not Available [facility] ([facility]) [address] [place], [address], 11/19/2024 10:18:04 11/11/19 25 11/12/2024 CBC WITH DIFFE RENTI AL/PL ATELE T hemoglobin 14.5 g/dL 11.1-1 5.9 normal Not Available [facility] ([facility]) [address] [place], [address], 11/19/2024 10:18:04 11/11/19 25 11/12/2024 CBC WITH DIFFE RENTI AL/PL ATELE T hematocrit 43.5 % 34.0-4 6.6 normal Not Available [facility] ([facility]) [address] [facility], [place], [address], 11/19/2024 10:18:04 11/11/19 25 11/12/2024 CBC WITH DIFFE RENTI AL/PL ATELE T MCV 95 fL 79-97 normal Not Available [facility] ([facility]) [address] [place], [address], 11/19/2024 10:18:04 11/11/19 25 11/12/2024 CBC WITH DIFFE RENTI AL/PL ATELE T MCH 31.5 pg 26.6-3 3.0 normal Not Available [facility] ([facility]) [address] [place], [address], 11/19/2024 10:18:04 11/11/19 25 11/12/2024 CBC WITH DIFFE RENTI AL/PL ATELE T MCHC 33.3 g/dL 31.5-3 5.7 normal Not Available [facility] ([facility]) [address] [place], [address], 11/19/2024 10:18:04 11/11/19 25 11/12/2024 CBC WITH DIFFE RENTI AL/PL ATELE T RDW 12.9 % 11.7-1 5.4 Not Available [facility] ([facility]) [address] [place], [address], 11/19/2024 10:18:04 11/11/19 25 11/12/2024 CBC WITH DIFFE RENTI AL/PL ATELE T platelets 243 x10e3 /uL 150-45 0 normal Not Available [facility] ([facility]) [address] [place], [address], 11/19/2024 10:18:04 11/11/19 25 11/12/2024 CBC WITH DIFFE RENTI AL/PL ATELE T neutrophils 52 % not estab. normal Not Available [facility] ([facility]) [address] [facility], [place], [address], 11/19/2024 10:18:04 11/11/19 25 11/12/2024 CBC WITH DIFFE RENTI AL/PL ATELE T lymphs 39 % not estab. normal Not Available [facility] ([facility]) [address] [facility], [place], [address], 11/19/2024 10:18:04 11/11/19 25 11/12/2024 CBC WITH DIFFE RENTI AL/PL ATELE T monocytes 7 % not estab. normal Not Available [facility] ([facility]) [address] [facility], [place], [address], 11/19/2024 10:18:04 11/11/19 25 11/12/2024 CBC WITH DIFFE RENTI AL/PL ATELE T eos 1 % not estab. normal Not Available [facility] ([facility]) [address] [facility], [place], [address], 11/19/2024 10:18:04 11/11/19 25 11/12/2024 CBC WITH DIFFE RENTI AL/PL ATELE T basos 1 % not estab. normal Not Available [facility] ([facility]) [address] [facility], [place], [address], 11/19/2024 10:18:04 11/11/19 25 11/12/2024 CBC WITH DIFFE RENTI AL/PL ATELE T immature cells ALTERATION SPECIALIST Not Available [facility] ([facility]) [address] [place], [address], 11/19/2024 10:18:04 11/11/19 25 11/12/2024 CBC WITH DIFFE RENTI AL/PL ATELE T neutrophils (absolute) 1.8 x10e3 /uL 1.4-7. 0 normal Not Available [facility] ([facility]) [address] [facility], [place], [address], 11/19/2024 10:18:04 11/11/19 25 11/12/2024 CBC WITH DIFFE RENTI AL/PL ATELE T lymphs (absolute) 1.3 x10e3 /uL 0.7-3. 1 normal Not Available [facility] ([facility]) [address] [facility], [place], [address], 11/19/2024 10:18:04 11/11/19 25 11/12/2024 CBC WITH DIFFE RENTI AL/PL ATELE T monocytes(ab solute) 0.2 x10e3 /uL 0.1-0. 9 normal Not Available [facility] ([facility]) [address] [facility], [place], [address], 11/19/2024 10:18:04 11/11/19 25 11/12/2024 CBC WITH DIFFE RENTI AL/PL ATELE T eos (absolute) 0.0 x10e3 /uL 0.0-0. 4 normal Not Available [facility] ([facility]) [address] [facility], [place], [address], 11/19/2024 10:18:04 11/11/19 25 11/12/2024 CBC WITH DIFFE RENTI AL/PL ATELE T baso (absolute) 0.0 x10e3 /uL 0.0-0. 2 normal Not Available [facility] ([facility]) [address] [place], [address], 11/19/2024 10:18:04 11/11/19 25 11/12/2024 CBC WITH DIFFE RENTI AL/PL ATELE T immature granulocytes 0 % not estab. Not Available [facility] ([facility]) [address] [facility], [place], [address], 11/19/2024 10:18:04 11/11/19 11/12/2024 CBC WITH DIFFE RENTI AL/PL ATELE T immature grans (abs) 0.0 x10e3 /uL 0.0-0. 1 Not Available [facility] ([facility]) [address] [facility], [place], [address], 11/19/2024 10:18:04 11/11/19 25 11/12/2024 CBC WITH DIFFE RENTI AL/PL ATELE T NRBC ALTERATION SPECIALIST Not Available [facility] ([facility]) [address] [facility], [place], [address], 11/19/2024 10:18:04 11/11/1911/12/2024 CBC WITH DIFFE RENTI AL/PL ATELE T hematology comments: ALTERATION SPECIALIST Not Available [facility] ([facility]) [address] [facility], [place], [address], 11/19/2024 10:18:04 11/11/19 25 11/15/2024 PNEUM OCOCC AL AB (23 SEROT YPE) pneumo Ab type 1* 1.9 ug/mL >1.3 Not Available [facility] [address] [place], [address], 11/19/2024 10:18:05 11/11/19 25 11/15/2024 PNEUM OCOCC AL AB (23 SEROT YPE) pneumo Ab type 3* 0.4 ug/mL >1.3 below low normal Not Available [facility] [address] [place], [address], 11/19/2024 10:18:05 11/11/19 25 11/15/2024 PNEUM OCOCC AL AB (23 SEROT YPE) pneumo Ab type 4* <0.1 ug/mL >1.3 below low normal Not Available [facility] [address] [place], [address], 11/19/2024 10:18:05 11/11/19 25 11/15/2024 PNEUM OCOCC AL AB (23 SEROT YPE) pneumo Ab type 8* 1.7 ug/mL >1.3 Not Available [facility] [place] [address] [place], [address], 11/19/2024 10:18:05 11/11/19 25 11/15/2024 PNEUM OCOCC AL AB (23 SEROT YPE) pneumo Ab type 9 (9N)* <0.1 ug/mL >1.3 below low normal Not Available [facility] [place] [place], [address], 11/19/2024 10:18:05 11/11/19 25 11/15/2024 PNEUM OCOCC AL AB (23 SEROT YPE) pneumo Ab type 12 (12F)* <0.1 ug/mL >1.3 below low normal Not Available [facility] [place] [place], [address], 11/19/2024 10:18:05 11/11/19 25 11/15/2024 PNEUM OCOCC AL AB (23 SEROT YPE) pneumo Ab type 14* 1.3 ug/mL >1.3 below low normal Not Available [facility] [place], [address], 11/19/2024 10:18:05 11/11/19 25 11/15/2024 PNEUM OCOCC AL AB (23 SEROT YPE) pneumo Ab type 17 (17F)* 4.9 ug/mL >1.3 Not Available [facility] [place], [address], 11/19/2024 10:18:05 11/11/19 25 11/15/2024 PNEUM OCOCC AL AB (23 SEROT YPE) pneumo Ab type 19 (19F)* 0.2 ug/mL >1.3 below low normal Not Available [facility] [place], [address], 11/19/2024 10:18:05 11/11/19 25 11/15/2024 PNEUM OCOCC AL AB (23 SEROT YPE) pneumo Ab type 2* <0.2 ug/mL >1.3 below low normal Not Available [facility] [place], [address], 11/19/2024 10:18:05 11/11/19 25 11/15/2024 PNEUM OCOCC AL AB (23 SEROT YPE) pneumo Ab type 20* 1.5 ug/mL >1.3 Not Available [facility] [place], [address], 11/19/2024 10:18:05 11/11/19 25 11/15/2024 PNEUM OCOCC AL AB (23 SEROT YPE) pneumo Ab type 22 (22F)* <0.1 ug/mL >1.3 below low normal Not Available [facility] [place], [address], 11/19/2024 10:18:05 11/11/19 25 11/15/2024 PNEUM OCOCC AL AB (23 SEROT YPE) pneumo Ab type 23 (23F)* <0.1 ug/mL >1.3 below low normal Not Available [facility] [place] [place], [address], 11/19/2024 10:18:05 11/11/19 25 11/15/2024 PNEUM OCOCC AL AB (23 SEROT YPE) pneumo Ab type 26 (6B)* <0.1 ug/mL >1.3 below low normal Not Available [facility] [place] [place], [address], 11/19/2024 10:18:05 11/11/19 25 11/15/2024 PNEUM OCOCC AL AB (23 SEROT YPE) pneumo Ab type 34 (10A)* 0.9 ug/mL >1.3 below low normal Not Available [facility] [place] [place], [address], 11/19/2024 10:18:05 11/11/19 25 11/15/2024 PNEUM OCOCC AL AB (23 SEROT YPE) pneumo Ab type 43 (11A)* 1.0 ug/mL >1.3 below low normal Not Available [facility] [place] [place], [address], 11/19/2024 10:18:05 11/11/19 25 11/15/2024 PNEUM OCOCC AL AB (23 SEROT YPE) pneumo Ab type 5* <0.1 ug/mL >1.3 below low normal Not Available [facility] [place] [place], [address], 11/19/2024 10:18:05 11/11/19 25 11/15/2024 PNEUM OCOCC AL AB (23 SEROT YPE) pneumo Ab type 51 (7F)* 0.2 ug/mL >1.3 below low normal Not Available [facility] [place], [address], 11/19/2024 10:18:05 11/11/19 25 11/15/2024 PNEUM OCOCC AL AB (23 SEROT YPE) pneumo Ab type 54 (15B)* 19.1 ug/mL >1.3 Not Available [facility] [place] [place], [address], 11/19/2024 10:18:05 11/11/19 25 11/15/2024 PNEUM OCOCC AL AB (23 SEROT YPE) pneumo Ab type 56 (18C)* 0.3 ug/mL >1.3 below low normal Not Available [facility] [place] [place], [address], 11/19/2024 10:18:05 11/11/19 25 11/15/2024 PNEUM OCOCC AL AB (23 SEROT YPE) pneumo Ab type 57 (19A)* 1.3 ug/mL >1.3 below low normal Not Available [facility] [address] [place], [address], 11/19/2024 10:18:05 11/11/19 25 11/15/2024 PNEUM OCOCC AL AB (23 SEROT YPE) pneumo Ab type 68 (9V)* <0.1 ug/mL >1.3 below low normal Not Available [facility] [address] [place], [address], 11/19/2024 10:18:05 11/11/19 25 11/15/2024 PNEUM OCOCC [...] Laboratories [address] [place], [address], 11/19/2024 10:18:05 11/11/19 25 11/12/2024 IMMUN OGLOB ULINS A/G/M , QN, SER immunoglobul in g, qn, serum 997 mg/dL 586-16 02 Not Available [facility] ([facility]) [address] [place], [address], 11/19/2024 10:18:06 11/11/19 25 11/12/2024 IMMUN OGLOB ULINS A/G/M , QN, SER immunoglobul in A, qn, serum 195 mg/dL 87-352 normal Not Available [facility] ([facility]) [address] [place], [address], 11/19/2024 10:18:06 11/11/19 25 11/12/2024 IMMUN OGLOB ULINS A/G/M , QN, SER immunoglobul in M, qn, serum 35 mg/dL 26-217 Not Available [facility] ([facility]) [address] [facility], [place], [address], 11/19/2024 10:18:06 11/11/19 25 11/19/2024 HAEMO PHILU S INFLU ENZAE B IGG haemophilus influenzae B IgG 0.57 ug/mL NOTE: An anti- Hib level of 0.15 ug/mL is gener ally accep josi as the minim um level for prote ction . Optim al prote ction post- vacci natio n requi res a level great er than 1.00 ug/mL . Not Available [facility] ([facility]) [address] [facility], [place], [address], 11/19/2024 10:18:07 11/11/19 25 11/11/2024 ALLER GENS, [...] >100. 00 Very High Not Available [facility] ([facility]) [address] [facility], [place], [address], 11/19/2024 10:18:08 11/11/19 25 11/13/2024 ALLER GENS, ZONE 1 K399-JwZ D pteronyssinu s <0.10 kU/L class 0 Not Available [facility] ([facility]) [address] [facility], [place], [address], 11/19/2024 10:18:08 11/11/19 25 11/13/2024 ALLER GENS, ZONE 1 I769-QtH D farinae <0.10 kU/L class 0 Not Available [facility] ([facility]) [address] [facility], [place], [address], 11/19/2024 10:18:08 11/11/19 25 11/13/2024 ALLER GENS, ZONE 1 W341-PrQ CAT dander <0.10 kU/L class 0 Not Available [facility] ([facility]) [address] [facility], [place], [address], 11/19/2024 10:18:08 11/11/19 25 11/13/2024 ALLER GENS, ZONE 1 O987-QmI dog dander <0.10 kU/L class 0 Not Available [facility] ([facility]) [address] [facility], [place], [address], 11/19/2024 10:18:08 11/11/19 25 11/13/2024 ALLER GENS, ZONE 1 e902-NqM bermuda grass <0.10 kU/L class 0 Not Available [facility] ([facility]) [address] [facility], [place], [address], 11/19/2024 10:18:08 11/11/19 25 11/13/2024 ALLER GENS, ZONE 1 j058-UnS bluegrass, [place] <0.10 kU/L class 0 Not Available [facility] ([facility]) [address] [facility], [place], [address], 11/19/2024 10:18:08 11/11/19 25 11/13/2024 ALLER GENS, ZONE 1 o609-XnV bahia grass <0.10 kU/L class 0 Not Available [facility] ([facility]) [address] [facility], [place], [address], 11/19/2024 10:18:08 11/11/19 25 11/13/2024 ALLER GENS, ZONE 1 S138-UqG cockroach, sierra leonean <0.10 kU/L class 0 Not Available [facility] ([facility]) [address] [facility] [place], [address], 11/19/2024 10:18:08 11/11/19 25 11/13/2024 ALLER GENS, ZONE 1 K080-ZwI penicillium chrysogen <0.10 kU/L class 0 Not Available [facility] ([facility]) [address] [facility] [place] [place], [address], 11/19/2024 10:18:08 11/11/19 25 11/13/2024 ALLER GENS, ZONE 1 V488-IfQ cladosporium herbarum <0.10 kU/L class 0 Not Available [facility] ([facility]) [address] [place], [address], 11/19/2024 10:18:08 11/11/19 25 11/13/2024 ALLER GENS, ZONE 1 L961-MmV aspergillus fumigatus <0.10 kU/L class 0 Not Available [facility] ([facility]) [address] [facility] [place] [place], [address], 11/19/2024 10:18:08 11/11/19 25 11/13/2024 ALLER GENS, ZONE 1 C858-YzI mucor racemosus <0.10 kU/L class 0 Not Available [facility] ([facility]) [address] [facility] [place] [place], [address], 11/19/2024 10:18:08 11/11/19 25 11/13/2024 ALLER GENS, ZONE 1 E508-NkX alternaria alternata <0.10 kU/L class 0 Not Available [facility] ([facility]) [address] [place], [address], 11/19/2024 10:18:08 11/11/19 25 11/13/2024 ALLER GENS, ZONE 1 W876-WpO stemphylium herbarum <0.10 kU/L class 0 Not Available [facility] ([facility]) [address], [place], [address], 11/19/2024 10:18:08 11/11/19 25 11/13/2024 ALLER GENS, ZONE 1 J337-DxU common silver birch <0.10 kU/L class 0 Not Available [facility] ([facility]) [address], [place], [address], 11/19/2024 10:18:08 11/11/19 25 11/13/2024 ALLER GENS, ZONE 1 S050-FgR oak, white <0.10 kU/L class 0 Not Available [facility] ([facility]) [address], [place], [address], 11/19/2024 10:18:08 11/11/19 25 11/13/2024 ALLER GENS, ZONE 1 U271-TpK elm, sierra leonean <0.10 kU/L class 0 Not Available [facility] ([facility]) [address], [place], [address], 11/19/2024 10:18:08 11/11/19 25 11/13/2024 ALLER GENS, ZONE 1 N317-KeX dalia, white <0.10 kU/L class 0 Not Available [facility] ([facility]) [address], [place], [address], 11/19/2024 10:18:08 11/11/19 25 11/13/2024 ALLER GENS, ZONE 1 G704-OpG maple/box elder <0.10 kU/L class 0 Not Available [facility] ([facility]) [address], [place], [address], 11/19/2024 10:18:08 11/11/19 25 11/13/2024 ALLER GENS, ZONE 1 K977-SzI hazelnut tree <0.10 kU/L class 0 Not Available [facility] ([facility]) [address], [place], [address], 11/19/2024 10:18:08 11/11/19 25 11/13/2024 ALLER GENS, ZONE 1 P295-JaP hickory, white <0.10 kU/L class 0 Not Available [facility] ([facility]) [address], [place], [address], 11/19/2024 10:18:08 11/11/19 25 11/13/2024 ALLER GENS, ZONE 1 O741-VeX white mulberry <0.10 kU/L class 0 Not Available [facility] ([facility]) [address], [place], [address], 11/19/2024 10:18:08 11/11/19 25 11/13/2024 ALLER GENS, ZONE 1 W432-CdY cedar, mountain <0.10 kU/L class 0 Not Available [facility] ([facility]) [address], [place], [address], 11/19/2024 10:18:08 11/11/19 25 11/13/2024 ALLER GENS, ZONE 1 W737-PlF ragweed, short <0.10 kU/L class 0 Not Available [facility] ([facility]) [address], [place], [address], 11/19/2024 10:18:08 11/11/19 25 11/13/2024 ALLER GENS, ZONE 1 Y882-SlV mugwort <0.10 kU/L class 0 Not Available [facility] ([facility]) [address] [facility], [place], [address], 11/19/2024 10:18:08 11/11/19 25 11/13/2024 ALLER GENS, ZONE 1 J429-UuC plantain, pashto <0.10 kU/L class 0 Not Available [facility] ([facility]) [address] [facility], [place], [address], 11/19/2024 10:18:08 11/11/19 25 11/13/2024 ALLER GENS, ZONE 1 L755-JbV pigweed, common <0.10 kU/L class 0 Not Available [facility] ([facility]) [address] [facility], [place], [address], 11/19/2024 10:18:08 11/11/19 25 11/13/2024 ALLER GENS, ZONE 1 T801-ApX sheep sorrel <0.10 kU/L class 0 Not Available [facility] ([facility]) [address] [facility], [place], [address], 11/19/2024 10:18:08 11/11/19 25 11/13/2024 ALLER GENS, ZONE 1 F380-XaC nettle <0.10 kU/L class 0 Not Available [facility] ([facility]) [address] [facility], [place], [address], 11/19/2024 10:18:08 11/11/19 25 11/13/2024 IMMUN OGLOB ULIN E, TOTAL immunoglobul in E, total 55 IU/mL 6-495 Not Available [facility] ([facility]) [address] [facility], [place], [address], 11/19/2024 10:18:09 01/23/20 25 01/29/2025 PNEUM OCOCC AL AB (23 SEROT YPE) pneumo Ab type 1* 2.2 ug/mL >1.3 Not Available [facility] [address] [place], [address], 01/29/2025 02:49:46 01/23/20 25 01/29/2025 PNEUM OCOCC AL AB (23 SEROT YPE) pneumo Ab type 3* 0.5 ug/mL >1.3 below low normal Not Available [facility] [address] [place], [address], 01/29/2025 02:49:46 01/23/2001/29/2025 PNEUM OCOCC AL AB (23 SEROT YPE) pneumo Ab type 4* <0.1 ug/mL >1.3 below low normal Not Available [facility] [address] [place], [address], 01/29/2025 02:49:46 01/23/2001/29/2025 PNEUM OCOCC AL AB (23 SEROT YPE) pneumo Ab type 8* <0.3 ug/mL >1.3 below low normal Not Available [facility] [place] [place], [address], 01/29/2025 02:49:46 01/23/20 25 01/29/2025 PNEUM OCOCC AL AB (23 SEROT YPE) pneumo Ab type 9 (9N)* <0.1 ug/mL >1.3 below low normal Not Available [facility] [place], [address], 01/29/2025 02:49:46 01/23/2001/29/2025 PNEUM OCOCC AL AB (23 SEROT YPE) pneumo Ab type 12 (12F)* <0.1 ug/mL >1.3 below low normal Not Available [facility] [place], [address], 01/29/2025 02:49:46 01/23/20 25 01/29/2025 PNEUM OCOCC AL AB (23 SEROT YPE) pneumo Ab type 14* 1.1 ug/mL >1.3 below low normal Not Available [facility] [place], [address], 01/29/2025 02:49:46 01/23/20 25 01/29/2025 PNEUM OCOCC AL AB (23 SEROT YPE) pneumo Ab type 17 (17F)* 4.5 ug/mL >1.3 Not Available [facility] [place], [address], 01/29/2025 02:49:46 01/23/2001/29/2025 PNEUM OCOCC AL AB (23 SEROT YPE) pneumo Ab type 19 (19F)* <0.1 ug/mL >1.3 below low normal Not Available [facility] [place], [address], 01/29/2025 02:49:46 01/23/2001/29/2025 PNEUM OCOCC AL AB (23 SEROT YPE) pneumo Ab type 2* <0.2 ug/mL >1.3 below low normal Not Available [facility] [place], [address], 01/29/2025 02:49:46 01/23/20 25 01/29/2025 PNEUM OCOCC AL AB (23 SEROT YPE) pneumo Ab type 20* 1.7 ug/mL >1.3 Not Available [facility] [place], [address], 01/29/2025 02:49:46 01/23/2001/29/2025 PNEUM OCOCC AL AB (23 SEROT YPE) pneumo Ab type 22 (22F)* <0.1 ug/mL >1.3 below low normal Not Available [facility] [place], [address], 01/29/2025 02:49:46 01/23/20 25 01/29/2025 PNEUM OCOCC AL AB (23 SEROT YPE) pneumo Ab type 23 (23F)* <0.1 ug/mL >1.3 below low normal Not Available [facility] [place], [address], 01/29/2025 02:49:46 01/23/20 25 01/29/2025 PNEUM OCOCC AL AB (23 SEROT YPE) pneumo Ab type 26 (6B)* <0.1 ug/mL >1.3 below low normal Not Available [facility] [address] [place] [address] [place], [address], 01/29/2025 02:49:46 01/23/20 25 01/29/2025 PNEUM OCOCC AL AB (23 SEROT YPE) pneumo Ab type 34 (10A)* 0.2 ug/mL >1.3 below low normal Not Available [facility] [address] [place] [address] [place], [address], 01/29/2025 02:49:46 01/23/2001/29/2025 PNEUM OCOCC AL AB (23 SEROT YPE) pneumo Ab type 43 (11A)* 1.1 ug/mL >1.3 below low normal Not Available [facility] [address] [place] [address] [place], [address], 01/29/2025 02:49:46 01/23/20 25 01/29/2025 PNEUM OCOCC AL AB (23 SEROT YPE) pneumo Ab type 5* <0.1 ug/mL >1.3 below low normal Not Available [facility] [address] [place] [address] [place], [address], 01/29/2025 02:49:46 01/23/20 25 01/29/2025 PNEUM OCOCC AL AB (23 SEROT YPE) pneumo Ab type 51 (7F)* >19.6 ug/mL >1.3 Not Available [facility] [address] [place] [address] [place], [address], 01/29/2025 02:49:46 01/23/20 25 01/29/2025 PNEUM OCOCC AL AB (23 SEROT YPE) pneumo Ab type 54 (15B)* 13.2 ug/mL >1.3 Not Available [facility] [address] [place], [address], 01/29/2025 02:49:46 01/23/2001/29/2025 PNEUM OCOCC AL AB (23 SEROT YPE) pneumo Ab type 56 (18C)* 0.2 ug/mL >1.3 below low normal Not Available [facility] [address] [place], [address], 01/29/2025 02:49:46 01/23/2001/29/2025 PNEUM OCOCC AL AB (23 SEROT YPE) pneumo Ab type 57 (19A)* 1.8 ug/mL >1.3 Not Available [facility] [address] [place], [address], 01/29/2025 02:49:46 01/23/2001/29/2025 PNEUM OCOCC AL AB (23 SEROT YPE) pneumo Ab type 68 (9V)* <0.1 ug/mL >1.3 below low normal Not Available [facility] [address] [place], [address], 01/29/2025 02:49:46 01/23/2001/29/2025 PNEUM OCOCC AL AB [...] [facility] [address] [place], [address], 01/29/2025 02:49:46 01/06/25 2507/15/2024 CT, sinus es, w/o contr ast No observ ation record ed. [email or web address] Not Available 17:19:16 Result Notes None recorded. Problems Name Problem SNOMED Code Status Onset Date Resolution Date Notes Provider Name and Address Organization Details Recorded Time Chronic sinusitis 54007110 Active 2024 GLORIA CORBETT MD [address] [facility],[place] [address], [place], [address], [facility] 14:23:32 Migraine without aura 46591568 Active 2024 GLORIA CORBETT MD [address] [facility],[place] [address], [place], [address], [facility] [place] [facility] 14:23:40 Immunodeficien cy disorder 645834322 Active 2024 GLORIA CORBETT MD [address] [place] [address],[place] [address], [place], [address], [facility] 11:46:21 Problem Notes None recorded. Procedures Surgical History Date Name Laterality Status Provider Name and Address Organization Details Recorded Time JMSNasal/Sinus Endoscopy completed GLORIA CROOKS MD [address] [facility],[place] [address], [place], [address], [facility] 11/11/2024 14:21:39 Imaging Results None recorded. Procedure [...] ICD10 Code Diagnosis IMO Codes Diagnosis Note [id number] MD [facility] [address] [address] 11/11/2024 13:22:32 11/11/2024 14:29:51 Chronic sinusitis 94077609 J32.9 Migraine without aura [id number] G43.009 Suspect underlying migraine headache. Suggest reduction [...] Fuller Member ID Guarantor Name 11/11/2024 1 [facility] [employer] [employer] (PP[employer]) [id number] Juventino A Lisbet [id number] Asha Amaya Notes Date Note Type Note [...] as wellHx of migraines since young adulthood [place] PMS related and now post menopausalFP nasal for a while without help. Was using oxymetazoline as wellNow on XClear patient access--Elvis Murray in [place] GLORIA CROOKS MD [address] [place] [address], [place], [address], [place] - [facility] 11/11/2024 14:25:44 OBGyn Episode No OBEpisode recorded.
== END 2025-09-24 11:25 | disposition home or self-care (01) ==
LOC: HO.HMGCX 11:24
PROVIDERS: PCP Physician Assistant Medical; Visit Provider Internal Medicine Nephrology
DX: N20.0 Calculus of kidney (principal)
CPT/HCPCS: 76775

== ENCOUNTER → 2025-09-24 11:26 | Outpatient (BNV) | payer OTHER, SELFPAY | PROVIDERS: PCP Physician Assistant Medical; Visit Provider Radiology Diagnostic Radiology | DX: N20.0 Calculus of kidney (principal) | CPT/HCPCS: 76775 ==